=== PATIENT | male | born 1925 | race Caucasian/White ===

== ENCOUNTER 2016-07-23 08:28 | Observation (INO) | payer OTHER ==
[~2016-07-23] VITALS: Ht 182.9 cm; Wt 91.6 kg
[~2016-07-23 08:28] MED LIST: ALBUTEROL2.5 MG/3 M INH/SOL; ANTIVERT 12.512.5 MG PO; ANTIVERT 25 MG25 MG PO; APIX2.5 PO; ATIVAN0.5 M1 PO; ATIVAN0.5 MG PO; ATORVASTATIN CA80 M1 PO; ATORVASTATIN CA80 MG PO; AUGMENTIN 875875 MG PO; B-12500 MC1 PO; BENZONATATE100 M1 PO; BUFFERIN LOW DO81 MG PO; CARVEDILOL12.5 MG PO; CARVEDILOL3.125 MG PO; CARVEDILOL6.25 M1 PO; CARVEDILOL6.25 MG PO; CHILDREN'S ASPI81 M1 PO; CIPRO 250MG250 MG PO; CLOPIDOGREL75 MG PO; COREG 6.256.25 MG PO; COUMADIN 4MG TAB4 MG PO; DIOVAN 160 MG160 MG PO; DIOVAN160 MG PO; DIOVAN320 MG PO; DIOVAN80 MG PO; DOXYCYCLINE MO100 MG PO; ELIQUIS2.5 M1 PO; FINASTERIDE5 M1 PO; FINASTERIDE5 MG PO; FLOMAX(MONOGRA0.4 MG PO; FUROSEMIDE20 M1 PO; FUROSEMIDE20 MG PO; GLIPIZIDE5 MG PO; LASIX20 MG PO; MAGNESIUM OXID400 MG PO; MAGNESIUM250 M3 PO; MUCINEX ER600 MG PO; MUCINEX600 M1 PO; NITRO-DUR0.4 MG/HR TOP; NITROGLYCERIN0.4 M1 SL; NITROGLYCERIN1 EACH TOP; PENTOXIFYLLINE400 M1 PO; PREDNISONE 10MG10 M1 PO; PREDNISONE 20MG20 MG PO; PREDNISONE10 MG PO; PROAIR HFA0.09 MG/Ac INH; PROAIR HFA8.5 GM INH; PROS5 PO; SYMBICORT 16010.2 GM INH; SYMBICORT1 AER INH; TAMIFLU30 MG PO; TAMSULOSIN HYD0.4 MG PO; TESSALON PERLE100 MG PO; TYLENOL WITH C1 EACH PO; VICODIN 5-3001 EACH PO; VICODIN5-300 PO; VITAMIN D2000 I1 PO; VITAMIN D2000 UNI1 PO; ZITHROMAX500 MG PO
--- NOTE | 2016-07-23 08:36 | NUR ---
GERMÁNA FROM HOME, WITH C/O LEFT NECK PAIN "GOING UP TO HEAD". PER EMS PT WAS SEEN AT [facility] ON TUESDAY FOR THE SAME, GIVEN BACLOPHEN, MUSCLE RELAXORS,PT STATING "IT DOESN'T DO ANYTHING". PER PT HAD XRAYS AND CT SCAN -FRACTURES, DIAGNOSED WITH ARTHRITIS. "I DO GET CORISONE SHOTS TO MY WRIST, BUT NEVER HAD ANYTHING IN MY NECK". PT DENIES FALL OR INJURY TO THE AREA. PT C/O INCREASED PAIN "WHEN I PRESS ON IT".
--- NOTE | 2016-07-23 08:37 | NUR ---
DR BAGLEY IN TO EVAL AT THIS TIME.
--- NOTE | 2016-07-23 08:46 | ED NECK/BACK PAIN COMPLAINT ---
See Addendum History of Present Illness General Chief Complaint: Neck/Upper Back Pain/Injury Stated Complaint: NECK PAIN Source: patient, EMS Exam Limitations: no limitations Vital Signs & Intake/Output Vital Signs & Intake/Output Vital Signs Date Time Temp Pulse Resp B/P Pulse O2 O2 Flow FiO2 Ox Delivery Rate 07/23 1019 97.0 61 18 191/126 99 Room Air 07/23 0835 97.5 63 20 205/91 100 Room Air Room Air Allergies Coded Allergies: amoxicillin (From [facility]) (UNKNOWN 04/23/16) clarithromycin (From [facility]) (UNKNOWN 04/23/16) diazepam (UNKNOWN 04/23/16) lansoprazole (From [facility]) (UNKNOWN 04/23/16) morphine (Intermediate, LETHARGY, CONFUSION 04/23/16) meclizine (CONFUSION 04/23/16) Reconcile Medications Albuterol Sulfate (Proair Hfa) 90 MCG HFA.AER.AD 2 PUFF INH Q6P PRN RESPIRATORY (Reported) Albuterol Sulfate 2.5 MG/3 ML (0.083 %) VIAL.NEB 1 Vial INH/DANDY Q4P SHORTNESS OF BREATH (Reported) Apixaban (Eliquis) 2.5 MG TABLET 1 TAB PO BID BLOOD THINNER (Reported) Aspirin (Children's Aspirin) 81 MG TAB.CHEW 1 TAB PO DAILY HEART HEALTH ( Reported) Atorvastatin Calcium 80 MG TABLET 1 TAB PO DAILY CHOLESTEROL (Reported) Budesonide/Formoterol Fumarate (Symbicort 160-4.5 Mcg Inhaler) 160 MCG-4.5 MCG/ ACTUATION HFA.AER.AD 2 PUF INH BID COPD (Reported) Carvedilol 25 MG TABLET 1 TAB PO BID HEART (Reported) Cholecalciferol (Vitamin D3) (Vitamin D) 2,000 UNIT TABLET 1 TAB PO DAILY SUPPLEMENT (Reported) Cyanocobalamin (Vitamin B-12) (B-12) 500 MCG TABLET 1 TAB PO DAILY SUPPLEMENT (Reported) Finasteride 5 MG TABLET 1 TAB PO QPM PROSTATE (Reported) Furosemide 20 MG TABLET 1 TAB PO DAILY PRN WATER PILL (Reported) Guaifenesin (Mucinex) 600 MG TAB.ER.12H 1 TAB PO BID PRN UNKNOWN (Reported) Lorazepam (Ativan) 0.5 MG TABLET 0.5 TAB PO BIDP PRN ANXIETY (Reported) Nitroglycerin 0.4 MG TAB.SUBL 1 TAB SL AD PRN ANGINA (Reported) 1st sign of attack; may repeat every 5 minutes until relief; if pain persists after 3 tablets in 15 minutes, prompt medical att Tylenol With Codeine (Tylenol With Codeine #3 Tablet) 300 MG-30 MG TABLET 1 TAB PO Q6P PRN PAIN (Reported) Valsartan 320 MG TABLET 1 TAB PO DAILY HEART (Reported) Triage Note: BIBA FROM HOME, WITH C/O LEFT NECK PAIN "GOING UP TO HEAD". PER EMS PT WAS SEEN AT [facility] ON TUESDAY FOR THE SAME, GIVEN BACLOPHEN, MUSCLE RELAXORS,PT STATING "IT DOESN'T DO ANYTHING". PER PT HAD XRAYS AND CT SCAN -FRACTURES, DIAGNOSED WITH ARTHRITIS. "I DO GET CORISONE SHOTS TO MY WRIST, BUT NEVER HAD ANYTHING IN MY NECK". PT DENIES FALL OR INJURY TO THE AREA. Triage Nurses Notes Reviewed? yes Onset: Abrupt Duration: day(s):, continues in ED, intermittent Timing: multiple episodes today Quality/Severity: severe, sharpness Location: LEFT NECK Radiation: none HPI: Patient presents for evaluation of left sided neck pain. He was evaluated at [facility] ago. Patient states that he had a CAT scan of the neck done and was told he had arthritis. Since then he has had an onset of a sharp stabbing pain over the left occipital region that occurs every 2 or 3 minutes and lasts for about 30 seconds at a time. The pain is worse with palpation and movements. Past History Travel History Traveled to [place] past 21 day No Medical History Any Pertinent Medical History? see below for history Neurological: dizziness, NUMB 1ST THREE L FINGERS EENT: [place] BILATERAL CATARACTS Cardiovascular: AFIB, CAD, CHF, hypertension, CARDIAC STENTS X 4 NV x5 HLD Respiratory: COPD, pulmonary embolism Gastrointestinal: ABDOMINAL AORTIC ANEURYSM HERNIA REPAIR Hepatic: NONE Renal: chronic kidney disease Musculoskeletal: carpal tunnel syndrome ARTHRITIS Psychiatric: NONE Endocrine: diabetes Blood Disorders: DVT Cancer(s): melanoma BARTACKER/Reproductive: BPH History of MRSA: No History of VRE: No History of CDIFF: No Surgical History Surgical History: cardiac stents Psychosocial History Who do you live with Patient/Self Services at Home None What is your primary language Spanish Tobacco Use: Quit >30 days ago ETOH Use: denies use Illicit Drug Use: denies illicit drug use Family History Family History, If Any: SISTER FH: heart failure FHx: hypertension MOTHER FH: myocardial infarction FHx: hypertension FATHER FHx: hypertension Hx Contributory? No Review of Systems Review of Systems Constitutional: Reports: no symptoms. Eyes: Reports: no symptoms. Ears, Nose, Throat, Mouth: Reports: no symptoms. Respiratory: Reports: no symptoms. Cardiovascular: Reports: no symptoms. Gastrointestinal/Abdominal: Reports: no symptoms. Musculoskeletal: Reports: see HPI. Skin: Reports: no symptoms. Neurological/Psychological: Reports: no symptoms. All Other Systems: Reviewed and Negative Physical Exam Physical Exam Neck: SEE BELOW Comments: Gen.: Well-nourished, well-developed, no acute respiratory distress. Head: Normocephalic, atraumatic. Eyes: Normal inspection bilaterally Ears: Normal inspection bilaterally Nose: Normal inspection Throat/mouth : Moist mucosa Neck: Supple when not in pain, spasms of severe left neck pain, tenderness over the left occipital region and left paraspinal musculature of the neck, no rashes ecchymoses or soft tissue swelling noted. Heart: Regular rate and rhythm Lungs: Quiet respirations Back: Normal range of motion Extremities: Normal range of motion grossly, equal radial pulses, sensation and strength intact to the upper extremities Neurologic: Cranial nerves grossly intact, speech is mildly dysarthric secondary to loose fitting dentures Skin: warm and dry Psychiatric: Calm, cooperative, no apparent delusions or hallucinations Progress Differential Diagnosis: herniated disc, myofascial strain, MUSCLE SPASMS Plan of Care: Orders Procedure Date/time Status Durable Medical Equipment 07/23 1121 Active Comments: 07/23/2016 8:47:24 AM patient's case discussed with the ED M.D. at [facility] emergency department, who confirmed the patient had a noncontrast CAT scan of the cervical spine that showed multilevel degenerative changes and spinal stenosis. Given the patient's spasms of pain every few minutes and lasting for only seconds at a time I doubt vertebral dissection. 07/23/2016 11:18:15 AM patient states he has had virtually no relief of his episodes of pain. I will re-medicate. 07/23/2016 12:44:13 PM according to the patient's nurse he is sleeping. 07/23/2016 1:27:42 PM unfortunately and quite suddenly, this patient's son had an attack of chest pain requiring him to be evaluated in the emergency department and subsequently transferred to [facility]. PT SON HAS asked us to not tell his father until his (the patient's [id number]) Arrives. 07/23/2016 2:00:23 PM patient's [id number] came to the emergency department and saw Juice. She has updated him on is occurred with his son. The patient is still a little groggy from the medications administered so I am allowing his head to clear a bit more before discharge. I have placed him in a soft cervical collar. Departure Departure Disposition: HOME OR SELF CARE Condition: Stable Clinical Impression Primary Impression: Neck muscle spasm Referrals: ANGELI VILLALOBOS MD (PCP/Family) Additional Instructions: Continue your current medications except for Tylenol with codeine. Vicodin and Flexeril as prescribed for neck pain or spasms. No exertion or heavy lifting. Follow-up with your primary care doctor on Tuesday. Return if any concerns or sudden worsening. Departure Forms: Customer Survey General Discharge Information
--- NOTE | 2016-07-23 09:45 | NUR ---
MED ORDERED WITH ATIVAN 0.5MG IM AND VICODEN 1 TABL PO, TOLERATED WELL. SON AT BEDSIDE.
--- NOTE | 2016-07-23 10:30 | NUR ---
PT NAPPING ON AND OFF. NO COMPLAINTS AT PRESENT.
--- NOTE | 2016-07-23 11:35 | NUR ---
PT AWAKE, C/O INTERMITTENT NECK SPASMS. MED WITH ATIVAN 1MG PO AND FLEXARIL 10MG PO, TOLERATED WELL.
--- NOTE | 2016-07-23 12:20 | NUR ---
PT NAPPING AT THIS TIME
--- NOTE | 2016-07-23 15:30 | NUR ---
ASSUMED CARE OF THIS PATIENT REPORT RECEIVED FROM RN GABRIEL CAMARENA PT LAYING ON STRETCHER IN ERH RM 10, SLEEPING, AWAKENS EASILY TO TOUCH. PT CLEARED FOR D/C BUT HAS NO TRANSPORTATION AT THIS TIME. FAMILY DENTIST TAYLOR CHECKING TO SEE IF PATIENT QUALIFIES FOR TRANSPORTATION HOME.
--- NOTE | 2016-07-23 16:39 | NUR ---
SON (JUAN JOSE) ARRIVED. ATTEMPTED TO GET PT OOB TO TRIAL WALKING, AMBULATES WITHOUT AID OF WALKER OR CANE AT BASELINE. PT COMPLAINS OF FEELING DIZZY AND FUZZY (S/P MEDICATIONS), PT UNABLE TO AMBULATE AT THIS TIME. SON FEELS PATIENT IS UNSAFE TO GO HOME AT THIS TIME. DR BAGLEY MADE AWARE OF SAME.
--- NOTE | 2016-07-23 18:19 | NUR ---
DINNER TRAY ORDERED FROM [facility]
--- NOTE | 2016-07-23 18:45 | NUR ---
DINNER TRAY ARRIVED BUT PATIENT REFUSED SAME AT THIS TIME.
--- NOTE | 2016-07-23 19:37 | NUR ---
MANISH HURT PAGED AT [id number] REGARDING MEDICATION SCHEDULING.
--- NOTE | 2016-07-23 19:44 | NUR ---
PT ALERT AND ORIENTED, REQUESTING FOR SOFT COLLAR TO BE REMOVED, PT STATES "IT IS BOTHERING ME."
--- NOTE | 2016-07-23 20:03 | NUR ---
[facility] [id number] PAGED AGAIN.
--- NOTE | 2016-07-23 20:05 | NUR ---
HOUSESTAFF RETURNED CALL. PER LICHA, WILL CHANGE MEDICATION ORDER TO AN EARLIER TIME.
--- NOTE | 2016-07-23 20:24 | NUR ---
PT MEDICATED WITH 25MG CARVEDILOL PO.
--- NOTE | 2016-07-23 20:24 | History & Physical ---
MATHEW URBANO,TONO 07/23/162023: General Information and HPI MD Statement: I have seen and personally examined JUAN JOSE CHAIDEZ and documented this H&P. The patient is a 89 year old M who presented with a patient stated chief complaint of neck pain . Source of Information: patient Exam Limitations: no limitations History of Present Illness: This is an 89 yo gentleman with a PMH of Afib (on Eliquis), COPD, Hx of PE, [place] X4 s/p stent placement, pacemaker implantation in october 2015, AAA repair, HTN, DM , resents to [place] ED for evaluation of neck pain. Patient states that about 4 days ago on Tuesday while sitting on his recliner and watching TV, he developed sudden onset of left-sided neck pain. Patient describes his neck pain as stabbing, localized around his posterior neck muscles below the occipital area rates it a 10 out of 10 when it's worse. Patient states that his episodes of pain are intermittent lasting about 15 seconds and occurring multiple times through the day. Associated symptoms include some blurry vision that occurred the same time with the neck pain. He denies any recent neck trauma. Patient reports that his symptoms persisted the following the next day on Tuesday, however due to the snowstorm, he was unable to present himself to the ED until on Tuesday. He was seen at [place] [facility], he was evaluated and a CT neck was obtained which was unremarkable other than some findings of arthritic changes on the cervical spine. He was then sent home with baclofen and Tylenol with codeine which he reports did not help at all with his pain. Patient denies any chest pain, palpitation, most of breath, dizziness, history of headaches, fever, chills, nausea, vomiting, abdominal pain or dysuria. Baseline, patient is independent with his ADLs and ambulates freely. Allergies/Medications Allergies: Coded Allergies: amoxicillin (From PREVPAC) (UNKNOWN 04/23/16) clarithromycin (From PREVPAC) (UNKNOWN 04/23/16) diazepam (UNKNOWN 04/23/16) lansoprazole (From PREVPAC) (UNKNOWN 04/23/16) morphine (Intermediate, LETHARGY, CONFUSION 04/23/16) meclizine (CONFUSION 04/23/16) Home Med list Albuterol Sulfate (Proair Hfa) 90 MCG HFA.AER.AD 2 PUFF INH Q6P PRN RESPIRATORY (Reported) Albuterol Sulfate 2.5 MG/3 ML (0.083 %) VIAL.NEB 1 Vial INH/DANDY Q4P SHORTNESS OF BREATH (Reported) Apixaban (Eliquis) 2.5 MG TABLET 1 TAB PO BID BLOOD THINNER (Reported) Aspirin (Children's Aspirin) 81 MG TAB.CHEW 1 TAB PO DAILY HEART HEALTH ( Reported) Atorvastatin Calcium 80 MG TABLET 1 TAB PO DAILY CHOLESTEROL (Reported) Budesonide/Formoterol Fumarate (Symbicort 160-4.5 Mcg Inhaler) 160 MCG-4.5 MCG/ ACTUATION HFA.AER.AD 2 PUF INH BID COPD (Reported) Carvedilol 25 MG TABLET 1 TAB PO BID HEART (Reported) Cholecalciferol (Vitamin D3) (Vitamin D) 2,000 UNIT TABLET 1 TAB PO DAILY SUPPLEMENT (Reported) Cyanocobalamin (Vitamin B-12) (B-12) 500 MCG TABLET 1 TAB PO DAILY SUPPLEMENT (Reported) Finasteride 5 MG TABLET 1 TAB PO QPM PROSTATE (Reported) Furosemide 20 MG TABLET 1 TAB PO DAILY PRN WATER PILL (Reported) Guaifenesin (Mucinex) 600 MG TAB.ER.12H 1 TAB PO BID PRN UNKNOWN (Reported) Lorazepam (Ativan) 0.5 MG TABLET 0.5 TAB PO BIDP PRN ANXIETY (Reported) Nitroglycerin 0.4 MG TAB.SUBL 1 TAB SL AD PRN ANGINA (Reported) 1st sign of attack; may repeat every 5 minutes until relief; if pain persists after 3 tablets in 15 minutes, prompt medical att Tylenol With Codeine (Tylenol With Codeine #3 Tablet) 300 MG-30 MG TABLET 1 TAB PO Q6P PRN PAIN (Reported) Valsartan 320 MG TABLET 1 TAB PO DAILY HEART (Reported) Past History Travel History Traveled to [place] past 21 day No Medical History Neurological: dizziness, NUMB 1ST THREE L FINGERS EENT: [place] BILATERAL CATARACTS Cardiovascular: AFIB, CAD, CHF, hypertension, CARDIAC STENTS X 4 [place] x5 HLD Respiratory: COPD, pulmonary embolism Gastrointestinal: ABDOMINAL AORTIC ANEURYSM HERNIA REPAIR Hepatic: NONE Renal: chronic kidney disease Musculoskeletal: carpal tunnel syndrome ARTHRITIS Psychiatric: NONE Endocrine: diabetes Blood Disorders: DVT Cancer(s): melanoma DIRECTOR DERMATOLOGY/Reproductive: BPH History of MRSA: No History of VRE: No History of CDIFF: No Surgical History Surgical History: cardiac stents Past Family/Social History Family History Relations & Conditions if any SISTER FH: heart failure FHx: hypertension MOTHER FH: myocardial infarction FHx: hypertension FATHER FHx: hypertension Psychosocial History Who Do You Live With? self Services at Home: None Primary Language: Bermudian ETOH Use: denies use Illicit Drug Use: denies illicit drug use Living Will? yes Functional Ability ADLs Independent: dressing, eating, toileting, bathing. Ambulation: independent IADLs Independent: shopping, housework, finances, food prep, telephone, transportation , medication admin. Review of Systems Review of Systems Constitutional: Reports: no symptoms. EENTM: Denies: blurred vision. Cardiovascular: Reports: no symptoms. Respiratory: Reports: no symptoms. GI: Reports: no symptoms. Genitourinary: Reports: no symptoms. Musculoskeletal: Reports: no symptoms, neck pain. Skin: Reports: no symptoms. Neurological/Psychological: Denies: depressed, dementia, emotional problems. Hematologic/Endocrine: Reports: no symptoms. Immunologic/Allergic: Reports: no symptoms. Exam & Diagnostic Data Last 24 Hrs of Vital Signs/I&O Vital Signs Date Time Temp Pulse Resp B/P Pulse O2 O2 Flow FiO2 Ox Delivery Rate 07/23 2118 97.3 97 18 155/71 94 Room Air 07/23 202 98.7 71 18 187/90 07/23 1902 73 167/66 07/23 1901 97.4 69 20 196/90 95 Room Air 07/23 1626 141/72 07/23 1454 97.2 66 18 188/82 96 Room Air 07/23 1019 97.0 61 18 191/126 99 Room Air 07/23 0835 97.5 63 20 205/91 100 Room Air Room Air Intake & Output 07/23 1600 07/23 0800 07/23 0000 Intake Total Output Total Balance Patient 91.626 kg Weight Physical Exam General Appearance Alert, Oriented X3, Cooperative Skin No Significant Lesion HEENT Atraumatic, PERRLA, EOMI Neck Supple, tenderness elicited on palpation of posterior left neck muscle below ocipital area. Lymphatic Cervical nl Cardiovascular Regular Rate, Normal S1, Normal S2 Lungs Clear to Auscultation, Normal Air Movement Abdomen Normal Bowel Sounds, Soft, No Tenderness, No Hepatospenomegaly Neurological Normal Speech, Strength at 5/5 X4 Ext, Sensation Intact, Cranial Nerves 3-12 NL, Reflexes 2+ Extremities Normal Pulses, No Tenderness/Swelling Vascular Pulses Symmetrical Last 24 Hrs of Labs/Jeff: Laboratory Tests 07/23/162305: C-React Prot High Sens Pending, ESR Westergren Pending 07/23/162305: Sodium Pending, Potassium Pending, Chloride Pending, Carbon Dioxide Pending, Anion Gap Pending, BUN Pending, Creatinine Pending, BUN/Creatinine Ratio Pending , CBC w Diff Pending, WBC Pending, RBC Pending, Hgb Pending, Hct Pending, MCV Pending, MCH Pending, RDW Pending, Plt Count Pending, MPV Pending, PUBS MCHC Pending Assessment/Plan Assessment: This is a 89-year-old male with a history of arthritis and extensive cardiac history including poor MIs, hypertension, pacemaker placement, presents for evaluation 5 day onset constant neck pain that seems to have been refractory to Tylenol with codeine and cyclobenzaprine. Patient was recently evaluated at an increase in ED with unremarkable CT findings other than arthritic changes. At the ED and was noted to have elevated blood pressures, otherwise the rest of vitals are unremarkable. His physical findings were remarkable for mild to moderate distress during intermittent pain bursts. However, no radicular findings were noted with the neuro exam being unremarkable. Assessment and plan #Neck pain Transient intermittent localized left-sided neck pain. Possible etiologies include muscle spasm, cervical radiculopathy(even though there are no radicular findings on physical examination and previous CT) ,carotid dissection in a patient with an extensive cardiac history including a AAA (however the transient intermittent episodes, with no focal neurological deficits might go against this etiology ), his history of arthritis can also make subluxation a possible etiology however he does not present with any radicular findings on examination and a CT finding was also unremarkable(CT finding results in [place] were discussed between [facility] physician and [facility] physician). The associated symptom vision changes accompanied by the lateral neck pain warrants consideration of temporal arteritis. Plan * Admit to general medicine floor * Will start ibuprofen 800 mg 3 times a day * Lidocaine patch * Ultrasound to rule out dissection * Obtain C-reactive protein and ESR #Elevated blood pressures Most likely secondary to pain. Expect resolution with appropriate pain medication. We'll also continue home BP meds of losartan and carvedilol. # history of CAD Will continue aspirin, nitroglycerin, carvedilol, and statin. #History of COPD No current exacerbation noted. We'll continue home meds of a beautiful and Symbicort #History of A. fib Will continue carvedilol and apixaban As Ranked By This Provider Problem List: 1. Neck pain Core Measures/Miscellaneous Acute Coronary Syndrome ACS Diagnosis: No Cerebrovascular Accident CVA/TIA Diagnosis: No Congestive Heart Failure CHF Diagnosis: No Venous Thromboembolism VTE Risk Factors: Age > 40 No [facility] VTE prophylaxis d/t: No contraindications No VTE Pharm Prophylaxis d/t: No contraindications VTE Diagnosis: No VTE Type: NONE VTE Confirmed by (Test): NONE Severe Sepsis Severe Sepsis Present: No Septic Shock Septic Shock Present: No Miscellaneous Documentation Attending Case Discussed With: ULI XIAO MD Primary Care Physician: ANGELI VILLALOBOS MD Patient sees these Specialists cardiology Level of Patient Care: General Medicine ANTIONETTE HURT 07/23/16 2244: Resident Review Statement Other Findings: 84-year-old woman with past medical history of A. fib on Eliquis, COPD not on home oxygen, history of PE, [place] x 4 ,status post stent placement x 5, PCM implantation in 2015, AAA repair, hypertension, diabetes melitis is being admitted for the evaluation of left-sided neck pain. Pain started on 11/18/2016 when the patient was sitting in the couch watching TV. It was acute in onset, sharp, stabbing, over the left occipital region associated with transient blurring of vision. Patient states the pain lasts for comes in spasms and lasts for about a few seconds to a few minutes. It gets worse with neck movements. Denies any chest pain, shortness of breath, palpitations, focal neurological deficits, loss of consciousness, trauma to the neck, strenuous exercises, falls. Patient wanted to go to the hospital on Tuesday however couldn't go because of the snow. He was taken to [facility] on 07/21/16 at 6 AM and a CAT scan and x-ray done which were negative for any acute pathology. They showed some chronic arthritic changes on the spine. He was discharged on baclofen and acetaminophen codeine from the ER which the patient claims did not help him a bit. In [facility] he was given Vicodin , Flexeril and Ativan this morning with some improvement. He was supposed to go home however was weak on his feet secondary to the drowsiness caused by Flexeril. In the ED vitals temperature 97.5, pulse 62, respiration 20, blood pressure 205/ 91, saturating 100% on room air No labs/imaging were done Physical examination: Gen.: Awake, alert and oriented 3, moderate distress HEENT: Severe restriction of neck movements, tenderness to palpation on the left neck muscles. No tightness noted. PERRLA, EOMI. No tenderness on palpation over the temples of the jaws. CVS: Regular rate and rhythm, S1-S2 heard. Chest: Regular breath sounds, no adventitious sounds Neurological: Power 4 / 5 in the lower secondary to osteoarthritis. Reflexes intact. Cranial nerves II through XII intact. Extremities: No edema, swelling, pulses intact Plan: # Acute Neck pain: Likely neck muscle spasm. No focal neurological deficits. No vision abnormalities/no Fletcher's /No hindu tenderness. No history of migraines. Differentials migraine/tension headache/temporal arteritis/ muscle spasm. CT scan from the [facility] showed multilevel degenerative changes and spinal stenosis as per the ER doctor who had a conversation with [facility] ER physician. Patient has been admitted multiple times in 2005 for syncope/dizziness -Admit to [facility] -Lidoderm patches for pain control -Ibuprofen 600 mg every 6 when necessary -IV Toradol if necessary for severe pain -Continue when necessary Ativan dose -We'll check ESR and C-reactive protein to rule out acute inflammatory process/ temporal arteritis -We'll try to obtain CAT scan records from yesterday -Physical therapy consult for ambulation unsafe discharge # COPD Continue home meds Symbicort and albuterol # Elevated blood pressure: Likely secondary to pain. Improved with pain medications -Continue home meds carvedilol and losartan for pressure control. # History of coronary artery disease/A. fib, hypertension Continue aspirin, statin, Eliquis, Lasix, nitroglycerin when necessary, carvedilol,eliquis and losartan Heart healthy diet DNR/DNI Mild/moderate/severe pain pathway DVT prophylaxis :ULI Benavidez 07/24/16 0249: Attending MD Review Statement Attending Statement Attending MD Statement: examined this patient, discuss w/resident/PA/BOOT TRIMMER, agreed w/resident/PA/BOOT TRIMMER, reviewed EMR data (avail), reviewed images, amended to note Attending Assessment/Plan: CC: neck pain, headache PMH: A. fib, CAD, [place] S/P stents, S/P biventricular pacemaker /defibrillator AAA repair, HTN, OA, BPH Patient presents in ER for left sided neck pain, headache. He was evaluated at [facility] 2 days ago for the same and was told that he may have arthritis in neck after getting CT scan. He was discharged on Tylenol 3 and baclofen, he took this medications without much relief. Came again here for reevaluation, pain is sharp, back of neck near occipital area, shooting, comes and goes, positional relief, and when pain is severe, he gets headache. , No dizziness, LOC, palpitations, chest pain, trauma, or tinnitus, nausea or any neurological weakness. Patient endorses some blurry vision intermittently. Vitals: Unremarkable. On examination: A O 3, no distress, patient anxious secondary to pain, patient gets this intermittent spasms and has facial grimace after that. Complete neurological examination and vision exams unremarkable. CVS : S1-S2 RS: Clear to auscultate bilaterally. Abdomen: Soft, and the, bowel sounds present. No dependent edema. Labs: CBC unremarkable, ESR 18. Potassium 5.3, BUN 36, creatinine 1.4 (unchanged ) no imaging was obtained in Er. A and P #1 neck pain: Patient had recent CT scan in [facility], which was showing multilevel degenerative changes and spinal stenosis according to ER note. Currently patient does not have any focal neurological deficits, vision cranial nerves intact. Patient has this intermittent spasmodic pain, probably secondary to muscle spasm. We will try pain control with lidocaine patch, local heat compresses, NSAID, Tylenol. Reevaluate in a.m., OT PT evaluation. Obtain recent imaging from [facility] Obtain CRP, ESR to rule out any other inflammatory process. #2 continue all his home medications for HTN, COPD, A. fib, CAD, BPH : Albuterol , Eliquis, aspirin, atorvastatin, carvedilol, finasteride, Lasix, valsartan. Of note patient had been hospitalized several times in 2016 for syncopal episodes and dizziness.
--- NOTE | 2016-07-23 20:31 | NUR ---
BED ASSIGNMENT 209-
--- NOTE | 2016-07-23 20:39 | NUR ---
REPORT GIVEN TO SUZETTE ON 2NB. BED IS READY.
--- NOTE | 2016-07-23 20:50 | NUR ---
HOUSESTAFF AT BEDSIDE. HOUSESTAFF REQUESTS IV ESTABLISHMENT SO PT CAN RECEIVE IV PAIN MEDICATIONS.
--- NOTE | 2016-07-23 21:45 | NUR ---
[employer] CALLED AGAIN FOR TRANSPORT. [employer] STATED THAT TRANSPORT IS ON THEIR WAY.
[2016-07-23 23:34] LABS: ABSOLUTE BASOPHIL COUNT 0 /CUMM (0.0-0.2); ABSOLUTE EOSINOPHIL COUNT 0.1 /CUMM (0.0-0.7); ABSOLUTE LYMPH COUNT 1.2 /CUMM (1.2-3.4); ABSOLUTE MONOCYTE COUNT 0.5 /CUMM (0.10-0.60); BASOPHIL % 0.4 % (0.0-2.0); EOSINOPHIL % 2.3 % (0-5); HEMATOCRIT 39.7 % (42-52); MEAN CORPUSCULAR HGB 27.6 PG (27.0-31.0); MEAN CORPUSCULAR HGB CONC 32.8 G/DL (33.0-37.0); MEAN CORPUSCULAR VOLUME 84.2 FL (80.0-94.0); MEAN PLATELET VOLUME 9.8 FL (7.4-10.4); PLATELET COUNT 107 /CUMM (130-400); RBC DISTRIBUTION WIDTH 15.5 % (11.5-14.5); RED BLOOD CELL CT 4.71 /CUMM (4.70-6.10); WHITE BLOOD CELL COUNT 5.8 /CUMM (4.8-10.8)
[2016-07-23 23:38] VITALS: BP 158/88
--- NOTE | 2016-07-23 23:45 | NUR ---
PT ARRIVED TO FLOOR @ 2230 VIA STRETCHER WITH [employer] STAFF. PT AMBULATED INDEPENDENTLY. A/OX3, 95% ROOM AIR, BP 158/88, P 66, T 98.1, NECK PAIN 310. ALPS PER ORDER, CALL [facility] IN REACH, EXPLAINED USE, PT EXPRESSED VERBAL UNDERSTANDING. WILL CONTINUE TO MONITOR.
--- NOTE | 2016-07-24 07:01 | PN- Housestaff ---
See Addendum Subjective Follow-up For: Acute Neck pain Complaints: neck pain a little better. Subjective: Patient reports slight improvement in his neck pain symptoms. Continues to have some intermittent spasmodic episodes of pain. No vision changes. Review of Systems Constitutional: Reports: malaise, weakness. EENTM: Reports: blurred vision (neck pain). Cardiovascular: Reports: no symptoms. Respiratory: Reports: no symptoms. Gastrointestinal: Reports: no symptoms. Genitourinary: Reports: no symptoms. Musculoskeletal: Reports: muscle pain, muscle stiffness, neck pain. Skin: Reports: no symptoms. Objective Last 24 Hrs of Vital Signs/I&O Vital Signs Date Time Temp Pulse Resp B/P Pulse O2 O2 Flow FiO2 Ox Delivery Rate 07/23 2338 98.1 66 20 158/88 95 Room Air 07/23 2119 97.3 97 18 155/71 94 Room Air 07/234 98.7 71 18 187/90 07/23 1902 73 167/66 07/23 1901 97.4 69 20 196/90 95 Room Air 07/23 1626 141/72 07/23 1454 97.2 66 18 188/82 96 Room Air 07/23 1019 97.0 61 18 191/126 99 Room Air 07/23 0835 97.5 63 20 205/91 100 Room Air Room Air Intake & Output 07/24 0800 07/24 0000 07/23 1600 Intake Total 170 480 Output Total Balance 170 480 Intake, IV 50 Intake, Oral 120 480 Patient 91.626 kg Weight Physical Exam General Appearance: Alert, Oriented X3, Moderate Distress Skin: some bruises over the arms HEENT: severe ROM and tenderness over the left neck muscles Neck: Supple, No JVD, neck muscle tenderness on the left side with severe ROM Cardiovascular: Regular Rate, Normal S1, Normal S2 Lungs: Clear to Auscultation, Normal Air Movement Abdomen: Normal Bowel Sounds, Soft, No Tenderness Neurological: Normal Speech, Normal Tone, Sensation Intact, Cranial Nerves 3-12 NL, Reflexes 2+, 4/5 POWER IN B/L LOWER EXTREMITIES DUE TO OA Extremities: No Clubbing, No Cyanosis, No Edema Current Medications: Current Medications Sig/Ashley Start time Last Medication Dose Route Stop Time Status Admin Acetaminophen 1,000 MG Q6P PRN 07/23 2144 AC 07/24 IV 0526 Acetaminophen/ 0 .STK-MED ONE 07/23 0938 DC Hydrocodone Bitart PO Acetaminophen/ 1 TAB ONCE ONE 07/23 0900 DC 07/23 Hydrocodone Bitart PO 07/23 0901 0941 Albuterol Sulfate 2 PUF Q6P PRN 07/23 2245 AC INH Apixaban 2.5 MG BID 07/24 1000 AC PO Aspirin 81 MG DAILY 07/24 1000 AC PO Atorvastatin Calcium 80 MG DAILY 07/24 1000 AC PO Budesonide/ 2 PUF BID 07/24 1000 AC Formoterol Fumarate INH Carvedilol 0 .STK-MED ONE 07/23 2019 DC PO Carvedilol 25 MG BID 07/23 2014 AC 07/23 PO 2024 Cyclobenzaprine HCl 10 MG ONCE ONE 07/23 1130 DC 07/23 PO 07/23 1131 1130 Cyclobenzaprine HCl 0 .STK-MED ONE 07/23 1126 DC PO Finasteride 5 MG QPM 07/24 2200 AC PO Furosemide 20 MG DAILY PRN 07/23 2245 AC PO Heparin Sodium 5,000 UNIT Q8 07/23 2200 CAN (Porcine) SC Ibuprofen 600 MG Q6P PRN 07/23 2145 AC PO Lorazepam 0.25 MG BID PRN 07/24 1000 AC PO 07/31 0959 Lorazepam 1 MG ONE ONE 07/23 1130 DC 07/23 PO 07/23 1131 1130 Lorazepam 0 .STK-MED ONE 07/23 1127 DC PO Lorazepam 0 .STK-MED ONE 07/23 0939 DC .ROUTE Lorazepam 0.5 MG ONCE ONE 07/23 0900 DC 07/23 IM 07/23 0901 0941 Losartan Potassium 50 MG DAILY 07/24 1000 AC PO Nitroglycerin 0.4 MG ONCE PRN 07/23 2245 AC SL Oxycodone HCl 10 MG Q6 07/23 2359 CAN PO Last 24 Hrs of Lab/Jeff Results Last 24 Hrs of Labs/Mics: Laboratory Tests 07/23/162305: C-React Prot High Sens 7.5 H, ESR Westergren 18 H 07/23/162305: Anion Gap 9, Estimated GFR 48 L, BUN/Creatinine Ratio 25.7 H, C-Reactive Prot, Quant 1.3 H, CBC w Diff NO MAN DIFF REQ, RBC 4.71, MCV 84.2, MCH 27.6, RDW 15.5 H, MPV 9.8, Gran % 69.0, Lymphocytes % 19.8 L, Monocytes % 8.5, Eosinophils % 2.3, Basophils % 0.4, Absolute Granulocytes 4.0, Absolute Lymphocytes 1.2, Absolute Monocytes 0.5, Absolute Eosinophils 0.1, Absolute Basophils 0, PUBS MCHC 32.8 L Assessment/Plan Assessment: 84-year-old M with past medical history of A. fib on Eliquis, COPD not on home oxygen, history of PE, [place] x 4 ,status post stent placement x 5, PCM implantation in 2016 October, AAA repair, hypertension, diabetes melitis is being admitted for the evaluation of left-sided neck pain. In the ED vitals temperature 97.5, pulse 62, respiration 20, blood pressure 205/ 91, saturating 100% on room air Pertinent labs showed H&H 13/39.7, platelet count 107, creatinine 1.4(around baseline), C-reactive protein 1.3, ESR 18 # Acute Neck pain: Likely neck muscle spasm. No focal neurological deficits. No vision abnormalities/no Fletcher's /No oriental orthodox tenderness. No history of migraines. Differentials migraine/tension headache/temporal arteritis/ muscle spasm. CT scan from the [facility] showed multilevel degenerative changes and spinal stenosis as per the ER doctor who had a conversation with [facility] ER physician. Patient has been admitted multiple times in 2005 for syncope/dizziness -Admit to [facility] -Lidoderm patches for pain control -Ibuprofen 600 mg every 6 when necessary -IV Toradol if necessary for severe pain -Continue when necessary Ativan dose -Elevated ESR and C-reactive protein? Inflammatory process -We'll try to obtain CAT scan records from yesterday -Consider neurology symptoms do not subside. -Consider starting patient on steroids if not responding to pain management. -Physical therapy consult for ambulation unsafe discharge #Hyperkalemia -Repeat BEP in a.m. -Consider giving 1 dose of Kayexalate # COPD Continue home meds Symbicort and albuterol # Elevated blood pressure: Likely secondary to pain. Improved with pain medications -Continue home meds carvedilol and losartan for pressure control. # History of coronary artery disease/A. fib, hypertension Continue aspirin, statin, Eliquis, Lasix, nitroglycerin when necessary, carvedilol, Eliquis and losartan Heart healthy diet DNR/DNI Mild/moderate/severe pain pathway DVT prophylaxis: Eliquis Problem List: 1. Neck pain 2. Neck muscle spasm 3. COPD (chronic obstructive pulmonary disease) Pain Ratin Pain Location: LEFT SIDE OF THE NECK Pain Goal: Pain 4 or less Pain Plan: lidoderm patch iv toradol ibuprofen Tomorrow's Labs & Rationales: bep...hyperkalemia
[2016-07-24 07:35] VITALS: BP 174/86
[2016-07-24 12:20] VITALS: BP 180/76
--- NOTE | 2016-07-24 12:29 | NUR ---
RN IN TO ASSESS PT APPROX AN HOUR POST ADMINISTRATION OF NEW MEDICATION, SOMA. PT HAD BEEN EDUCATED EARLIER TO CALL IF ANY S/S ALLERGIC REACTION OCCURED. PT SEEN BY RN- REPORTED HE FELT "DIZZINESS" AND "BLURRY VISION." VS ASSESSED- T 97.6 P 66 R 18 BP 180/76 O2 SAT 95% ON RA. PT DENIES ANY CHEST PAIN OR N/V. REPORTS NECK PAIN LESS SEVERE NOW. BLOOD SUGAR RECENTLY ASSESSED- 246. DR. DOUGLASS NOTIFIED OF ABOVE. MD ASSESSED PT AT BEDSIDE. TO DISCUSS POSSIBLE POC WITH ATTENDING MD. PT IN NO ACUTE DISTRESS. WILL CONT TO MONITOR.
[2016-07-24 14:36] VITALS: BP 162/82
[2016-07-24 16:10] VITALS: BP 174/82
--- NOTE | 2016-07-24 16:14 | NUR ---
PT'S RECHECK OF BP AND PULSE POST ADMINISTRATION OF PO NORVASC- BP 174/82 PULSE 93. PAIN MEDICINE GIVEN FOR C/O'S PAIN. DR. DOUGLASS NOTIFIED OF ABOVE. WILL CONT TO MONITOR.
[2016-07-24 19:31] VITALS: BP 160/72
--- NOTE | 2016-07-24 19:33 | NUR ---
PT'S BP REASSED- 160/72 WITH PULSE OF 66. DR. DOUGLASS UPDATED. PT IN NO DISTRESS. RESTING AT PRESENT. PAIN MUCH IMPROVED. NIGHT RN TO FOLLOW.
[2016-07-24 22:10] VITALS: BP 150/90
[2016-07-25 06:40] VITALS: BP 124/70
--- NOTE | 2016-07-25 10:00 | NUR ---
LATE ENTRY: PT'S NA LEVEL 131. ALSO, PT NOTED TO BE FEELING "TIRED" AND "WEAK." DR. DOUGLSAS NOTIFIED. PENDING NEW ORDERS. WILL CONT TO MONITOR.
--- NOTE | 2016-07-25 10:06 | PN- Housestaff ---
EVONNE URBANO,ISOKIL 07/25/16 1005: Subjective Follow-up For: left side neck pain Subjective: Afebrile, patient looked lethargic, sleepy and dizzy. Patient has a poor oral intake as he is sleeping most of the day. He denies any current complaint besides feeling dizzy and sleepy. However he reported significant improvement of his neck pain with the muscle relaxant and tramadol Review of Systems Constitutional: Reports: see HPI. Objective Last 24 Hrs of Vital Signs/I&O Vital Signs Date Time Temp Pulse Resp B/P Pulse O2 O2 Flow FiO2 Ox Delivery Rate 07/25 1502 97.7 76 18 130/82 95 Room Air 07/25 1005 78 148/70 07/25 1005 78 148/70 07/25 0640 97.4 68 20 124/70 95 Room Air 07/24 2210 97.6 67 20 150/90 97 07/24 2107 150/90 07/24 1931 66 160/72 07/24 1710 93 174/82 07/24 1610 93 174/82 Intake & Output 07/25 1600 07/25 0800 07/25 0000 Intake Total 825 120 Output Total Balance 825 120 Intake, IV 375 Intake, Oral 450 120 Number 0 Bowel Movements Physical Exam General Appearance: Oriented X3, Cooperative, lethargic and sleepy Skin: No Rashes HEENT: Atraumatic, PERRLA, EOMI, Mucous Membr. moist/pink Assessment/Plan Assessment: #Left side neck pain: Most likely neck muscle spasm. No focal neurological deficits. No vision abnormalities/no Fletcher's /No restoration tenderness. No history of migraines. Differentials migraine/tension headache/temporal arteritis/ muscle spasm. CT scan from the [facility] showed multilevel degenerative changes and spinal stenosis as per the ER doctor who had a conversation with [facility] ER physician. Patient has been admitted multiple times in 2005 for syncope/ dizziness * Tramadol and for pain * We will decrease the Soma does to once daily at bed time as it made the patient dizzy and sleepy * Patient has poor oral intake he will be started on IV fluids * Patient may benefit from outpatient physical therapy. #Hyperkalemia Potassium is 5 today * Repeat BEP tomorrow # COPD * Continue home meds Symbicort and albuterol #HTN * Continue home meds carvedilol and losartan for pressure control. # History of coronary artery disease/A. fib. * Continue aspirin, statin, Eliquis, Lasix, nitroglycerin when necessary, carvedilol, Eliquis and losartan Heart healthy diet Normal saline IV fluids DNR/DNI Mild/moderate/severe pain pathway DVT prophylaxis: Eliquis Problem List: 1. Neck pain Pain Ratin Pain Location: Left neck Pain Goal: Remain pain free Pain Plan: Muscle relaxant Tramadol Tomorrow's Labs & Rationales: See assessment and plan JUAN JOSE ESTRADA MD 07/25/16 1357: Attending MD Review Statement Attending Statement Attending MD Statement: examined this patient, discuss w/resident/PA/MARINA DRY DOCK MANAGER, agreed w/resident/PA/MARINA DRY DOCK MANAGER, reviewed EMR data (avail), amended to note Attending Assessment/Plan: The patient was seen and discussed with house staff and nursing. PO intake poor. Will give IV fluids. Will see if may obtain physical therapy to neck tomorrow. PT stated this is not available as inpatient modality. Also need to consider neck injections/physiatry consult (also not available). Massage therapy is also an option which may be available tomorrow.
[2016-07-25 15:02] VITALS: BP 130/82
[2016-07-25 22:03] VITALS: BP 72/48
[2016-07-25 22:28] VITALS: BP 132/50
[2016-07-25 22:40] VITALS: BP 128/58; BP 80/52
[2016-07-25 23:09] LABS: ABSOLUTE BASOPHIL COUNT 0 /CUMM (0.0-0.2); ABSOLUTE EOSINOPHIL COUNT 0.1 /CUMM (0.0-0.7); ABSOLUTE GRANULOCYTE CT 3.2 /CUMM (1.4-6.5); ABSOLUTE MONOCYTE COUNT 0.5 /CUMM (0.10-0.60); BASOPHIL % 0.5 % (0.0-2.0); EOSINOPHIL % 1.7 % (0-5); GRANULOCYTE % 54.7 % (42.2-75.2); HEMATOCRIT 37.7 % (42-52); MEAN CORPUSCULAR HGB 27.5 PG (27.0-31.0); MEAN CORPUSCULAR HGB CONC 32.5 G/DL (33.0-37.0); MEAN CORPUSCULAR VOLUME 84.7 FL (80.0-94.0); MEAN PLATELET VOLUME 9.7 FL (7.4-10.4); PLATELET COUNT 110 /CUMM (130-400); RBC DISTRIBUTION WIDTH 15.3 % (11.5-14.5); RED BLOOD CELL CT 4.45 /CUMM (4.70-6.10); WHITE BLOOD CELL COUNT 5.9 /CUMM (4.8-10.8)
--- NOTE | 2016-07-25 23:09 | RADIOLOGY REPORT ---
EXAMINATION: XR PORTABLE CHEST CLINICAL INFORMATION: Dx: DISSECTING ANEURYSM ?MEDIASTINAL WIDENING Signs Symptoms: HYPOTENSIVE DIZZINESS, WIDE BP DIFFER B/W R/L ARMS COMPARISON: Chest x-ray 03/24/2016 TECHNIQUE: Portable AP portable view of the chest was obtained. 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 No acute change. Lungs are clear. No pleural effusion or pneumothorax. IMPRESSION: No acute change of the chest.
[2016-07-26 07:13] VITALS: BP 132/92
--- NOTE | 2016-07-26 07:28 | PN- Housestaff ---
EVONNE URBANO,ISDEIL 07/26/16 0728: Subjective Follow-up For: Neck muscle strain Subjective: Afebrile, more awake and alert today comparing to yesterday. Still reporting dizziness. He reported improvement of appetite. There is unremarkable improvement on his neck pain with soma muscle relaxant and tramadol Review of Systems Constitutional: Reports: see HPI. Objective Last 24 Hrs of Vital Signs/I&O Vital Signs Date Time Temp Pulse Resp B/P Pulse O2 O2 Flow FiO2 Ox Delivery Rate 07/26 0713 97.7 77 20 132/92 94 07/25 2240 128/58 07/25 2240 80/52 07/25 2228 66 132/50 07/25 2203 97.9 66 20 72/48 94 07/25 2143 66 76/52 07/25 1502 97.7 76 18 130/82 95 Room Air 07/25 1005 78 148/70 07/25 1005 78 148/70 Intake & Output 07/26 1600 07/26 0800 07/26 0000 Intake Total 600 780 Output Total 320 Balance 280 780 Intake, IV 600 300 Intake, Oral 480 Output, Urine 320 Physical Exam General Appearance: Alert, Oriented X3, Cooperative, No Acute Distress Skin: No Rashes HEENT: Atraumatic, EOMI, dry mouth Cardiovascular: Normal S1, Normal S2, has a pacer Lungs: Clear to Auscultation Neurological: Normal Speech Extremities: No Cyanosis, No Edema Current Medications: Current Medications Sig/Ashley Start time Last Medication Dose Route Stop Time Status Admin Acetaminophen 650 MG Q4P PRN 07/25 1830 AC 07/25 PO 1830 Acetaminophen 1,000 MG Q6P PRN 07/23 2145 DC 07/24 IV 0526 Albuterol Sulfate 2 PUF Q6P PRN 07/23 2245 AC INH Apixaban 2.5 MG BID 07/24 1000 AC 07/25 PO 2143 Aspirin 81 MG DAILY 07/24 1000 AC 07/25 PO 1005 Atorvastatin Calcium 80 MG DAILY 07/24 1000 AC 07/25 PO 1006 Budesonide/ 2 PUF BID 07/24 1000 AC 07/25 Formoterol Fumarate INH 1006 Carisoprodol 350 MG AT BEDTIME 07/25 2200 AC PO Carisoprodol 350 MG TID 07/24 1000 DC 07/24 PO 210 Carvedilol 25 MG BID 07/23 2014 AC 07/25 PO 1005 Finasteride 5 MG QPM 07/24 2200 AC 07/25 PO 2143 Glycerin 2 SPRAY Q2P PRN 07/26 0800 AC PO Losartan Potassium 50 MG DAILY 07/24 1000 AC 07/25 PO 1005 Nitroglycerin 0.4 MG ONCE PRN 07/23 2245 AC SL Sodium Chloride 1,000 ML Q13H 07/25 1145 AC 07/26 IV 0400 Tramadol HCl 50 MG Q6P PRN 07/24 0945 AC 07/25 PO 1938 Last 24 Hrs of Lab/Jeff Results Last 24 Hrs of Labs/Mics: Laboratory Tests 07/26/16 0653: Anion Gap 6, Estimated GFR 48 L, BUN/Creatinine Ratio 24.3, Troponin I Pending 07/25/16 2300: Anion Gap 7, Estimated GFR 41 L, BUN/Creatinine Ratio 23.8, Troponin I 0.10, CBC w Diff NO MAN DIFF REQ, RBC 4.45 L, MCV 84.7, MCH 27.5, RDW 15.3 H, MPV 9.7, Gran % 54.7, Lymphocytes % 34.1, Monocytes % 9.0, Eosinophils % 1.7, Basophils % 0.5, Absolute Granulocytes 3.2, Absolute Lymphocytes 2.0, Absolute Monocytes 0.5, Absolute Eosinophils 0.1, Absolute Basophils 0, PUBS MCHC 32.5 L Assessment/Plan Assessment: #Left side neck pain: Most likely neck muscle spasm. No focal neurological deficits. No vision abnormalities/no Fletchre's /No tenriism tenderness. No history of migraines. His ESR was [address] scan from the [facility] showed multilevel degenerative changes and spinal stenosis as per the ER doctor who had a conversation with [facility] ER physician. Patient has been admitted multiple times in 2005 for syncope/dizziness. ESR was * Tramadol for pain * We'll DC all muscle relaxant as they make patient dizzy and lethargic * We will DC IV fluids as stable can tolerate food * Patient is stable and will most likely be discharged today, we will instruct him to follow up with his primary care doctor and physical therapy as an outpatient. #Hyperkalemia Potassium is 4.7 today * Repeat BEP tomorrow #Hyponatremia 132 today * repeat BEP tomorrow # COPD * Continue home meds Symbicort and albuterol #HTN * Continue home meds carvedilol and losartan. # History of coronary artery disease/A. fib. * Continue aspirin, statin, Eliquis, Lasix, nitroglycerin when necessary, carvedilol, Eliquis and losartan Heart healthy diet Normal saline IV fluids DNR/DNI Mild/moderate/severe pain pathway DVT prophylaxis: Eliquis Problem List: 1. Neck pain Pain Ratin Pain Location: Posterior Left neck and left shoulder Pain Goal: Remain pain free Pain Plan: Tramadol and Soma Tomorrow's Labs & Rationales: SID EMERSON MD,LYNDA 07/26/16 1304: Attending MD Review Statement Attending Statement Attending MD Statement: examined this patient, discuss w/resident/PA/ROD TAPE OPERATOR, agreed w/resident/PA/ROD TAPE OPERATOR, reviewed EMR data (avail), discussed with nursing, discussed with case mgmt, reviewed images, amended to note Attending Assessment/Plan: Patient seen and examined, overall feeling better. Neck pain has reduced on the current regimen. He has been taking tramadol which is helping. He has not required Soma in the last 24 hours. He claims that muscle relaxant made him drowsy and dizzy therefore will stop the muscle relaxant. Reportedly he was seen at [facility] before and had a neck CT done which showed arthritis but nothing else. Patient will be seen by the patient in therapy. We have to determine if he needs outpatient therapy or not. Medically he will be stable for discharge today.
--- NOTE | 2016-07-26 11:13 | NUR ---
PHYSICAL THERAPY- CONSULT RECEIVED, CHART REVIEWED. PER REPORT IN MDR, PT ABLE TO AMBULATE, BUT HAVING NECK PAIN/SPASMS. P.T. ORDERED FOR NECK PAIN, REQUESTED FOR P.T. ORDER TO BE CANCELLED. RECOMMEND PT TO D/C W/ OUTPATIENT P.T. SERVICES IF SYMPTOMS PERSIST. THANK YOU.
[2016-07-26] MEDS ORDERED: TRAMADOL HCL50 M1 PO ×2 (11:32→12:32)
[2016-07-26] MEDS ORDERED: FLOMAX0.4 M1 PO ×2 (12:20)
--- NOTE | 2016-07-26 12:24 | Patient Discharge Instructions ---
Discharge Instructions General Discharge Information You were seen/treated for: Neck muscle spasm Special Instructions: Please follow-up with your primary care doctor within 1 week Please follow-up with physical therapy after you get discharge Please take pain medication as instructed Diet Continue normal diet: Yes Recommended Diet: Heart Healthy Activity Full Activity/No Limits: Yes Activity Self Limited: Yes Acute Coronary Syndrome Inclusion Criteria At DC or during hospital stay patient has or had the following: ACS DIAGNOSIS No Discharge Core Measures Meds if any: Prescribed or Continued at Discharge Meds if any: NOT Prescribed or Continued at Discharge Congestive Heart Failure Inclusion Criteria At DC or during hospital stay patient has or had the following: CHF DIAGNOSIS No Discharge Core Measures Meds if any: Prescribed or Continued at Discharge Meds if any: NOT Prescribed or Continued at Discharge Cerebrovascular accident Inclusion Criteria At DC or during hospital stay patient has or had the following: CVA/TIA Diagnosis No Discharge Core Measures Meds if any: Prescribed or Continued at Discharge Meds if any: NOT Prescribed or Continued at Discharge Venous thromboembolism Inclusion Criteria VTE Diagnosis No VTE Type NONE VTE Confirmed by (Test) NONE Discharge Core Measures - Per Current guidelines, there needs to be overlap - treatment for the first 5 days of Warfarin therapy. - If discharged on Warfarin prior to 5 days of - overlap therapy, the patient will need to be - assessed for post discharge needs including - *Post discharge parental anticoagulation - *Warfarin and/or parental anticoagulation education - *Follow up date to check INR post discharge At least 5 days overlap therapy as Inpatient No Meds if any: Prescribed or Continued at Discharge Note: Overlap Therapy is Warfarin and Anticoagulant Meds if any: NOT Prescribed or Continued at Discharge
[2016-07-26 14:47] VITALS: BP 144/72
--- NOTE | 2016-07-26 17:47 | Discharge Summary ---
Visit Information Visit Dates Admission Date: 07/23/16 Discharge Date: 07/26/16 Hospital Course Allergies: Coded Allergies: amoxicillin (From [facility]) (UNKNOWN 04/23/16) clarithromycin (From [facility]) (UNKNOWN 04/23/16) diazepam (UNKNOWN 04/23/16) lansoprazole (From [facility]) (UNKNOWN 04/23/16) morphine (Intermediate, LETHARGY, CONFUSION 04/23/16) meclizine (CONFUSION 04/23/16) Discharge Instructions Medications at Discharge Discharge Medications: Stop taking the following medications: Lorazepam (Ativan) 0.5 MG TABLET ORAL 2 x Daily as needed as needed for ANXIETY Nitroglycerin (Nitroglycerin) 0.4 MG TAB.SUBL SUBLINGUAL As Directed as needed for ANGINA Albuterol Sulfate (Proair Hfa) 90 MCG HFA.AER.AD Inhale through mouth EVERY SIX HOURS NEEDED as needed for RESPIRATORY Furosemide (Furosemide) 20 MG TABLET ORAL DAILY as needed for WATER PILL Qty = 30 Continue taking these medications: Aspirin (Children's Aspirin) 81 MG TAB.CHEW 1 Tablet ORAL DAILY Comments: Last Taken: 07/26 Time: 0900 AM Cholecalciferol (Vitamin D3) (Vitamin D) 2,000 UNIT TABLET 1 Tablet ORAL DAILY Comments: Last Taken: NOT GIVEN Time: Budesonide/Formoterol Fumarate (Symbicort 160-4.5 Mcg Inhaler) 160 MCG-4.5 MCG/ ACTUATION HFA.AER.AD 2 Puff Inhale through mouth TWICE DAILY Comments: Last Taken: 07/26 Time: 0900 Apixaban (Eliquis) 2.5 MG TABLET 1 Tablet ORAL TWICE DAILY Comments: Last Taken:07/26 Time:0900 AM Albuterol Sulfate (Albuterol Sulfate) 2.5 MG/3 ML (0.083 %) VIAL.NEB 1 Vial Inhale Solution EVERY 4 HOURS NEEDED Comments: Last Taken: NOT GIVEN Time: Cyanocobalamin (Vitamin B-12) (B-12) 500 MCG TABLET 1 Tablet ORAL DAILY Comments: Last Taken: NOT GIVEN Time: Atorvastatin Calcium (Atorvastatin Calcium) 80 MG TABLET 1 Tablet ORAL DAILY Comments: Last Taken: 07/26 Time: 0900AM Valsartan (Valsartan) 320 MG TABLET 1 Tablet ORAL DAILY Qty = 90 Comments: Last Taken: 07/26 Time: 9 AM Carvedilol (Carvedilol) 25 MG TABLET 1 Tablet ORAL TWICE DAILY Comments: Last Taken: 07/26 Time: 9 AM Guaifenesin (Mucinex) 600 MG TAB.ER.12H 1 Tablet ORAL TWICE DAILY as needed for UNKNOWN Comments: NOT GIVEN IN HOSPITAL Finasteride (Finasteride) 5 MG TABLET 1 Tablet ORAL Every night Qty = 90 Comments: Last Taken: 07/25 Time: 10 PM Tylenol With Codeine (Tylenol With Codeine #3 Tablet) 300 MG-30 MG TABLET 1 Tablet ORAL EVERY SIX HOURS NEEDED as needed for PAIN Tamsulosin HCl (Flomax) 0.4 MG CAP.ER.24H 1 Capsule ORAL DAILY Comments: Last Taken: NOT GIVEN Time: Start taking the following new medications: Tramadol HCl (Tramadol HCl) 50 MG TABLET 50 Milligram ORAL EVERY SIX HOURS NEEDED as needed for neck pain Qty = 30 No Refills Comments: Last Taken: 07/26 Time: 0900 AM
== END 2016-07-26 16:48 ==
LOC: ENRESERVTM → ENRESERVDT → ERH 08:28 → ENPENDDIS 17:46 → ERHI 17:46 → 2NB 17:46
PROVIDERS: Internal Medicine Hematology & Oncology; Student in an Organized Health Care Education/Training Program; ADMIT Internal Medicine
DX: M62.838 Other muscle spasm (principal); I48.91 Unspecified atrial fibrillation; Z79.01 Long term (current) use of anticoagulants; J44.9 Chronic obstructive pulmonary disease, unspecified; J45.909 Unspecified asthma, uncomplicated; Z86.711 Personal history of pulmonary embolism; I25.2 Old myocardial infarction; Z95.0 Presence of cardiac pacemaker; I12.9 Hypertensive chronic kidney disease with stage 1 through stage 4 chronic kidney disease, or unspecified chronic kidney disease; E11.22 Type 2 diabetes mellitus with diabetic chronic kidney disease; N18.9 Chronic kidney disease, unspecified; I50.9 Heart failure, unspecified; I25.10 Atherosclerotic heart disease of native coronary artery without angina pectoris; N40.0 Benign prostatic hyperplasia without lower urinary tract symptoms
CPT/HCPCS: 36415; 82436; 93005; 93010; 96372; 96374; G0378; J0131; J1644; J3490

== ENCOUNTER 2016-07-30 13:22 | Observation (INO) | payer OTHER ==
[~2016-07-30] VITALS: Ht 182.9 cm; Wt 90.7 kg
[~2016-07-30 13:22] MED LIST changes: +FLOMAX0.4 M1 PO; +TRAMADOL HCL50 M1 PO
--- NOTE | 2016-07-30 13:30 | NUR ---
MD SANCHEZ AT BEDSIDE TO [facility] PT
--- NOTE | 2016-07-30 13:35 | ED GENERAL ADULT ---
History of Present Illness General Chief Complaint: General Adult Stated Complaint: BIBA FOR LETHARGY Source: patient Exam Limitations: no limitations Vital Signs & Intake/Output Vital Signs & Intake/Output Vital Signs Date Time Temp Pulse Resp B/P Pulse O2 O2 Flow FiO2 Ox Delivery Rate 07/31 0624 98.7 75 16 174/91 96 Room Air Room Air 07/30 2223 97.5 75 18 133/68 96 Room Air 07/30 1857 97.5 73 18 138/70 95 Room Air 07/30 1625 72 16 129/70 96 Room Air 07/30 1347 97 Room Air 07/30 1346 97.3 57 18 134/61 97 Room Air ED Intake and Output 07/31 0000 07/30 1200 Intake Total 40 Output Total Balance 40 Intake, IV 40 Patient 200 lb Weight Allergies Coded Allergies: amoxicillin (From [facility]) (UNKNOWN 04/23/16) clarithromycin (From [facility]) (UNKNOWN 04/23/16) diazepam (UNKNOWN 04/23/16) lansoprazole (From [facility]) (UNKNOWN 04/23/16) morphine (Intermediate, LETHARGY, CONFUSION 04/23/16) meclizine (CONFUSION 04/23/16) Reconcile Medications Albuterol Sulfate 2.5 MG/3 ML (0.083 %) VIAL.NEB 1 Vial INH/DANDY Q4P SHORTNESS OF BREATH (Reported) Apixaban (Eliquis) 2.5 MG TABLET 1 TAB PO BID BLOOD THINNER (Reported) Aspirin (Children's Aspirin) 81 MG TAB.CHEW 1 TAB PO DAILY HEART HEALTH ( Reported) Atorvastatin Calcium 80 MG TABLET 1 TAB PO DAILY CHOLESTEROL (Reported) Budesonide/Formoterol Fumarate (Symbicort 160-4.5 Mcg Inhaler) 160 MCG-4.5 MCG/ ACTUATION HFA.AER.AD 2 PUF INH BID COPD (Reported) Carvedilol 25 MG TABLET 1 TAB PO BID HEART (Reported) Cholecalciferol (Vitamin D3) (Vitamin D) 2,000 UNIT TABLET 1 TAB PO DAILY SUPPLEMENT (Reported) Cyanocobalamin (Vitamin B-12) (B-12) 500 MCG TABLET 1 TAB PO DAILY SUPPLEMENT (Reported) Finasteride 5 MG TABLET 1 TAB PO QPM PROSTATE (Reported) Guaifenesin (Mucinex) 600 MG TAB.ER.12H 1 TAB PO BID PRN UNKNOWN (Reported) Tamsulosin HCl (Flomax) 0.4 MG CAP.ER.24H 1 CAP PO DAILY BPH (Reported) Tramadol HCl 50 MG TABLET 50 MG PO Q6P PRN neck pain Tylenol With Codeine (Tylenol With Codeine #3 Tablet) 300 MG-30 MG TABLET 1 TAB PO Q6P PRN PAIN (Reported) Valsartan 320 MG TABLET 1 TAB PO DAILY HEART (Reported) Triage Nurses Notes Reviewed? yes Onset: Abrupt Duration: hour(s): Timing: recent history HPI: 07/30/16 2:30 PM 82-year-old man presents to the emergency department complaining of severe neck pain. The patient states she has a history of neck pain. He's complaining of pain from the C7 area up to his occipital area. It is worse with head movement no upper extremity weakness. He is awake and alert and oriented 3. Apparently the patient was lethargic in the primary care doctor's office with miotic pupils. He was recently started on tramadol. In the ED he is awake alert oriented 3 (BREANNE SANCHEZ DO) Past History Travel History Traveled to [place] past 21 day No Medical History Any Pertinent Medical History? 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 No (BREANNE SANCHEZ DO) Review of Systems Review of Systems Constitutional: Denies: fever. EENTM: Denies: visual changes. Respiratory: Denies: short of breath. Cardiovascular: Denies: chest pain. GI: Denies: abdominal pain. Genitourinary: Reports: no symptoms. Musculoskeletal: Reports: see HPI. Skin: Denies: rash. Neurological/Psychological: Reports: see HPI. Hematologic/Endocrine: Denies: bruising, bleeding. (BREANNE SANCHEZ DO) Physical Exam Physical Exam General Appearance: alert, awake, anxious, mild distress Head: atraumatic, normal appearance Eyes: Bilateral: normal appearance, PERRL, EOMI. Ears, Nose, Throat: normal pharynx Neck: limited range of motion Respiratory: chest non-tender, no respiratory distress Cardiovascular: regular rate/rhythm Peripheral Pulses: 4+ radial (R), 4+ radial (L) Gastrointestinal: soft, non-tender Back: decreased range of motion Extremities: limited range of motion Neurologic/Psych: awake, alert, oriented x 3 Skin: intact, normal color, warm/dry Core Measures ACS in differential dx? No CVA/TIA Diagnosis: No Severe Sepsis Present: No Septic Shock Present: No (BREANNE SANCHEZ DO) Progress Differential Diagnoses I considered the following diagnoses in my evaluation of the patient: [CVA, TIA, adverse drug reaction, dysrhythmia] Plan of Care: Orders Procedure Date/time Status Heart Healthy Diet 07/31 B Active BASIC METABOLIC PANEL 07/31 0641 Complete Regular Diet 07/30 D Complete EKG 07/[address] in observation 07/30 193 Active Patient Data 07/30 193 Active Vital Signs 07/30 193 Active Code Status 07/30 193 Active URINE DRUG SCREEN FOR ER ONLY 07/30 1435 Complete TROPONIN LEVEL 07/30 1435 Complete ETHANOL 07/30 1435 Complete COMPREHENSIVE METABOLIC PANEL 07/30 1435 Complete CBC WITHOUT DIFFERENTIAL 07/30 1435 Complete FingerStick- Glucose 07/30 1401 Active Intake & Output 07/30 1343 Active EKG 07/30 1330 Active Laboratory Tests 07/31/16 0650: Anion Gap 7, Estimated GFR 48 L, BUN/Creatinine Ratio 20.7, Glucose 101 H, Calcium 8.6 07/30/16 1810: Anion Gap 7, Estimated GFR 48 L, BUN/Creatinine Ratio 24.3, Glucose 112 H, Calcium 9.1, Total Bilirubin 0.8, AST 23, ALT 39, Alkaline Phosphatase 92, Troponin I 0.05, Total Protein 6.0 L, Albumin 3.3 L, Globulin 2.7, Albumin/ Globulin Ratio 1.2, CBC w Diff NO MAN DIFF REQ, RBC 4.36 L, MCV 84.7, MCH 27.5, RDW 15.4 H, MPV 9.3, Gran % 60.7, Lymphocytes % 31.9, Monocytes % 5.3, Eosinophils % 1.5, Basophils % 0.6, Absolute Granulocytes 3.6, Absolute Lymphocytes 1.9, Absolute Monocytes 0.3, Absolute Eosinophils 0.1, Absolute Basophils 0, PUBS MCHC 32.5 L, Serum Alcohol < 10.0 07/30/16 1722: Urine Opiates Screen 168.00, Methadone Screen < 40, Barbiturate Screen < 60, Ur Phencyclidine Scrn < 6.00, Amphetamines Screen < 100, U Benzodiazepines Scrn < 85, Urine Cocaine Screen < 50, Urine Cannabis Screen < 5.00 Initial ED EKG: pending (DANIEL OLEARY,BREANNE Whitt) Comments: 07/30/2016 7:51:45 PM patient signed out to me by Dr. Sanchez at shift blade changer. Patient is in ED observation due to lethargy and hyperkalemia. 07/31/2016 7:16:44 AM patient signed out to Dr. Davila at shift blade changer after an uneventful emergency department stay overnight. (KEVYN URBANO,BREANNE Manriquez) Comments: Patient ambulated in the emergency department without difficulty. (TORY URBANO,MARYA Vargas) Departure Departure Disposition: HOME OR SELF CARE Condition: Stable Clinical Impression Primary Impression: Adverse drug effect Referrals: ANGELI VILLALOBOS MD (PCP/Family) Departure Forms: Customer Survey General Discharge Information Comments 07/30/16 5:30 pm Labs unremarkable (unchanged) I suspect the patient is having adverse reaction to the tramadol. ct PATIENT: JUAN JOSE CHAIDEZ PRESENT AGE: 89 PATIENT ACCOUNT NO: [id number] : [birth year] LOCATION: [facility] ORDERING PHYSICIAN: BREANNE SANCHEZ DO SERVICE DATE: 07/30/16 EXAM TYPE: CAT - CT CERV SPINE WO IV CONTRAST; CT HEAD WO IV CONTRAST EXAMINATION: CT HEAD WITHOUT CONTRAST CT CERVICAL SPINE WITHOUT CONTRAST CLINICAL INFORMATION: Neck pain, altered mental status. COMPARISON: CT head April 2016. CT head and cervical spine February 2016. TECHNIQUE: CT scan of the head was performed with additional coronal reformatted images obtained at the acquisition workstation. CT scan of the cervical spine was performed with additional sagittal and coronal reformatted images obtained the acquisition workstation. DLP: 909.16 mGy-cm. FINDINGS: CT HEAD: There is no mass, hemorrhage or cerebral edema. William to white matter differentiation is well preserved. No extra-axial fluid collections. There is mild generalized prominence of the ventricles, sulci and extra-axial CSF spaces. Minimal periventricular white matter changes compatible with chronic microangiopathy. BONE: Minimal mucosal thickening of the ethmoid sinuses. No change. Mastoid air cells clear. SOFT TISSUES: Unremarkable. CERVICAL SPINE: There is no fracture, subluxation or dislocation. 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 Prominent bilateral facet arthrosis noted with involvement of most levels. There is fusion across the C2-C3 facets bilaterally. Ligamentous calcifications again noted at C1-C2. IMPRESSION: CT HEAD: No acute abnormality. Age-related changes stable. 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 No change. DICTATED BY: JUAN JOSE ENGEL MD DATE/TIME DICTATED:07/30/161511 FOOD PREPARATION KITCHEN AIDE:HAILEE DATE/TIME TRANSCRIBED:07/30/161511 CONFIDENTIAL, DO NOT COPY WITHOUT APPROPRIATE AUTHORIZATION. <Electronically signed in Other Vendor System> SIGNED BY: JUAN JOSE ENGEL MD 07/30 1541 The patient was signed out to Dr. Roland at 7 PM. Observation Note Spoke With: BREANNE SANCHEZ DO Physician Advisor Notified: BREANNE SANCHEZ DO Place Patient In: ED Observation Rationale for Observation: My rational for observation is as follows [the patient needs IV fluids, by mouth Kayexalate, repeat BNP in the a.m.]. (BREANNE SANCHEZ DO) Departure Additional Instructions: FOLLOW UP WITH YOUR PRIMARY PHYSICIAN RETURN FOR ANY CONCERNS (TORY URBANO,MARYA Vargas) Critical Care Note Critical Care Note Critical Care Time: non-applicable (BREANNE SANCHEZ DO) ED Attending Observation Initial Observation Note: I have seen and personally examined JUAN JOSE CHAIDEZ on 07/30/16 at 1938. I agree with the current emergency department documentation. The disposition (admission or discharge) is uncertain at this time, he needs a period of observation for the following reason(s): [IV fluids, repeat BMP in the a.m. he is being observed for a increase in his serum sodium and a reduction in his serum potassium. He is also requesting a cream for his head rash-likely triamcinolone on discharge.] The ED Nurse caring for this patient has been personally informed as to what the patient is being observed for. The patient was signed out to Dr. Roland at 7 PM (BREANNE SANCHEZ DO) Initial Observation Note: I have seen and personally examined JUAN JOSE CHAIDEZ on 07/31/16 at 0813. I agree with the current emergency department documentation. The disposition (admission or discharge) is uncertain at this time, he needs a period of observation for the following reason(s): The ED Nurse caring for this patient has been personally informed as to what the patient is being observed for. Observation Re-Evaluation: I have reevaluated JUAN JOSE CHAIDEZ on 07/31/16 at 0803. The physical findings that support the continued need to observe this patient include [patient was able to sleep most the night and feels asymptomatic. Patient to be potassium is down to 5.1. Patient's lungs are clear to auscultation bilaterally. His abdomen is soft nontender. Patient will eat breakfast and then all a break in the ER. Patient is stable at that point he may be discharged.]. Observation Discharge: I have reevaluated JUAN JOSE CHAIDEZ on 07/31/16 at 0813. The patient is: ([X]): Stable for discharge (): To be admitted to Nursing Floor (): To be placed in Observation on Nursing Floor (): For transfer to other facility The patient was being observed for [hyperkalemia] As a result of that observation, I have determined [patient was treated in the emergency department and his potassium came down.]. (TORY URBANO,MARYA Vargas)
--- NOTE | 2016-07-30 13:40 | NUR ---
89 Y/O MALE BIBA FROM 'S OFFICE FOR NOT FEELING WELL AND DIAPNORETIC. PT STS HE WAS RECENTLY DISCHARGED ON TUESDAY AND HE HAS NOT BEEN FEELING WELL. PT STS HE WENT IN TODAY FOR F/U S/P DISCHARGE AND HE WAS ALSO NOT FEELING WELL. PT STS HE HAS BEEN DIZZY, NECK PAIN AND HAS BUMPS IN HIS HEAD WHICH HE WAS ALSO SEEING MED. PER MD PT WHILE BEEN EVALUATED BECAME VERY PALE AND DIAPHORETIC AND EYES WERE PINPOINTED WTIH LOW SYSTOLIC BP. PT ARRIVES A/O X3 AND STILL C/O DIZZINESS AND NECK PAIN AND NOTED TO BE VERY LETHARGIC. PT PLACED ON MONITOR AND EKG IN PROGRESS
--- NOTE | 2016-07-30 15:00 | NUR ---
PT LEFT AND BACK FROM CAT SCAN
--- NOTE | 2016-07-30 15:41 | CT SCAN REPORT ---
EXAMINATION: CT HEAD WITHOUT CONTRAST CT CERVICAL SPINE WITHOUT CONTRAST CLINICAL INFORMATION: Neck pain, altered mental status. COMPARISON: CT head April 2016. CT head and cervical spine February 2016. TECHNIQUE: CT scan of the head was performed with additional coronal reformatted images obtained at the acquisition workstation. CT scan of the cervical spine was performed with additional sagittal and coronal reformatted images obtained the acquisition workstation. DLP: 909.16 mGy-cm. FINDINGS: CT HEAD: There is no mass, hemorrhage or cerebral edema. William to white matter differentiation is well preserved. No extra-axial fluid collections. There is mild generalized prominence of the ventricles, sulci and extra-axial CSF spaces. Minimal periventricular white matter changes compatible with chronic microangiopathy. BONE: Minimal mucosal thickening of the ethmoid sinuses. No change. Mastoid air cells clear. SOFT TISSUES: Unremarkable. CERVICAL SPINE: There is no fracture, subluxation or dislocation. 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 Prominent bilateral facet arthrosis noted with involvement of most levels. There is fusion across the C2-C3 facets bilaterally. Ligamentous calcifications again noted at C1-C2. IMPRESSION: CT HEAD: No acute abnormality. Age-related changes stable. 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 No change.
--- NOTE | 2016-07-30 16:13 | NUR ---
BLOOD DRAWN AND SENT TO LAB. LAV,SST,BLUE,DEL CID
[2016-07-30 16:26] LABS: ABSOLUTE BASOPHIL COUNT 0 /CUMM (0.0-0.2); ABSOLUTE EOSINOPHIL COUNT 0.1 /CUMM (0.0-0.7); ABSOLUTE GRANULOCYTE CT 3.6 /CUMM (1.4-6.5); ABSOLUTE LYMPH COUNT 1.9 /CUMM (1.2-3.4); ABSOLUTE MONOCYTE COUNT 0.3 /CUMM (0.10-0.60); BASOPHIL % 0.6 % (0.0-2.0); EOSINOPHIL % 1.5 % (0-5); GRANULOCYTE % 60.7 % (42.2-75.2); HEMATOCRIT 36.9 % (42-52); MEAN CORPUSCULAR HGB 27.5 PG (27.0-31.0); MEAN CORPUSCULAR HGB CONC 32.5 G/DL (33.0-37.0); MEAN CORPUSCULAR VOLUME 84.7 FL (80.0-94.0); MEAN PLATELET VOLUME 9.3 FL (7.4-10.4); PLATELET COUNT 128 /CUMM (130-400); RBC DISTRIBUTION WIDTH 15.4 % (11.5-14.5); RED BLOOD CELL CT 4.36 /CUMM (4.70-6.10)
--- NOTE | 2016-07-30 18:40 | NUR ---
MD SANCHEZ AT BEDSIDE TO DISCUSS POC
--- NOTE | 2016-07-30 19:22 | NUR ---
ASSUMED CARE OF PT PER KEVIN RAMON. CASE MANAGEMENT IN FOR DISCUSSION.
--- NOTE | 2016-07-30 20:19 | NUR ---
PT MEDICATED WITH 500ML NS BOLUS, 5MG PROSCAR PO, AND 60ML KAYEXALATE PER EMAR.
--- NOTE | 2016-07-30 21:11 | NUR ---
PT SLEEPING WITH RR, WILL CONTINUE TO MONITOR
--- NOTE | 2016-07-30 22:26 | NUR ---
PT MEDICATED WITH 2.5MG ELIQUIS AND 25MG COREG PER EMAR.
--- NOTE | 2016-07-30 22:39 | NUR ---
PT MOVED TO HOSPITAL BED, THIS RN ASKED PT TO REMOVED DIAPER AND PT REFUSED. PTS HEARING AIDS PLACED IN DENTURE CUP WITH PT LABEL.
--- NOTE | 2016-07-31 00:50 | NUR ---
PT SLEEPING WITH RR, BILATERAL CHEST FALL AND RISE NOTED, WILL CONTINUE TO MONITOR
--- NOTE | 2016-07-31 02:35 | NUR ---
PT SLEEPING WITH RR, VSS ON MONITOR, BILATERAL CHEST FALL AND RISE NOTED. WILL CONTINUE TO MONITOR
--- NOTE | 2016-07-31 05:24 | NUR ---
PT SLEEPING WITH RR, BILATERAL CHEST AND RISE FALL. PT SNORING, WILL CONTINUE TO MONITOR
--- NOTE | 2016-07-31 06:30 | NUR ---
PT SLEEPING WITH RR, VSS COMPLETED BY HERSON STEWART, BILATERAL CHEST RISE AND FALL NOTED, PT INFORMED THAT BREAKFAST WILL ARRIVE SOON. WILL CONTINUE TO MONITOR
--- NOTE | 2016-07-31 06:31 | NUR ---
JUAN JOSE CHAIDEZ Nurse Note by: VESTA ALBERT I agree with the ASSISTANT AUTO CENTER MANAGER findings/evaluation of this patient's condition. Entered by: VESTA ALBERT Date: 07/31/16 Time: 0631
--- NOTE | 2016-07-31 06:53 | NUR ---
SST REDRAW SENT BY THIS RN
--- NOTE | 2016-07-31 06:59 | NUR ---
PT GIVEN BREAKFAST TRAY, SITTING ON EDGE OF BED TO EAT
--- NOTE | 2016-07-31 07:12 | NUR ---
CARE ASSUMED BY THIS RN NOW. PT INQUIRING ABOUT PLAN OF CARE. PT INFORMED THAT HE IS WAITING TO SPEAK WITH CASE MANAGEMENT.
--- NOTE | 2016-07-31 08:12 | NUR ---
PT AMBULATED WITH STEADY GAIT FOR APPROX 60 FEET.
[2016-07-31 08:31] VITALS: BP 121/62
--- NOTE | 2016-07-31 08:34 | NUR ---
PT GIVEN AND VERBALIZED UNDERSTANDING OF DC INSTRUCTIONS. PT STABLE FOR DC AND WAITING FOR SON TO COME PICK HIM UP. PT INQUIRING ABOUT EYE GLASSES AND APPOINTMENT BOOK, BUT NEITHER FOUND IN PT'S BELONGINGS.
--- NOTE | 2016-07-31 09:18 | NUR ---
PT'S SON REPORTS THAT HE HAS POSSESSION OF PT'S GLASSES AND APPOINTMENT BOOK. PT TAKEN HOME BY SON.
--- NOTE | 2016-07-31 12:45 | NUR ---
Case Mgmnt TSF: Patient was discharged home before I came in. I called patient and introduced myself. I asked patient if he currently had any HHS and he stated no. I asked him if he would like to be set up with [facility] and he stated that he would. I asked him if he liked [facility], as he had them previously. He said yes and was willing to have them again. I let him know that I would set him up with [facility]HS for Tuesday or Tuesday visit. He was in agreement with this plan. I will also email Antonieta and update her. CM continuing to follow.
--- NOTE | 2016-07-31 13:09 | NUR ---
Case Mgmnt TSF: I placed a call to [facility]. I left a for a call back. Pending call back at this time. CM continuing to follow.
--- NOTE | 2016-07-31 14:08 | NUR ---
Case Mgmnt TSF: I placed another call to [facility]. I spoke with Noa. I let them know that I would like to set up patient with [facility] through them. She said that they should be able to go out Tuesday or Tuesday (08/01 or 08/02). I faxed over clinical, W10, etc over to them and received fax confirmation back of successful transmission. I emailed Antonieta to update her as well. ER CM portion complete at this time.
== END 2016-07-31 11:36 ==
LOC: ENRESERVTM → ENRESERVDT → ERH 13:22 → ERHI 19:33
PROVIDERS: ADMIT Emergency Medicine
DX: E87.5 Hyperkalemia (principal); I48.91 Unspecified atrial fibrillation; I25.10 Atherosclerotic heart disease of native coronary artery without angina pectoris; I50.9 Heart failure, unspecified; I25.2 Old myocardial infarction; E78.5 Hyperlipidemia, unspecified; J44.9 Chronic obstructive pulmonary disease, unspecified; Z86.711 Personal history of pulmonary embolism; I12.9 Hypertensive chronic kidney disease with stage 1 through stage 4 chronic kidney disease, or unspecified chronic kidney disease; E11.22 Type 2 diabetes mellitus with diabetic chronic kidney disease; N18.9 Chronic kidney disease, unspecified; N40.0 Benign prostatic hyperplasia without lower urinary tract symptoms; Z85.820 Personal history of malignant melanoma of skin
CPT/HCPCS: 6090; 80307; 93005; 93010; 96360; G0378; G0480; J7040

== ENCOUNTER 2016-08-08 09:46 | Inpatient (IN) | payer OTHER ==
[~2016-08-08] VITALS: Ht 182.9 cm; Wt 88.5 kg
--- NOTE | 2016-08-08 09:55 | NUR ---
PT TO ED WITH DAUGHTER "WE WENT OUT TO BREAKFAST, AND HE GOT PALE AND ALMOST PASSED OUT, HE HAS BEEN HAVING TROUBLE WITH HIS BLOOD PRESSURE GOING UP AND DOWN, AND HE ALSO HAS A HISTORY OF VERTIGO".PT C/O DIZZINESS AND WEAKNESS.
--- NOTE | 2016-08-08 10:04 | NUR ---
PT STATES HE HAS BEEN FEEING WEAK AND DOES HAVE EPISODES WHERE HE GOES UNRESPONSIVE. PT HAS BEEN SEEN FOR SAME AND STATES NO ONE CAN FIGURE OUT WHY. PT UNRESPONISIVE AT THIS TIME HR IN THE 60'S
--- NOTE | 2016-08-08 10:05 | NUR ---
PT AWAKE TALKING WITH CHRIS CLARKE
--- NOTE | 2016-08-08 10:05 | ED AMS/SEIZURE/WEAK/DIZZY ---
History of Present Illness General Chief Complaint: General Adult Stated Complaint: MULTIPLE COMPLAINTS Source: patient, old records Exam Limitations: no limitations Vital Signs & Intake/Output Vital Signs & Intake/Output Vital Signs Date Time Temp Pulse Resp B/P Pulse O2 O2 Flow FiO2 Ox Delivery Rate 08/08 1321 97.7 63 18 152/60 99 Room Air 08/08 1132 97.8 78 132/80 04/ 1040 60 14 135/59 99 Room Air 08/08 1007 74 132/60 08/08 1005 97 08/08 0950 96.9 68 20 121/67 95 Allergies Coded Allergies: amoxicillin (From [facility]) (UNKNOWN 04/23/16) clarithromycin (From [facility]) (UNKNOWN 04/23/16) diazepam (UNKNOWN 04/23/16) lansoprazole (From [facility]) (UNKNOWN 04/23/16) morphine (Intermediate, LETHARGY, CONFUSION 04/23/16) meclizine (CONFUSION 04/23/16) Reconcile Medications Albuterol Sulfate 2.5 MG/3 ML (0.083 %) VIAL.NEB 1 Vial INH/DANDY Q4P SHORTNESS OF BREATH (Reported) Apixaban (Eliquis) 2.5 MG TABLET 1 TAB PO BID BLOOD THINNER (Reported) Aspirin (Children's Aspirin) 81 MG TAB.CHEW 1 TAB PO DAILY HEART HEALTH ( Reported) Atorvastatin Calcium 80 MG TABLET 1 TAB PO DAILY CHOLESTEROL (Reported) Budesonide/Formoterol Fumarate (Symbicort 160-4.5 Mcg Inhaler) 160 MCG-4.5 MCG/ ACTUATION HFA.AER.AD 2 PUF INH BID COPD (Reported) Carvedilol 6.25 MG TABLET 1 TAB PO BID HEART (Reported) Cholecalciferol (Vitamin D3) (Vitamin D) 2,000 UNIT TABLET 1 TAB PO DAILY SUPPLEMENT (Reported) Cyanocobalamin (Vitamin B-12) (B-12) 500 MCG TABLET 1 TAB PO DAILY SUPPLEMENT (Reported) Finasteride 5 MG TABLET 1 TAB PO QPM PROSTATE (Reported) Guaifenesin (Mucinex) 600 MG TAB.ER.12H 1 TAB PO BID PRN UNKNOWN (Reported) Tamsulosin HCl (Flomax) 0.4 MG CAP.ER.24H 1 CAP PO DAILY BPH (Reported) Tramadol HCl 50 MG TABLET 50 MG PO Q6P PRN neck pain Tylenol With Codeine (Tylenol With Codeine #3 Tablet) 300 MG-30 MG TABLET 1 TAB PO Q6P PRN PAIN (Reported) Valsartan (Diovan) 160 MG TABLET 1 TAB PO DAILY HEART (Reported) Triage Note: PT TO ED WITH DAUGHTER "WE WENT OUT TO BREAKFAST, AND HE GOT PALE AND ALMOST PASSED OUT, HE HAS BEEN HAVING TROUBLE WITH HIS BLOOD PRESSURE GOING UP AND DOWN, AND HE ALSO HAS A HISTORY OF VERTIGO".PT C/O DIZZINESS AND WEAKNESS. Triage Nurses Notes Reviewed? yes Onset: Abrupt Duration: day(s): (1), better, intermittent, waxing and waning Timing: recent history Injury Environment: home Severity: moderate Severity Numbers: 8 No Modifying Factors: none Associated Symptoms: dizziness, lightheadedness HPI: Juice is an 89 year old male with PMH of syncope, vertigo, Afib (on Eliquis), COPD, Hx of PE, TX X4 s/p stent placement, pacemaker implantation in october 2015, AAA repair, HTN, DM presents emergency room with his daughter for evaluation. According to the patient's daughter there are breakfast he was in his normal state of health when they were walking out he suddenly became lightheaded and pale and almost passed out. The patient has been seen numerous times in the past for similar episodes with no known cause identified. Patient on arrival denies any complaints of chest pain shortness of breath headache however states he is feeling lightheaded lying down. Patient lives at home alone, and normally ambulates without need of assistance. There is been no recent trauma or injury. He was seen here one week ago for severe neck pain which time he had an unremarkable CT of his head and neck. There is no changes mental status per family pt recently had coreg and valsartan lowered by his title inspector dr cabrera. (CARMEN MOLINA) Past History Travel History Traveled to [place] past 21 day No Medical History Any Pertinent Medical History? see below for history Neurological: dizziness, NUMB 1ST THREE L FINGERS EENT: [place] BILATERAL CATARACTS Cardiovascular: AFIB, CAD, CHF, hypertension, CARDIAC STENTS X 4 TX x5 HLD Respiratory: COPD, pulmonary embolism Gastrointestinal: ABDOMINAL AORTIC ANEURYSM HERNIA REPAIR Hepatic: NONE Renal: chronic kidney disease Musculoskeletal: carpal tunnel syndrome ARTHRITIS Psychiatric: NONE Endocrine: diabetes Blood Disorders: DVT Cancer(s): melanoma SPECIAL DEPUTY SHERIFF/Reproductive: BPH History of MRSA: No History of VRE: No History of CDIFF: No Surgical History Surgical History: cardiac stents Psychosocial History Who do you live with Patient/Self Services at Home None What is your primary language Bulgarian Tobacco Use: Quit >30 days ago ETOH Use: denies use Illicit Drug Use: denies illicit drug use Family History Family History, If Any: SISTER FH: heart failure FHx: hypertension MOTHER FH: myocardial infarction FHx: hypertension FATHER FHx: hypertension Hx Contributory? No (CARMEN MOLINA) Review of Systems Review of Systems Constitutional: Reports: see HPI. All Other Systems: Reviewed and Negative Comments Review of systems: See HPI, All other systems negative. Constitutional, no chills no fever, no malaise HEENT: No visual changes no sore throat no congestion, Cardiovascular: No chest pain , no palpitation Skin, no rashes, no change in skin Respiratory: No dyspnea no cough no sputum no hemoptysis GI: No nausea no vomiting, no diarrhea, : No dysuria Muscle skeletal: No joint pain, no joint swelling, no back pain, no neck pain, Neurologic: No numbness no confusion, no headache Psych: No stress Heme/endocrine: No bruising no bleeding Immunology: No lymphadenopathy, (CARMEN MOLINA) Physical Exam Physical Exam General Appearance: well developed/nourished, alert, awake Neurologic/Psych: no motor/sensory deficits, awake, alert, oriented x 3, normal mood/affect, histologic aide II-XII nml as tested, no motor weakness, no facial droop, no dysarthria Comments: Well-developed well-nourished person in no acute distress HEENT: Normal EENT exam; PERRL, EOMI, no nystagmus. HEAD is atraumatic. moist mucous membranes. Neck: Supple, no lymphadenopathy, normal range of motion Back: Nontender, no CVA tenderness. Full range of motion Cardiovascular: Regular rate and rhythms no murmurs rubs Respiratory: . No respiratory distress. Patient speaking in full complete sentences. Breath sounds clear to auscultation bilaterally: NO W/R/R Abdomen: Soft, nontender nondistended, no appreciable organomegaly. Normal bowel sounds. No rebound/guarding Extremity: No edema, full range of motion of extremities, normal and equal pulses bilaterally, 5 out of 5 strength noted to bilateral upper and lower extremities Neuro: Alert oriented x3, motor sensory normal, cranial nerves II through XII grossly intact. There were no obvious focal neurologic abnormalities. Skin: No appreciable rash on exposed skin, skin is warm and dry. Psych: Mood and affect is normal, memory and judgment is normal. Core Measures ACS in differential dx? Yes CVA/TIA Diagnosis: No Severe Sepsis Present: No Septic Shock Present: No (ANGELINA PEREZ,CARMEN) Progress Differential Diagnosis: arrythmia, anemia, benign positional vertigo, CVA/stroke , dehydration, electrolyte imbalance, GI bleed, intracranial Hem., intracranial mass/tumor, labrynthitis, pneumonia, postural hypotension, UTI/pyelo, vertebrobasilar insuff Plan of Care: Orders Procedure Date/time Status Regular Diet 08/08 L Complete Heart Healthy Diet 08/08 D Active Code Status 08/08 1409 Active Vital Signs 08/08 1402 Active Teach/Educate 08/08 1402 Active Pain Treatment and Response 08/08 1402 Active Nutritional Intake, Monitor 08/08 1402 Active Isolation 08/08 1402 Active Intake & Output 08/08 1402 Active Patient Care Conference 08/08 1402 Active Activity/Ambulation 08/08 1402 Active MISTAKE 08/08 1356 Active Straight Cath 08/08 1356 Active Intake & Output 08/08 1336 Active Pathway - chart 08/08 1213 Active Pathway - chart 08/08 1211 Active House Staff 08/08 1211 Active Patient Data 08/08 1211 Active Code Status 08/08 1211 Complete OXYGEN SETUP (GEN) 08/08 1204 Active Saline Lock 08/[address] in observation 08/08 1204 Active Vital Signs 08/08 1204 Active Activity/Ambulation 08/08 1204 Active Code Status 08/08 1204 Complete Patient Data 08/08 1155 Active MISTAKE 08/08 1005 Active Telemetry/Paid Search Analyst 08/08 1005 Active TROPONIN LEVEL 08/08 1005 Complete PARTIAL THROMBOPLASTIN TIME 08/08 1005 Complete PROTHROMBIN TIME 08/08 1005 Complete MAGNESIUM 08/08 1005 Complete COMPREHENSIVE METABOLIC PANEL 08/08 1005 Complete CBC WITHOUT DIFFERENTIAL 08/08 1005 Complete EKG 08/08 1000 Active PT Evaluate & Treat 08/08 UNK Active VTE Mechanical Prophylaxis 08/08 UNK Active Current Medications Sig/Ashley Start time Last Medication Dose Stop Time Status Admin Atorvastatin Calcium 80 MG 1700 08/09 1700 AC (Lipitor) Aspirin 81 MG DAILY 08/09 1000 AC (Aspirin) Cyanocobalamin 500 MCG DAILY 08/09 1000 AC (Vitamin B12) Losartan Potassium 50 MG DAILY 08/09 1000 AC (Cozaar) Tamsulosin HCl 0.4 MG DAILY 08/09 1000 AC (Flomax) Apixaban 2.5 MG BID 08/08 2200 AC (Eliquis) Budesonide/ 2 PUF BID 08/08 2200 AC Formoterol Fumarate (Symbicort) Carvedilol 6.25 MG BID 08/08 2200 AC (Coreg) Finasteride 5 MG QPM 08/08 2200 AC (Proscar) Albuterol Sulfate 3 ML Q4P PRN 08/08 1400 AC (Proventil) Diazepam 5 MG TID PRN 08/08 1400 UNVr (Valium) Guaifenesin 600 MG BID PRN 08/08 1400 AC (Mucinex) Sodium Chloride 1,000 ML Q13H 08/08 1400 AC (Normal Saline 0.9%) 08/09 0259 Tramadol HCl 50 MG Q6P PRN 08/08 1400 AC (Ultram) Acetaminophen 325 MG Q6P PRN 08/08 1215 AC (Tylenol) Enoxaparin Sodium 40 MG DAILY 08/08 1211 CAN (Lovenox) Laboratory Tests 08/08/16 1012: Anion Gap 9, Estimated GFR 48 L, BUN/Creatinine Ratio 12.9, Glucose 188 H, Calcium 9.2, Magnesium 1.7, Total Bilirubin 0.8, AST 24, ALT 39, Alkaline Phosphatase 84, Troponin I 0.05, Total Protein 6.3, Albumin 3.6, Globulin 2.7, Albumin/Globulin Ratio 1.3, PT 13.1 H, INR 1.25 H, APTT 28, CBC w Diff NO MAN DIFF REQ, RBC 4.46 L, MCV 83.6, MCH 27.7, RDW 14.8 H, MPV 9.0, Gran % 55.5, Lymphocytes % 36.6, Monocytes % 4.9, Eosinophils % 1.9, Basophils % 1.1, Absolute Granulocytes 3.3, Absolute Lymphocytes 2.2, Absolute Monocytes 0.3, Absolute Eosinophils 0.1, Absolute Basophils 0.1, PUBS MCHC 33.2 Labs ordered old records reviewed patient is declining anything for pain when offered patient is been seen numerous times in the past for similar symptoms 08/08/2016 12:00:45 PM discussed with the patient and his daughter at least all of his lab results chest x-ray findings tramadol 1 ordered IV fluids ordered patient's creatinine, troponin are at his baseline. He lives at home alone he is a fall risk premature discharge would BE medically harmful they're in agreement with plan CASE D/W DR BRANDT WILL ADMIT (CARMEN MOLINA) Diagnostic Imaging: Viewed by Me: Radiology Read. Discussed w/RAD: Radiology Read. Radiology Impression: PATIENT: JUICE CHAIDEZ PRESENT AGE: 89 PATIENT ACCOUNT NO: [id number] : [birth year] LOCATION: [facility] ORDERING PHYSICIAN: CARMEN PEREZ SERVICE DATE: 08/08/16 EXAM TYPE: RAD - XRY-PORTABLE CHEST XRAY EXAMINATION: XR PORTABLE CHEST CLINICAL INFORMATION: 89-year-old man with dizziness. COMPARISON: 07/25/2016 chest radiograph TECHNIQUE: Portable AP view of the chest was obtained. FINDINGS: The lungs are well expanded and clear, without evidence of focal consolidation or overt pulmonary edema. A left-sided 3-lead pacemaker is seen in stable position. Moderate cardiomegaly is unchanged. There are no pleural effusions. IMPRESSION: No radiographic evidence of an acute cardiopulmonary process. DICTATED BY: NAJMA KUMAR MD DATE/TIME DICTATED:08/08/161054 ACCOUNTING SUPPORT SPECIALIST:HAILEE DATE/TIME TRANSCRIBED:08/08/161054 CONFIDENTIAL, DO NOT COPY WITHOUT APPROPRIATE AUTHORIZATION. <Electronically signed in Other Vendor System> Initial ED EKG: normal intervals, v PACED AT 60, NO ACUTE st SEGMENT CHANGES NORMAL AXIS Prior EKG: unchanged (07/30/16) Rhythm Strip: normal sinus rhythm (CARMEN MOLINA) Departure Departure Time of Disposition: 1201 Disposition: STILL A PATIENT Condition: Stable Clinical Impression Primary Impression: Vertigo Secondary Impressions: Near syncope Referrals: ANGELI VILLALOBOS MD (PCP/Family) Departure Forms: Customer Survey General Discharge Information Observation Note Spoke With: DIXIE BRANDT MD Place Patient In: Non-ED OBS Care Area Rationale for Observation: My rational for observation is as follows [patient is not at baseline he is a fall risk given symptoms, patient is seen numerous times in the past for similar symptoms, patient was at home alone given unknown etiology of patient's symptoms in which her discharge would BE medically harmful (ANGELINA PEREZ,CARMEN) PA/FINANCIAL PROJECT MANAGER Co-Sign Statement Statement: ED Attending supervision documentation- x I saw and evaluated the patient. I have also reviewed all the pertinent lab results and diagnostic results. I agree with the findings and the plan of care as documented in the PA's/FINANCIAL PROJECT MANAGER's documentation. [] I have reviewed the ED Record and agree with the PA's/FINANCIAL PROJECT MANAGER's documentation. [] Additions or exceptions (if any) to the PAs/FINANCIAL PROJECT MANAGER's note and plan are summarized below: [] (REINIER URBANO,JESSICA)
--- NOTE | 2016-08-08 10:16 | NUR ---
BLOOD DRAWN AND SENT TO LAB
[2016-08-08 10:39] LABS: ABSOLUTE BASOPHIL COUNT 0.1 /CUMM (0.0-0.2); ABSOLUTE EOSINOPHIL COUNT 0.1 /CUMM (0.0-0.7); ABSOLUTE GRANULOCYTE CT 3.3 /CUMM (1.4-6.5); ABSOLUTE LYMPH COUNT 2.2 /CUMM (1.2-3.4); ABSOLUTE MONOCYTE COUNT 0.3 /CUMM (0.10-0.60); BASOPHIL % 1.1 % (0.0-2.0); EOSINOPHIL % 1.9 % (0-5); GRANULOCYTE % 55.5 % (42.2-75.2); HEMATOCRIT 37.3 % (42-52); MEAN CORPUSCULAR HGB 27.7 PG (27.0-31.0); MEAN CORPUSCULAR HGB CONC 33.2 G/DL (33.0-37.0); MEAN CORPUSCULAR VOLUME 83.6 FL (80.0-94.0); PLATELET COUNT 168 /CUMM (130-400); RBC DISTRIBUTION WIDTH 14.8 % (11.5-14.5); RED BLOOD CELL CT 4.46 /CUMM (4.70-6.10)
[2016-08-08 10:43] LABS: PT 13.1 SEC (9.4-12.5); PTT 28 SEC (25-37)
--- NOTE | 2016-08-08 10:43 | NUR ---
PA IN ROOM
--- NOTE | 2016-08-08 11:00 | RADIOLOGY REPORT ---
EXAMINATION: XR PORTABLE CHEST CLINICAL INFORMATION: 89-year-old man with dizziness. COMPARISON: 07/25/2016 chest radiograph TECHNIQUE: Portable AP view of the chest was obtained. FINDINGS: The lungs are well expanded and clear, without evidence of focal consolidation or overt pulmonary edema. A left-sided 3-lead pacemaker is seen in stable position. Moderate cardiomegaly is unchanged. There are no pleural effusions. IMPRESSION: No radiographic evidence of an acute cardiopulmonary process.
--- NOTE | 2016-08-08 11:53 | NUR ---
PT UPSET AND CRYING STATES THAT HE CAN'T TAKE IT ANYMORE HE IS SO TIRED OF FEELING WEAK STATES HE HAS A FEW GOOD DAYS AND THEN HE GETS SO WEAK HE CAN'T EVEN WALK PA MADE AWARE
--- NOTE | 2016-08-08 12:39 | NUR ---
PT HAS BED ASSIGNMENT [id number]. RN NOTIFIED.
--- NOTE | 2016-08-08 13:07 | NUR ---
FLOOR TO CALL BACK FOR REPORT
--- NOTE | 2016-08-08 13:16 | NUR ---
REPORT GIVEN TO JESSENIA MEDEIROSREFUELING RAMP SUPERVISOR NOTIFIED
--- NOTE | 2016-08-08 13:48 | History & Physical ---
ANTIONETTE HURT 08/08/16 1312: General Information and HPI MD Statement: I have seen and personally examined JUAN JOSE CHAIDEZ and documented this H&P. The patient is a 89 year old M who presented with a patient stated chief complaint of [VERTIGO]. Source of Information: patient, family, old records Exam Limitations: no limitations History of Present Illness: 84-year-old M with past medical history of A. fib on Eliquis, COPD not on home oxygen, history of PE, [place] x 4 ,status post stent placement x 5, PCM implantation in 2015, AAA repair, hypertension, diabetes melitis is being admitted for the evaluation of left-sided neck pain and vertigo. Patient has been admitted multiple times with similar complaints. Last admission 07/23/2016. Most of the history is obtained from his daughter who was at bedside. She reports that he was in his normal state of health this morning when she picked him up for breakfast. He ate his breakfast comfortably and while walking out of the restaurant suddenly felt lightheaded and almost passed out. He somehow managed to reach the car with help and was almost nonrespondent. Daughter had to wake him up with sternal rubs. He denied any chest pain, palpitations, nausea, vomiting, abdominal pain, urinary or bowel symptoms. He just kept complaining of pain on the left side of his neck and dizziness. He did not complain of any room spinning sensations. The daughter brought him to the ED for evaluation of his lightheadedness. Of note the patient has been admitted to the hospital with multiple episodes of lightheadedness. He has been evaluated at [facility] as well as an [facility]. All imaging including CT head has been negative except atherosclerotic changes. EKGs has been normal. He has been evaluated by neurologist and public works supervisor at previous admissions. Telemetry monitoring has been negative for any arrhythmias. Orthostatic positive on his admissions. Family notes that after the previous admisHis pacemaker has been interrogated twice in the past. He has been orthostatics posion, his blood pressure medications, Diovan has been reduced to 160 mg(from 320) and carvedilol has been reduced to 6.25 mg( from 12.5) by Dr. Barreto. Patient has been getting physical therapy for his neck raul n few days/ week post discharge. The ED vital temperature 96.9, pulse 68, respiration 20, blood pressure 121/67, saturating 95% on room air. Labs were normal with some hemoconcentration and kidney injury which is chronic Allergies/Medications Home Med list Albuterol Sulfate 2.5 MG/3 ML (0.083 %) VIAL.NEB 1 Vial INH/DANDY Q4P SHORTNESS OF BREATH (Reported) Apixaban (Eliquis) 2.5 MG TABLET 1 TAB PO BID BLOOD THINNER (Reported) Aspirin (Children's Aspirin) 81 MG TAB.CHEW 1 TAB PO DAILY HEART HEALTH ( Reported) Atorvastatin Calcium 80 MG TABLET 1 TAB PO DAILY CHOLESTEROL (Reported) Budesonide/Formoterol Fumarate (Symbicort 160-4.5 Mcg Inhaler) 160 MCG-4.5 MCG/ ACTUATION HFA.AER.AD 2 PUF INH BID COPD (Reported) Carvedilol 6.25 MG TABLET 1 TAB PO BID HEART (Reported) Cholecalciferol (Vitamin D3) (Vitamin D) 2,000 UNIT TABLET 1 TAB PO DAILY SUPPLEMENT (Reported) Cyanocobalamin (Vitamin B-12) (B-12) 500 MCG TABLET 1 TAB PO DAILY SUPPLEMENT (Reported) Finasteride 5 MG TABLET 1 TAB PO QPM PROSTATE (Reported) Guaifenesin (Mucinex) 600 MG TAB.ER.12H 1 TAB PO BID PRN UNKNOWN (Reported) Tamsulosin HCl (Flomax) 0.4 MG CAP.ER.24H 1 CAP PO DAILY BPH (Reported) Tramadol HCl 50 MG TABLET 50 MG PO Q6P PRN neck pain Tylenol With Codeine (Tylenol With Codeine #3 Tablet) 300 MG-30 MG TABLET 1 TAB PO Q6P PRN PAIN (Reported) Valsartan (Diovan) 160 MG TABLET 1 TAB PO DAILY HEART (Reported) Past History Travel History Traveled to [place] past 21 day No Medical History Neurological: dizziness, NUMB 1ST THREE L FINGERS EENT: TRIBAL BILATERAL CATARACTS Cardiovascular: AFIB, CAD, CHF, hypertension, CARDIAC STENTS X 4 KS x5 HLD Respiratory: COPD, pulmonary embolism Gastrointestinal: ABDOMINAL AORTIC ANEURYSM HERNIA REPAIR Hepatic: NONE Renal: chronic kidney disease Musculoskeletal: carpal tunnel syndrome ARTHRITIS Psychiatric: NONE Endocrine: diabetes Blood Disorders: DVT Cancer(s): melanoma KIER BOILER/Reproductive: BPH History of MRSA: No History of VRE: No History of CDIFF: No Surgical History Surgical History: cardiac stents Past Family/Social History Family History Relations & Conditions if any SISTER FH: heart failure FHx: hypertension MOTHER FH: myocardial infarction FHx: hypertension FATHER FHx: hypertension Psychosocial History Who Do You Live With? self Services at Home: None Primary Language: Kyrgyz ETOH Use: denies use Illicit Drug Use: denies illicit drug use Living Will? yes Functional Ability ADLs Independent: dressing, eating, toileting, bathing. Ambulation: independent IADLs Independent: shopping, housework, finances, food prep, telephone, transportation , medication admin. Review of Systems Review of Systems Constitutional: Reports: malaise, weakness. Cardiovascular: Reports: no symptoms. Respiratory: Reports: no symptoms. GI: Reports: no symptoms. Genitourinary: Reports: no symptoms. Musculoskeletal: Reports: neck pain. Skin: Reports: no symptoms. Exam & Diagnostic Data Last 24 Hrs of Vital Signs/I&O Vital Signs Date Time Temp Pulse Resp B/P Pulse O2 O2 Flow FiO2 Ox Delivery Rate 08/08 1321 97.7 63 18 152/60 99 Room Air 08/08 1132 97.8 78 132/80 04 1040 60 14 135/59 99 Room Air 08/08 1007 74 132/60 08/08 1005 97 / 0950 96.9 68 20 121/67 95 Intake & Output 08/08 1600 08/08 0800 08/08 0000 Intake Total 1000 Output Total Balance 1000 Intake, IV 1000 Patient 88.451 kg Weight Physical Exam General Appearance Alert, Oriented X3, Moderate Distress Skin No Rashes, No Breakdown HEENT SEVERE RESTRICTION OF NECK MOVEMENTS, TENDERNESS TO PALPATION OF THE LEFT NECK MUSCLES Neck ROM OF THE NECK Lymphatic Cervical nl Cardiovascular Regular Rate, Normal S1, Normal S2 Lungs Clear to Auscultation, Normal Air Movement Abdomen Normal Bowel Sounds Neurological Cranial Nerves 3-12 NL, Reflexes 2+, 4/5 POWER IN ALL EXTREMITIES Extremities No Clubbing, No Cyanosis, No Edema, Normal Pulses Assessment/Plan Assessment: 84-year-old M with past medical history of A. fib on Eliquis, COPD not on home oxygen, history of PE, [place] x 4 ,status post stent placement x 5, PCM implantation in 2015, AAA repair, hypertension, diabetes melitis is being admitted for the evaluation of left-sided neck pain and vertigo. Labs were normal with some hemoconcentration and kidney injury which is chronic EKG: V PACED AT 60, RBBB Echo 2016 :Left ventricular ejection fraction is estimated at 45-50 %/. Abnormal relaxation filling pattern of the left ventricle for age (stage 1 diastolic dysfunction). EEG 2016:Normal. Carotid Doppler 2016:No hemodynamically significant stenosis involving the bilateral internal carotid arteries. Any stenosis is less than 50%. CT HEAD ( 07/23/2016): No acute abnormality. Age-related changes stable. CT CERVICAL SPINE:Severe multilevel spondylosis of the cervical spine without an acute abnormality. No change. 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 No change. # Chronic Neck pain associated with vertigo: Likely neck muscle spasm. Does not look like BPPV, no positional change and vertigo. No nystagmus/room spinning centers sensations. No focal neurological deficits. No vision abnormalities/no Fletcher's /No mu-ism tenderness. No history of migraines. Multiple evaluations in the past. All workup including EEG/CT neck has been negative. Pacemaker interrogated twice in the past. -Admit to [facility] -Repeat orthostatics. Patient has been positive multiple times in the past. Does not use stockings. -Gentle hydration with IV normal saline x 1bag -We'll try Valium for neck muscle spasm/vertigo -Tylenol when necessary for pain control -Recent reduction in the blood pressure medications Coreg and Diovan by Dr. Barreto -Continue when necessary Ativan dose -Consider compression stockings -PT evaluation for Rio maneuver -Cardiology consult with Dr. Barreto in a.m. -Consider neurology consult if pain doesn't get better # COPD Continue home meds Symbicort and albuterol #Hypertension -Continue home medications Diovan and Coreg # History of coronary artery disease/A. fib, hypertension Continue aspirin, statin, Eliquis, Lasix, nitroglycerin when necessary, carvedilol,eliquis and losartan #Chronic kidney disease: Creatinine at baseline 1.4 -Straight cath the patient after bladder scan as patient complains of retention due to BPH Heart healthy diet DNR/DNI Mild/moderate/severe pain pathway DVT prophylaxis :Eliquis As Ranked By This Provider Problem List: 1. BPH 2. Neck pain 3. Neck muscle spasm 4. Conversion disorder Core Measures/Miscellaneous Acute Coronary Syndrome ACS Diagnosis: No Cerebrovascular Accident CVA/TIA Diagnosis: No Congestive Heart Failure CHF Diagnosis: No Venous Thromboembolism VTE Risk Factors: Age > 40, Immobility, paresis No Mech VTE prophylaxis d/t: No contraindications No VTE Pharm Prophylaxis d/t: No contraindications VTE Diagnosis: No VTE Type: NONE VTE Confirmed by (Test): NONE Severe Sepsis Severe Sepsis Present: No Septic Shock Septic Shock Present: No Miscellaneous Documentation Attending Case Discussed With: DIXIE BRANDT MD Primary Care Physician: ANGELI VILLALOBOS MD Patient sees these Specialists [place] Level of Patient Care: General Medicine DIXIE BRANDT MD 08/08/16 1502: General Information and HPI Allergies/Medications Allergies: Coded Allergies: amoxicillin (From PREVPAC) (UNKNOWN 04/23/16) clarithromycin (From PREVPAC) (UNKNOWN 04/23/16) diazepam (HALLUCINATIONS 08/08/16) PER PATIENT, TOLERATES LOW DOSES lansoprazole (From PREVPAC) (UNKNOWN 04/23/16) morphine (Intermediate, LETHARGY, CONFUSION 04/23/16) meclizine (CONFUSION 04/23/16) Attending MD Review Statement Attending Statement Attending MD Statement: examined this patient, discuss w/resident/PA/PSYCHOLOGY TECH, agreed w/resident/PA/PSYCHOLOGY TECH, reviewed EMR data (avail) Attending Assessment/Plan: 89M PMH A. fib on Eliquis, COPD not on home oxygen, history of PE, KS x 4 , status post stent placement x 5, PCM implantation in 2015, AAA repair, hypertension, diabetes melitis presenting with vertigo and left sided neck pain. Similar presentation to prior admissions. Denies chest pain, palpitations, neurological deficit. Exam is benign. Plan - Repeat EKG at 4pm and tomorrow morning - PT evaluation - Will consider cardiology consultation if patient develops cardiac symptoms - Obtain neurology consult - Continue home medications - DVT PPx
[2016-08-08 15:48] VITALS: BP 180/64
[2016-08-08 21:44] VITALS: BP 156/58
[2016-08-09 06:41] VITALS: BP 150/68
--- NOTE | 2016-08-09 07:34 | PN- Housestaff ---
Subjective Follow-up For: DIZZINESS. Complaints: still some dizziness Subjective: I followed- up and examined the patient today. He was lying comfortably in his bed and was still complaining that he was dizzy this morning. Pain scale zero. Overnight vitals have been stabgle with BP at 162/70max. No overnight issues otherwise. This morning, during the rounds, the medical team was called by the nurse saying that he is unresponsive and that he might need a rapid response. He was found to be responsive to pain, and was able to answer questions. His blood sugar was checked this AM, which was 113. His vitals at that time was 162/70, HR- 64, 98% on RA, temp 97.5, RR 22, pain 0/10. EKG was paced rhythm, troponin, CBC, BEP, Mg was ordered, and he was sent to tele for telemetry monitoring, but due to bed unavailability, he was physically sent to ICU as a tele hold patient. Review of Systems Constitutional: Reports: see HPI. Cardiovascular: Reports: no symptoms. Respiratory: Reports: no symptoms. Gastrointestinal: Reports: no symptoms. Genitourinary: Reports: no symptoms. Musculoskeletal: Reports: see HPI. Skin: Reports: no symptoms. Neurological/Psychological: Reports: confusion, other. Hematologic/Endocrine: Reports: no symptoms. Objective Last 24 Hrs of Vital Signs/I&O Vital Signs Date Time Temp Pulse Resp B/P Pulse O2 O2 Flow FiO2 Ox Delivery Rate 08/09 1310 84 173/66 08/09 1115 62 228/90 08/09 1035 68 203/82 08/09 0952 97.5 64 22 162/70 98 Room Air Room Air 08/09 0641 98.4 72 18 150/68 95 Room Air 08/08 2144 98.2 60 18 156/58 96 Room Air 08/08 2046 62 156/60 08/08 1548 72 180/64 Intake & Output 08/09 1600 08/09 0800 04 0000 Intake Total 580 240 Output Total 1150 475 375 Balance -570 -475 -135 Intake, IV 100 Intake, Oral 480 240 Number 0 Bowel Movements Output, Urine 1150 475 375 Physical Exam General Appearance: Oriented X3, Cooperative, Mild Distress Skin: No Rashes, No Breakdown, No Significant Lesion HEENT: Atraumatic, PERRLA, EOMI, Mucous Membr. moist/pink Neck: range of movement restricted due to pain Lymphatic: Cervical nl Cardiovascular: Regular Rate, Normal S1, Normal S2 Lungs: Clear to Auscultation Abdomen: Normal Bowel Sounds, Soft, No Tenderness Neurological: grossly intact Extremities: No Clubbing, No Cyanosis, No Edema, Normal Pulses Vascular: Normal Pulses Current Medications: Current Medications Sig/Ashley Start time Last Medication Dose Route Stop Time Status Admin Acetaminophen 1,000 MG ONCE ONE 08/09 1115 DC 08/09 N/A 1 UNIT IV 08/09 1129 1115 Acetaminophen 325 MG Q6P PRN 08/08 1215 AC PO Albuterol Sulfate 3 ML Q4P PRN 08/08 1400 AC INH Apixaban 2.5 MG BID 08/08 2200 AC 08/09 PO 1310 Aspirin 81 MG DAILY 08/09 1000 AC 08/09 PO 1309 Atorvastatin Calcium 80 MG 1700 08/09 1700 AC PO Budesonide/ 2 PUF BID 08/08 2200 AC 08/09 Formoterol Fumarate INH 1309 Carvedilol 6.25 MG BID 08/08 2200 AC 04 PO 2046 Cyanocobalamin 500 MCG DAILY 08/09 1000 AC 04 PO 1311 Diazepam 5 MG TID PRN 08/08 1400 DC PO Finasteride 5 MG QPM 08/08 2200 AC 08/08 PO 2046 Guaifenesin 600 MG BID PRN 08/08 1400 AC PO Heparin Sodium 5,000 UNIT Q8 08/08 1400 DC (Porcine) SC Hydralazine HCl 10 MG ONCE ONE 08/09 1045 DC 08/09 IV 08/09 1046 1035 Labetalol HCl 10 MG ONCE ONE 08/09 1115 DC 04/ IV 08/09 1116 1115 Losartan Potassium 50 MG DAILY 08/09 1000 AC 08/09 PO 1310 Patient Medication 1 ED .STK-MED ONE 08/09 1359 DC Teaching ED 08/09 1400 Patient Medication 1 UNIT ONE NR 08/09 1115 AC Teaching ED 08/09 1715 Sodium Chloride 1,000 ML Q13H 08/08 1400 DC 08/08 IV 08/09 0259 1420 Sodium Chloride 1,000 ML ONCE ONE 08/08 1200 DC 02 IV 08/08 1839 1201 Tamsulosin HCl 0.4 MG DAILY 08/09 1000 DC PO Tramadol HCl 50 MG Q6P PRN 08/08 1400 AC 08/08 PO 2052 Trazodone HCl 25 MG TIDPRN PRN 08/09 1330 AC PO Last 24 Hrs of Lab/Jeff Results Last 24 Hrs of Labs/Mics: Laboratory Tests 08/09/16 1004: Troponin I Cancelled 08/09/16 1004: Anion Gap 7, Estimated GFR 48 L, BUN/Creatinine Ratio 12.1, Magnesium 1.7, Total Bilirubin 0.5, Direct Bilirubin 0.3, AST 20, ALT 36, Alkaline Phosphatase 89, Troponin I 0.05, Total Protein 5.8 L, Albumin 3.3 L, CBC w Diff NO MAN DIFF REQ, RBC 4.44 L, MCV 83.5, MCH 27.9, RDW 15.0 H, MPV 8.9, Gran % 54.2, Lymphocytes % 38.1, Monocytes % 4.6, Eosinophils % 2.2, Basophils % 0.9, Absolute Granulocytes 3.3, Absolute Lymphocytes 2.3, Absolute Monocytes 0.3, Absolute Eosinophils 0.1, Absolute Basophils 0.1, PUBS MCHC 33.4 08/09/16 0638: Anion Gap 4 L, Estimated GFR 52 L, BUN/Creatinine Ratio 14.6 08/08/16 1553: Troponin I 0.04 Microbiology 08/09 1243 URINE ROUT: Urine Culture - COLB Assessment/Plan Assessment: 84-year-old M with past medical history of A. fib on Eliquis, COPD not on home oxygen, history of PE, [place] x 4 ,status post stent placement x 5, PCM implantation in 2015, AAA repair, hypertension, diabetes melitis was admitted for readmission for evaluation of left-sided neck pain and vertigo. Labs were normal with some hemoconcentration and kidney injury which is chronic EKG: V PACED AT 60, RBBB Echo 2016 :Left ventricular ejection fraction is estimated at 45-50 %/. Abnormal relaxation filling pattern of the left ventricle for age (stage 1 diastolic dysfunction). EEG 2016:Normal. Carotid Doppler 2016:No hemodynamically significant stenosis involving the bilateral internal carotid arteries. Any stenosis is less than 50%. CT HEAD ( 07/23/2016): No acute abnormality. Age-related changes stable. CT CERVICAL SPINE:Severe multilevel spondylosis of the cervical spine without an acute abnormality. No change. 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 No change. # Chronic Neck pain associated with vertigo: Likely neck muscle spasm. Does not look like BPPV, no positional change and vertigo. No nystagmus/room spinning centers sensations. No focal neurological deficits. No vision abnormalities/no Fletcher's /No pentecostalism tenderness. No history of migraines. Multiple evaluations in the past. All workup including EEG/CT neck has been negative. Pacemaker interrogated twice in the past. -Repeat orthostatics was positive. Patient has been positive multiple times in the past. No arrhythmia noted in his EKG, which is paced. Does not use stockings that was previously suggested. -He received one bag of IV NS overnight, while being allowed to eat per oral. -Valium for neck muscle spasm was held due to allergy. -Tylenol and other pain meds when necessary for pain control -Continue when necessary Ativan dose -Consider compression stockings -PT evaluation for Rio maneuver pending today -Recent reduction in the blood pressure medications Tory and Young by Dr. Barreto, Cardiology also consulted. Awaiting Cardiology consult with Dr. Barreto. -Awaiting Neurology consult if pain doesn't get better -Concern is also for his pain partially being somatoform, but we need to rule out the physical illness first # COPD Continue home meds Symbicort and albuterol #Hypertension -Continue home medications Javiervan and Coreg # History of coronary artery disease/A. fib, hypertension Continue aspirin, statin, Eliquis, Lasix, nitroglycerin when necessary, carvedilol,eliquis and losartan #Chronic kidney disease: Creatinine at baseline 1.4 -Patient was urinating by standing everytime since yesterday, but felt dizzy every time he did so. -Therefore, no obstruction currently, although he has a history of BPH. Heart healthy diet DNR/DNI Mild/moderate/severe pain pathway DVT prophylaxis :Eliquis Problem List: 1. Neck muscle spasm 2. Neck pain 3. Conversion disorder Pain Ratin Pain Location: neck Pain Goal: Pain 4 or less Pain Plan: pain pathway meds in place Tomorrow's Labs & Rationales: as per ICU team as per ICU team
--- NOTE | 2016-08-09 09:51 | NUR ---
PHYSICAL THERAPY. PT CONSULT RECEIVED/CHART REVIEWED. APPROACHED Pt FOR EVALUATION, Pt LETHARGIC, ANSWERING QUESTIONS APPROPRIATELY. REPORTS CONSTANT LIGHTHEADEDNESS BUT DENIES VERTIGO, REPORTS HE IS FAMILIAR WITH THE DIFFERENCE. Pt THEN BECAME MINIMALLY RESPONSIVE, OPENING EYES BRIEFLY TO STIMULI, NSG AND MD NOTIFIED AND ARRIVED TO EVALUATE. BP 162/70, SPO2 97% RA, HR 64. STAT EKG ORDERED AND Pt TO BE TRANSFERED TO TELE. PLEASE RE-CONSULT APPROPRIATE ONCE Pt STABLE.
[2016-08-09 09:52] VITALS: BP 162/70
[2016-08-09 10:18] LABS: ABSOLUTE BASOPHIL COUNT 0.1 /CUMM (0.0-0.2); ABSOLUTE EOSINOPHIL COUNT 0.1 /CUMM (0.0-0.7); ABSOLUTE GRANULOCYTE CT 3.3 /CUMM (1.4-6.5); ABSOLUTE LYMPH COUNT 2.3 /CUMM (1.2-3.4); ABSOLUTE MONOCYTE COUNT 0.3 /CUMM (0.10-0.60); BASOPHIL % 0.9 % (0.0-2.0); EOSINOPHIL % 2.2 % (0-5); GRANULOCYTE % 54.2 % (42.2-75.2); HEMATOCRIT 37.1 % (42-52); MEAN CORPUSCULAR HGB 27.9 PG (27.0-31.0); MEAN CORPUSCULAR HGB CONC 33.4 G/DL (33.0-37.0); MEAN CORPUSCULAR VOLUME 83.5 FL (80.0-94.0); MEAN PLATELET VOLUME 8.9 FL (7.4-10.4); PLATELET COUNT 163 /CUMM (130-400); RED BLOOD CELL CT 4.44 /CUMM (4.70-6.10); WHITE BLOOD CELL COUNT 6.1 /CUMM (4.8-10.8)
--- NOTE | 2016-08-09 10:36 | NUR ---
0945 PHYSICAL THERAPY IN ROOM TO SEE PATIENT, AROUSABLE BUT CAN NOT STAY AWAKE. AROUSED WITH STERNAL RUB, ALERT AND ORIENTED X2, APPROPRIATE RESPONSES, EQUAL HAND GRASPS, FOLLOWING COMMANDS WITH CONTINUED PROMPTING. BP 162/70, HR 64, 98% ON RA, TEMP 97.5, RR 22, PAIN OF 0/10. [address] WISE NOTIFIED AND IN THE ROOM. EKG BEING DONE ORDERED, STAT LABS ORDERED. PATIENT TO GO FOR TELEMETRY MONITORING PER DR WISE. 1010 PATIENT TRANSFERRED TO ICU FAS TELEMETRY HOLD ON A TEAM DRIVER. REPORT GIVEN TO MALA JORDAN. RESIDENT REETU ACCOMPANYING TRANSER FOR CARDIAC PATIENT MONITORING
--- NOTE | 2016-08-09 11:28 | CT SCAN REPORT ---
EXAMINATION: CT HEAD WITHOUT CONTRAST CLINICAL INFORMATION: Stroke protocol. COMPARISON: 07/30/2016 TECHNIQUE: Contiguous axial imaging was performed from the skull base to vertex without intravenous administration of contrast. DLP: 601 mGy-cm FINDINGS: There is no evidence of acute intracranial hemorrhage or territorial infarction. No abnormal mass effect or midline shift is seen. William to white matter differentiation is well preserved. No extra-axial fluid collections are identified. The ventricles are normal in size for the patient's age with mild age-related atrophy suggested. There is no focal area of abnormal attenuation with the exception of some mild small vessel ischemic changes suggested in the white matter. The osseous structures and soft tissues are normal. The mastoid air cells and visualized portions of the paranasal sinuses are well aerated. IMPRESSION: No acute intracranial pathology. Findings were discussed with Amanda Humphries MD at 1119 hours 08/09/2016. It was ascertained that the content and urgency of the report was understood at the time of direct communication.
--- NOTE | 2016-08-09 12:05 | Event Note ---
Event Note Event Note: 84-year-old M with past medical history of A. fib on Eliquis, COPD not on home oxygen, history of PE, [place] x 4 ,status post stent placement x 5, PCM implantation in 2015, AAA repair, hypertension, diabetes melitis is being admitted for the evaluation of left-sided neck pain and vertigo. Patient was found to be slightly more confused than his base line. He was transferred ti ICU as tele hold for continous observation. Patient's blood pressure was found to be elevated at 210/100 mmhg and HR 60 bpm. ROS: + headche ( not the worst headache of his life; he has had the headache and dizziness when he was admited), + confusion, generalized malaise, change in vision and weakness. Neg: CP, SOB, Palpitation. PH/EX: Confused, cooperative, anxious and agitated due to his headache. Heart: S1 S2 no murmur. Lungs: clear. Assessment Patient has hypertenssive urgency. Plan 1) IV labetalol target bp: 180/90 (permissive hypertension) 2) CT scan of the head to R/O CVA 3) Serial trop and EKG 4) Neurology consult
--- NOTE | 2016-08-09 13:27 | NUR ---
ASSUMED CARE OF PATIENT AT 1200, 1 BAG OF PATIENTS BELONGING IN ROOM, DENTURES IN HIS MOUTH, HEARING AIDS PLACED IN EACH EAR, PATIENT TALKING AND TEXTING ON CELL PHONE; C/O 6/10 ACHING PAIN TO LEFT SIDE OF HEAD, AFEBRILE, A&O3, FOLLOWING COMMANDS,AVILA, SHAKING B/L UPPER EXT., F.S. 141, STATES HE DOES FEEL ANXIOUS; MORNING SCHEDULED MEDS GIVEN,BP AT THIS TIME 164/64, HR 66, DENIES C/P; 2L NC SAT O2SAT 100% CLEAR LUNG SOUNDS, EXER.SOB; ABD. SOFT, POSITIVE B.S., ATE 100% H/H LUNCH; LORENZO INTACT ADEQUATE AMOUNT CLEAR YELLOW U/O; BOTH # 20 IV'S TO RFA FLUSHED AND PATENT; COMPRESSION STOCKING ORDERED FOR PLACEMENT PER EXISTING ORDER; SKIN INTACT;NO EDEMA;
--- NOTE | 2016-08-09 14:33 | Cons- Cardiology ---
General Information and HPI Consulting Request Date of Consult: 08/09/16 Requested By: DIXIE BRANDT MD Reason for Consult: Presyncope History of Present Illness: the patient is an 89-year-old male with history of mild cardiomyopathy, with LV ejection fraction 45-50%, implanted defibrillator and biventricular pacemaker, no obstructive coronary artery disease on catheterization, recurrent presyncope, who follows up with me in the office. He has been complaining of lightheadedness dizziness over the past 2 weeks, and I recently decreased his cardiac medications as an outpatient. The patient presented to the hospital with complaint of lightheadedness and presyncope. He had breakfast with his daughter, and while walking out of the restaurant he suddenly felt lightheaded and almost passed out. His daughter arouse him with sternal rub son brought him to the emergency department for further evaluation. No chest pain. No yee syncope. No nausea or vomiting. No palpitations. While in the hospital, he was noted to have intermittent confusion and mental status changes. Blood pressure was checked and was found to be elevated to 210/100. He complains of headache and neck pain. Allergies/Medications Allergies: Coded Allergies: amoxicillin (From PREVPAC) (UNKNOWN 04/23/16) clarithromycin (From [employer]) (UNKNOWN 04/23/16) diazepam (HALLUCINATIONS 08/08/16) PER PATIENT, TOLERATES LOW DOSES lansoprazole (From PREVPAC) (UNKNOWN 04/23/16) morphine (Intermediate, LETHARGY, CONFUSION 04/23/16) meclizine (CONFUSION 04/23/16) Home Med List: Albuterol Sulfate 2.5 MG/3 ML (0.083 %) VIAL.NEB 1 Vial INH/DANDY Q4P SHORTNESS OF BREATH (Reported) Apixaban (Eliquis) 2.5 MG TABLET 1 TAB PO BID BLOOD THINNER (Reported) Aspirin (Children's Aspirin) 81 MG TAB.CHEW 1 TAB PO DAILY HEART HEALTH ( Reported) Atorvastatin Calcium 80 MG TABLET 1 TAB PO DAILY CHOLESTEROL (Reported) Budesonide/Formoterol Fumarate (Symbicort 160-4.5 Mcg Inhaler) 160 MCG-4.5 MCG/ ACTUATION HFA.AER.AD 2 PUF INH BID COPD (Reported) Carvedilol 6.25 MG TABLET 1 TAB PO BID HEART (Reported) Cholecalciferol (Vitamin D3) (Vitamin D) 2,000 UNIT TABLET 1 TAB PO DAILY SUPPLEMENT (Reported) Cyanocobalamin (Vitamin B-12) (B-12) 500 MCG TABLET 1 TAB PO DAILY SUPPLEMENT (Reported) Finasteride 5 MG TABLET 1 TAB PO QPM PROSTATE (Reported) Guaifenesin (Mucinex) 600 MG TAB.ER.12H 1 TAB PO BID PRN UNKNOWN (Reported) Tramadol HCl 50 MG TABLET 50 MG PO Q6P PRN neck pain Tylenol With Codeine (Tylenol With Codeine #3 Tablet) 300 MG-30 MG TABLET 1 TAB PO Q6P PRN PAIN (Reported) Valsartan (Diovan) 160 MG TABLET 1 TAB PO DAILY HEART (Reported) Current Medications: Current Medications Sig/Ashley Start time Last Medication Dose Route Stop Time Status Admin Acetaminophen 1,000 MG ONCE ONE 08/09 1115 DC 08/09 N/A 1 UNIT IV 08/09 1129 1115 Acetaminophen 325 MG Q6P PRN / 1215 AC PO Albuterol Sulfate 3 ML Q4P PRN 04 1400 AC INH Apixaban 2.5 MG BID 04 2200 AC 04/03 PO 1310 Aspirin 81 MG DAILY 04/ 1000 AC 04/ PO 1309 Atorvastatin Calcium 80 MG 1700 04/ 1700 AC 04/03 PO 1800 Budesonide/ 2 PUF BID 04 2200 AC 04/03 Formoterol Fumarate INH 1309 Carvedilol 6.25 MG BID 04/ 2200 AC 04/02 PO 2046 Cyanocobalamin 500 MCG DAILY 04/03 1000 AC 04/03 PO 1311 Finasteride 5 MG QPM 04/02 2200 AC 04/ PO 2046 Guaifenesin 600 MG BID PRN 04/02 1400 AC PO Hydralazine HCl 10 MG ONCE ONE 08/09 1045 DC 04 IV 08/09 1046 1035 Labetalol HCl 10 MG ONCE ONE 08/09 1115 DC 04/ IV 08/09 1116 1115 Losartan Potassium 50 MG DAILY 04 1000 AC 04/ PO 1310 Patient Medication 1 ED .STK-MED ONE 08/09 1359 DC Teaching ED 08/09 1400 Patient Medication 1 UNIT ONE NR 08/09 1115 DC Teaching ED 08/09 1715 Sodium Chloride 1,000 ML Q13H 08/08 1400 DC 08/08 IV 08/09 0259 1420 Sodium Chloride 1,000 ML ONCE ONE 08/08 1200 DC 08/08 IV 08/08 1839 1201 Tamsulosin HCl 0.4 MG DAILY 08/09 1000 DC PO Tramadol HCl 50 MG Q6P PRN 08/08 1400 AC 08/08 PO 2053 Trazodone HCl 25 MG TIDPRN PRN 08/09 1330 AC PO Review of Systems Review of Systems: No rash. No tremor. No melena. No diaphoresis. All other systems are reviewed and are noted to be negative. Past History Travel History Traveled to [place] past 21 day No Medical History Blood Transfusion Hx: Yes Neurological: dizziness, NUMB 1ST THREE L FINGERS EENT: [place] BILATERAL CATARACTS Cardiovascular: AFIB, CAD, CHF, hypertension, CARDIAC STENTS X 4 VT x5 HLD Respiratory: COPD, pulmonary embolism Gastrointestinal: ABDOMINAL AORTIC ANEURYSM HERNIA REPAIR Hepatic: NONE Renal: chronic kidney disease Musculoskeletal: carpal tunnel syndrome ARTHRITIS Psychiatric: NONE Endocrine: diabetes Blood Disorders: DVT Cancer(s): melanoma PHOTO PRODUCER/Reproductive: BPH Surgical History Surgical History: cardiac stents Family History Relations & Conditions If Any: SISTER FH: heart failure FHx: hypertension MOTHER FH: myocardial infarction FHx: hypertension FATHER FHx: hypertension Psychosocial History Who Do You Live With? self Services at Home: None Primary Language: Albanian Smoking Status: Former Smoker ETOH Use: denies use Illicit Drug Use: denies illicit drug use Living Will? yes Functional Ability ADLs Independent: dressing, eating, toileting, bathing. Ambulation: independent IADLs Independent: shopping, housework, finances, food prep, telephone, transportation , medication admin. Exam & Diagnostic Data Vital Signs and I&O Vital Signs Date Time Temp Pulse Resp B/P Pulse O2 O2 Flow FiO2 Ox Delivery Rate 08/09 1310 84 173/66 08/09 1115 62 228/90 08/09 1035 68 203/82 08/09 0952 97.5 64 22 162/70 98 Room Air Room Air 08/09 0641 98.4 72 18 150/68 95 Room Air 08/08 2144 98.2 60 18 156/58 96 Room Air 08/08 2046 62 156/60 Intake & Output 08/09 1600 08/09 0808/09 0000 08/08 1600 08/08 0000 Intake Total 568 999 2722 Output Total 1150 475 375 Balance -570 -475 -135 1000 Intake, IV 100 1000 Intake, Oral 480 240 Number 0 Bowel Movements Output, Urine 1150 475 375 Patient 195 lb Weight Physical Exam: Gen: The patient is in no acute distress HEENT: Normal nose, ears, and oropharynx. Pupils equal bilaterally. Conjunctiva normal. Neck: Supple with no JVD, no masses, and no thyromegaly Lungs: Clear to auscultation with normal respiratory effort Heart: RRR, S1, S2, 1/6 systolic murmur. 1+ peripheral edema, 1+ pulses in the lower extremities bilaterally Abdomen: Soft, nontender, no masses. No hepatomegaly. No splenomegaly Extremities: No clubbing or cyanosis. Normal muscle strength in the upper and lower extremities. Skin: Normal skin turgor with no skin ulcers or lesions noted. Neuro: Cranial nerves intact. Sensation intact Psych: Alert and oriented 3 with appropriate affect Labs/Jeff Results: Laboratory Tests 08/09 08/09 08/09 1004 1004 0638 Chemistry Sodium (137 - 145 mmol/L) 133 L 130 L Potassium (3.5 - 5.1 mmol/L) 4.7 4.6 Chloride (98 - 107 mmol/L) 98 102 Carbon Dioxide (22 - 30 mmol/L) 27 25 Anion Gap (5 - 16) 7 4 L BUN (9 - 20 mg/dL) 17 19 Creatinine (0.7 - 1.2 mg/dL) 1.4 H 1.3 H Estimated GFR (>60 ml/min) 48 L 52 L BUN/Creatinine Ratio (7 - 25 %) 12.1 14.6 Magnesium (1.6 - 2.3 mg/dL) 1.7 Total Bilirubin (0.2 - 1.3 mg/dL) 0.5 Direct Bilirubin (< 0.4 mg/dL) 0.3 AST (17 - 59 U/L) 20 ALT (21 - 72 U/L) 36 Alkaline Phosphatase (< 127 U/L) 89 Troponin I (<0.11 ng/ml) Cancelled 0.05 Total Protein (6.3 - 8.2 g/dL) 5.8 L Albumin (3.5 - 5.0 g/dL) 3.3 L Hematology CBC w Diff NO MAN DIFF REQ WBC (4.8 - 10.8 /CUMM) 6.1 RBC (4.70 - 6.10 /CUMM) 4.44 L Hgb (14.0 - 18.0 G/DL) 12.4 L Hct (42 - 52 %) 37.1 L MCV (80.0 - 94.0 FL) 83.5 MCH (27.0 - 31.0 PG) 27.9 RDW (11.5 - 14.5 %) 15.0 H Plt Count (130 - 400 /CUMM) 163 MPV (7.4 - 10.4 FL) 8.9 Gran % (42.2 - 75.2 %) 54.2 Lymphocytes % (20.5 - 51.1 %) 38.1 Monocytes % (1.7 - 9.3 %) 4.6 Eosinophils % (0 - 5 %) 2.2 Basophils % (0.0 - 2.0 %) 0.9 Absolute Granulocytes (1.4 - 6.5 /CUMM) 3.3 Absolute Lymphocytes (1.2 - 3.4 /CUMM) 2.3 Absolute Monocytes (0.10 - 0.60 /CUMM) 0.3 Absolute Eosinophils (0.0 - 0.7 /CUMM) 0.1 Absolute Basophils (0.0 - 0.2 /CUMM) 0.1 PUBS MCHC (33.0 - 37.0 G/DL) 33.4 08/08 08/08 08/08 1553 1012 0400 Chemistry Sodium (137 - 145 mmol/L) 133 L Potassium (3.5 - 5.1 mmol/L) 4.8 Chloride (98 - 107 mmol/L) 98 Carbon Dioxide (22 - 30 mmol/L) 26 Anion Gap (5 - 16) 9 BUN (9 - 20 mg/dL) 18 Creatinine (0.7 - 1.2 mg/dL) 1.4 H Estimated GFR (>60 ml/min) 48 L BUN/Creatinine Ratio (7 - 25 %) 12.9 Glucose (65 - 99 mg/dL) 188 H Calcium (8.4 - 10.2 mg/dL) 9.2 Magnesium (1.6 - 2.3 mg/dL) 1.7 Total Bilirubin (0.2 - 1.3 mg/dL) 0.8 AST (17 - 59 U/L) 24 ALT (21 - 72 U/L) 39 Alkaline Phosphatase (< 127 U/L) 84 Troponin I (<0.11 ng/ml) 0.04 0.05 Cancelled Total Protein (6.3 - 8.2 g/dL) 6.3 Albumin (3.5 - 5.0 g/dL) 3.6 Globulin (1.9 - 4.2 gm/dL) 2.7 Albumin/Globulin Ratio (1.1 - 2.2 %) 1.3 Coagulation PT (9.4 - 12.5 SEC) 13.1 H INR (0.90 - 1.17) 1.25 H APTT (25 - 37 SEC) 28 Hematology CBC w Diff NO MAN DIFF REQ WBC (4.8 - 10.8 /CUMM) 6.0 RBC (4.70 - 6.10 /CUMM) 4.46 L Hgb (14.0 - 18.0 G/DL) 12.4 L Hct (42 - 52 %) 37.3 L MCV (80.0 - 94.0 FL) 83.6 MCH (27.0 - 31.0 PG) 27.7 RDW (11.5 - 14.5 %) 14.8 H Plt Count (130 - 400 /CUMM) 168 MPV (7.4 - 10.4 FL) 9.0 Gran % (42.2 - 75.2 %) 55.5 Lymphocytes % (20.5 - 51.1 %) 36.6 Monocytes % (1.7 - 9.3 %) 4.9 Eosinophils % (0 - 5 %) 1.9 Basophils % (0.0 - 2.0 %) 1.1 Absolute Granulocytes (1.4 - 6.5 /CUMM) 3.3 Absolute Lymphocytes (1.2 - 3.4 /CUMM) 2.2 Absolute Monocytes (0.10 - 0.60 /CUMM) 0.3 Absolute Eosinophils (0.0 - 0.7 /CUMM) 0.1 Absolute Basophils (0.0 - 0.2 /CUMM) 0.1 PUBS MCHC (33.0 - 37.0 G/DL) 33.2 Diagnostic Data EKG Results EKG tracing is independently reviewed, and reveals sinus rhythm with ventricular pacing at a rate of 62 CXR Results negative Other Results head CT August 09, 2016: No acute abnormality Echocardiogram March 09, 2016:Mild left ventricular dilatation. Mild concentric left ventricular hypertrophy Mildly decreased left ventricular systolic function. Left ventricular ejection fraction is estimated at 45-50 %. Abnormal relaxation filling pattern of the left ventricle for age (stage 1 diastolic dysfunction). Catheter/pacemaker wire in the right ventricular cavity. Mild mitral regurgitation. Assessment/Plan Assessment/Plan Assessment: 1. History of nonischemic cardiomyopathy 2. Recurrent presyncope 3. Orthostatics hypotension 4. Elevated blood pressure after recent decrease in hypertension medication Recommendations: * Increase losartan to 100 milligrams daily for additional blood pressure control * Continue other blood pressure medications * Agree with plan for neurology consult * Once blood pressure is under control, we will consider starting midodrine for orthostatic hypotension * I will arrange to have the pacemaker interrogated Consult Acknowledgment - Thank you for your consult request.
--- NOTE | 2016-08-09 14:44 | PN- Att Addend ---
Attending Addendum Attending Brief Note Patient seen and examined. The medical team was called urgently to the patient' s bedside by the nurse this morning as patient was reported to be unresponsive. When I evaluated the patient and found him lying in bed supine with his eyes closed and responding to commands in no tones. He answered questions and open his eyes wide open intermittently mentions them again. After a few seconds he gets his eyes open and answered questions. He expressed frustration about being in the hospital and became very emotional. He moved all extremities spontaneously and to command. Vital Signs Date Time Temp Pulse Resp B/P Pulse O2 O2 Flow FiO2 Ox Delivery Rate 08/09 1310 84 173/66 08/09 1115 62 228/90 08/09 1035 68 203/82 08/09 0952 97.5 64 22 162/70 98 Room Air Room Air 08/09 0641 98.4 72 18 150/68 95 Room Air 08/08 2144 98.2 60 18 156/58 96 Room Air 08/08 2046 62 156/60 08/08 1548 72 180/64 Gen. appearance: Well-developed, not in respiratory distress Heart: S1-S2 regular Lungs: Good entry bilaterally, clear to auscultation Abdomen: Soft, nontender with normal bowel sounds Extremities: No pedal edema Skin: Intact with no rashes Neurologic: Moved all extremities spontaneously although initially states he was unable to move his right leg. He would lift up his right arm to command and then drop it heavily back to the bed. Laboratory Tests 08/09/16 1004: Troponin I Cancelled 08/09/16 1004: Anion Gap 7, Estimated GFR 48 L, BUN/Creatinine Ratio 12.1, Magnesium 1.7, Total Bilirubin 0.5, Direct Bilirubin 0.3, AST 20, ALT 36, Alkaline Phosphatase 89, Troponin I 0.05, Total Protein 5.8 L, Albumin 3.3 L, CBC w Diff NO MAN DIFF REQ, RBC 4.44 L, MCV 83.5, MCH 27.9, RDW 15.0 H, MPV 8.9, Gran % 54.2, Lymphocytes % 38.1, Monocytes % 4.6, Eosinophils % 2.2, Basophils % 0.9, Absolute Granulocytes 3.3, Absolute Lymphocytes 2.3, Absolute Monocytes 0.3, Absolute Eosinophils 0.1, Absolute Basophils 0.1, PUBS MCHC 33.4 08/09/16 0638: Anion Gap 4 L, Estimated GFR 52 L, BUN/Creatinine Ratio 14.6 08/08/16 1553: Troponin I 0.04 Microbiology 08/09 1243 URINE ROUT: Urine Culture - COLB Problems: 1. Recurrent syncope; status post extensive workup including recently. Concern for somatoform behavior was raised by the psychiatric service in March 2016. 2. Chronic neck pain. 3. COPD 4. Hypertension 5. Coronary artery disease 6. Atrial fibrillation 7. chronic kidney disease stage III. Plan: -Patient transferred to the telemetry service (telemetry holding the ICU) for cardiac monitoring to rule out arrhythmia -Cardiology consultation to consider interrogation of pacemaker if not done recently -Check orthostatic blood pressure. -Recommend evaluation by the psychiatric service.
[2016-08-09 16:00] VITALS: BP 142/52
--- NOTE | 2016-08-09 17:17 | Cons- Psychiatry ---
Psychiatric Consult Date of Consult: 08/09/16 Reason for Consult: "Inconsistent neurolgical deficits. R/O conversion disorder." History of Present Illness: Patient presented to the emergency department with his daughter on 08/08/2016, stating "we went out to breakfast, and he got pale and almost passed out. He has been having trouble with his blood pressure going up and down, and he also has a history of vertigo. Patient complains of dizziness and weakness." This was the patient's 27th ER visit since August 2013, and his ninth inpatient stay since June 2015, with mulitple prior inpatient stays. Allergies: Coded Allergies: amoxicillin (From [employer] [facility]) (UNKNOWN 04/23/16) clarithromycin (From [employer]AC) (UNKNOWN 04/23/16) diazepam (HALLUCINATIONS 08/08/16) PER PATIENT, TOLERATES LOW DOSES lansoprazole (From [employer]AC) (UNKNOWN 04/23/16) morphine (Intermediate, LETHARGY, CONFUSION 04/23/16) meclizine (CONFUSION 04/23/16) Current Medications: Current Medications Sig/Ashley Start time Last Medication Dose Route Stop Time Status Admin Acetaminophen 1,000 MG ONCE ONE 08/09 1115 DC 08/09 N/A 1 UNIT IV 08/09 1129 1115 Acetaminophen 325 MG Q6P PRN 08/08 1215 AC PO Albuterol Sulfate 3 ML Q4P PRN 08/08 1400 AC INH Apixaban 2.5 MG BID 08/08 2200 AC 04 PO 1310 Aspirin 81 MG DAILY 08/09 1000 AC 08/09 PO 1309 Atorvastatin Calcium 80 MG 1700 08/09 1700 AC PO Budesonide/ 2 PUF BID 08/08 2200 AC 0403 Formoterol Fumarate INH 1309 Carvedilol 6.25 MG BID 08/08 2200 AC 04/ PO 2046 Cyanocobalamin 500 MCG DAILY 03 1000 AC 04/ PO 1311 Finasteride 5 MG QPM 08/08 2200 AC 04 PO 2046 Guaifenesin 600 MG BID PRN 08/08 1400 AC PO Hydralazine HCl 10 MG ONCE ONE 08/09 1045 DC 08/09 IV 08/09 1046 1035 Labetalol HCl 10 MG ONCE ONE 08/09 1115 DC 08/09 IV 08/09 1116 1115 Losartan Potassium 50 MG DAILY 04/03 1000 AC 08/09 PO 1310 Patient Medication 1 ED .STK-MED ONE 08/09 1359 DC Teaching ED 08/09 1400 Patient Medication 1 UNIT ONE NR 08/09 1115 AC Teaching ED 08/09 1715 Sodium Chloride 1,000 ML Q13H 08/08 1400 DC 08/08 IV 08/09 0259 1420 Sodium Chloride 1,000 ML ONCE ONE 08/08 1200 DC 08/08 IV 08/08 1839 1201 Tamsulosin HCl 0.4 MG DAILY 08/09 1000 DC PO Tramadol HCl 50 MG Q6P PRN 08/08 1400 AC 08/08 PO 2053 Trazodone HCl 25 MG TIDPRN PRN 08/09 1330 AC PO Past History Past Medical History Neurological: dizziness, NUMB 1ST THREE L FINGERS EENT: [place] BILATERAL CATARACTS Cardiovascular: AFIB, CAD, CHF, hypertension, CARDIAC STENTS X 4 UT x5 HLD Respiratory: COPD, pulmonary embolism Gastrointestinal: ABDOMINAL AORTIC ANEURYSM HERNIA REPAIR Hepatic: NONE Renal: chronic kidney disease Musculoskeletal: carpal tunnel syndrome ARTHRITIS Psychiatric: NONE Endocrine: diabetes Blood Disorders: DVT Cancer(s): melanoma METAL WEIGHER/Reproductive: BPH Past Surgical History Surgical History: cardiac stents Psychosocial History Strengths/Capabilities: "I've got a lot to live for. [facility] ([address] on [address] Physical Limitations (Interventions): Hard of hearing Psychiatric Treatment History Psych Treatment Psychiatric Treatment Yes Outpatient Treatment Yes Location of Treatment [facility] Reason for Treatment Panic Disorder without Agoraphobia; Unspecified Depressive D/O; Unspecified trauma and stressor related disorder. Dates of Treatment 05/17/2016 Response to Treatment Patient was prescribed Zoloft, titrating up to 50mg daily. Patient was encouraged to continue to follow up with outpatient therapy. Diagnosis: Panic Disorder without Agoraphobia; Unspecified Depressive D/O; Unspecified trauma and stressor related disorder. 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 Assessment/Plan Mental Status Orientation: Current situation, Person, Place, Situation Affect: Appropriate Speech: WNL Neuro-vegetative: WNL Mental Status Exam: SUBJECTIVE: "I get dizzy and I pass out, then I clear up. I get head pain like they were drilling my head, and then it goes away." Patient reports that he has been experiacing occipital head pain for the past 3 weeks. ASSESSMENT: Patient denies depression. Denies anxiety at the time of this interview however states "I have anxiety attacks, it used to be every month." Denies suicidal ideation, homicidal ideation, auditory hallucinations, visual hallucinations, paranoid ideation. Speech is well articulated, goal-directed, average in rate, volume and tone. Alert and oriented to person, place, time, and situation. Logical. Cooperative and pleasant. Patient appears to be a good historian. He is able to remember details of past events. States he sleeps well at night. His appetite is good. States that he has a good energy level, however he gets tired quickly. Lab Results: Laboratory Tests 08/09 08/09 08/09 1004 1004 0638 Chemistry Sodium (137 - 145 mmol/L) 133 L 130 L Potassium (3.5 - 5.1 mmol/L) 4.7 4.6 Chloride (98 - 107 mmol/L) 98 102 Carbon Dioxide (22 - 30 mmol/L) 27 25 Anion Gap (5 - 16) 7 4 L BUN (9 - 20 mg/dL) 17 19 Creatinine (0.7 - 1.2 mg/dL) 1.4 H 1.3 H Estimated GFR (>60 ml/min) 48 L 52 L BUN/Creatinine Ratio (7 - 25 %) 12.1 14.6 Magnesium (1.6 - 2.3 mg/dL) 1.7 Total Bilirubin (0.2 - 1.3 mg/dL) 0.5 Direct Bilirubin (< 0.4 mg/dL) 0.3 AST (17 - 59 U/L) 20 ALT (21 - 72 U/L) 36 Alkaline Phosphatase (< 127 U/L) 89 Troponin I (<0.11 ng/ml) Cancelled 0.05 Total Protein (6.3 - 8.2 g/dL) 5.8 L Albumin (3.5 - 5.0 g/dL) 3.3 L Hematology CBC w Diff NO MAN DIFF REQ WBC (4.8 - 10.8 /CUMM) 6.1 RBC (4.70 - 6.10 /CUMM) 4.44 L Hgb (14.0 - 18.0 G/DL) 12.4 L Hct (42 - 52 %) 37.1 L MCV (80.0 - 94.0 FL) 83.5 MCH (27.0 - 31.0 PG) 27.9 RDW (11.5 - 14.5 %) 15.0 H Plt Count (130 - 400 /CUMM) 163 MPV (7.4 - 10.4 FL) 8.9 Gran % (42.2 - 75.2 %) 54.2 Lymphocytes % (20.5 - 51.1 %) 38.1 Monocytes % (1.7 - 9.3 %) 4.6 Eosinophils % (0 - 5 %) 2.2 Basophils % (0.0 - 2.0 %) 0.9 Absolute Granulocytes (1.4 - 6.5 /CUMM) 3.3 Absolute Lymphocytes (1.2 - 3.4 /CUMM) 2.3 Absolute Monocytes (0.10 - 0.60 /CUMM) 0.3 Absolute Eosinophils (0.0 - 0.7 /CUMM) 0.1 Absolute Basophils (0.0 - 0.2 /CUMM) 0.1 PUBS MCHC (33.0 - 37.0 G/DL) 33.4 08/08 08/08 08/08 1553 1012 0400 Chemistry Sodium (137 - 145 mmol/L) 133 L Potassium (3.5 - 5.1 mmol/L) 4.8 Chloride (98 - 107 mmol/L) 98 Carbon Dioxide (22 - 30 mmol/L) 26 Anion Gap (5 - 16) 9 BUN (9 - 20 mg/dL) 18 Creatinine (0.7 - 1.2 mg/dL) 1.4 H Estimated GFR (>60 ml/min) 48 L BUN/Creatinine Ratio (7 - 25 %) 12.9 Glucose (65 - 99 mg/dL) 188 H Calcium (8.4 - 10.2 mg/dL) 9.2 Magnesium (1.6 - 2.3 mg/dL) 1.7 Total Bilirubin (0.2 - 1.3 mg/dL) 0.8 AST (17 - 59 U/L) 24 ALT (21 - 72 U/L) 39 Alkaline Phosphatase (< 127 U/L) 84 Troponin I (<0.11 ng/ml) 0.04 0.05 Cancelled Total Protein (6.3 - 8.2 g/dL) 6.3 Albumin (3.5 - 5.0 g/dL) 3.6 Globulin (1.9 - 4.2 gm/dL) 2.7 Albumin/Globulin Ratio (1.1 - 2.2 %) 1.3 Coagulation PT (9.4 - 12.5 SEC) 13.1 H INR (0.90 - 1.17) 1.25 H APTT (25 - 37 SEC) 28 Hematology CBC w Diff NO MAN DIFF REQ WBC (4.8 - 10.8 /CUMM) 6.0 RBC (4.70 - 6.10 /CUMM) 4.46 L Hgb (14.0 - 18.0 G/DL) 12.4 L Hct (42 - 52 %) 37.3 L MCV (80.0 - 94.0 FL) 83.6 MCH (27.0 - 31.0 PG) 27.7 RDW (11.5 - 14.5 %) 14.8 H Plt Count (130 - 400 /CUMM) 168 MPV (7.4 - 10.4 FL) 9.0 Gran % (42.2 - 75.2 %) 55.5 Lymphocytes % (20.5 - 51.1 %) 36.6 Monocytes % (1.7 - 9.3 %) 4.9 Eosinophils % (0 - 5 %) 1.9 Basophils % (0.0 - 2.0 %) 1.1 Absolute Granulocytes (1.4 - 6.5 /CUMM) 3.3 Absolute Lymphocytes (1.2 - 3.4 /CUMM) 2.2 Absolute Monocytes (0.10 - 0.60 /CUMM) 0.3 Absolute Eosinophils (0.0 - 0.7 /CUMM) 0.1 Absolute Basophils (0.0 - 0.2 /CUMM) 0.1 PUBS MCHC (33.0 - 37.0 G/DL) 33.2 Diffential Diagnosis: As per Robert outpatient on 05/17/2016: Panic Disorder without Agoraphobia; Unspecified Depressive D/O; Unspecified truama and stressor related disorder. R/O PTSD Impression: Patient is an 89-year-old male, with a PMH of Afib (on Eliquis ), COPD, Hx of PE, UT X4 s/p stent placement, pacemaker implantation in october 2015, AAA repair, HTN, DM. He presented to the ED on August 08, 2016 with a complaint of near syncope, feeling faint. Today, the patient told me that he has been having occipital head pain "like drilling into my head", for the past three weeks. As per outpatient psychiatric evaluation, in addition to continuing to grieve the loss of his , who on 10/20/2013, he is in conflict with one of his daughters. "He served in World War [employer] in the [employer] and then was transferred to the [employer] which required him to deal with human bodies. He also was in combat but does not think he ever killed someone. He expressed flashbacks approximately once a week. 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 Provisional Treatment Plan: Patient had been prescribed Zoloft on an outpatient basis at [place] [facility] in 05/17/2016. At that time the recommendation was to start Zoloft for trauma and panic symptoms. Consider adding Zoloft 12.5 mg once daily with food for one week, then increase to 25 mg daily for 1 week, and then increase to 50 mg daily. Patient should be encouraged to follow up with his outpatient psychiatrist and therapist at [facility].
--- NOTE | 2016-08-09 19:48 | NUR ---
PT A TELE HOLD. PT A/OX3, FOLLOWS COMMANDS AT PRESENT, MOVES ALL EXTREMITIES EQUAL STRENGHT, PUPILS EQUAL AND REACT BRISKLY TO LIGHT. C/O PAIN NECK AND BACK OF HEAD-RATES 5 OUT OF 10 AT PRESENT. BREATH SOUNDS CLEAR THOUGHOUT BILATERALLY. NO COUGH, SOB OR RESP DISTRESS NOTED AT PRESENT. MONITOR SHOWS PACED RHYTHM. BP SLIGHTLY ELEVATED AT PRESENT. ABD SOFT, NONTENDER, NONDISTENED, POSITIVE BOWEL SOUNDS. LORENZO IN PLACE-DRAINING CLEAR YELLOW URINE. SKIN INTACT
--- NOTE | 2016-08-09 22:00 | NUR ---
WHILE ASSESSING PT BP PRIOR TO MEDICATION ADMINISTRATION. RIGHT ARM BLOOD PRESSURE NOTED TO BE 90/50 WHILE LEFT ARM BLOOD PRESSURE 136/52. RECHECKED BY SECOND NURSE RIGHT ARM BP 92/58 LEFT ARM BP 142/66. REPORTED THIS TO AND REVIEWED MEDS. PER MD GIVE ALL NIGHT NIGHT MEDS AND WILL FOLLOW UP IN AM.
[2016-08-09 23:25] VITALS: BP 92/58
--- NOTE | 2016-08-10 01:15 | Event Note ---
Event Note Event Note: Contacted [facility], I spoke with radiologist and he recommended to do CT scan without IV contrast keeping the patient chronic kidney disease. And the radiologist stated that if it's just acute kidney injury we can proceed with CT scan with IV contrast after hydration as the Point at 1.5 for the creatinine. After discussion with Jared Kerr MD we decides to proceed with CT neck and chest without IV contrast to assess for any underlying dissection.
--- NOTE | 2016-08-10 02:00 | NUR ---
PT WENT FOR CT OF NECK AND CHEST ORDERED AT 0130-EKG MONITORING. PT STABLE THOUGHOUT PROCEDURE-RETURNED AT 0145-PLACED BACK IN BED AND REATTACHED TO BEDSIDE MONITOR
--- NOTE | 2016-08-10 02:13 | CT SCAN REPORT ---
EXAMINATION: 1. CT NECK WITHOUT CONTRAST 2. CT OF CHEST WITHOUT CONTRAST CLINICAL INFORMATION: Differential blood pressure between the upper arms. Concern for aortic dissection. History of renal disease. No IV contrast was given. COMPARISON: Portable chest x-ray 08/08/2014 TECHNIQUE: Axial images obtained through the neck and chest. Coronal and sagittal reformatted images are performed at the CT scanner DLP: 528.71+442.13 mGy-cm FINDINGS: CT NECK: VASCULAR: No hyperdense rim of the carotid vessels to suggest acute dissection. There is vascular wall calcifications of the aorta at the carotid bifurcation bilaterally. SOFT TISSUES: No hematoma or fluid collections. No inflammation. Fat planes are maintained to the neck. No mass or significant lymphadenopathy. Submandibular glands and parotid glands are normal. Visualized paranasal sinuses and mastoid air cells are normally aerated. The visualized intracranial structures are unremarkable. CT OF CHEST: VASCULAR: No hyperdense rim to suggest a dissection of the aorta or the origin of great vessels. There is no aneurysm of the aorta. No mediastinal hematoma or fluid collections. There are vascular calcification of coronary arteries and thoracic aorta and at the origin of great vessels. There is pacemaker leads in the heart. MEDIASTINUM: No bulky lymphadenopathy. No fluid collection or hematoma. No pericardial effusion. LUNGS: No infiltrate. Linear atelectasis at the right lower lobe and dependent atelectasis at both lung bases posteriorly. PLEURA: Small region of pleural thickening at the anterior right chest wall. No pleural calcification. No pleural effusions. Upper abdomen: Visualized portions of liver and spleen and pancreas are normal. General glands are normal. SKELETAL: Multilevel degenerative change of the spine with endplate spurs of the vertebrae. IMPRESSION: 1. CT OF NECK: No evidence of dissection great vessels of the neck. There is vascular calcification at the carotid vessels at the bifurcation bilaterally. 2. CT OF CHEST: No evidence for aortic dissection or aneurysm. Atherosclerotic vascular wall calcifications of aorta and coronary arteries. Pacemaker leads in heart. No acute change of chest.
--- NOTE | 2016-08-10 06:48 | NUR ---
PT SLEPT MOST OF SHIFT. PT REMAINS A/OX3, C/O NECK AND BACK OF NIGHT PAIN, NO WEAKNESS NOTED, C/O DIZZINESS WITH TURNING. NO LOC NOTED THOUGHOUT SHIFT. ADEQUATE URINE OUTPUT FOR SHIFT. NO OTHER CHANGE IN PT ASSESSMENTS THOUGHOUT SHIFT. LT ARM BP-130/56, RT ARM 102/70
--- NOTE | 2016-08-10 07:28 | PN- Housestaff ---
CARLOS URBANO,KAYA 08/10/16 0728: Subjective Follow-up For: presyncope orthostatic hypotension dizziness altered mental status Tele-Events Since Last Visit: Paced rhythm Subjective: Overnight, there was significant difference noted in his BP on both arms, so neck and chest CT was done without contrast (due to BRENNON), which showed no dissection. Pt is feeling fine currently, but did experience some dizziness when he was turned this morning. Continues to have left sided headache. No neurological deficits noted this morning. Neuro was consulted over the phone for stroke alert but does not feel that the pt had a stroke, so did not need formal neuro consult. Psych recc starting zoloft and f/u with pysch OP. cardio recc increasing losartan to 100 daily and consider starting midodrine. Pt said he has not been taking flomax for a year, and does not want it. Review of Systems Constitutional: Denies: chills, fever. EENTM: Reports: see HPI. Cardiovascular: Denies: chest pain. Respiratory: Denies: short of breath. Gastrointestinal: Denies: abdominal pain. Objective Last 24 Hrs of Vital Signs/I&O Vital Signs Date Time Temp Pulse Resp B/P Pulse O2 O2 Flow FiO2 Ox Delivery Rate 08/10 0000 98 Room Air Room Air 08/09 2325 98.0 75 20 92/58 94 Room Air 08/09 2236 72 20 90/52 08/09 2100 96 Room Air 08/09 1600 97 Room Air 08/09 1600 97.6 82 20 142/52 97 Room Air 08/09 1310 84 173/66 08/09 1115 62 228/90 08/09 1035 68 203/82 08/09 0952 97.5 64 22 162/70 98 Room Air Room Air Intake & Output 08/10 1600 08/10 0800 08/10 0000 Intake Total 0 400 Output Total 350 625 Balance -350 -225 Intake, IV 0 Intake, Oral 0 400 Number 0 0 Bowel Movements Output, Urine 350 625 Physical Exam General Appearance: Alert, Oriented X3, Cooperative, No Acute Distress Skin: No Significant Lesion Cardiovascular: Regular Rate, Normal S1, Normal S2 Lungs: Clear to Auscultation, Normal Air Movement Abdomen: Normal Bowel Sounds, Soft, No Tenderness Neurological: Normal Speech, Strength at 5/5 X4 Ext Extremities: No Edema Current Medications: Current Medications Sig/Ashley Start time Last Medication Dose Route Stop Time Status Admin Acetaminophen 1,000 MG ONCE ONE 08/09 1115 DC 08/09 N/A 1 UNIT IV 08/09 1129 1115 Acetaminophen 325 MG Q6P PRN 08/08 1215 AC PO Albuterol Sulfate 3 ML Q4P PRN 08/08 1400 AC INH Apixaban 2.5 MG BID 08/08 2200 AC 08/09 PO 2236 Aspirin 81 MG DAILY 08/09 1000 AC 08/09 PO 1309 Atorvastatin Calcium 80 MG 1700 08/09 1700 AC 08/09 PO 1800 Budesonide/ 2 PUF BID 08/08 2200 AC 08/09 Formoterol Fumarate INH 2236 Carvedilol 6.25 MG BID 08/08 2200 AC 08/09 PO 2236 Cyanocobalamin 500 MCG DAILY 08/09 1000 AC 08/09 PO 1311 Finasteride 5 MG QPM 08/08 2200 AC 08/09 PO 2236 Guaifenesin 600 MG BID PRN 08/08 1400 AC PO Hydralazine HCl 10 MG ONCE ONE 08/09 1045 DC 08/09 IV 08/09 1046 1035 Labetalol HCl 10 MG ONCE ONE 08/09 1115 DC 04/ IV 08/09 1116 1115 Losartan Potassium 100 MG DAILY 08/10 1000 AC PO Losartan Potassium 50 MG DAILY 08/09 1000 DC 08/09 PO 1310 Patient Medication 1 UNIT ONE NR 08/10 0800 Teaching ED 08/10 1400 Patient Medication 1 ED .STK-MED ONE 08/09 1359 DC [facility] ED 08/09 1400 Patient Medication 1 UNIT ONE NR 08/09 1115 [facility] ED 08/09 1715 Sertraline HCl 12.5 MG DAILY 08/10 1000 AC PO 08/16 1001 Tamsulosin HCl 0.4 MG DAILY 08/09 1000 DC PO Tramadol HCl 50 MG Q6P PRN 08/08 1400 AC 08/09 PO 2241 Trazodone HCl 25 MG TIDPRN PRN 08/09 1330 AC PO Assessment/Plan Assessment: 84-year-old M with past medical history of A. fib on Eliquis, COPD not on home oxygen, history of PE, CO x 4 ,status post stent placement x 5, PCM implantation in 2015, AAA repair, hypertension, diabetes melitis was admitted for readmission for evaluation of left-sided neck pain and vertigo. Labs were normal with some hemoconcentration and kidney injury which is chronic. EKG: V PACED AT 60, RBBB Echo 2016 :Left ventricular ejection fraction is estimated at 45-50 %/. Abnormal relaxation filling pattern of the left ventricle for age (stage 1 diastolic dysfunction). EEG 2016:Normal. Carotid Doppler 2016:No hemodynamically significant stenosis involving the bilateral internal carotid arteries. Any stenosis is less than 50%. CT HEAD ( 07/23/2016): No acute abnormality. Age-related changes stable. CT CERVICAL SPINE:Severe multilevel spondylosis of the cervical spine without an acute abnormality. No change. 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 No change. # Intermittent nonfocal neurological deficits, conversion disorder? # PTSD - No acute findings on CT head 08/09/16 * Psych consulted * Sertraline started 12.5mg X 1 week (till 08/16/16), then 25 (from 08/17 - 08/23), then 50 mg from 08/24 * Follow up with OP psych # Presyncope, orthostatic hypotension - Multiple evaluations in the past. All workup including EEG/CT neck has been negative. Pacemaker interrogated twice in the past. * Pacemaker to be interrogated * Consider starting midodrine * Continue compression stockings #Hypertension - recently decreased dose of coreg and diovan * Continue home medications Coreg * Increased losartan to 100 daily # Chronic Neck pain associated with vertigo - Likely neck muscle spasm. Does not look like BPPV, no positional change and vertigo. No nystagmus/room spinning centers sensations. No focal neurological deficits. No vision abnormalities/no Fletcher's /No rastafarian tenderness. No history of migraines. -Repeat orthostatics was positive. Patient has been positive multiple times in the past. No arrhythmia noted in his EKG, which is paced. Does not use stockings that was previously suggested. -Valium for neck muscle spasm was held due to allergy. -Tylenol and other pain meds when necessary for pain control -Concern is also for his pain partially being somatoform, but we need to rule out the physical illness first * Continue when necessary Ativan dose * PT evaluation for Rio maneuver # COPD * Continue home meds Symbicort and albuterol # History of coronary artery disease/A. fib, hypertension * Continue aspirin, statin, Eliquis, Lasix, nitroglycerin when necessary, carvedilol,eliquis and losartan #Chronic kidney disease: Creatinine at baseline 1.4 - Patient was urinating by standing everytime since yesterday, but felt dizzy every time he did so. - Therefore, no obstruction currently, although he has a history of BPH. Pt does not take flomax. Diet:Heart healthy diet Mild/moderate/severe pain pathway DVT prophylaxis :Eliquis,alps DNR/DNI Problem List: 1. Conversion disorder Pain Ratin Pain Location: left sided head pain Pain Goal: Remain pain free Pain Plan: mild pp Tomorrow's Labs & Rationales: bep for hyponatremia DVT/Prophylaxis: mechanical, pharmacological BILLIE URBANO,ANTIONETTE 08/10/16 1446: Attending MD Review Statement Attending Statement Attending MD Statement: examined this patient, discuss w/resident/PA/OFFSET PLATE MAKER, agreed w/resident/PA/OFFSET PLATE MAKER, discussed with family, reviewed EMR data (avail), discussed with nursing, discussed with case mgmt, amended to note Attending Assessment/Plan: She has seen and examined. Resting comfortably and not in any distress. Events yesterday noted. Blood pressure has improved with adjustment of antihypertensive medications by the cardiology service. His medications had previously been decreased as an outpatient. He is also noted to have significant orthostatic blood pressure changes. I did discuss case in detail with the son as well as the concerns for somatoform disorder due to underlying depression and possible posttraumatic stress disorder. Recommendations: -Monitor blood pressure closely. If he continues to have significant orthostatic changes consider adding midodrine. -Downgrade to the general medical service. -Follow-up recommendations of the psychiatric service. Consider in-patient psych admission.
[2016-08-10 08:00] VITALS: BP 162/78
--- NOTE | 2016-08-10 12:25 | PN- Cardiology ---
Subjective Subjective: The patient noted intermittent dizziness overnight. He is currently feeling better. Blood pressure was briefly lowm and is now elevated. A blood pressure difference between the 2 arms was noted. No chest pain. No palpitations. No shortness of breath. No diaphoresis. Objective Vital Signs and I&Os Vital Signs Date Time Temp Pulse Resp B/P Pulse O2 O2 Flow FiO2 Ox Delivery Rate 08/10 0934 65 160/68 08/10 0934 65 160/68 08/10 0800 95 Room Air Room Air 08/10 0800 97.8 70 14 162/78 95 Room Air Room Air 08/10 0000 98 Room Air Room Air 08/09 2325 98.0 75 20 92/58 94 Room Air 08/09 2236 72 20 90/52 08/09 2100 96 Room Air 08/09 1600 97 Room Air 08/09 1600 97.6 82 20 142/52 97 Room Air 08/09 1310 84 173/66 Intake & Output 08/10 1600 08/10 0800 / 0000 08/09 1600 08/09 0800 08/09 0000 Intake Total 0 400 580 240 Output Total 056 173 1782 475 375 Balance -350 -225 -570 -475 -135 Intake, IV 0 100 Intake, Oral 0 400 480 240 Number 0 0 0 Bowel Movements Output, Urine 267 601 5727 475 375 Physical Exam: Gen: The patient is in no acute distress HEENT: Normal nose, ears, and oropharynx. Pupils equal bilaterally. Conjunctiva normal. Neck: Supple with no JVD, no masses, and no thyromegaly Lungs: Clear to auscultation with normal respiratory effort Heart: RRR, S1, S2, 1/6 systolic murmur. 1+ peripheral edema, 1+ pulses in the lower extremities bilaterally Abdomen: Soft, nontender, no masses. No hepatomegaly. No splenomegaly Extremities: No clubbing or cyanosis. Normal muscle strength in the upper and lower extremities. Skin: Normal skin turgor with no skin ulcers or lesions noted. Neuro: Cranial nerves intact. Sensation intact Current Medications: Current Medications Sig/Ashley Start time Last Medication Dose Route Stop Time Status Admin Acetaminophen 325 MG Q6P PRN 08/08 1215 AC PO Albuterol Sulfate 3 ML Q4P PRN 08/08 1400 AC INH Apixaban 2.5 MG BID 08/08 2200 AC 08/10 PO 0934 Aspirin 81 MG DAILY 08/09 1000 AC 08/10 PO 0934 Atorvastatin Calcium 80 MG 1700 08/09 1700 AC 08/09 PO 1800 Budesonide/ 2 PUF BID 08/08 2200 AC 08/10 Formoterol Fumarate INH 0935 Carvedilol 6.25 MG BID 08/08 2200 AC 08/10 PO 0934 Cyanocobalamin 500 MCG DAILY 08/09 1000 AC 08/10 PO 0935 Finasteride 5 MG QPM 08/08 2200 AC 08/09 PO 2236 Guaifenesin 600 MG BID PRN 08/08 1400 AC PO Lidocaine 5 ESE .STK-MED ONE 08/10 0404 DC TOP 08/10 0405 Losartan Potassium 100 MG DAILY 08/10 1000 AC 08/10 PO 0934 Losartan Potassium 50 MG DAILY 08/09 1000 DC 08/09 PO 1310 Patient Medication 1 UNIT ONE NR 08/10 0800 AC Teaching ED 08/10 1400 Patient Medication 1 ED .STK-MED ONE 08/09 1359 DC Teaching ED 08/09 1400 Patient Medication 1 UNIT ONE NR 08/09 1115 DC Teaching ED 08/09 1715 Sertraline HCl 12.5 MG DAILY 08/10 1000 AC 08/10 PO 08/16 1001 0934 Tamsulosin HCl 0.4 MG DAILY 08/09 1000 DC PO Tramadol HCl 50 MG Q6P PRN 08/08 1400 AC 08/09 PO 2241 Trazodone HCl 25 MG TIDPRN PRN 08/09 1330 AC PO Results Last 48 Hrs of Labs/Mics: Laboratory Tests 08/10/16 0547: Anion Gap 7, Estimated GFR 57 L, BUN/Creatinine Ratio 13.3 08/09/16 1004: Troponin I Cancelled 08/09/16 1004: Anion Gap 7, Estimated GFR 48 L, BUN/Creatinine Ratio 12.1, Magnesium 1.7, Total Bilirubin 0.5, Direct Bilirubin 0.3, AST 20, ALT 36, Alkaline Phosphatase 89, Troponin I 0.05, Total Protein 5.8 L, Albumin 3.3 L, CBC w Diff NO MAN DIFF REQ, RBC 4.44 L, MCV 83.5, MCH 27.9, RDW 15.0 H, MPV 8.9, Gran % 54.2, Lymphocytes % 38.1, Monocytes % 4.6, Eosinophils % 2.2, Basophils % 0.9, Absolute Granulocytes 3.3, Absolute Lymphocytes 2.3, Absolute Monocytes 0.3, Absolute Eosinophils 0.1, Absolute Basophils 0.1, PUBS MCHC 33.4 08/09/16 0638: Anion Gap 4 L, Estimated GFR 52 L, BUN/Creatinine Ratio 14.6 08/08/16 1553: Troponin I 0.04 Recent Imaging Studies: CT scan of the head and neck: 1. CT OF NECK: No evidence of dissection great vessels of the neck. There is vascular calcification at the carotid vessels at the bifurcation bilaterally. 2. CT OF CHEST: No evidence for aortic dissection or aneurysm. Atherosclerotic vascular wall calcifications of aorta and coronary arteries. Pacemaker leads in heart. No acute change of chest. Assessment/Plan Assessment/Plan Assessment: 1. History of nonischemic cardiomyopathy 2. Recurrent presyncope 3. Orthostatics hypotension 4. Elevated blood pressure after recent decrease in hypertension medication Plan: * Losartan increased to 100 mg for additional blood pressure control. * Repeat orthostatics. * If the patient continues to be significantly orthostatic, would consider starting midodrine 2.5 mg by mouth twice a day for orthostatic hypotension. * Continue other cardiac cardiac medications. Continue telemetry? Yes
--- NOTE | 2016-08-10 13:52 | NUR ---
Received patient at 0800, alert and oriented x3, c/o headache / feeling dizzy. Patient is hard of hearing. Paced rhythm noted on the monitor with underlying NSR, 60s-70s. FQE=[id number]. Denies chest pain. Abdomen is soft, +bowel sounds. العراقي in place draining clear/luis antonio urine, removed at 1200 and yet to void. Psych following and neuro/ENT to possibly be consulted for patient. Patient states headache has improved over the afternoon but he is still sleepy. Ortho vitals not done at this time r/t patient's increased dizziness w/ turning in the bed and at rest. To have new TEDs ordered. Given patient further encouragement and reassurance. Pacer interrogated at the bedside @ 1430.
--- NOTE | 2016-08-10 15:39 | PN- Psychiatry ---
Assessment/Plan Impression: Identifying Info: 89-year-old male presents to [facility] emergency department on 08/08/2016 for dizziness. This was the patient's 27th ER visit since August 2013, and his ninth inpatient stay since June 2015, with mulitple prior inpatient stays. He was subsequently admitted to medicine. SUBJECTIVE "I feel terrible... I was just plain dizzy." Patient denies being bothered by any psychiatric complaints that he complained at visit with this greeting card writer in May of this year including flashbacks, anxiety and depression, thinking about conflict with his daughter. He does endorse periods of forgetfulness that tend to be precipitated by dizzy spells. Endorses a long history of vertigo. Brief ROS Gait: Unsteady Sleep: Hypersomnia Appetite: Adequate OBJECTIVE Mental Status Exam Presentation/Appearance: Cooperative with evaluation. Hospital garb. Lying in bed. Orientation: x3 Sensorium: Awake and alert Eye contact: Appropriate Affect: Somewhat blunted, incongruent with stated mood Mood: "I have a good time" Depression: Denies Anxiety: Denies Thought Content: - Denies SI/HI, AH/VH, PI. States and also believes they will not kill themselves. - Denies Hopeless/Helpless Thoughts Thought Process: Linear Speech: Normal tone, rate, and prosody Judgment: Fair Insight: Fair Cognition: Memory: Endorses deficits during periods of dizziness Attention/Concentration: Grossly intact Per nursing report patient has appeared panicked and depressed at times. 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 At present he is experiencing somatic symptoms some of which may be attributable to depression, anxiety or trauma-related disorders including fatigue, panic, feelings of lightheadedness as well as periods of dissociation. At present patient appears to be minimizing his psychiatric symptoms. However it would be prudent to rule out all other organic causes before attributing his current status solely psychological causes. Conversion is extremely unlikely, with an incidence of approximately 2 out of every 100,000. All other possible causes of symptoms must be ruled out first prior to making this diagnosis. Differential diagnosis By history Panic Disorder without agoraphobia By history unspecified trauma and stressor related disorder Rule out Unspecified Depressive D/O Suggestion: 1. Please order neuro consult to rule out cerebellar causes of balance issues. 2. Please order ENT consult to rule out vestibular causes a balance issues. 3. Please continue psychotropics as currently ordered. 4. Outpatient psychiatry referral on discharge, patient is open to outpatient care. If transportation can be arranged he may be appropriate for geriatric day program at [facility] or . May also benefit from care at the [facility]. Thank you for including psychiatry in this case, we'll continue to follow. Subjective Subjective: . Objective Last 24 Hrs of Vital Signs/I&O Current Medications Sig/Ashley Start time Last Medication Dose Route Stop Time Status Admin Acetaminophen 325 MG Q6P PRN 08/08 1215 AC PO Albuterol Sulfate 3 ML Q4P PRN 08/08 1400 AC INH Apixaban 2.5 MG BID 08/08 2200 AC 08/10 PO 0934 Aspirin 81 MG DAILY 08/09 1000 AC 08/10 PO 0934 Atorvastatin Calcium 80 MG 1700 08/09 1700 AC 08/09 PO 1800 Budesonide/ 2 PUF BID 08/08 2200 AC 08/10 Formoterol Fumarate INH 0935 Carvedilol 6.25 MG BID 08/08 2200 AC 08/10 PO 0934 Cyanocobalamin 500 MCG DAILY 08/09 1000 AC 08/10 PO 0935 Finasteride 5 MG QPM 08/08 2200 AC 08/09 PO 2236 Guaifenesin 600 MG BID PRN 08/08 1400 AC PO Lidocaine 5 ESE .STK-MED ONE 08/10 0404 DC TOP 08/10 0405 Losartan Potassium 100 MG DAILY 08/10 1000 AC 08/10 PO 0934 Losartan Potassium 50 MG DAILY 08/09 1000 DC 08/09 PO 1310 Patient Medication 1 UNIT ONE NR 08/10 0800 CO Teaching ED 08/10 1400 Patient Medication 1 UNIT ONE NR 08/09 1115 CO Teaching ED 08/09 1715 Sertraline HCl 12.5 MG DAILY 08/10 1000 AC 08/10 PO 04 1001 0934 Tramadol HCl 50 MG Q6P PRN 08/08 1400 AC 08/09 PO 2241 Trazodone HCl 25 MG TIDPRN PRN 08/09 1330 AC PO Laboratory Tests 08/10/16 0547: Anion Gap 7, Estimated GFR 57 L, BUN/Creatinine Ratio 13.3 Vital Signs Date Time Temp Pulse Resp B/P Pulse O2 O2 Flow FiO2 Ox Delivery Rate 08/10 0934 65 160/68 08/10 0934 65 160/68 08/10 0800 95 Room Air Room Air 08/10 08 97.8 70 14 162/78 95 Room Air Room Air 08/10 0000 98 Room Air Room Air 08/09 2325 98.0 75 20 92/58 94 Room Air 08/09 2236 72 20 90/52 08/09 2100 96 Room Air 08/09 1600 97 Room Air 08/09 1600 97.6 82 20 142/52 97 Room Air Intake & Output 08/10 1600 08/10 0800 08/10 0000 Intake Total 0 400 Output Total 350 625 Balance -350 -225 Intake, IV 0 Intake, Oral 0 400 Number 0 0 Bowel Movements Output, Urine 350 625
[2016-08-10 16:00] VITALS: BP 170/90
--- NOTE | 2016-08-10 17:28 | NUR ---
1600: PATIENT'S B/P TO THE LEFT ARM 184/88, HR 70 INFORMED CARLOS KIRKPATRICK MD 1730: PATIENT'S B/P TO THE LEFT ARM IS 204/90 AND RIGHT ARM IS 158/78 PATIENT DENIES COMPLAINTS GIVING 10 MG IV HYDRALAZINE AT THIS TIME PER MD ORDER
[2016-08-10 20:00] VITALS: BP 178/70
--- NOTE | 2016-08-10 21:00 | NUR ---
PT A/Ox3. BP ELEVATED PRIOR TO COREG ADMINISTRATION. PER VITALS NOW Q4 HRS. PT REMOVED FROM MONITOR PT IS NOW GEN MED HOLD. PT IS ON RA LUNGS CLEAR, ABD SOFT NONTENDER, LAST BM 08/07. PT REMAINS PACED WITH THE HEART RATE IN THE 70-80S. MEDS GIVEN AND PATIENT REPOSTIONED FOR COMFORT.
[2016-08-10 23:32] VITALS: BP 122/50
[2016-08-11 04:12] VITALS: BP 132/50
--- NOTE | 2016-08-11 06:11 | NUR ---
PT BP 120S-130S IN LEFT ARM PER PT THIS IS "GOOD ARM PER HIS DOCTORS" AND THE RIGHT ARM HAS BEEN LOWER THAN THE LEFT ARM FOR YEARS. PT REFUSING AM CARE AT THIS TIME "I JUST WANT TO SLEEP." SARA ORDERED AND AT BEDSIDE, ALPS CURRENTLY IN PLACE.
--- NOTE | 2016-08-11 07:10 | PN- Housestaff ---
Subjective Follow-up For: dizziness Subjective: Pt continues to complain of left sided head and neck pain, still feels dizzy when he rolls over. PT would work with him. ENT will come see pt today. Neuro was called yesterday. The nurse yesterday was not comfortable doing the orthostats vitals due to his dizziness. Today orthotats, he felt dizzy from standing to sitting without much change in BP, but going from sitting to standing, he dropped 50 points but was feeling less dizzy. PT noted nystagmus with head tilt. His BP went up as high as 204/90, which resolved with 1X 10mg hydralazine. 24 hr BP: systolic 122-204, diastolic 50-90, last one checked at 4am was 132/50. na 133 to 132, k 4.7 to 5. bun cr 16/1.2 to 14/1.3 Psych will talk to social research assistant, Trinity, regarding possible [facility]-psych placement. Review of Systems Constitutional: Reports: see HPI. Objective Last 24 Hrs of Vital Signs/I&O Vital Signs Date Time Temp Pulse Resp B/P Pulse O2 O2 Flow FiO2 Ox Delivery Rate 08/11 0800 98.7 72 22 150/50 97 Room Air 08/11 0412 97.9 80 20 132/50 92 Room Air 08/10 2332 99.2 80 16 122/50 92 Room Air / 2121 97.9 78 20 178/70 04/04 2000 97.9 78 20 178/70 94 Room Air 08/10 1731 78 204/90 / 1600 95 Room Air Room Air 08/10 1600 97.3 63 12 170/90 96 Room Air Room Air 08/10 0934 65 160/68 08/10 0934 65 160/68 Intake & Output 08/11 1600 08/11 0800 04 0000 Intake Total 200 400 Output Total 450 375 Balance -250 25 Intake, Oral 200 400 Number 0 0 Bowel Movements Output, Urine 450 375 Patient 88.451 kg Weight Physical Exam General Appearance: Alert, Oriented X3, Cooperative, No Acute Distress Skin: No Significant Lesion Cardiovascular: Regular Rate, Normal S1, Normal S2 Lungs: Clear to Auscultation, Normal Air Movement Abdomen: Normal Bowel Sounds, Soft, No Tenderness Neurological: Normal Speech, Strength at 5/5 X4 Ext Extremities: No Edema Current Medications: Current Medications Sig/Ashley Start time Last Medication Dose Route Stop Time Status Admin Acetaminophen 325 MG Q6P PRN 08/08 1215 AC PO Albuterol Sulfate 3 ML Q4P PRN 08/08 1400 AC INH Apixaban 2.5 MG BID 08/08 2200 AC 08/10 PO 2121 Aspirin 81 MG DAILY 08/09 1000 AC 08/10 PO 0934 Atorvastatin Calcium 80 MG 1700 08/09 1700 AC 08/10 PO 1635 Budesonide/ 2 PUF BID 08/08 2200 AC 08/10 Formoterol Fumarate INH 2121 Carvedilol 6.25 MG BID 08/08 2200 AC 08/10 PO 2121 Cyanocobalamin 500 MCG DAILY 08/09 1000 AC 08/10 PO 0935 Finasteride 5 MG QPM 08/08 2200 AC 08/10 PO 2121 Guaifenesin 600 MG BID PRN 08/08 1400 AC PO Hydralazine HCl 10 MG ONCE ONE 08/10 1730 DC 08/10 IV 08/10 1731 1731 Losartan Potassium 100 MG DAILY 08/10 1000 AC 08/10 PO 0934 Patient Medication 1 UNIT ONE NR 08/10 0800 DC Teaching ED 08/10 1400 Sertraline HCl 12.5 MG DAILY 08/10 1000 AC 08/10 PO 08/16 1001 0934 Tramadol HCl 50 MG Q6P PRN 08/08 1400 AC 08/10 PO 2120 Trazodone HCl 25 MG TIDPRN PRN 08/09 1330 AC PO Last 24 Hrs of Lab/Jeff Results Last 24 Hrs of Labs/Mics: Laboratory Tests 08/11/16 0407: Anion Gap 5, Estimated GFR 52 L, BUN/Creatinine Ratio 10.8 Assessment/Plan Assessment: 84-year-old M with past medical history of A. fib on Eliquis, COPD not on home oxygen, history of PE, OR x 4 ,status post stent placement x 5, PCM implantation in 2015, AAA repair, hypertension, diabetes melitis was admitted for readmission for evaluation of left-sided neck pain and vertigo. Labs were normal with some hemoconcentration and kidney injury which is chronic. EKG: V PACED AT 60, RBBB Echo 2016 :Left ventricular ejection fraction is estimated at 45-50 %/. Abnormal relaxation filling pattern of the left ventricle for age (stage 1 diastolic dysfunction). EEG 2016:Normal. Carotid Doppler 2016:No hemodynamically significant stenosis involving the bilateral internal carotid arteries. Any stenosis is less than 50%. CT HEAD ( 07/23/2016): No acute abnormality. Age-related changes stable. CT CERVICAL SPINE:Severe multilevel spondylosis of the cervical spine without an acute abnormality. No change. 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 No change. 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 * Started gabapentin 100 tid # BPPV * Physical therapy directed to the neck would also be advised as well as vestibular rehabilitation efforts in hopes of mitigating his positional vertigo, employing Semont or Rio maneuvers * considered meclizine 12.5 tid but pt refused because it gave him head pain * Plan to discharge to rehab # Intermittent nonfocal neurological deficits, conversion disorder? # PTSD - No acute findings on CT head 08/09/16 * Psych consulted * Sertraline started 12.5mg X 1 week (till 08/16/16), then 25 (from 08/17 - 08/23), then 50 mg from 08/24 * Follow up with OP psych vs geripsych placement vs inpatient psych # Presyncope, orthostatic hypotension (standing BP>100) - Multiple evaluations in the past. All workup including EEG/CT neck has been negative. Pacemaker interrogated twice in the past. - Pacemaker interrogated * Consider starting midodrine but his sytolic bp can go up higher than 200, would be hesitant to start this, as he was noted to syncopized even when he is lying down and he did not report much dizziness going from from sitting to standing even though his BP dropped 50 points. * Continue compression stockings #Hypertension - recently decreased dose of coreg and diovan * Continue home medications Coreg * Increased losartan to 100 daily # COPD * Continue home meds Symbicort and albuterol # History of coronary artery disease/A. fib, hypertension * Continue aspirin, statin, Eliquis, Lasix, nitroglycerin when necessary, carvedilol,eliquis and losartan #Chronic kidney disease: Creatinine at baseline 1.4 - Patient was urinating by standing everytime since yesterday, but felt dizzy every time he did so. - Therefore, no obstruction currently, although he has a history of BPH. Pt does not take flomax. Diet:Heart healthy diet Mild/moderate/severe pain pathway DVT prophylaxis :anna Lee DNR/DNI Consults: cardio, psych, neuro, ENT, PT Labs: bep for hyponatremia, kidney functions Problem List: 1. Conversion disorder Pain Ratin Pain Location: left sided head and neck pain Pain Goal: Pain 7 or less Pain Plan: mild pp Tomorrow's Labs & Rationales: bep for hyponatremia, kidney functions DVT/Prophylaxis: mechanical, pharmacological left sided head and neck pain Pain Goal: Pain 7 or less Pain Plan: mild pp Tomorrow's Labs & Rationales: bep for hyponatremia, kidney functions DVT/Prophylaxis: mechanical, pharmacological
[2016-08-11 08:00] VITALS: BP 150/50
[2016-08-11 10:40] VITALS: BP 152/50
--- NOTE | 2016-08-11 10:41 | NUR ---
@0800-PT ALERT AND ORIENTED. COOP. VSS. FOLLOWS COMMANDS. C/O DIZZINESS UPON POSITION CHANGES. NOTED TO BE ON RA, LUNGS CLEAR. 02SAT 97%. CONT GM HOLD. BP 150/70 THIS AM , HR 70S. PACER TO LCW. WILL CHECK ORTHO BPS WITH ACTIVITY THIS AM. HH DIET PROVIDED, ANA WELL. VOIDS IN URINAL APPROPRIATELY. SKIN INTACT. ALPS IN PLACE. WILL PLACE TEDS THIS AM. ACCUCHECK 129. CONT TO MONITOR, CALL BAGLEY WITHIN REACH.
--- NOTE | 2016-08-11 10:45 | NUR ---
@1000-PHYSICAL THERAPY AT BEDSIDE. +ORTHO BP-LYING 174/80 SITTING 170/72 STANDING 128/56 PT NOW SITTING IN [place] CHAIR. CALL [facility]AG[facility] WITHIN REACH. +DIZZINESS WITH POSITION CHANGES. CONT TO MONITOR CLOSELY.
--- NOTE | 2016-08-11 11:40 | Cons- Neurology ---
General Information and HPI Consulting Request Date of Consult: 08/11/16 Requested By: DIXIE BRANDT MD History of Present Illness: 89-year-old male with history of chronic positional vertigo and known degenerative joint disease in the neck, presents with a subacute history of left posterior cervical discomfort and a numbing sensation over the left occipital head region. There are no associated appendicular complaints. No acute changes in vision or speech. He denies alteration in his gait. Allergies/Medications Allergies: Coded Allergies: amoxicillin (From [facility]) (UNKNOWN 04/23/16) clarithromycin (From [facility]) (UNKNOWN 04/23/16) diazepam (HALLUCINATIONS 08/08/16) PER PATIENT, TOLERATES LOW DOSES lansoprazole (From [facility]) (UNKNOWN 04/23/16) morphine (Intermediate, LETHARGY, CONFUSION 04/23/16) meclizine (CONFUSION 04/23/16) Home Med List: Albuterol Sulfate 2.5 MG/3 ML (0.083 %) VIAL.NEB 1 Vial INH/DANDY Q4P SHORTNESS OF BREATH (Reported) Apixaban (Eliquis) 2.5 MG TABLET 1 TAB PO BID BLOOD THINNER (Reported) Aspirin (Children's Aspirin) 81 MG TAB.CHEW 1 TAB PO DAILY HEART HEALTH ( Reported) Atorvastatin Calcium 80 MG TABLET 1 TAB PO DAILY CHOLESTEROL (Reported) Budesonide/Formoterol Fumarate (Symbicort 160-4.5 Mcg Inhaler) 160 MCG-4.5 MCG/ ACTUATION HFA.AER.AD 2 PUF INH BID COPD (Reported) Carvedilol 6.25 MG TABLET 1 TAB PO BID HEART (Reported) Cholecalciferol (Vitamin D3) (Vitamin D) 2,000 UNIT TABLET 1 TAB PO DAILY SUPPLEMENT (Reported) Cyanocobalamin (Vitamin B-12) (B-12) 500 MCG TABLET 1 TAB PO DAILY SUPPLEMENT (Reported) Finasteride 5 MG TABLET 1 TAB PO QPM PROSTATE (Reported) Guaifenesin (Mucinex) 600 MG TAB.ER.12H 1 TAB PO BID PRN UNKNOWN (Reported) Tramadol HCl 50 MG TABLET 50 MG PO Q6P PRN neck pain Tylenol With Codeine (Tylenol With Codeine #3 Tablet) 300 MG-30 MG TABLET 1 TAB PO Q6P PRN PAIN (Reported) Valsartan (Diovan) 160 MG TABLET 1 TAB PO DAILY HEART (Reported) Review of Systems Review of Systems: Intermittent dizziness chiefly with change of position, posterior cervical discomfort, chronic hearing impairment and a numbing sensation over the left occiput . No complaints of diplopia, dysarthria, dysphagia, chest pain, vomiting, fever, chills, rash, weight loss, joint inflammation or abnormal bleeding. 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 Home Who Do You Live With? self Services at Home: None Primary Language: Lao Smoking Status: Former Smoker ETOH Use: denies use Illicit Drug Use: denies illicit drug use Living Will? yes Functional Ability ADLs Independent: dressing, eating, toileting, bathing. Ambulation: independent IADLs Independent: shopping, housework, finances, food prep, telephone, transportation , medication admin. Exam & Diagnostic Data Vital Signs and I&O Vital Signs Date Time Temp Pulse Resp B/P Pulse O2 O2 Flow FiO2 Ox Delivery Rate 08/11 1040 74 152/50 08/11 0935 72 150/60 08/11 0935 150/60 08/11 0800 98.7 72 22 150/50 97 Room Air 08/11 0412 97.9 80 20 132/50 92 Room Air 08/10 2332 99.2 80 16 122/50 92 Room Air 08/10 2121 97.9 78 20 178/70 08/10 2000 97.9 78 20 178/70 94 Room Air 08/10 1731 78 204/90 / 1600 95 Room Air Room Air 08/10 1600 97.3 63 12 170/90 96 Room Air Room Air Intake & Output 08/11 1600 08/11 0800 04/05 0000 Intake Total 200 400 Output Total 450 375 Balance -250 25 Intake, Oral 200 400 Number 0 0 Bowel Movements Output, Urine 450 375 Patient 195 lb Weight Pleasant elderly gentleman in no acute distress. He was awake, alert and cooperative. Higher cortical function was grossly intact. Speech was fluent. The head was normocephalic and atraumatic. Pupils were equal and reactive. Extraocular movements were full. There was no nystagmus in primary baig of gaze. Facial strength and sensation was intact. Hearing was down for which he wore hearing aids. Tongue was midline; there was no dysarthria. The motor examination showed no focal or lateralizing weakness. Deep tendon reflexes were symmetric. Plantar responses were flexor. There was no ataxia on finger to nose testing. Sensory examination, the patient reported altered light touch and pinprick over the left C2 distribution, not extending toward the neck or into the face. The gait was not evaluated Assessment/Plan Assessment: #1 left C2 radiculitis, likely due to known, underlying, severe cervical DJD #2 positional vertigo Recommendations: As nonsteroidal anti-inflammatory medications are relatively contraindicated due to his chronic anticoagulation, we would recommend a trial of low-dose gabapentin 100 mg 3 times a day.Physical therapy directed to the neck would also be advised as well as vestibular rehabilitation efforts in hopes of mitigating his positional vertigo, employing Semont or Rio maneuvers Please call with any further questions. Consult Acknowledgment - Thank you for your consult request.
--- NOTE | 2016-08-11 11:54 | PN- Cardiology ---
Subjective Subjective: No clinical changes Objective Vital Signs and I&Os Vital Signs Date Time Temp Pulse Resp B/P Pulse O2 O2 Flow FiO2 Ox Delivery Rate 08/11 1040 74 152/50 08/11 0935 72 150/60 08/11 0935 150/60 08/11 0800 98.7 72 22 150/50 97 Room Air 08/11 0412 97.9 80 20 132/50 92 Room Air 08/10 2332 99.2 80 16 122/50 92 Room Air 08/10 2121 97.9 78 20 178/70 08/10 2000 97.9 78 20 178/70 94 Room Air 08/10 1731 78 204/90 08/10 1600 95 Room Air Room Air 08/10 1600 97.3 63 12 170/90 96 Room Air Room Air Intake & Output 08/11 1600 08/11 0800 08/11 0000 08/10 1600 08/10 0800 08/10 0000 Intake Total 200 400 600 0 400 Output Total 450 375 280 350 625 Balance -250 25 320 -350 -225 Intake, IV 0 Intake, Oral 200 400 600 0 400 Number 0 0 0 0 Bowel Movements Output, Urine 450 375 280 350 625 Patient 195 lb Weight Current Medications: Current Medications Sig/Ashley Start time Last Medication Dose Route Stop Time Status Admin Acetaminophen 325 MG Q6P PRN 08/08 1215 AC PO Albuterol Sulfate 3 ML Q4P PRN 08/08 1400 AC INH Apixaban 2.5 MG BID 08/08 2200 AC 08/11 PO 0935 Aspirin 81 MG DAILY 08/09 1000 AC 08/11 PO 0935 Atorvastatin Calcium 80 MG 1700 08/09 1700 AC 08/10 PO 1635 Budesonide/ 2 PUF BID 08/08 2200 AC 08/11 Formoterol Fumarate INH 0935 Carvedilol 6.25 MG BID 08/08 2200 AC 08/11 PO 0935 Cyanocobalamin 500 MCG DAILY 08/09 1000 AC 08/11 PO 0934 Finasteride 5 MG QPM 08/08 2200 AC 08/10 PO 2121 Gabapentin 100 MG Q8 08/11 1400 AC PO Guaifenesin 600 MG BID PRN 08/08 1400 AC PO Hydralazine HCl 10 MG ONCE ONE 08/10 1730 DC 08/10 IV 08/10 1731 1731 Losartan Potassium 100 MG DAILY 08/10 1000 AC 04/05 PO 0935 Meclizine HCl 12.5 MG ONCE ONE 08/11 1200 AC PO 08/11 1201 Meclizine HCl 12.5 MG TID 08/11 1130 DC PO Patient Medication 1 UNIT ONE NR 08/10 0800 DC Teaching ED 08/10 1400 Sertraline HCl 12.5 MG DAILY 08/10 1000 AC 08/11 PO 08/16 1001 0935 Tramadol HCl 50 MG Q6P PRN 08/08 1400 AC 08/11 PO 1138 Trazodone HCl 25 MG TIDPRN PRN 08/09 1330 AC PO Results Last 48 Hrs of Labs/Mics: Laboratory Tests 08/11/16 0407: Anion Gap 5, Estimated GFR 52 L, BUN/Creatinine Ratio 10.8 08/10/16 0547: Anion Gap 7, Estimated GFR 57 L, BUN/Creatinine Ratio 13.3 Assessment/Plan Assessment/Plan Assessment: 1. History of nonischemic cardiomyopathy 2. Recurrent presyncope 3. Orthostatics hypotension 4. Elevated blood pressure after recent decrease in hypertension medication Plan: * Losartan increased to 100 mg for additional blood pressure control. * Repeat orthostatics. * If the patient continues to be significantly orthostatic, would consider starting midodrine 2.5 mg by mouth twice a day for orthostatic hypotension with close monitoring of resting BP for HTN * Continue other cardiac cardiac medications. Continue telemetry? Yes
[2016-08-11 12:00] VITALS: BP 170/80
--- NOTE | 2016-08-11 12:10 | PN- Att Addend ---
Attending Addendum Attending Brief Note Patient seen and examined. Case discussed in detail with the neurology service, nursing staff and house staff. He complains of dizziness with positional change. He states that "my vertigo is acting up again". He reports that he has been on meclizine in the past and is very reluctant to try this medication again. He states that he becomes delirious with on the medication and threatens to punch someone if he does not tolerated. Also complains of head and neck numbness as well as neck pain. He continues to have periods of significant hypertension despite increasing his losartan dose. Blood pressure was as high as 200 systolic yesterday afternoon and he required a dose of hydralazine. Despite this she continues to have significant orthostatic blood pressure changes with systolic blood pressure dropping as much as 50 points. Vital Signs Date Time Temp Pulse Resp B/P Pulse O2 O2 Flow FiO2 Ox Delivery Rate 08/11 1200 97.9 76 20 170/80 Room Air 08/11 1040 74 152/50 / 0935 72 150/60 04 0935 150/60 04/ 0800 98.7 72 22 150/50 97 Room Air / 0412 97.9 80 20 132/50 92 Room Air 04/ 2332 99.2 80 16 122/50 92 Room Air / 2121 97.9 78 20 178/70 04/ 2000 97.9 78 20 178/70 94 Room Air 04/04 1731 78 204/90 04/ 1600 95 Room Air Room Air 04/04 1600 97.3 63 12 170/90 96 Room Air Room Air Gen. appearance: Well-developed, not in any acute distress. HEENT: Positive horizontal nystagmus Heart: S1-S2 regular Lungs: Clear bilaterally Abdomen: Soft, nontender with normal bowel sounds Extremity: No pedal edema Skin: Intact with no rashes. Laboratory Tests 08/11/16 0407: Anion Gap 5, Estimated GFR 52 L, BUN/Creatinine Ratio 10.8 Problems: 1. Uncontrolled hypertension 2. Orthostatic hypotension; query underlying autonomic dysfunction 3. Benign positional vertigo. 4. Depression with possible posttraumatic stress disorder. 5. Nonischemic any myopathy 6. Chronic neck pain secondary to C2 radiculitis from severe cervical DJD. Plan: -Continue current blood pressure regimen. The patient becomes significantly hypertensive would recommend sitting patient off on repeating blood pressure. -Follow with cardiology service. Would avoid excessive control of his low pressure due to his orthostatic changes. Would also try to avoid additional mitogen in order to prevent exacerbation of his supine hypertension. -Physical therapy evaluation for management of his positional vertigo. Will require vestibular rehabilitation. -Patient is very reluctant to resume meclizine due to poor tolerance in the past. -Begin patient on gabapentin 100 mg 3 times a day for his radiculitis. Continue tramadol for pain control. Medication has been ordered when necessary and so far he has been receiving it only once a day. He does not appear to be in significant pain. -And speed discharge In 4-48 hours to intermediate facility for rehabilitation.
[2016-08-11] MEDS ORDERED: COZAAR100 M1 PO (13:18)
[2016-08-11] MEDS ORDERED: SERTRALINE HCL25 MG PO (13:20)
[2016-08-11] MEDS ORDERED: TRAZODONE HCL50 M1 PO (13:20)
[2016-08-11] MEDS ORDERED: GABAPENTIN100 M2 PO (13:21)
--- NOTE | 2016-08-11 13:23 | Patient Discharge Instructions ---
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 - Follow up with psychiatry. - Follow up with urology, Dr. Douglas - Don't take trazodone if sedated Diet Continue normal diet: Yes Activity Full Activity/No Limits: Yes Acute Coronary Syndrome Inclusion Criteria At DC or during hospital stay patient has or had the following: ACS DIAGNOSIS No Discharge Core Measures Meds if any: Prescribed or Continued at Discharge Meds if any: NOT Prescribed or Continued at Discharge Congestive Heart Failure Inclusion Criteria At DC or during hospital stay patient has or had the following: CHF DIAGNOSIS No Discharge Core Measures Meds if any: Prescribed or Continued at Discharge Meds if any: NOT Prescribed or Continued at Discharge Cerebrovascular accident Inclusion Criteria At DC or during hospital stay patient has or had the following: CVA/TIA Diagnosis No Discharge Core Measures Meds if any: Prescribed or Continued at Discharge Meds if any: NOT Prescribed or Continued at Discharge Venous thromboembolism Inclusion Criteria VTE Diagnosis No VTE Type NONE VTE Confirmed by (Test) NONE Discharge Core Measures - Per Current guidelines, there needs to be overlap - treatment for the first 5 days of Warfarin therapy. - If discharged on Warfarin prior to 5 days of - overlap therapy, the patient will need to be - assessed for post discharge needs including - *Post discharge parental anticoagulation - *Warfarin and/or parental anticoagulation education - *Follow up date to check INR post discharge At least 5 days overlap therapy as Inpatient No Meds if any: Prescribed or Continued at Discharge Note: Overlap Therapy is Warfarin and Anticoagulant Meds if any: NOT Prescribed or Continued at Discharge
[2016-08-11 16:00] VITALS: BP 150/70
[2016-08-11 17:54] VITALS: BP 150/60
--- NOTE | 2016-08-11 19:04 | Cons- Ear,Nose&Throat ---
General Information and HPI Consulting Request Date of Consult: 08/11/16 Requested By: DIXIE BRANDT MD Reason for Consult: dizziness Source of Information: patient, old records Exam Limitations: no limitations History of Present Illness: 84-year-old M with past medical history of A. fib on Eliquis, COPD not on home oxygen, history of PE, [place] x 4 ,status post stent placement x 5, PCM implantation in 2015, AAA repair, hypertension, diabetes melitis is being admitted for the evaluation of left-sided neck pain and vertigo. Patient has had previous admissions for dizziness. He notes that while walking, he got dizzy/lightheaded. Reported to ER for dizziness Currently has episodic intermittent dizzy spells, which he states he has had before in the past. Lightheaded, and triggered by laying backwards. Started vestibular therapy today. Denies tinnitus, pain, drainage from ears, prior h/o ear infections or surgeries. Does have hearing loss. Had multiple workups in past by neurology and cardiology with pacemaker in place. Allergies/Medications Allergies: Coded Allergies: amoxicillin (From PREVPAC) (UNKNOWN 04/23/16) clarithromycin (From PREVPAC) (UNKNOWN 04/23/16) diazepam (HALLUCINATIONS 08/08/16) PER PATIENT, TOLERATES LOW DOSES lansoprazole (From PREVPAC) (UNKNOWN 04/23/16) morphine (Intermediate, LETHARGY, CONFUSION 04/23/16) meclizine (CONFUSION 04/23/16) Home Med List: Albuterol Sulfate 2.5 MG/3 ML (0.083 %) VIAL.NEB 1 Vial INH/DANDY Q4P SHORTNESS OF BREATH (Reported) Apixaban (Eliquis) 2.5 MG TABLET 1 TAB PO BID BLOOD THINNER (Reported) Aspirin (Children's Aspirin) 81 MG TAB.CHEW 1 TAB PO DAILY HEART HEALTH ( Reported) Atorvastatin Calcium 80 MG TABLET 1 TAB PO DAILY CHOLESTEROL (Reported) Budesonide/Formoterol Fumarate (Symbicort 160-4.5 Mcg Inhaler) 160 MCG-4.5 MCG/ ACTUATION HFA.AER.AD 2 PUF INH BID COPD (Reported) Carvedilol 6.25 MG TABLET 1 TAB PO BID HEART (Reported) Cholecalciferol (Vitamin D3) (Vitamin D) 2,000 UNIT TABLET 1 TAB PO DAILY SUPPLEMENT (Reported) Cyanocobalamin (Vitamin B-12) (B-12) 500 MCG TABLET 1 TAB PO DAILY SUPPLEMENT (Reported) Finasteride 5 MG TABLET 1 TAB PO QPM PROSTATE (Reported) Guaifenesin (Mucinex) 600 MG TAB.ER.12H 1 TAB PO BID PRN UNKNOWN (Reported) Tramadol HCl 50 MG TABLET 50 MG PO Q6P PRN neck pain Tylenol With Codeine (Tylenol With Codeine #3 Tablet) 300 MG-30 MG TABLET 1 TAB PO Q6P PRN PAIN (Reported) Valsartan (Diovan) 160 MG TABLET 1 TAB PO DAILY HEART (Reported) Current Medications: Current Medications Sig/Ashley Start time Last Medication Dose Route Stop Time Status Admin Acetaminophen 325 MG Q6P PRN 08/08 1215 AC PO Albuterol Sulfate 3 ML Q4P PRN 08/08 1400 AC INH Apixaban 2.5 MG BID 08/08 2200 AC 08/11 PO 0935 Aspirin 81 MG DAILY 08/09 1000 AC 08/11 PO 0935 Atorvastatin Calcium 80 MG 1700 08/09 1700 AC 08/11 PO 1604 Budesonide/ 2 PUF BID 08/08 2200 AC 08/11 Formoterol Fumarate INH 0935 Carvedilol 6.25 MG BID 08/08 2200 AC 08/11 PO 0935 Cyanocobalamin 500 MCG DAILY 08/09 1000 AC 08/11 PO 0934 Finasteride 5 MG QPM 08/08 2200 AC 08/10 PO 2121 Gabapentin 100 MG Q8 08/11 1400 AC 08/11 PO 1419 Guaifenesin 600 MG BID PRN 08/08 1400 AC PO Losartan Potassium 100 MG DAILY 08/10 1000 AC 08/11 PO 0935 Meclizine HCl 12.5 MG ONCE ONE 08/11 1200 CAN PO 08/11 1201 Meclizine HCl 12.5 MG TID 08/11 1130 DC PO Nystatin 1 ESE TID PRN 08/11 1700 AC TOP Sertraline HCl 12.5 MG DAILY 08/10 1000 AC 08/11 PO 10 1001 0935 Tramadol HCl 50 MG Q6P PRN 08/08 1400 AC 08/11 PO 1138 Trazodone HCl 25 MG TIDPRN PRN 08/09 1330 AC PO Past History Medical History Blood Transfusion Hx: Yes Type of Reaction: Other (see notes) Neurological: dizziness, NUMB 1ST THREE L FINGERS EENT: [place] BILATERAL CATARACTS Cardiovascular: AFIB, CAD, CHF, hypertension, CARDIAC STENTS X 4 [place] x5 HLD Respiratory: COPD, pulmonary embolism Gastrointestinal: ABDOMINAL AORTIC ANEURYSM HERNIA REPAIR Hepatic: NONE Renal: chronic kidney disease Musculoskeletal: carpal tunnel syndrome ARTHRITIS Psychiatric: NONE Endocrine: diabetes Blood Disorders: DVT Cancer(s): melanoma SUPERVISOR OF OPERATIONS/Reproductive: 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 Home Who Do You Live With? self Services at Home: None Primary Language: Cook Islander Smoking Status: Former Smoker ETOH Use: denies use Illicit Drug Use: denies illicit drug use Living Will? yes Functional Ability ADLs Independent: dressing, eating, toileting, bathing. Ambulation: independent IADLs Independent: shopping, housework, finances, food prep, telephone, transportation , medication admin. Review of Systems Review of Systems: weakness otherwise negative or noncontributory through 13 systems noted in the chart Exam & Diagnostic Data Vital Signs and I&O Vital Signs Date Time Temp Pulse Resp B/P Pulse O2 O2 Flow FiO2 Ox Delivery Rate 08/11 1754 62 150/60 / 1600 97.9 60 20 150/70 97 Room Air 08/11 1200 97.9 76 20 170/80 Room Air 08/11 1040 74 152/50 04/ 0935 72 150/60 / 0935 150/60 04/ 0800 98.7 72 22 150/50 97 Room Air 08/11 0412 97.9 80 20 132/50 92 Room Air 08/10 2332 99.2 80 16 122/50 92 Room Air 08/10 2121 97.9 78 20 178/70 08/10 2000 97.9 78 20 178/70 94 Room Air Intake & Output 08/11 1600 08/11 0808/11 0000 08/10 1600 08/10 0800 08/10 0000 Intake Total 450 200 400 600 0 400 Output Total 400 450 375 280 350 625 Balance 50 -250 25 320 -350 -225 Intake, IV 0 0 Intake, Oral 450 200 400 600 0 400 Number 1 0 0 0 0 Bowel Movements Output, Urine 400 450 375 280 350 625 Patient 195 lb Weight Physical Exam: Resting comfortably in bed. Awake and alert. Not currently dizzy. Ears normal Nose normal OC/OP clear Neck supple Neuro normal with no nystagmus COR regular Abd soft Last 24 Hours of Labs: Laboratory Tests 08/11 0407 Chemistry Sodium (137 - 145 mmol/L) 132 L Potassium (3.5 - 5.1 mmol/L) 5.0 Chloride (98 - 107 mmol/L) 100 Carbon Dioxide (22 - 30 mmol/L) 26 Anion Gap (5 - 16) 5 BUN (9 - 20 mg/dL) 14 Creatinine (0.7 - 1.2 mg/dL) 1.3 H Estimated GFR (>60 ml/min) 52 L BUN/Creatinine Ratio (7 - 25 %) 10.8 Assessment/Plan Assessment/Plan Patient with longstanding history of dizziness. He seems to have element of benign positoinal vertigo, and vestibular therapy was initiated today. Would continue with this therapy. discussed Antivert which he adamantly refuses to take. would hold on any other medications for vestibular suppression, unless symptoms became intolerable. Will f/u PRN Thanks Wilbur Shay MD, FACS Consult Acknowledgment - Thank you for your consult request.
[2016-08-12] VITALS: BP 170/62
[2016-08-12 05:40] VITALS: BP 172/66
[2016-08-12 06:30] VITALS: BP 146/60
--- NOTE | 2016-08-12 07:09 | PN- Housestaff ---
CARLOS URBANO,KAYA 08/12/16 0708: Subjective Follow-up For: vertigo Subjective: Pt seen this morning, was feeling fine (but he just woke up). Denies dizziness and head pain at this time. Feels better compared to yesterday. ENT came and evaluated the pt, and [facility] vestibular rehab for vertigo. BP 141-172/50-66. Na still low at 131. bun/cr 18/1.3. Pt agreeable to rehab and has explicitly requested to be sent to [facility]. Will try to get in touch with behavioral health case manager today to set that up. Review of Systems Constitutional: Reports: see HPI. Objective Last 24 Hrs of Vital Signs/I&O Vital Signs Date Time Temp Pulse Resp B/P Pulse O2 O2 Flow FiO2 Ox Delivery Rate 08/12 0630 146/60 / 0540 172/66 04/06 0000 97.5 65 18 170/62 96 Room Air Room Air / 2211 64 170/64 04/05 1754 62 150/60 04/05 1600 97.9 60 20 150/70 97 Room Air 04/05 1200 97.9 76 20 170/80 Room Air / 1040 74 152/50 Intake & Output 08/12 1600 04/06 0800 04/ 0000 Intake Total 240 200 200 Output Total 200 475 600 Balance 40 -275 -400 Intake, Oral 240 200 200 Number 0 0 Bowel Movements Output, Stool 0 Output, Urine 200 475 600 Physical Exam General Appearance: Alert, Oriented X3, Cooperative, No Acute Distress Cardiovascular: Regular Rate, Normal S1, Normal S2 Lungs: Clear to Auscultation, Normal Air Movement Abdomen: Normal Bowel Sounds, Soft, No Tenderness Current Medications: Current Medications Sig/Ashley Start time Last Medication Dose Route Stop Time Status Admin Acetaminophen 325 MG Q6P PRN 08/08 1215 AC PO Albuterol Sulfate 3 ML Q4P PRN 08/08 1400 AC INH Apixaban 2.5 MG BID 08/08 2200 AC 08/12 PO 1001 Aspirin 81 MG DAILY 08/09 1000 AC 08/12 PO 1001 Atorvastatin Calcium 80 MG 1700 08/09 1700 AC / PO 1604 Budesonide/ 2 PUF BID 08/08 2200 AC 08/12 Formoterol Fumarate INH 1001 Carvedilol 6.25 MG BID 08/08 2200 AC 08/12 PO 1001 Cyanocobalamin 500 MCG DAILY 08/09 1000 AC 08/12 PO 1002 Finasteride 5 MG QPM 08/08 2200 AC 08/11 PO 2211 Gabapentin 100 MG Q8 08/11 1400 AC 08/12 PO 0528 Guaifenesin 600 MG BID PRN 08/08 1400 AC PO Losartan Potassium 100 MG DAILY 08/10 1000 AC 08/12 PO 1001 Meclizine HCl 12.5 MG ONCE ONE 08/11 1200 CAN PO 08/11 1201 Meclizine HCl 12.5 MG TID 08/11 1130 DC PO Nystatin 1 ESE TID PRN 08/11 1700 AC TOP Sertraline HCl 12.5 MG DAILY 08/10 1000 AC 08/12 PO 08/16 1001 1002 Tramadol HCl 50 MG Q6P PRN 08/08 1400 AC 08/11 PO 1138 Trazodone HCl 25 MG TIDPRN PRN 08/09 1330 AC PO Last 24 Hrs of Lab/Jeff Results Last 24 Hrs of Labs/Mics: Laboratory Tests 08/12/16 0540: Anion Gap 6, Estimated GFR 52 L, BUN/Creatinine Ratio 13.8 Assessment/Plan Assessment: 84-year-old M with past medical history of A. fib on Eliquis, COPD not on home oxygen, history of PE, [place] x 4 ,status post stent placement x 5, PCM implantation in 2015, AAA repair, hypertension, diabetes melitis was admitted for readmission for evaluation of left-sided neck pain and vertigo. Labs were normal with some hemoconcentration and kidney injury which is chronic. EKG: V PACED AT 60, RBBB Echo 2016 :Left ventricular ejection fraction is estimated at 45-50 %/. Abnormal relaxation filling pattern of the left ventricle for age (stage 1 diastolic dysfunction). EEG 2016:Normal. Carotid Doppler 2016:No hemodynamically significant stenosis involving the bilateral internal carotid arteries. Any stenosis is less than 50%. CT HEAD ( 07/23/2016): No acute abnormality. Age-related changes stable. CT CERVICAL SPINE:Severe multilevel spondylosis of the cervical spine without an acute abnormality. No change. 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 No change. 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 * Started gabapentin 100 tid # BPPV * Physical therapy directed to the neck would also be advised as well as vestibular rehabilitation efforts in hopes of mitigating his positional vertigo, employing Semont or Rio maneuvers * considered meclizine 12.5 tid but pt refused because it gave him head pain * Plan to discharge to rehab # Intermittent nonfocal neurological deficits, conversion disorder? # PTSD - No acute findings on CT head 08/09/16 * Psych consulted * Sertraline started 12.5mg X 1 week (till 08/16/16), then 25 (from 08/17 - 08/23), then 50 mg from 08/24 * Follow up with OP psych vs geripsych placement vs inpatient psych # Presyncope, orthostatic hypotension (standing BP>100) - Multiple evaluations in the past. All workup including EEG/CT neck has been negative. Pacemaker interrogated twice in the past. - Pacemaker interrogated * Consider starting midodrine but his sytolic bp can go up higher than 200, would be hesitant to start this, as he was noted to syncopized even when he is lying down and he did not report much dizziness going from from sitting to standing even though his BP dropped 50 points. * Continue compression stockings #Hypertension - recently decreased dose of coreg and diovan * Continue home medications Coreg * Increased losartan to 100 daily # COPD * Continue home meds Symbicort and albuterol # History of coronary artery disease/A. fib, hypertension * Continue aspirin, statin, Eliquis, Lasix, nitroglycerin when necessary, carvedilol,eliquis and losartan #Chronic kidney disease: Creatinine at baseline 1.4 - Patient was urinating by standing everytime since yesterday, but felt dizzy every time he did so. - Therefore, no obstruction currently, although he has a history of BPH. Pt does not take flomax. Diet:Heart healthy diet Mild/moderate/severe pain pathway DVT prophylaxis :Eliquis,alps DNR/DNI Consults: cardio, psych, neuro, ENT, PT Labs: bep for hyponatremia, kidney functions Problem List: 1. Vertigo 2. Radiculopathy Pain Ratin Pain Location: none Pain Goal: Pain 4 or less Pain Plan: tramadol Tomorrow's Labs & Rationales: none DVT/Prophylaxis: mechanical, pharmacological BILLIE URBANO,ANTIONETTE 08/12/16 1118: Attending MD Review Statement Attending Statement Attending MD Statement: examined this patient, discuss w/resident/PA/THERAPEUTIC RECREATION DIRECTOR, agreed w/resident/PA/THERAPEUTIC RECREATION DIRECTOR, reviewed EMR data (avail), discussed with nursing, discussed with case mgmt, amended to note Attending Assessment/Plan: Patient seen and examined. Resting comfortably and not in acute distress. He reports that dizziness has improved with physical therapy yesterday. He reports ambulating this morning with no complaints of dizziness. Patient reported that he is able to self perform the Rio's maneuver at home and was able to correctly verbalize technique to the physical therapy service. His blood pressure has also improved with no further need of adjustment of his blood pressure medications. He denies any neck pain this morning. Currently patient is hemodynamically stable to be discharged today. He will be discharged to [facility] facility for short-term rehabilitation per recommendations of the physical therapy service. Patient is in agreement with the recommendation stating that he does not feel comfortable going home until his balance is improved. His presyncopal symptoms may have been secondary to severe dizziness. He has had no episodes of syncope or presyncope while being monitored on the ekg monitor. He complains of urinary frequency and hesitancy. This is chronic for him. He has a history of an enlarged prostate. He reports that he his urologist Dr. Douglas discontinued Flomax 2 years ago because it did not help him. He reports that symptoms are no worse than baseline. He denies any abdominal pain. He wishes to follow-up with Dr. Douglas upon discharge. Recommendations: -Patient may be discharged to [facility] facility once a bed is available. water reuse program manager has been notified of this recommendation. -Please refer the patient to the service of Dr. Douglas for urology follow-up as an outpatient. Check bladder scan today. -His CMR has been updated to reflect a change of his ARB as well as gabapentin added for neuropathic pain and trazodone/certainly recommended by the psychiatric service.
--- NOTE | 2016-08-12 11:52 | Discharge Summary ---
Visit Information Visit Dates Admission Date: 08/09/16 Discharge Date: 08/13/2016 Hospital Course Course Attending Physician: DIXIE BRANDT MD Primary Care Physician: ANGELI VILLALOBOS MD Consulting Request: 1 Consulting Specialty: Cardiology Consulting Request: 2 Consulting Specialty: Neurology Consulting Request: 3 Consulting Specialty: Psychiatry Hospital Course: 84-year-old M with past medical history of A. fib on Eliquis, COPD not on home oxygen, history of PE, [place] x 4 ,status post stent placement x 5, PCM implantation in 2015, AAA repair, hypertension, diabetes melitis is being admitted for the evaluation of left-sided neck pain and vertigo. Of note, patient has been admitted to the hospital with similar presentation. Extenssive work ups for his dizzness/ ?? syncopal episodes, including but not limited to continous cycle specialist, and ECG and multiple brain CT scan and MRI were inconclusive. Recently saw his creative arts therapist for dizziness spells and had his Carvedilol dose decreased with the concern about polypharmecy. His pacemaker has also been introgated twice since the last discharge, which showed no evidence of arrhthmia. He was initially admitted to , and was sent to ICU, when he was foud unresponssive in bed. Uppon his arrival in ICU patient's VS showed BP of > 220/100 mmgh. He was found to be slightly motre confused/ tired compard to his base line. PH/EX did reveal and area of altered sensation/ numbness in C2 dermatome. Neurology, ENT, and psychology consults were requested for him. Neurologist did believe that patients' nervous systme palys a role in his orthostasis. However, neurologist confirmed the diagnosis of C2 radiculitisa and reported BPV. Patient was started on Meclizine and Pt for Rio maneuver and Gabapentine fir C2-radicular pain. However, patient had allergy to Meclizine and denies the taking Meclizine. The aforementioned diagnosis for patient's dizziness was confirmed however patient admanant to not take the recommended meclizine. He was also seen by psychiatrist, who recommended Zoloft. His BP was found to be elevated, occasionaly, patients' BP medications were adjsuted to the current regimen. The remainder of the care was smooth and unramarkale and she was transferred to halfway for extended care. Allergies: Coded Allergies: amoxicillin (From PREVPAC) (UNKNOWN 04/23/16) clarithromycin (From PREVPAC) (UNKNOWN 04/23/16) diazepam (HALLUCINATIONS 08/08/16) PER PATIENT, TOLERATES LOW DOSES lansoprazole (From PREVPAC) (UNKNOWN 04/23/16) morphine (Intermediate, LETHARGY, CONFUSION 04/23/16) meclizine (CONFUSION 04/23/16) Pertinent Lab Results: PATIENT: JUAN JOSE CHAIDEZ PRESENT AGE: 89 PATIENT ACCOUNT NO: [id number] : [birth year] LOCATION: [facility] ORDERING PHYSICIAN: AMANDA GONZALEZ MD SERVICE DATE: 08/09/16 EXAM TYPE: CAT - CT HEAD WO IV CONTRAST EXAMINATION: CT HEAD WITHOUT CONTRAST CLINICAL INFORMATION: Stroke protocol. COMPARISON: 07/30/2016 TECHNIQUE: Contiguous axial imaging was performed from the skull base to vertex without intravenous administration of contrast. DLP: 601 mGy-cm FINDINGS: There is no evidence of acute intracranial hemorrhage or territorial infarction. No abnormal mass effect or midline shift is seen. William to white matter differentiation is well preserved. No extra-axial fluid collections are identified. The ventricles are normal in size for the patient's age with mild age-related atrophy suggested. There is no focal area of abnormal attenuation with the exception of some mild small vessel ischemic changes suggested in the white matter. The osseous structures and soft tissues are normal. The mastoid air cells and visualized portions of the paranasal sinuses are well aerated. IMPRESSION: No acute intracranial pathology. Findings were discussed with Amanda Humphries MD at 1119 hours 08/09/2016. It was ascertained that the content and urgency of the report was understood at the time of direct communication. DICTATED BY: MELECIO CARCAMO MD DATE/TIME DICTATED:08/09/161109 TANK CALIBRATOR:HAILEE DATE/TIME TRANSCRIBED:08/09/161109 CONFIDENTIAL, DO NOT COPY WITHOUT APPROPRIATE AUTHORIZATION. <Electronically signed in Other Vendor System> SIGNED BY: MELECIO CARCAMO MD [id number] Disposition Summary Disposition Principal Diagnosis: Benign positional Vertigo Additional Diagnosis: Anxiety and PTSD Discharge Disposition: SNF Discharge Instructions General Discharge Information Code Status: Do Not Resucitate/Intubat Patient's Diet: Heart healthy Patient's Activity: limited risk of fall Follow-Up Instructions/Appts: follow up with your Senior Enlisted Advisor (Dr Barreto) within ten days of discharge. follow up with ENT specialist within ten days of discharge. follow up with neurologist within ten days of discharge. Follow up with your PCP within ten days of discharge. Follow up with Psychiatrist as an out patient within ten days of discharge. Please return to emergency if symptoms worsen. Medications at Discharge Discharge Medications: Stop taking the following medications: Valsartan (Diovan) 160 MG TABLET ORAL DAILY Continue taking these medications: Aspirin (Children's Aspirin) 81 MG TAB.CHEW 1 Tablet ORAL DAILY Comments: Last Taken: 08/13/16 Time: 09:08A.M Cholecalciferol (Vitamin D3) (Vitamin D) 2,000 UNIT TABLET 1 Tablet ORAL DAILY Comments: Last Taken: NOT GIVEN THIS ADMISSION Time: Budesonide/Formoterol Fumarate (Symbicort 160-4.5 Mcg Inhaler) 160 MCG-4.5 MCG/ ACTUATION HFA.AER.AD 2 Puff Inhale through mouth TWICE DAILY Comments: Last Taken:08/13/16 Time: 09:08A.M Apixaban (Eliquis) 2.5 MG TABLET 1 Tablet ORAL TWICE DAILY Comments: Last Taken 08/13/16 Time:9:08A.M Albuterol Sulfate (Albuterol Sulfate) 2.5 MG/3 ML (0.083 %) VIAL.NEB 1 Vial Inhale Solution EVERY 4 HOURS NEEDED Comments: Last Taken: NOT GIVEN Time: Cyanocobalamin (Vitamin B-12) (B-12) 500 MCG TABLET 1 Tablet ORAL DAILY Comments: Last Taken: 08/13/16 Time: 9:08A.M Atorvastatin Calcium (Atorvastatin Calcium) 80 MG TABLET 1 Tablet ORAL DAILY Comments: Last Taken: 08/13/16 Time: 3:45P.M Carvedilol (Carvedilol) 6.25 MG TABLET 1 Tablet ORAL TWICE DAILY Comments: Last Taken: 08/13/16 Time: 9:08A.M Guaifenesin (Mucinex) 600 MG TAB.ER.12H 1 Tablet ORAL TWICE DAILY as needed for UNKNOWN Comments: NOT GIVEN IN HOSPITAL Finasteride (Finasteride) 5 MG TABLET 1 Tablet ORAL Every night Qty = 90 Comments: Last Taken: 08/12/16 Time: 9:17P.M Tylenol With Codeine (Tylenol With Codeine #3 Tablet) 300 MG-30 MG TABLET 1 Tablet ORAL EVERY SIX HOURS NEEDED as needed for PAIN Comments: NOT GIVEN THIS ADMISSION Tramadol HCl (Tramadol HCl) 50 MG TABLET 50 Milligram ORAL EVERY SIX HOURS NEEDED as needed for neck pain Qty = 30 Comments: Last Taken: 08/11/16 Time: 11:38A.M Start taking the following new medications: Losartan (Cozaar) 100 MG TABLET 100 Milligram ORAL DAILY Qty = 30 No Refills Gabapentin (Gabapentin) 100 MG CAPSULE 100 Milligram ORAL EVERY 8 HOURS Qty = 30 No Refills Sertraline HCl (Sertraline HCl) 25 MG TABLET 12.5 Milligram ORAL DAILY Qty = 90 No Refills Instructions: 12.5 mg daily till 08/16/16 then 25 mg daily 08/17/16 to 08/23/16 then 50 mg from 08/24/16 Trazodone HCl (Trazodone HCl) 50 MG TABLET 25 Milligram ORAL THREE TIMES A DAY NEEDED as needed for ANXIETY Qty = 30 No Refills Copies To: ANTIONETTE WISE M.D; WILFREDO URBANO,ANGELI Attending MD Review Statement Documenting Attending: ANTIONETTE WISE M.D Other Findings: I have reviewed the discharge summary.
--- NOTE | 2016-08-12 14:25 | NUR ---
patient was bladder scanned 222, gwen gonzales. no further orders
[2016-08-12 16:00] VITALS: BP 142/58
--- NOTE | 2016-08-12 20:20 | PN- Cardiology ---
Subjective Subjective: Patient sitting comfortably in bedside chair. Feeling OK. BP stable today. Resting systolic about 140 droppig to 110 with upright position but , per patient, no symptoms noted. Remains unsteady on his feet. Objective Vital Signs and I&Os Vital Signs Date Time Temp Pulse Resp B/P Pulse O2 O2 Flow FiO2 Ox Delivery Rate 08/13 1599 98.4 62 20 142/58 98 Room Air 08/12 1059 Room Air Room Air 08/12 0630 146/60 08/12 0540 172/66 08/12 0000 97.5 65 18 170/62 96 Room Air Room Air 08/11 2211 64 170/64 Intake & Output 08/12 1600 08/12 0800 08/12 0000 08/11 1600 08/11 0808/11 0000 Intake Total 600 200 200 450 200 400 Output Total 200 475 600 400 450 375 Balance 400 -275 -400 50 -250 25 Intake, IV 0 Intake, Oral 600 200 200 450 200 400 Number 0 0 0 1 0 0 Bowel Movements Output, Stool 0 0 Output, Urine 200 475 600 400 450 375 Patient 195 lb Weight Physical Exam: Gen: The patient is in no acute distress HEENT: Normal nose, ears, and oropharynx. Pupils equal bilaterally. Conjunctiva normal. Neck: Supple with no JVD, no masses, and no thyromegaly Lungs: Clear to auscultation with normal respiratory effort Heart: RRR, S1, S2, 1/6 systolic murmur. 1+ peripheral edema, 1+ pulses in the lower extremities bilaterally Abdomen: Soft, nontender, no masses. No hepatomegaly. No splenomegaly Extremities: No clubbing or cyanosis. Normal muscle strength in the upper and lower extremities. Skin: Normal skin turgor with no skin ulcers or lesions noted. Neuro: Cranial nerves intact. Sensation intact Current Medications: Current Medications Sig/Ashley Start time Last Medication Dose Route Stop Time Status Admin Acetaminophen 325 MG Q6P PRN 08/08 1215 AC PO Albuterol Sulfate 3 ML Q4P PRN 08/08 1400 AC INH Apixaban 2.5 MG BID 08/08 2200 AC 08/12 PO 1001 Aspirin 81 MG DAILY 08/09 1000 AC 08/12 PO 1001 Atorvastatin Calcium 80 MG 1700 08/09 1700 AC 08/12 PO 1545 Budesonide/ 2 PUF BID 08/08 220 AC 08/12 Formoterol Fumarate INH 1001 Carvedilol 6.25 MG BID 08/08 2200 AC 08/12 PO 1001 Cyanocobalamin 500 MCG DAILY 08/09 1000 AC 08/12 PO 1002 Finasteride 5 MG QPM 08/08 2200 AC 08/11 PO 2211 Gabapentin 100 MG Q8 08/11 1400 AC 08/12 PO 1422 Guaifenesin 600 MG BID PRN 08/08 1400 AC PO Insulin Aspart 0 TIDAC 08/13 0800 AC SC Losartan Potassium 100 MG DAILY 08/10 1000 AC 08/12 PO 1001 Nystatin 1 ESE TID PRN 08/11 1700 AC TOP Sertraline HCl 12.5 MG DAILY 08/10 1000 AC 08/12 PO 08/16 1001 1002 Tramadol HCl 50 MG Q6P PRN 08/08 1400 AC 08/11 PO 1138 Trazodone HCl 25 MG TIDPRN PRN 08/09 1330 AC PO Results Last 48 Hrs of Labs/Mics: Laboratory Tests 08/12/16 0540: Anion Gap 6, Estimated GFR 52 L, BUN/Creatinine Ratio 13.8 08/11/16 0407: Anion Gap 5, Estimated GFR 52 L, BUN/Creatinine Ratio 10.8 Assessment/Plan Assessment/Plan Assessment: 1. History of nonischemic cardiomyopathy 2. Recurrent presyncope 3. Orthostatics hypotension 4. Elevated blood pressure after recent decrease in hypertension medication Plan: - For now, I would favor continuing the current medication regimen with close monitoring of the patient's BP and intermittent monitoring of the orthostatics. - OOB as tolerated. - Awaiting transfer to [facility]. - COntinue utilizing support stockings. - OUtpatient followup with Dr Barreto - For now, I would not use Midodrine - Continue PT for vertigo Continue telemetry? Yes
--- NOTE | 2016-08-12 21:31 | NUR ---
PATIENT IS A/0 X 3, PERRLA 2 MM, MOVES ALL THE LIMBS, FOLLOWS COMMAND, NO COMPLAIN OF DIZZINESS, DENIES ANY PAIN, HE SLEEP MOST OF THE TIME. VITAL SIGNS TAKEN AT 2129 FOLLOWS AP=774/80, HR=72, TEMP=98.1, RR=12, SPO2=96, GOOD PULSES, NO EDEMA. BREATHING SPONTANEOUSLY ON ROOM AIR, NO SOB. ABDOMEN IS SOFT, GOOD BOWEL SOUNDS, ON C3 DIET, LASY BM WAS ON THE August. BLADDER IS NOT DISTENDED, ON STRAIGHT CATH PROTOCOL POST VOID IF BLADDER SCAN IS MORE THAN 300. SKIN IS INTACT. AT 2139, PATIENT WAS TRANSFER TO 219. REPORT WAS GIVEN TO MALA ROBERTS.
[2016-08-12 22:51] VITALS: BP 144/52
--- NOTE | 2016-08-13 02:45 | NUR ---
POST VOID BLADDER SCAN 199ML. STRAIGHT CATH NOT NEEDED AT THIS TIME
[2016-08-13 07:27] VITALS: BP 150/60
--- NOTE | 2016-08-13 08:48 | PN- Housestaff ---
See Addendum Subjective Follow-up For: Vertigo Complaints: drowsy, sleepy Subjective: I followed up and examined the patient today. He is resting comfortably in bed, is not in acute distress, and the only complaint he has is that he has been more sleepy in the past 2 days than before. Nausea, dizziness has decreased significantly. Upon questioning, his neck pain is still hurting at times, right now it is 5/10. Vitals have been stable, no overnight issues. Review of Systems Constitutional: Reports: no symptoms. Cardiovascular: Reports: no symptoms. Respiratory: Reports: no symptoms. Gastrointestinal: Reports: no symptoms. Genitourinary: Reports: no symptoms. Musculoskeletal: Reports: see HPI. Skin: Reports: no symptoms. Neurological/Psychological: Reports: see HPI. Objective Last 24 Hrs of Vital Signs/I&O Vital Signs Date Time Temp Pulse Resp B/P Pulse O2 O2 Flow FiO2 Ox Delivery Rate 08/13 1331 98.2 76 18 150/60 08/13 0908 98.2 76 18 150/60 08/13 0908 98.2 76 18 150/60 08/13 0727 98.2 76 18 150/60 96 Room Air 08/12 2251 97.4 69 20 144/52 96 Room Air / 2117 98.1 72 12 130/80 / 1600 98.4 62 20 142/58 98 Room Air Intake & Output 08/13 1600 08/13 0800 08/13 0000 Intake Total 480 Output Total 725 400 Balance -245 -400 Intake, Oral 480 Output, Urine 725 400 Physical Exam General Appearance: Alert, Oriented X3, Cooperative, No Acute Distress Other Physical Findings: HEENT- normal exam; EOM- normal neck- tenderness on palpation and movement of nape of neck, no wound Cardiovascular: Regular Rate, Normal S1, Normal S2 Lungs: Clear to Auscultation, Normal Air Movement Abdomen: Normal Bowel Sounds, Soft, No Tenderness Neuro- grossly intact Current Medications: Current Medications Sig/Ashley Start time Last Medication Dose Route Stop Time Status Admin Acetaminophen 325 MG Q6P PRN 08/08 1215 DCD PO Albuterol Sulfate 3 ML Q4P PRN 08/08 1400 DCD INH Apixaban 2.5 MG BID 08/08 2200 DCD 08/13 PO 0908 Aspirin 81 MG DAILY 08/09 1000 DCD 04/ PO 0908 Atorvastatin Calcium 80 MG 1700 04/ 1700 DCD 04 PO 1545 Budesonide/ 2 PUF BID 08/08 2200 DCD 04 Formoterol Fumarate INH 0909 Carvedilol 6.25 MG BID 08/08 2200 DCD 04 PO 0908 Cyanocobalamin 500 MCG DAILY 08/09 1000 DCD 04 PO 0908 Finasteride 5 MG QPM 08/08 2200 DCD 04 PO 2117 Gabapentin 100 MG Q8 04/ 1400 DCD 04 PO 0617 Guaifenesin 600 MG BID PRN 04 1400 DCD PO Insulin Aspart 0 TIDAC 08/13 0800 DCD 08/13 SC 1205 Losartan Potassium 100 MG DAILY 08/10 1000 DCD 04 PO 0908 Nystatin 1 ESE TID PRN 08/11 1700 DCD TOP Patient Medication 1 ED .[facility] 08/13 1414 DC Teaching ED 08/13 1415 Sertraline HCl 12.5 MG DAILY 08/10 1000 DCD 04/ PO 08/16 1001 0908 Tramadol HCl 50 MG Q6P PRN 08/08 1400 DCD 04 PO 1138 Trazodone HCl 25 MG TIDPRN PRN 08/09 1330 DCD PO Assessment/Plan Assessment: 84-year-old M with past medical history of A. fib on Eliquis, COPD not on home oxygen, history of PE, MD x 4 ,status post stent placement x 5, PCM implantation in 2015, AAA repair, hypertension, diabetes melitis was admitted for readmission for evaluation of left-sided neck pain and vertigo. Labs were normal with some hemoconcentration and kidney injury which is chronic. EKG: V PACED AT 60, RBBB Echo 2016 :Left ventricular ejection fraction is estimated at 45-50 %/. Abnormal relaxation filling pattern of the left ventricle for age (stage 1 diastolic dysfunction). EEG 2016:Normal. Carotid Doppler 2016:No hemodynamically significant stenosis involving the bilateral internal carotid arteries. Any stenosis is less than 50%. CT HEAD ( 07/23/2016): No acute abnormality. Age-related changes stable. CT CERVICAL SPINE:Severe multilevel spondylosis of the cervical spine without an acute abnormality. No change. 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 No change. #Discharge disposition: Patient has significantly improved compared to what came in with, has been stable enough to be sent from the telemetry/ICU floor to the general medical floor and is now ready to be discharged today 08/13/16. He however has to go to a short-term rehabilitation facility for additional physical therapy and further stabilization. 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 * Started gabapentin 100 tid # BPPV * Physical therapy directed to the neck would also be advised as well as vestibular rehabilitation efforts in hopes of mitigating his positional vertigo, employing Semont or Rio maneuvers * considered meclizine 12.5 tid but pt refused because it gave him head pain * Plan to discharge to rehab today # Intermittent nonfocal neurological deficits, conversion disorder? # PTSD - No acute findings on CT head 08/09/16 * Psych consulted * Sertraline started 12.5mg X 1 week (till 08/16/16), then 25 (from 08/17 - 08/23), then 50 mg from 08/24 * Follow up with OP psych vs geripsych placement vs inpatient psych # Presyncope, orthostatic hypotension (standing BP>100) - Multiple evaluations in the past. All workup including EEG/CT neck has been negative. Pacemaker interrogated twice in the past. - Pacemaker interrogated * Consider starting midodrine but his sytolic bp can go up higher than 200, would be hesitant to start this, as he was noted to syncopized even when he is lying down and he did not report much dizziness going from from sitting to standing even though his BP dropped 50 points. * Continue compression stockings #Hypertension - recently decreased dose of coreg and diovan * Continue home medications Coreg * Increased losartan to 100 daily # COPD * Continue home meds Symbicort and albuterol # History of coronary artery disease/A. fib, hypertension * Continue aspirin, statin, Eliquis, Lasix, nitroglycerin when necessary, carvedilol,eliquis and losartan #Chronic kidney disease: Creatinine at baseline 1.4 - Patient was urinating by standing everytime since yesterday, but felt dizzy every time he did so. - Therefore, no obstruction currently, although he has a history of BPH. Pt does not take flomax. - Patient needs to follow up with urologist as outpatient, regarding management of his urinary obstruction, has been advised if he has post void residual volume more than 100 that is affecting his daily activities, then would pursue surgical interventions, nails continue intermittent straight catheterization protocol. Diet:Heart healthy diet Mild/moderate/severe pain pathway DVT prophylaxis :anna Lee DNR/DNI Consults: cardio, psych, neuro, ENT, PT Labs: bep for hyponatremia, kidney functions Problem List: 1. Vertigo 2. Neck muscle spasm 3. Benign paroxysmal positional vertigo 4. Orthostatic dizziness Pain Ratin Pain Location: neck (4/10 when max, else low with meds) Pain Goal: Pain 4 or less Pain Plan: prn Tomorrow's Labs & Rationales: - Consulting Request: Consulting Specialty: Psychiatry
--- NOTE | 2016-08-13 10:43 | Cons- Urology ---
General Information and HPI Consulting Request Date of Consult: 08/13/16 Requested By: DIXIE BRANDT MD Reason for Consult: BPH with post-void residual >350 Source of Information: patient, old records Exam Limitations: no limitations History of Present Illness: Pt admitted for medical reasons, including htn. Noted to have PVR in 500s but pt voiding comfortably. Allergies/Medications Allergies: Coded Allergies: amoxicillin (From [facility]) (UNKNOWN 04/23/16) clarithromycin (From [facility]) (UNKNOWN 04/23/16) diazepam (HALLUCINATIONS 08/08/16) PER PATIENT, TOLERATES LOW DOSES lansoprazole (From [facility]) (UNKNOWN 04/23/16) morphine (Intermediate, LETHARGY, CONFUSION 04/23/16) meclizine (CONFUSION 04/23/16) Home Med List: Albuterol Sulfate 2.5 MG/3 ML (0.083 %) VIAL.NEB 1 Vial INH/DANDY Q4P SHORTNESS OF BREATH (Reported) Apixaban (Eliquis) 2.5 MG TABLET 1 TAB PO BID BLOOD THINNER (Reported) Aspirin (Children's Aspirin) 81 MG TAB.CHEW 1 TAB PO DAILY HEART HEALTH ( Reported) Atorvastatin Calcium 80 MG TABLET 1 TAB PO DAILY CHOLESTEROL (Reported) Budesonide/Formoterol Fumarate (Symbicort 160-4.5 Mcg Inhaler) 160 MCG-4.5 MCG/ ACTUATION HFA.AER.AD 2 PUF INH BID COPD (Reported) Carvedilol 6.25 MG TABLET 1 TAB PO BID HEART (Reported) Cholecalciferol (Vitamin D3) (Vitamin D) 2,000 UNIT TABLET 1 TAB PO DAILY SUPPLEMENT (Reported) Cyanocobalamin (Vitamin B-12) (B-12) 500 MCG TABLET 1 TAB PO DAILY SUPPLEMENT (Reported) Finasteride 5 MG TABLET 1 TAB PO QPM PROSTATE (Reported) Gabapentin 100 MG CAPSULE 100 MG PO Q8 radiculopathy Guaifenesin (Mucinex) 600 MG TAB.ER.12H 1 TAB PO BID PRN UNKNOWN (Reported) Losartan (Cozaar) 100 MG TABLET 100 MG PO DAILY High blood pressure Sertraline HCl 25 MG TABLET 12.5 MG PO DAILY PTSD 12.5 mg daily till 08/16/16 then 25 mg daily 08/17/16 to 08/23/16 then 50 mg from 08/24/16 Tramadol HCl 50 MG TABLET 50 MG PO Q6P PRN neck pain Trazodone HCl 50 MG TABLET 25 MG PO TIDPRN PRN ANXIETY Tylenol With Codeine (Tylenol With Codeine #3 Tablet) 300 MG-30 MG TABLET 1 TAB PO Q6P PRN PAIN (Reported) Current Medications: Current Medications Sig/Ashley Start time Last Medication Dose Route Stop Time Status Admin Acetaminophen 325 MG Q6P PRN 08/08 1215 AC PO Albuterol Sulfate 3 ML Q4P PRN 08/08 1400 AC INH Apixaban 2.5 MG BID 08/08 2200 AC 08/13 PO 0908 Aspirin 81 MG DAILY 08/09 1000 AC 08/13 PO 0908 Atorvastatin Calcium 80 MG 1700 08/09 1700 AC 08/12 PO 1545 Budesonide/ 2 PUF BID 08/08 2200 AC 08/13 Formoterol Fumarate INH 0909 Carvedilol 6.25 MG BID 08/08 2200 AC 08/13 PO 0908 Cyanocobalamin 500 MCG DAILY 08/09 1000 AC 08/13 PO 0908 Finasteride 5 MG QPM 08/08 2200 AC 08/12 PO 2117 Gabapentin 100 MG Q8 08/11 1400 AC 08/13 PO 0617 Guaifenesin 600 MG BID PRN 08/08 1400 AC PO Insulin Aspart 0 TIDAC 08/13 0800 AC SC Losartan Potassium 100 MG DAILY 08/10 1000 AC 08/13 PO 0908 Nystatin 1 ESE TID PRN 08/11 1700 AC TOP Sertraline HCl 12.5 MG DAILY 08/10 1000 AC 08/13 PO 08/16 1001 0908 Tramadol HCl 50 MG Q6P PRN 08/08 1400 AC 08/11 PO 1138 Trazodone HCl 25 MG TIDPRN PRN 08/09 1330 AC PO Past History Medical History Blood Transfusion Hx: Yes Type of Reaction: Other (see notes) Neurological: dizziness, NUMB 1ST THREE L FINGERS EENT: COMANCHE BILATERAL CATARACTS Cardiovascular: AFIB, CAD, CHF, hypertension, CARDIAC STENTS X 4 GA x5 HLD Respiratory: COPD, pulmonary embolism Gastrointestinal: ABDOMINAL AORTIC ANEURYSM HERNIA REPAIR Hepatic: NONE Renal: chronic kidney disease Musculoskeletal: carpal tunnel syndrome ARTHRITIS Psychiatric: NONE Endocrine: diabetes Blood Disorders: DVT Cancer(s): melanoma 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 Home Who Do You Live With? self Services at Home: None Primary Language: Korean Smoking Status: Former Smoker ETOH Use: denies use Illicit Drug Use: denies illicit drug use Living Will? yes Functional Ability ADLs Independent: dressing, eating, toileting, bathing. Ambulation: independent IADLs Independent: shopping, housework, finances, food prep, telephone, transportation , medication admin. Employment History Retired? yes Exam & Diagnostic Data Vital Signs and I&O Vital Signs Date Time Temp Pulse Resp B/P Pulse O2 O2 Flow FiO2 Ox Delivery Rate 08/14 907 98.2 76 18 150/60 08/14 907 98.2 76 18 150/60 08/13 726 98.2 76 18 150/60 96 Room Air 08/12 2251 97.4 69 20 144/52 96 Room Air 08/12 2117 98.1 72 12 130/80 08/12 1600 98.4 62 20 142/58 98 Room Air 08/12 1059 Room Air Room Air Intake & Output 08/13 1600 08/13 0800 08/13 0000 08/12 1600 08/12 0800 08/12 0000 Intake Total 600 200 200 Output Total 400 200 475 600 Balance -400 400 -275 -400 Intake, Oral 600 200 200 Number 0 0 0 Bowel Movements Output, Stool 0 0 Output, Urine 400 200 475 600 Other Results: bladder scan 395 by report. Assessment/Plan Assessment/Plan Continue to monitor I&O: if pt in retention, recommend inserting olivarez and will be cystoscoped/void trialed on outpatient basis. Copies To: KAMALA SINGH MD Consult Acknowledgment - Thank you for your consult request. Attending MD Review Statement Attending Statement Attending MD Statement: examined this patient, discuss w/resident/PA/FLAT SURFACER Attending Assessment/Plan: pt with BPH and large post-void residual: otherwise, no voiding issues. Will f/ u on outpatient basis for cysto-possible TURP (cannot tolerate Flomax-dizzy)
--- NOTE | 2016-08-13 12:27 | PN- Cardiology ---
Subjective Subjective: The patient is stable today. He denies any symptoms. Blood pressure remains in reasonable range. Objective Vital Signs and I&Os Vital Signs Date Time Temp Pulse Resp B/P Pulse O2 O2 Flow FiO2 Ox Delivery Rate 08/14 907 98.2 76 18 150/60 08/13 0908 98.2 76 18 150/60 08/13 0727 98.2 76 18 150/60 96 Room Air 08/12 2251 97.4 69 20 144/52 96 Room Air 08/12 2117 98.1 72 12 130/80 08/12 1600 98.4 62 20 142/58 98 Room Air Intake & Output 08/13 1600 08/13 0800 08/13 0000 08/12 1600 08/12 0808/12 0000 Intake Total 600 200 200 Output Total 725 400 200 475 600 Balance -725 -400 400 -275 -400 Intake, Oral 600 200 200 Number 0 0 0 Bowel Movements Output, Stool 0 0 Output, Urine 725 400 200 475 600 Current Medications: Current Medications Sig/Ashley Start time Last Medication Dose Route Stop Time Status Admin Acetaminophen 325 MG Q6P PRN 08/08 1215 AC PO Albuterol Sulfate 3 ML Q4P PRN 08/08 1400 AC INH Apixaban 2.5 MG BID 08/08 2200 AC 08/13 PO 0908 Aspirin 81 MG DAILY 08/09 1000 AC 08/13 PO 0908 Atorvastatin Calcium 80 MG 1700 08/09 1700 AC 08/12 PO 1545 Budesonide/ 2 PUF BID 08/08 2200 AC 08/13 Formoterol Fumarate INH 0909 Carvedilol 6.25 MG BID 08/08 2200 AC 08/13 PO 0908 Cyanocobalamin 500 MCG DAILY 08/09 1000 AC 08/13 PO 0908 Finasteride 5 MG QPM 08/08 2200 AC 08/12 PO 2117 Gabapentin 100 MG Q8 08/11 1400 AC 08/13 PO 0617 Guaifenesin 600 MG BID PRN 08/08 1400 AC PO Insulin Aspart 0 TIDAC 08/13 0800 AC 08/13 SC 1205 Losartan Potassium 100 MG DAILY 08/10 1000 AC 08/13 PO 0908 Nystatin 1 ESE TID PRN 08/11 1700 AC TOP Sertraline HCl 12.5 MG DAILY 08/10 1000 AC 08/13 PO 08/16 1001 0908 Tramadol HCl 50 MG Q6P PRN 08/08 1400 AC 04/ PO 1138 Trazodone HCl 25 MG TIDPRN PRN 08/09 1330 AC PO Results Last 48 Hrs of Labs/Mics: Laboratory Tests 08/12/16 0540: Anion Gap 6, Estimated GFR 52 L, BUN/Creatinine Ratio 13.8 Assessment/Plan Assessment/Plan Assessment: 1. History of nonischemic cardiomyopathy 2. Recurrent presyncope 3. Orthostatic hypotension 4. Elevated blood pressure after recent decrease in hypertension medication Plan: - For now, I would favor continuing the current medication regimen with close monitoring of the patient's BP and intermittent monitoring of the orthostatics. - OOB as tolerated. - Awaiting transfer to [facility]. The patient is stable from a cardiac standpoint for transfer to short-term rehabilitation. - COntinue utilizing support stockings. - OUtpatient followup with Dr Barreto - For now, I would not use Midodrine - Continue PT for vertigo; outpatient follow-up with ENT -The overall situation from a cardiac perspective was discussed in detail with the patient has family. All appropriate questions were answered. Continue telemetry? No
[2016-08-13 13:31] VITALS: BP 150/60
== END 2016-08-13 14:06 | DRG 149 ==
LOC: ENRESERVDT → ENRESERVTM → ERH 09:46 → ERHI 12:04 → CRI 12:04 → ERH 12:04 → 2NB 13:48 → ERHI 13:48 → 2NB 13:48 → CRI 08-09 10:34 → 2NB 08-09 15:41 → ENPENDDIS 08-09 15:41 → 2NB 08-09 15:41 → CRI 08-09 15:41 → 2NB 08-12 21:45
PROVIDERS: Physician Assistant Medical; Student in an Organized Health Care Education/Training Program; ADMIT Internal Medicine
DX: H81.10 Benign paroxysmal vertigo, unspecified ear (principal); I13.0 Hypertensive heart and chronic kidney disease with heart failure and stage 1 through stage 4 chronic kidney disease, or unspecified chronic kidney disease; I50.32 Chronic diastolic (congestive) heart failure; I42.9 Cardiomyopathy, unspecified; N18.3 Chronic kidney disease, stage 3 (moderate); I48.91 Unspecified atrial fibrillation; J44.9 Chronic obstructive pulmonary disease, unspecified; E11.9 Type 2 diabetes mellitus without complications; R55 Syncope and collapse; F43.10 Post-traumatic stress disorder, unspecified; M54.12 Radiculopathy, cervical region; Z79.01 Long term (current) use of anticoagulants; Z86.711 Personal history of pulmonary embolism; I25.2 Old myocardial infarction; F41.9 Anxiety disorder, unspecified
CPT/HCPCS: 2NBSP; 2NSBP; CCU; 36415; 82436; 87086; 93005; 93010; 97110-GO; 97112-GO; 97116-GO; 99232; 99233; J0131; J0360; J1644; J3490

== ENCOUNTER 2017-05-11 18:18 | Emergency (ER) | payer OTHER ==
[~2017-05-11] VITALS: Ht 182.9 cm; Wt 113.4 kg
[~2017-05-11 18:18] MED LIST changes: +COREG12.5 M1 PO; +COZAAR100 M1 PO; +COZAAR50 M1 PO; +GABAPENTIN100 M2 PO; +SERTRALINE HCL25 MG PO; +TRAZODONE HCL50 M1 PO; +VITAMIN B-12500 MC2 PO; +VITAMIN D2000 UNIT PO
--- NOTE | 2017-05-11 18:31 | ED DYSPNEA/ASTHMA COMPLAINT ---
History of Present Illness General Chief Complaint: Dyspnea (COPD, CHF, Other) Stated Complaint: BIBA FOR SOB (COPD) Source: patient Exam Limitations: no limitations Vital Signs & Intake/Output Vital Signs & Intake/Output Vital Signs Date Time Temp Pulse Resp B/P B/P Pulse O2 O2 Flow FiO2 Mean Ox Delivery Rate 05/11 2099 97.8 68 18 156/52 96 Room Air 05/11 1901 96 Room Air 05/11 1828 94 05/11 1827 97.9 64 28 176/72 97 Aerosol 6.0L Mask Allergies Coded Allergies: amoxicillin (From [facility]) (UNKNOWN 04/23/16) clarithromycin (From [facility]) (UNKNOWN 04/23/16) diazepam (HALLUCINATIONS 08/08/16) PER PATIENT, TOLERATES LOW DOSES lansoprazole (From [facility]) (UNKNOWN 04/23/16) morphine (Intermediate, LETHARGY, CONFUSION 04/23/16) meclizine (CONFUSION 04/23/16) Reconcile Medications Albuterol Sulfate (Proair Hfa) 90 MCG HFA.AER.AD 2 PUF INH Q4-6 PRN PRN SOB Amlodipine Besylate 5 MG TABLET 7.5 MG PO DAILY HEART/BP (Reported) Apixaban (Eliquis) 2.5 MG TABLET 1 TAB PO BID BLOOD THINNER (Reported) Atorvastatin Calcium 80 MG TABLET 1 TAB PO QPM CHOLESTEROL (Reported) Benzonatate (Tessalon Perle) 100 MG CAPSULE 1 CAP PO TID PRN COUGH Budesonide/Formoterol Fumarate (Symbicort 160-4.5 Mcg Inhaler) 160 MCG-4.5 MCG/ ACTUATION HFA.AER.AD 2 PUF INH BID COPD (Reported) Carvedilol (Coreg) 12.5 MG TABLET 1 TAB PO BID HEART/BP (Reported) Cholecalciferol (Vitamin D3) (Vitamin D) 2,000 UNIT CAPSULE 1 CAP PO QAM SUPPLEMENT (Reported) Cyanocobalamin (Vitamin B-12) (Vitamin B-12) 500 MCG TABLET 1 TAB PO QAM SUPPLEMENT (Reported) Finasteride 5 MG TABLET 1 TAB PO QPM PROSTATE (Reported) Guaifenesin (Mucinex) 600 MG TAB.ER.12H 1 TAB PO AD PRN MUCUS (Reported) Levofloxacin (Levaquin) 500 MG TABLET 1 TAB PO DAILY BRONCHITIS Losartan Potassium (Cozaar) 50 MG TABLET 1.5 TAB PO QAM HTN (Reported) Magnesium 250 MG TABLET 1 TAB PO QAM SUPPLEMENT (Reported) Nitroglycerin 0.4 MG TAB.SUBL 1 TAB SL AD PRN CHEST PAIN - HEART (Reported) 1st sign of attack; may repeat every 5 minutes until relief; if pain persists after 3 tablets in 15 minutes, prompt medical att Prednisone 10 MG TABLET 1 TAB PO DAILY BRONCHITIS 3 TABS PO X 3 DAYS, 2 TABS OP X 3 DAYS, 1 TAB PO X 3 DAYS Triage Note: BIBA FOR INC PRODUCTIVE COUGH AND SOB X 3-5 DAYS HX COPD. REPORTS GREEN SPUTUM, EXPECTORATING WHITE SPUTUM ON ARRIVAL, FREQUENT COUGH, +WHEEZING. RECIEVED DUONEB X1 EN ROUTE, PER EMS RA SATS PRIOR TO NEB 98%. REPORTS CP "FROM COUGHING, I'VE HAD 5 HEART ATTACKS, I KNOW THE DIFFERENCE." Triage Nurses Notes Reviewed? yes Onset: Gradual Duration: day(s): (3-4 DAYS) Timing: remote history Severity: moderate Activities at Onset: none Prior Episodes/Possible Cause: occasional episodes HPI: Patient is an 89-year-old male with history of CAD is in the emergency department chief complain of intermittently productive cough has been going on for the past 3-4 days. Cough got worse this afternoon so he decided to come in for evaluation. Patient reports that he goes on "coughing fits" this is when he can't stop coughing. Denies taking anything [id number] to help with symptoms. No chest pain or palpitations. He does report that his ribs are sore on both sides from coughing. He does report diminished sleep secondary to cough. Denies any abdominal pain. No urinary frequency or urgency or dysuria. Denies any increasing lower extremity swelling. History of COPD. (Yola Cummings) Past History Travel History Traveled to [place] past 21 day No Medical History Any Pertinent Medical History? see below for history Neurological: dizziness, NUMB 1ST THREE L FINGERS EENT: TELIDA BILATERAL CATARACTS Cardiovascular: AFIB, CAD, CHF, hypertension, CARDIAC STENTS X 4 [place] x5 HLD Respiratory: COPD, pulmonary embolism Gastrointestinal: ABDOMINAL AORTIC ANEURYSM HERNIA REPAIR Hepatic: NONE Renal: chronic kidney disease Musculoskeletal: carpal tunnel syndrome ARTHRITIS Psychiatric: NONE Endocrine: diabetes Blood Disorders: DVT Cancer(s): melanoma PHARMACOGENETICIST/Reproductive: BPH History of MRSA: No History of VRE: No History of CDIFF: No Influenza Vaccine: 02/16/16 Surgical History Surgical History: cardiac stents Psychosocial History Who do you live with Patient/Self Services at Home None What is your primary language Telugu Family History Family History, If Any: SISTER FH: heart failure FHx: hypertension MOTHER FH: myocardial infarction FHx: hypertension FATHER FHx: hypertension Hx Contributory? No (Yola Cummings) Review of Systems Review of Systems Constitutional: Reports: no symptoms. Comments Review of systems: See HPI, All other systems negative. Constitutional, no chills fever or weight loss HEENT: No visual changes no sore throat Cardiovascular: No chest pain ,palpitation , orthopnea or ankle swelling Skin, no jaundice no rashes Respiratory: No dyspnea OR hemoptysis GI: No nausea no vomiting : No dysuria No hematuria Muscle skeletal: no back pain, no neck pain, Neurologic: No numbness no confusion, no headache Psych: No stress anxiety or depression,. Heme/endocrine: No bruising no bleeding no polyuria or polydipsia Immunology: No splenectomy or history of AIDS (Yola Cummings) Physical Exam Physical Exam General Appearance: well developed/nourished, no apparent distress, alert, awake , comfortable Respiratory: wheezing Comments: Well-developed well-nourished person in no acute distress HEENT: . Pupils equally round and reactive to light and accommodation. Nose is atraumatic. External auditory canal and Tympanic membranes clear. Pharynx normal. No swelling or edema. Neck: Supple, no lymphadenopathy Back: Nontender Cardiovascular: Regular rate and rhythms no murmurs rubs or gallops Respiratory: No respiratory distress.mild wheezing to auscultation bilaterally at the bases Abdomen: Soft, nontender nondistended, no appreciable organomegaly. Normal bowel sounds. No ascites. No rebound or guarding. Extremity: No edema, no calf tenderness to palpation, normal and equal pulses. Neuro: Alert oriented x3 Skin: No appreciable rash on exposed skin, skin is warm and dry. Psych: Mood and affect is normal, memory and judgment is normal. Core Measures ACS in differential dx? Yes CVA/TIA Diagnosis No Sepsis Present: No Sepsis Focused Exam Completed? No (Yola Cummings) Progress Differential Diagnosis: AMI, bronchitis, costochondritis, CHF, COPD, pneumonia, pneumothorax Plan of Care: Orders Procedure Date/time Status Telemetry/Grape Cutter 05/11 1823 Active TROPONIN LEVEL 05/11 1823 Complete PARTIAL THROMBOPLASTIN TIME 05/11 1823 Complete PROTHROMBIN TIME 05/11 1823 Complete COMPREHENSIVE METABOLIC PANEL 05/11 1823 Complete CBC WITHOUT DIFFERENTIAL 05/11 1823 Complete B-TYPE NATRIURETIC PEP (BNP) 05/11 1823 Complete EKG 05/11 1819 Active Laboratory Tests 05/11/171837: Anion Gap 12, Estimated GFR 41 L, BUN/Creatinine Ratio 20.0, Glucose 117 H, Calcium 8.9, Total Bilirubin 0.6, AST 25, ALT 33, Alkaline Phosphatase 105, Troponin I 0.06, [id number] Pept 1390 H, Total Protein 6.4, Albumin 3.5, Globulin 2.9, Albumin/Globulin Ratio 1.2, PT 13.6 H, INR 1.30 H, APTT 28, CBC w Diff NO MAN DIFF REQ, RBC 3.99 L, MCV 86.3, MCH 28.9, RDW 14.7 H, MPV 8.8, Gran % 65.4, Lymphocytes % 24.4, Monocytes % 7.0, Eosinophils % 2.5, Basophils % 0.7, Absolute Granulocytes 5.6, Absolute Lymphocytes 2.1, Absolute Monocytes 0.6 , Absolute Eosinophils 0.2, Absolute Basophils 0.1, PUBS MCHC 33.5 05/11/2017 8:55:01 PMPatient improved after breathing treatment, Tessalon Perles and Solu-Medrol. Still slight cough. Cough is reactive. This is a pneumonia. No elevation of white blood cell count. EKG is unchanged. Likely bronchitis. Patient will be treated with antibiotics, prednisone taper, cough medication and inhaler. He'll follow-up with his primary care physician in the next 1-2 days or return for worsening symptoms. Discussed with and he agrees with plan. Diagnostic Imaging: Viewed by Me: Radiology Read. Discussed w/RAD: Radiology Read. CXR Impression: no acute abnormality Initial ED EKG: VENTRICULAR PACED RHYTHM Prior EKG: unchanged (Poppy PEREZ,Yola) Departure Departure Time of Disposition: 2024 Disposition: HOME OR SELF CARE Condition: Stable Clinical Impression Primary Impression: Bronchitis Secondary Impressions: Hypertension Qualifiers: Hypertension type: essential hypertension Qualified Code: I10 - Essential (primary) hypertension Referrals: Aly URBANO,Pedrito Dobson MD,Gela (PCP/Family) Additional Instructions: Follow-up with your primary care physician in the next 5-7 days. Take antibiotics, prednisone taper, use albuterol inhaler as instructed. Take Tessalon Perles as prescribed for cough. Increase fluids. Return for worsening symptoms or concerns. Departure Forms: Customer Survey General Discharge Information Prescriptions: Current Visit Scripts Benzonatate (Tessalon Perle) 1 CAP PO TID PRN COUGH #30 CAP Albuterol Sulfate (Proair Hfa) 2 PUF INH Q4-6 PRN PRN SOB #1 INHAL Prednisone 1 TAB PO DAILY #18 TAB 3 TABS PO X 3 DAYS, 2 TABS OP X 3 DAYS, 1 TAB PO X 3 DAYS Levofloxacin (Levaquin) 1 TAB PO DAILY #5 TAB (Yola Cummings) PA/PHOTOENGRAVING MACHINE OPERATOR/TENDER Co-Sign Statement Statement: ED Attending supervision documentation- x I saw and evaluated the patient. I have also reviewed all the pertinent lab results and diagnostic results. I agree with the findings and the plan of care as documented in the PA's/PHOTOENGRAVING MACHINE OPERATOR/TENDER's documentation. [] I have reviewed the ED Record and agree with the PA's/PHOTOENGRAVING MACHINE OPERATOR/TENDER's documentation. [] Additions or exceptions (if any) to the PAs/PHOTOENGRAVING MACHINE OPERATOR/TENDER's note and plan are summarized below: [] (Abiola URBANO,Hunter) Critical Care Note Critical Care Note Critical Care Time: non-applicable (Yola Cummings)
[2017-05-11 18:51] LABS: ABSOLUTE BASOPHIL COUNT 0.1 /CUMM (0.0-0.2); ABSOLUTE EOSINOPHIL COUNT 0.2 /CUMM (0.0-0.7); ABSOLUTE GRANULOCYTE CT 5.6 /CUMM (1.4-6.5); ABSOLUTE LYMPH COUNT 2.1 /CUMM (1.2-3.4); ABSOLUTE MONOCYTE COUNT 0.6 /CUMM (0.10-0.60); BASOPHIL % 0.7 % (0.0-2.0); EOSINOPHIL % 2.5 % (0-5); GRANULOCYTE % 65.4 % (42.2-75.2); HEMATOCRIT 34.5 % (42-52); MEAN CORPUSCULAR HGB 28.9 PG (27.0-31.0); MEAN CORPUSCULAR HGB CONC 33.5 G/DL (33.0-37.0); MEAN CORPUSCULAR VOLUME 86.3 FL (80.0-94.0); MEAN PLATELET VOLUME 8.8 FL (7.4-10.4); PLATELET COUNT 213 /CUMM (130-400); RBC DISTRIBUTION WIDTH 14.7 % (11.5-14.5); RED BLOOD CELL CT 3.99 /CUMM (4.70-6.10); WHITE BLOOD CELL COUNT 8.6 /CUMM (4.8-10.8)
[2017-05-11 19:00] LABS: PT 13.6 SEC (9.4-12.5); PTT 28 SEC (25-37)
[2017-05-11] MEDS ORDERED: AMLODIPINE BESYL5 M1 PO (19:02)
--- NOTE | 2017-05-11 19:07 | RADIOLOGY REPORT ---
EXAMINATION: XR PORTABLE CHEST CLINICAL INFORMATION: Cough. COMPARISON: Chest x-ray 08/08/2016 TECHNIQUE: Portable frontal view of the chest was obtained. 6:43 PM FINDINGS: Pacemaker lead in right atrium, right ventricle and coronary sinus. No change in position since prior study. No change of the cardiomediastinal contours. There are calcifications of the aortic arch. Lungs are clear. No pleural effusion or pneumothorax. IMPRESSION: No acute abnormality of the chest.
[2017-05-11] MEDS ORDERED: PROAIR HFA8.5 GM INH (20:31)
[2017-05-11] MEDS ORDERED: PREDNISONE10 M2 PO (20:31)
[2017-05-11] MEDS ORDERED: TESSALON PERLE100 M1 PO (20:31)
[2017-05-11] MEDS ORDERED: LEVAQUIN500 M1 PO (20:32)
[2017-05-11 21:00] VITALS: BP 156/52
== END 2017-05-11 20:48 ==
LOC: ERH 18:18
PROVIDERS: Physician Assistant
DX: J40 Bronchitis, not specified as acute or chronic (principal); I10 Essential (primary) hypertension; R07.9 Chest pain, unspecified
CPT/HCPCS: 1263; 71045; 93005; 93010; 96374; J2930

== ENCOUNTER 2017-06-08 14:31 | Inpatient (IN) | payer OTHER ==
[~2017-06-08] VITALS: Ht 182.9 cm; Wt 99.5 kg
[~2017-06-08 14:31] MED LIST changes: +AMLODIPINE BESYL5 M1 PO; +CHERATUSSIN AC118 M1 PO; +DELTASONE20 MG PO; +LEVAQUIN500 M1 PO; +PREDNISONE10 M2 PO; +TESSALON PERLE100 M1 PO; +ZITHROMAX250 M2 PO
--- NOTE | 2017-06-08 14:42 | ED GENERAL ADULT ---
History of Present Illness General Chief Complaint: Syncope and Near-Syncope Stated Complaint: SYNCOPE Source: patient, rapid response team Exam Limitations: patient's age, poor historian, physical impairment Vital Signs & Intake/Output Vital Signs & Intake/Output Vital Signs Date Time Temp Pulse Resp B/P B/P Pulse O2 O2 Flow FiO2 Mean Ox Delivery Rate 06/08 2010 Nasal 2.0L Cannula 06/08 1950 62 24 162/78 92 Nasal 3.0L Cannula 06/08 1451 96 Nasal 2.0L Cannula 06/08 1449 97.7 61 22 187/81 94 Nasal 2.0L Cannula Allergies Coded Allergies: amoxicillin (From [facility]) (UNKNOWN 04/23/16) clarithromycin (From [facility]) (UNKNOWN 04/23/16) diazepam (HALLUCINATIONS 08/08/16) PER PATIENT, TOLERATES LOW DOSES lansoprazole (From [facility]) (UNKNOWN 04/23/16) morphine (Intermediate, LETHARGY, CONFUSION 04/23/16) meclizine (CONFUSION 04/23/16) Reconcile Medications Albuterol Sulfate (Proair Hfa) 90 MCG HFA.AER.AD 2 PUF INH Q4-6 PRN PRN SOB Amlodipine Besylate 5 MG TABLET 7.5 MG PO DAILY HEART/BP (Reported) Apixaban (Eliquis) 2.5 MG TABLET 1 TAB PO BID BLOOD THINNER (Reported) Atorvastatin Calcium 80 MG TABLET 1 TAB PO QPM CHOLESTEROL (Reported) Azithromycin (Zithromax) 250 MG TABLET 1 DP PO AD bronchitis 2 the first day followed by 1 for days 2-5 Benzonatate (Tessalon Perle) 100 MG CAPSULE 1 CAP PO TID PRN COUGH Budesonide/Formoterol Fumarate (Symbicort 160-4.5 Mcg Inhaler) 160 MCG-4.5 MCG/ ACTUATION HFA.AER.AD 2 PUF INH BID COPD (Reported) Carvedilol (Coreg) 12.5 MG TABLET 1 TAB PO BID HEART/BP (Reported) Cholecalciferol (Vitamin D3) (Vitamin D) 2,000 UNIT CAPSULE 1 CAP PO QAM SUPPLEMENT (Reported) Codeine Phosphate/Guaifenesi (Cheratussin AC Syrup) 10 MG-100 MG/5 ML LIQUID 5 -10 ML PO Q6P PRN COUGH Cyanocobalamin (Vitamin B-12) (Vitamin B-12) 500 MCG TABLET 1 TAB PO QAM SUPPLEMENT (Reported) Finasteride 5 MG TABLET 1 TAB PO QPM PROSTATE (Reported) Guaifenesin (Mucinex) 600 MG TAB.ER.12H 1 TAB PO AD PRN MUCUS (Reported) Levofloxacin (Levaquin) 500 MG TABLET 1 TAB PO DAILY BRONCHITIS Losartan Potassium (Cozaar) 50 MG TABLET 1.5 TAB PO QAM HTN (Reported) Magnesium 250 MG TABLET 1 TAB PO QAM SUPPLEMENT (Reported) Nitroglycerin 0.4 MG TAB.SUBL 1 TAB SL AD PRN CHEST PAIN - HEART (Reported) 1st sign of attack; may repeat every 5 minutes until relief; if pain persists after 3 tablets in 15 minutes, prompt medical att Prednisone (Deltasone) 20 MG TABLET 1 TAB PO DAILY BRONCHITIS Prednisone 10 MG TABLET 1 TAB PO DAILY BRONCHITIS 3 TABS PO X 3 DAYS, 2 TABS OP X 3 DAYS, 1 TAB PO X 3 DAYS Triage Nurses Notes Reviewed? yes Onset: Abrupt Duration: day(s): Timing: recent history HPI: 06/08/17 2:44 pm 89-year-old male presents to the emergency department complaining of feeling weak and like he is going to past out. He has a history of dysrhythmia. He has a pacemaker. He was scheduled for an outpatient echocardiogram. Rapid response was called and the patient was found to be normotensive but intermittent episodes of bradycardia. In the ER his rhythm shows atrial paced beats. EKG shows atrial paced beats. There is no significant change from the old tracing. Labs were sent the patient was placed on a monitor and oxygen was provided. The on-call mortgage servicing specialist Dr. Tramaine Saldana MD was paged and I discussed the case with him and he agrees with the plan. (Ranjith Kilgore DO) Past History Medical History Any Pertinent Medical History? see below for history Neurological: dizziness, NUMB 1ST THREE L FINGERS EENT: KAKE BILATERAL CATARACTS Cardiovascular: AFIB, CAD, CHF, hypertension, CARDIAC STENTS X 4 [place] x5 HLD Respiratory: COPD, pulmonary embolism Gastrointestinal: ABDOMINAL AORTIC ANEURYSM HERNIA REPAIR Hepatic: NONE Renal: chronic kidney disease Musculoskeletal: carpal tunnel syndrome ARTHRITIS Psychiatric: NONE Endocrine: diabetes Blood Disorders: DVT Cancer(s): melanoma FACILITIES SPECIALIST/Reproductive: BPH History of MRSA: No History of VRE: No History of CDIFF: No Surgical History Surgical History: cardiac stents Psychosocial History Who do you live with Patient/Self Services at Home None What is your primary language Grenadian Family History Family History, If Any: SISTER FH: heart failure FHx: hypertension MOTHER FH: myocardial infarction FHx: hypertension FATHER FHx: hypertension Hx Contributory? No (Ranjith Kilgore DO) Review of Systems Review of Systems Constitutional: Denies: fever. EENTM: Denies: visual changes. Respiratory: Denies: short of breath. Cardiovascular: Denies: chest pain. GI: Denies: abdominal pain. Genitourinary: Reports: no symptoms. Musculoskeletal: Reports: no symptoms. Skin: Reports: no symptoms. Neurological/Psychological: Reports: weakness. Hematologic/Endocrine: Reports: no symptoms. (Ranjith Kilgore DO) Physical Exam Physical Exam General Appearance: alert, awake, anxious, moderate distress Head: atraumatic, normal appearance Eyes: Bilateral: normal appearance, PERRL, EOMI. Ears, Nose, Throat: normal pharynx, normal ENT inspection Neck: normal inspection Respiratory: normal breath sounds, no respiratory distress Cardiovascular: regular rate/rhythm Peripheral Pulses: 2+ radial (R), 2+ radial (L) Gastrointestinal: soft, non-tender Back: decreased range of motion Extremities: pedal edema Neurologic/Psych: no motor/sensory deficits, awake, alert, oriented x 3 Skin: intact, diaphoresis Core Measures ACS in differential dx? Yes CVA/TIA Diagnosis: No Sepsis Present: No Sepsis Focused Exam Completed? No (Ranjith Kilgore DO) Progress Differential Diagnoses I considered the following diagnoses in my evaluation of the patient: [ Dysrhythmia, acute coronary syndrome, pacemaker malfunction, sepsis, influenza, dehydration, electrolyte derangement] Plan of Care: Orders Procedure Date/time Status Place in observation 06/08 2112 Active ED Holding Orders 06/08 2112 Active Vital Signs 06/08 2112 Active Code Status 06/08 2112 Active TROPONIN LEVEL 06/08 1814 Complete EKG 06/08 181 Active LACTIC ACID 06/08 1756 Complete OXYGEN SETUP (GEN) 06/08 1456 Active Telemetry/Electrical & Instrumentation Supervisor 06/08 1456 Active RAPID VIRAL INFLUENZA A 06/08 145 Complete CULTURE,URINE 06/08 1456 Active BLOOD CULTURE 06/08 1456 Active URINALYSIS 06/08 1456 Complete TROPONIN LEVEL 06/08 1456 Complete LACTIC ACID 06/08 1456 Complete D-DIMER 06/08 1456 Complete COMPREHENSIVE METABOLIC PANEL 06/08 1456 Complete CBC WITHOUT DIFFERENTIAL 06/08 145 Complete EKG 06/08 1432 Active Laboratory Tests 06/08/17 2005: Troponin I 0.06 06/08/17 1805: Lactic Acid 0.9 06/08/17 1704: Urine Color YEL, Urine Clarity CLEAR, Urine pH 6.0, Ur Specific [place] 1.015, Urine Protein NEG, Urine Ketones NEG, Urine Nitrite NEG, Urine Bilirubin NEG, Urine Urobilinogen 0.2, Ur Leukocyte Esterase NEG, Ur Microscopic SEDIMENT EXAMINED, Urine RBC RARE, Urine WBC RARE, Ur Epithelial Cells RARE, Urine Bacteria RARE H, Urine Mucus RARE, Urine Hemoglobin TRACE-INTACT H, Urine Glucose NEG 06/08/17 1500: Anion Gap 12, Estimated GFR 38 L, BUN/Creatinine Ratio 15.3, Glucose 114 H, Lactic Acid 2.6 H, Calcium 8.4, Total Bilirubin 0.6, AST 19, ALT 28, Alkaline Phosphatase 85, Troponin I 0.06, Total Protein 5.7 L, Albumin 3.2 L, Globulin 2.5, Albumin/Globulin Ratio 1.3, D-Dimer High Sensitivty 265 H, CBC w Diff NO MAN DIFF REQ, RBC 3.68 L, MCV 83.6, MCH 28.3, MCHC 33.8, RDW 14.6 H, MPV 8.4, Gran % 62.6, Lymphocytes % 26.7, Monocytes % 9.6 H, Eosinophils % 0.8, Basophils % 0.3, Absolute Granulocytes 3.7, Absolute Lymphocytes 1.6, Absolute Monocytes 0.6, Absolute Eosinophils 0, Absolute Basophils 0 Microbiology 06/08 1704 URINE ROUT: Urine Culture - RECD 06/08 1546 BLOOD: Blood Culture - RECD 06/08 1515 BLOOD: Blood Culture - RECD 06/08 1509 NASOPHARYN: Influenza Virus A & B Rapid Smear - COMP 7:20 PM PATIENT SIGNED OUT TO ME BY DR KILGORE. PENDING REPEAT TROPONIN/EKG. 06/08/2017 9:14:12 PM Troponin 0.06, no acute change. Results discussed with the patient and his son at bedside. Patient states he still feels short of breath and has been coughing. Ambulatory sat is 92-94%. He was able to eat walk 8 feet but then became winded. Positive wheezing on examination. Discussed with case management and Dr. alex ruiz for 23 hour inpatient observation. (Patt Garsia MD) CXR Impression: no infiltrates Initial ED EKG: paced beats , no change Prior EKG: unchanged (Ranjith Kilgore DO) Differential Diagnoses I considered the following diagnoses in my evaluation of the patient: Diagnostic Imaging: Viewed by Me: Radiology Read. Discussed w/RAD: Radiology Read. Repeat EKG: unchanged (Patt Garsia MD) Departure Departure Disposition: STILL A PATIENT Condition: Stable Clinical Impression Primary Impression: Near syncope Referrals: Gela Dobson MD (PCP/Family) Departure Forms: Customer Survey General Discharge Information Comments 06/08/17 7:19 pm The patient was signed out to Dr. Garsia. He is pending repeat troponin and EKG. He does admit to a cough that has been progressive and has scant wheezes. He was treated with albuterol, Atrovent, Solu-Medrol and Robitussin. (Ranjith Kilgore DO) Departure Time of Disposition: 2112 Observation Note Spoke With: Mary Thompson MD Physician Advisor Notified: RENUKA URBANO,RADHA Vargas (CASE MANAGEMENT) Place Patient In: Non-ED OBS Care Area Rationale for Observation: My rational for observation is as follows [TRC/NEBS, IV STEROIDS, SUPPLEMENTAL O2 PRN, CONSIDER PULMONARY CONSULTATION]. (Patt Garsia MD) Critical Care Note Critical Care Note Critical Care Time: 30-74 min (Ranjith Kilgore DO)
[2017-06-08 15:13] LABS: ABSOLUTE BASOPHIL COUNT 0 /CUMM (0.0-0.2); ABSOLUTE EOSINOPHIL COUNT 0 /CUMM (0.0-0.7); ABSOLUTE GRANULOCYTE CT 3.7 /CUMM (1.4-6.5); ABSOLUTE LYMPH COUNT 1.6 /CUMM (1.2-3.4); ABSOLUTE MONOCYTE COUNT 0.6 /CUMM (0.10-0.60); BASOPHIL % 0.3 % (0.0-2.0); EOSINOPHIL % 0.8 % (0-5); GRANULOCYTE % 62.6 % (42.2-75.2); HEMATOCRIT 30.8 % (42-52); MEAN CORPUSCULAR HGB 28.3 PG (27.0-31.0); MEAN CORPUSCULAR HGB CONC 33.8 G/DL (33.0-37.0); MEAN CORPUSCULAR VOLUME 83.6 FL (80.0-94.0); MEAN PLATELET VOLUME 8.4 FL (7.4-10.4); PLATELET COUNT 189 /CUMM (130-400); RBC DISTRIBUTION WIDTH 14.6 % (11.5-14.5); RED BLOOD CELL CT 3.68 /CUMM (4.70-6.10); WHITE BLOOD CELL COUNT 5.9 /CUMM (4.8-10.8)
--- NOTE | 2017-06-08 15:16 | RADIOLOGY REPORT ---
EXAMINATION: XR PORTABLE CHEST CLINICAL INFORMATION: Weakness. COMPARISON: Chest x-ray 05/28/2017 TECHNIQUE: Portable frontal view of the chest was obtained. 10:55 PM FINDINGS: Heart size is enlarged. Pacemaker leads in right atrium, right ventricle and coronary sinus unchanged since prior study. There is vascular wall calcifications of aorta. There is breathing motion which limits the lung detail. No infiltrate. No pulmonary vascular congestion or pleural effusion. Multilevel degenerative spondylosis of dorsal spine. IMPRESSION: No acute abnormality of the chest.
--- NOTE | 2017-06-08 21:50 | History & Physical ---
Morteza Zarate MD 06/08/17 0661: General Information and HPI MD Statement: I have seen and personally examined JUAN JOSE MIRANDA and documented this H&P. The patient is a 89 year old M who presented with a patient stated chief complaint of [unresponsiveness and dyspnea]. Source of Information: patient, old records Exam Limitations: no limitations History of Present Illness: Patient is an 89-year-old male with a PMH significant for A. 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 He states that after the brief walk into the cardiology waiting area he experienced severe dyspnea which was not initially relieved by rest. He was also told after his son that he was not responding for several seconds. He did not experience any chest pain, palpitations, loss of consciousness at this time. Patient has had similar previous episodes in the past. Patient states that for approximately one month he has had a productive cough with yellow sputum. He also states that he has been having progressive dyspnea on exertion over the last several days. He has been seen both in the ED and by his PCP numerous times in the last month for his cough and has received numerous different medication regimens, none of which have provided her relief. He saw his PCP one day prior to admission who did an x-ray and prescribed a 5 day course of Lasix. He denies any sick contacts or recent travel. He also denies any chest pain, palpitations, nausea, vomiting, fever, chills. Allergies/Medications Allergies: Coded Allergies: amoxicillin (From PREVPAC) (UNKNOWN 04/23/16) clarithromycin (From PREVPAC) (UNKNOWN 04/23/16) diazepam (HALLUCINATIONS 08/08/16) PER PATIENT, TOLERATES LOW DOSES lansoprazole (From PREVPAC) (UNKNOWN 04/23/16) morphine (Intermediate, LETHARGY, CONFUSION 04/23/16) meclizine (CONFUSION 04/23/16) Past History Travel History Traveled to [place] past 21 day No Medical History Neurological: dizziness, NUMB 1ST THREE L FINGERS EENT: [place] BILATERAL CATARACTS Cardiovascular: AFIB, CAD, CHF, hypertension, CARDIAC STENTS X 4 OK x5 HLD Respiratory: COPD, pulmonary embolism Gastrointestinal: ABDOMINAL AORTIC ANEURYSM HERNIA REPAIR Hepatic: NONE Renal: chronic kidney disease Musculoskeletal: carpal tunnel syndrome ARTHRITIS Psychiatric: NONE Endocrine: diabetes Blood Disorders: DVT Cancer(s): melanoma EMERGENCY VETERINARIAN/Reproductive: BPH History of MRSA: No History of VRE: No History of CDIFF: No Surgical History Surgical History: cardiac stents Past Family/Social History Family History Relations & Conditions if any SISTER FH: heart failure FHx: hypertension MOTHER FH: myocardial infarction FHx: hypertension FATHER FHx: hypertension Psychosocial History Who Do You Live With? self Services at Home: None Primary Language: Kinyarwanda Smoking Status: Former Smoker ETOH Use: denies use Illicit Drug Use: denies illicit drug use Living Will? yes Functional Ability ADLs Independent: dressing, eating, toileting, bathing. Ambulation: independent IADLs Independent: shopping, housework, finances, food prep, telephone, transportation , medication admin. Review of Systems Review of Systems Constitutional: Denies: chills, fever, malaise. EENTM: Denies: blurred vision, double vision, visual changes, nasal congestion, throat pain. Cardiovascular: Denies: chest pain, palpitations, syncope. Respiratory: Reports: cough, short of breath, sputum production, wheezing. GI: Denies: diarrhea, melena, nausea, bloody stool, vomiting. Genitourinary: Denies: dysuria, hematuria. Musculoskeletal: Reports: no symptoms. Skin: Reports: no symptoms. Exam & Diagnostic Data Last 24 Hrs of Vital Signs/I&O Vital Signs Date Time Temp Pulse Resp B/P B/P Pulse O2 O2 Flow FiO2 Mean Ox Delivery Rate 06/08 2347 97.6 71 22 134/62 95 Nasal 2.0L Cannula 06/08 2338 95 Nasal 2.0L Cannula 06/08 2256 70 22 185/84 92 Nasal 2.0L Cannula 06/08 2220 97.8 06/08 2010 Nasal 2.0L Cannula 06/08 1950 62 24 162/78 92 Nasal 3.0L Cannula 06/08 1451 96 Nasal 2.0L Cannula 06/08 1449 97.7 61 22 187/81 94 Nasal 2.0L Cannula Intake & Output 06/09 0800 06/09 0000 06/08 1600 Intake Total 1000 Output Total Balance 1000 Intake, IV 1000 Patient 219 lb 211 lb Weight Weight Reported by Patient Measurement Method Physical Exam General Appearance Alert, Oriented X3, Cooperative, No Acute Distress Skin Temp/Moisture Exam: Warm/Dry HEENT Atraumatic, PERRLA, EOMI, mucous membranes dry Cardiovascular Regular Rate, Normal S1, Normal S2, No Murmurs, Pacemaker in place in the upper L chest Lungs diffuse rhonchi and mild expiratory wheezing Abdomen Normal Bowel Sounds, Soft, No Tenderness Neurological Normal Speech, Strength at 5/5 X4 Ext, Normal Tone, Sensation Intact, Cranial Nerves 3-12 NL Extremities No Clubbing, No Cyanosis, Normal Pulses, No Tenderness/Swelling, trace LE edema Vascular Normal Pulses, Pulses Symmetrical Last 24 Hrs of Labs/Jeff: Laboratory Tests 06/08/172004: Troponin I 0.06 06/08/17 180: Lactic Acid 0.9 06/08/171703: Urine Color YEL, Urine Clarity CLEAR, Urine pH 6.0, Ur Specific [place] 1.015, Urine Protein NEG, Urine Ketones NEG, Urine Nitrite NEG, Urine Bilirubin NEG, Urine Urobilinogen 0.2, Ur Leukocyte Esterase NEG, Ur Microscopic SEDIMENT EXAMINED, Urine RBC RARE, Urine WBC RARE, Ur Epithelial Cells RARE, Urine Bacteria RARE H, Urine Mucus RARE, Urine Hemoglobin TRACE-INTACT H, Urine Glucose NEG 06/08/17 1500: Anion Gap 12, Estimated GFR 38 L, BUN/Creatinine Ratio 15.3, Glucose 114 H, Lactic Acid 2.6 H, Calcium 8.4, Total Bilirubin 0.6, AST 19, ALT 28, Alkaline Phosphatase 85, Troponin I 0.06, Total Protein 5.7 L, Albumin 3.2 L, Globulin 2.5, Albumin/Globulin Ratio 1.3, D-Dimer High Sensitivty 265 H, CBC w Diff NO MAN DIFF REQ, RBC 3.68 L, MCV 83.6, MCH 28.3, MCHC 33.8, RDW 14.6 H, MPV 8.4, Gran % 62.6, Lymphocytes % 26.7, Monocytes % 9.6 H, Eosinophils % 0.8, Basophils % 0.3, Absolute Granulocytes 3.7, Absolute Lymphocytes 1.6, Absolute Monocytes 0.6, Absolute Eosinophils 0, Absolute Basophils 0 Microbiology 06/08 170 URINE ROUT: Urine Culture - RECD 06/08 1546 BLOOD: Blood Culture - RECD 06/08 1515 BLOOD: Blood Culture - RECD 06/08 1509 NASOPHARYN: Influenza Virus A & B Rapid Smear - COMP Diagnostic Data EKG Results atrial pacing, rate 61 no change since previous tracing CXR Results No acute abnormality of the chest. Assessment/Plan Assessment: Patient is an 89-year-old male with a PMH significant for A. 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 VS on admission: T 97.7, P 61, RR 22, BP 187/81 (trended down to 134/62), pulse ox 94% on 2 L nasal cannula Labs on admission: WBC 5.9, H/H 10.4/30.8, platelets 189, when necessary 26, creatinine 1.7, lactic acid 2.6 --> 0.9, troponin 0.06, 0.06, d-dimer 265, UA unremarkable, influenza negative While in the ED patient received breathing treatment, IV Solu-Medrol, guaifenesin, IV fluid bolus. This did not significantly improve his symptoms. Ambulatory 02 saturation was checked and was 9394 percent however patient became severely dyspneic as a result. Problem list #COPD exacerbation secondary to possible bronchitis #BRENNON #Chronic medical problems including CAD, CHF, BPH, afib Plan -Observe on general medicine floor -[facility] [place] -Pulmonary consult in AM with Dr. Herring -IV Solu-Medrol 40 mg Q12 -IV Azithromycin -Mucinex and Tessalon Perles -Hold Lasix for now given BRENNON -Follow-up ProBNP -Continue home medications including Eliquis, albuterol, atorvastatin, carvedilol, amlodipine #DVT prophylaxis with Eliquis #CODE STATUS: DNR/DNI As Ranked By This Provider Problem List: 1. Bronchitis 2. Near syncope 3. COPD exacerbation Core Measures/Misc (01/23) Acute Coronary Syndrome ACS Diagnosis: No Congestive Heart Failure Congestive Heart Failure Diagnosis Yes Last Known EF % 50 Cerebrovascular Accident CVA/TIA Diagnosis: No VTE (View Protocol) VTE Risk Factors Age>40 No Mechanical VTE Prophylaxis d/t N/A MechProphylax Ordered No VTE Pharm Prophylaxis d/t NA PharmProphylax ordered Sepsis (View protocol) Sepsis Present: No Elizabeth URBANO,Dayday 06/08/172208: General Information and HPI Allergies/Medications Home Med list Albuterol Sulfate (Proair Hfa) 90 MCG HFA.AER.AD 2 PUF INH Q4-6 PRN PRN SOB Amlodipine Besylate 5 MG TABLET 7.5 MG PO DAILY HEART/BP (Reported) Apixaban (Eliquis) 2.5 MG TABLET 1 TAB PO BID BLOOD THINNER (Reported) Atorvastatin Calcium 80 MG TABLET 1 TAB PO QPM CHOLESTEROL (Reported) Azithromycin (Zithromax) 250 MG TABLET 1 DP PO AD bronchitis 2 the first day followed by 1 for days 2-5 Benzonatate (Tessalon Perle) 100 MG CAPSULE 1 CAP PO TID PRN COUGH Budesonide/Formoterol Fumarate (Symbicort 160-4.5 Mcg Inhaler) 160 MCG-4.5 MCG/ ACTUATION HFA.AER.AD 2 PUF INH BID COPD (Reported) Carvedilol (Coreg) 12.5 MG TABLET 1 TAB PO BID HEART/BP (Reported) Cholecalciferol (Vitamin D3) (Vitamin D) 2,000 UNIT CAPSULE 1 CAP PO QAM SUPPLEMENT (Reported) Codeine Phosphate/Guaifenesi (Cheratussin AC Syrup) 10 MG-100 MG/5 ML LIQUID 5 -10 ML PO Q6P PRN COUGH Cyanocobalamin (Vitamin B-12) (Vitamin B-12) 500 MCG TABLET 1 TAB PO QAM SUPPLEMENT (Reported) Finasteride 5 MG TABLET 1 TAB PO QPM PROSTATE (Reported) Guaifenesin (Mucinex) 600 MG TAB.ER.12H 1 TAB PO AD PRN MUCUS (Reported) Levofloxacin (Levaquin) 500 MG TABLET 1 TAB PO DAILY BRONCHITIS Losartan Potassium (Cozaar) 50 MG TABLET 1.5 TAB PO QAM HTN (Reported) Magnesium 250 MG TABLET 1 TAB PO QAM SUPPLEMENT (Reported) Nitroglycerin 0.4 MG TAB.SUBL 1 TAB SL AD PRN CHEST PAIN - HEART (Reported) 1st sign of attack; may repeat every 5 minutes until relief; if pain persists after 3 tablets in 15 minutes, prompt medical att Observation Initial Note - I have personally examined JUAN JOSE MIRANDA on 06/09/17 at 0245. The disposition of JUAN JOSE MIRANDA is uncertain at this time and before a determination can be made, he requires a period of observation for the following reasons: owing to rapid response and questionable loss of consciousness patient needs to be monitored for the next 24 hours. Failure to do so may result in hemodynamic instability possible worsening gait imbalance and respiratory status resulting in . Resident Review Statement Resident Statement: examined this patient, discussed with internet sales manager Other Findings: H Mr Miranda is an 89 year old gentleman with past medical history of A. fib on Eliquis, COPD not on home oxygen, history of PE (Apr 2014), OK x 4 ,status post stent placement x 5, PCM implantation in 2015, AAA repair, hypertension, diabetes mellitus. Brought into the emergency room after experiencing a period of dyspnea and unresponsiveness. Patient reports that he was at [facility] on 06/08/2017 where he had been brought by his son for an echocardiogram which was ordered by his primary care physician. Patient stated that he did not feel well and a rapid response was called. The patient was monitored in the emergency department over the course the day. Prior to potential release from the ED the patient was unable to maintain his oxygen saturation and subsequently needed to be placed in observation. Patient does report that he has had a chronic cough since the end of April. He has visited the emergency department on multiple occasions. Patient also reports that he recently saw his primary care physician and was given a prescription for Lasix for 5 days. Patient states that he had started taking this prior to coming into the emergency department. Patients PCP is Gela Dobson MD. Patient states that he follows up with cardiology service under Dr. Evan Cuello. On previous admissions patient has been seen by Dr. Barreto. R: Review of systems the patient denied any chest pain, palpitations, nausea, vomiting, fever, chills. Does endorse a chronic subclinical cough which has been ongoing since the last week of April. E: Vitals: T: 97.7, MD: 61, RR: 22, BP: 187/71, 94% on NC General Appearance: well developed/nourished, no apparent distress, alert and oriented. Head: atraumatic, normal appearance Eyes: PERRLA Ears, Nose, Throat: hearing grossly normal Neck: supple, full range of motion Respiratory:Chest non-tender, no respiratory distress, diffuse rhonchi and wheezing noted, some crackles noted in the left lower lung base. Cardiovascular: Regular Rate and rhythm, no murmurs gallops or rubs. Gastrointestinal: normal bowel sounds, soft, non-tender. Back: normal inspection, normal range of motion Extremities: normal inspection, normal range of motion. Edema 2+ Neurologic/Psych: no motor/sensory deficits, awake, alert, oriented x 3 Skin: warm/dry L: WBC 5.9. H&H 10.4/30.8. Platelets 189 Sodium 137, potassium 4.9, BUN 26, creatinine 1.7. Chloride: 101. Hco3: 24. I: EXAMINATION: CT HEAD WITHOUT CONTRAST IMPRESSION: No intracranial hemorrhage, large infarction, mass lesion or hydrocephalus. SERVICE DATE: 06/08/17 EXAM TYPE: RAD - XRY-CHEST XRAY, TWO VIEWS EKG: Sinus Bradycardia. T Wave inversions noted on initial EKG IMPRESSION: Unremarkable chest radiograph. No consolidative disease or effusion. A/P Mr Miranda is an 89 year old gentleman with past medical history of A. fib on Eliquis, COPD not on home oxygen, history of PE (Apr 2014), OK x 4 ,status post stent placement x 5, PCM implantation in 2015, AAA repair, hypertension, diabetes mellitus. His SOB was likley due to COPD Exacerbation likley secondary to a recent URI. Problem List: Dyspnea on exertion likely due to COPD exacerbation versus atypical pneumonia. Acute kidney injury. History of CAD. History of BPH. History of PE. Azithromycin 500 mg for total 5 days duration IV Solu-Medrol 40 mg twice a day. Hold additional Lasix for now. Once monitor BEP in a.m. Obtain pulmonology consultation with Dr Herring in am. Symbicort May consider additional imaging studies. Echocardiogram as outpatient. Orthostatic vital signs. Continue home medications. PT/OT evaluation in a.m. DVT PPX: Eliquis Code Status: DNR/DNI Mary Thompson 06/09/17 0756: Attending MD Review Statement Attending Statement Attending MD Statement: examined this patient, discuss w/resident/PA/WINDOW GLAZIER, agreed w/resident/PA/WINDOW GLAZIER, reviewed EMR data (avail), reviewed images, amended to note Attending Assessment/Plan: CC: Shortness of breath PMH: COPD, A. fib S/P pacemaker and ICD, history of PE, history of CAD S/P OK S/ P 4 stents, AAA repair, HTN, DM Patient was at outpatient echocardiogram when he had acute worsening of shortness of breath and rapid response was called, there was a concern of near- syncope, patient was transferred to ER. Patient had been evaluated several times in hospital for syncopal episode but this time patient complaining of shortness of breath, productive cough with yellow colored sputum production associated with dyspnea on exertion and wheezing. Patient had been evaluated outpatient/ER for these complaints and was prescribed 2 different antibiotics in last 1 month without much relief. Patient is still frustrated about persistent cough. Vitals: Afebrile, pulse in 60s, RR 22, blood pressure 162/78, saturating 92% on 2 L On exam: A O 3, cooperative, no acute distress, neck supple, JVD normal, no lymphadenopathy, mucosa dry, no focal neurological deficit, trace pedal edema, no obvious skin rashes or inflammation CVS: S1-S2, RRR. RS: Bilateral wheezing and rhonchi, no obvious crackles. Abdomen: Soft, NT, ND, bowel sounds present. Labs: Chronic anemia with hemoglobin of 10.4 otherwise CBC unremarkable, BUN 26, creatinine 1.7, otherwise BMP, LFT, troponin unremarkable. Lactate 2.6 CXR:No acute abnormality of the chest. Assessment and plan 89-year-old male with extensive past medical history presented in ER for rapid response called and 2-D echo but upon presentation patient complains of shortness of breath since one month and productive cough which failed outpatient treatment. Patient has mild wheezing and rhonchi on auscultation, probably has COPD exacerbation. Patient also had near syncopal episode but patient has been getting such episodes since last 2 years, extensively evaluated for the same. + COPD exacerbation + History of A. fib S/P pacemaker and ICD, history of PE, history of CAD S/P OK S/P 4 stents, AAA repair, HTN, DM -Place in observation to general medicine - Try to wean off oxygen - IV methylprednisolone 40 mg every 12 hours - IV azithromycin - TRC nebulization with albuterol and ipratropium scheduled and when necessary - Mucinex scheduled twice a day - Patient requests to see traffic signal technician - Check proBNP - Continue all his home medications except Lasix, given his elevated creatinine - Continue rest of the home medications - Adequate pain control - DVT prophylaxis
[2017-06-08 23:47] VITALS: BP 134/62
[2017-06-09 06:33] VITALS: BP 132/56
--- NOTE | 2017-06-09 07:36 | PN-Observation ---
Observation Note Observation Note _ I have personally examined JUAN JOSE CHAIDEZ. him disposition is uncertain at this time. Before a determination can be made, he requires continued observation for the following reasons [COPD Exacerbation 2/2 Bronchitis]. Assessment/Plan Problem List: 1. Bronchitis 2. COPD (chronic obstructive pulmonary disease) Subjective Follow-up For: #COPD exacerbation secondary to possible bronchitis #BRENNON #Chronic medical problems including CAD, CHF, BPH, afib Subjective: No overnight event. Patient was sleeping with 2LNC. Review of Systems Constitutional: Reports: see HPI. Objective Last 24 Hrs of Vital Signs/I&O Vital Signs Date Time Temp Pulse Resp B/P B/P Pulse O2 O2 Flow FiO2 Mean Ox Delivery Rate 06/09 0633 97.6 81 18 132/56 93 Nasal 2.0L Cannula 06/08 2347 97.6 71 22 134/62 95 Nasal 2.0L Cannula 06/08 2338 95 Nasal 2.0L Cannula 06/08 2256 70 22 185/84 92 Nasal 2.0L Cannula 06/08 2220 97.8 06/08 2010 Nasal 2.0L Cannula 06/08 1950 62 24 162/78 92 Nasal 3.0L Cannula 06/08 1451 96 Nasal 2.0L Cannula 06/08 1449 97.7 61 22 187/81 94 Nasal 2.0L Cannula Intake & Output 06/09 0800 06/09 0000 06/08 1600 Intake Total 1000 Output Total Balance 1000 Intake, IV 1000 Patient 99.45 kg 95.708 kg Weight Weight Reported by Patient Measurement Method Physical Exam General Appearance: No Acute Distress, Patient is sleeping Cardiovascular: Regular Rate Lungs: Wheezing and rhonchi b/l, some crackles at left lower lung base Extremities: edemat +1-2 on ALPS Current Medications: Current Medications Sig/Ashley Start time Last Medication Dose Route Stop Time Status Admin Albuterol Sulfate 3 ML ONCE ONE 06/08 1929 DC 06/08 INH 06/08 Amlodipine Besylate 7.5 MG DAILY 06/09 1000 AC PO Apixaban 2.5 MG BID 06/08 2359 AC PO Atorvastatin Calcium 80 MG QPM 06/09 2200 AC PO Azithromycin 500 MG DAILY 06/09 1000 AC Dextrose/Water 250 ML IV Benzonatate 100 MG TID PRN 06/09 0100 AC 06/09 PO 06/12 0059 0554 Budesonide/ 2 PUF BID 06/08 2345 AC Formoterol Fumarate INH Carvedilol 12.5 MG BID 06/09 1000 AC PO Finasteride 5 MG QPM 06/090 AC PO Guaifenesin 600 MG DAILY 06/09 1000 AC PO Guaifenesin 0 .STK-MED ONE 06/08 1950 DC PO Guaifenesin 10 ML STAT STA 06/08 1918 DC 06/08 PO 06/08 Ipratropium [place] 2.5 ML ONCE ONE 06/08 1929 DC 06/08 INH 06/08 Losartan Potassium 75 MG QAM 06/09 1000 AC PO Methylprednisolone 40 MG Q12 06/09 1000 AC IV Methylprednisolone 0 .STK-MED ONE 06/08 1951 DC .ROUTE Methylprednisolone 125 MG ONCE ONE 06/08 1929 DC 06/08 IV 06/08 Last 24 Hrs of Labs/Mics: Laboratory Tests 06/09/17 0627: Sodium Pending, Potassium Pending, Chloride Pending, Carbon Dioxide Pending, Anion Gap Pending, BUN Pending, Creatinine Pending, BUN/Creatinine Ratio Pending , CBC w Diff Pending, WBC Pending, RBC Pending, Hgb Pending, Hct Pending, MCV Pending, MCH Pending, MCHC Pending, RDW Pending, Plt Count Pending, MPV Pending 06/08/17 2005: Troponin I 0.06, Hdy-L-Szfkqzofctc Pept 1470 H 06/08/17 1805: Lactic Acid 0.9 06/08/17 1704: Urine Color YEL, Urine Clarity CLEAR, Urine pH 6.0, Ur Specific [place] 1.015, Urine Protein NEG, Urine Ketones NEG, Urine Nitrite NEG, Urine Bilirubin NEG, Urine Urobilinogen 0.2, Ur Leukocyte Esterase NEG, Ur Microscopic SEDIMENT EXAMINED, Urine RBC RARE, Urine WBC RARE, Ur Epithelial Cells RARE, Urine Bacteria RARE H, Urine Mucus RARE, Urine Hemoglobin TRACE-INTACT H, Urine Glucose NEG 06/08/17 1500: Anion Gap 12, Estimated GFR 38 L, BUN/Creatinine Ratio 15.3, Glucose 114 H, Lactic Acid 2.6 H, Calcium 8.4, Total Bilirubin 0.6, AST 19, ALT 28, Alkaline Phosphatase 85, Troponin I 0.06, Total Protein 5.7 L, Albumin 3.2 L, Globulin 2.5, Albumin/Globulin Ratio 1.3, D-Dimer High Sensitivty 265 H, CBC w Diff NO MAN DIFF REQ, RBC 3.68 L, MCV 83.6, MCH 28.3, MCHC 33.8, RDW 14.6 H, MPV 8.4, Gran % 62.6, Lymphocytes % 26.7, Monocytes % 9.6 H, Eosinophils % 0.8, Basophils % 0.3, Absolute Granulocytes 3.7, Absolute Lymphocytes 1.6, Absolute Monocytes 0.6, Absolute Eosinophils 0, Absolute Basophils 0 Microbiology 06/08 1704 URINE ROUT: Urine Culture - RECD 06/08 1546 BLOOD: Blood Culture - RECD 06/08 1515 BLOOD: Blood Culture - RECD 06/08 1509 NASOPHARYN: Influenza Virus A & B Rapid Smear - COMP
[2017-06-09 08:58] LABS: ABSOLUTE BASOPHIL COUNT 0 /CUMM (0.0-0.2); ABSOLUTE EOSINOPHIL COUNT 0 /CUMM (0.0-0.7); ABSOLUTE GRANULOCYTE CT 3.4 /CUMM (1.4-6.5); ABSOLUTE LYMPH COUNT 0.7 /CUMM (1.2-3.4); ABSOLUTE MONOCYTE COUNT 0 /CUMM (0.10-0.60); BASOPHIL % 0.3 % (0.0-2.0); EOSINOPHIL % 0 % (0-5); GRANULOCYTE % 83.2 % (42.2-75.2); HEMATOCRIT 30.2 % (42-52); MEAN CORPUSCULAR HGB 28.7 PG (27.0-31.0); MEAN CORPUSCULAR HGB CONC 33.8 G/DL (33.0-37.0); MEAN CORPUSCULAR VOLUME 84.9 FL (80.0-94.0); MEAN PLATELET VOLUME 8.5 FL (7.4-10.4); PLATELET COUNT 187 /CUMM (130-400); RBC DISTRIBUTION WIDTH 14.7 % (11.5-14.5); RED BLOOD CELL CT 3.55 /CUMM (4.70-6.10); WHITE BLOOD CELL COUNT 4.1 /CUMM (4.8-10.8)
--- NOTE | 2017-06-09 09:14 | Cons- Cardiology ---
See Addendum General Information and HPI Consulting Request Date of Consult: 06/09/17 Requested By: Cuate URBANO,Marla Castellanos Reason for Consult: Syncope Source of Information: patient, old records Exam Limitations: patient's age, clinical condition History of Present Illness: Patient is an 89-year-old male with a PMH significant for A. 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 He states that after the brief walk into the cardiology waiting area he experienced severe dyspnea which was not initially relieved by rest. He was also told after his son that he was not responding for several seconds. He did not experience any chest pain, palpitations, loss of consciousness at this time. Patient has had similar previous episodes in the past. Patient states that for approximately one month he has had a productive cough with yellow sputum. He also states that he has been having progressive dyspnea on exertion over the last several days. He has been seen both in the ED and by his PCP numerous times in the last month for his cough and has received numerous different medication regimens, none of which have provided her relief. He saw his PCP one day prior to admission who did an x-ray and prescribed a 5 day course of Lasix. He denies any sick contacts or recent travel. He also denies any chest pain, palpitations, nausea, vomiting, fever, chills. The above information is obtained by the admitting resident. The patient is a poor historian. He he mentions he doesn't feel good but cannot describe why. Apparently yesterday use having an echo and started coughing and difficulty breathing and had a period of unresponsiveness. He has a severe cough productive. Allergies/Medications Allergies: Coded Allergies: amoxicillin (From PREVPAC) (UNKNOWN 04/23/16) clarithromycin (From PREVPAC) (UNKNOWN 04/23/16) diazepam (HALLUCINATIONS 08/08/16) PER PATIENT, TOLERATES LOW DOSES lansoprazole (From PREVPAC) (UNKNOWN 04/23/16) morphine (Intermediate, LETHARGY, CONFUSION 04/23/16) meclizine (CONFUSION 04/23/16) Home Med List: Albuterol Sulfate (Proair Hfa) 90 MCG HFA.AER.AD 2 PUF INH Q4-6 PRN PRN SOB Amlodipine Besylate 5 MG TABLET 7.5 MG PO DAILY HEART/BP (Reported) Apixaban (Eliquis) 2.5 MG TABLET 1 TAB PO BID BLOOD THINNER (Reported) Atorvastatin Calcium 80 MG TABLET 1 TAB PO QPM CHOLESTEROL (Reported) Azithromycin (Zithromax) 250 MG TABLET 1 DP PO AD bronchitis 2 the first day followed by 1 for days 2-5 Benzonatate (Tessalon Perle) 100 MG CAPSULE 1 CAP PO TID PRN COUGH Budesonide/Formoterol Fumarate (Symbicort 160-4.5 Mcg Inhaler) 160 MCG-4.5 MCG/ ACTUATION HFA.AER.AD 2 PUF INH BID COPD (Reported) Carvedilol (Coreg) 12.5 MG TABLET 1 TAB PO BID HEART/BP (Reported) Cholecalciferol (Vitamin D3) (Vitamin D) 2,000 UNIT CAPSULE 1 CAP PO QAM SUPPLEMENT (Reported) Codeine Phosphate/Guaifenesi (Cheratussin AC Syrup) 10 MG-100 MG/5 ML LIQUID 5 -10 ML PO Q6P PRN COUGH Cyanocobalamin (Vitamin B-12) (Vitamin B-12) 500 MCG TABLET 1 TAB PO QAM SUPPLEMENT (Reported) Finasteride 5 MG TABLET 1 TAB PO QPM PROSTATE (Reported) Guaifenesin (Mucinex) 600 MG TAB.ER.12H 1 TAB PO AD PRN MUCUS (Reported) Levofloxacin (Levaquin) 500 MG TABLET 1 TAB PO DAILY BRONCHITIS Losartan Potassium (Cozaar) 50 MG TABLET 1.5 TAB PO QAM HTN (Reported) Magnesium 250 MG TABLET 1 TAB PO QAM SUPPLEMENT (Reported) Nitroglycerin 0.4 MG TAB.SUBL 1 TAB SL AD PRN CHEST PAIN - HEART (Reported) 1st sign of attack; may repeat every 5 minutes until relief; if pain persists after 3 tablets in 15 minutes, prompt medical att Prednisone (Deltasone) 20 MG TABLET 1 TAB PO DAILY BRONCHITIS Prednisone 10 MG TABLET 1 TAB PO DAILY BRONCHITIS 3 TABS PO X 3 DAYS, 2 TABS OP X 3 DAYS, 1 TAB PO X 3 DAYS Current Medications: Current Medications Sig/Ashley Start time Last Medication Dose Route Stop Time Status Admin Albuterol Sulfate 3 ML ONCE ONE 06/08 1930 DC 06/08 INH 06/08 Amlodipine Besylate 7.5 MG DAILY 06/09 1000 AC PO Apixaban 2.5 MG BID 06/08 2359 AC PO Atorvastatin Calcium 80 MG QPM 06/09 2200 AC PO Azithromycin 500 MG DAILY 06/09 1000 AC Dextrose/Water 250 ML IV Benzonatate 100 MG TID PRN 06/09 0100 AC 06/09 PO 06/12 0059 0554 Budesonide/ 2 PUF BID 06/08 2345 AC Formoterol Fumarate INH Carvedilol 12.5 MG BID 06/09 1000 AC PO Finasteride 5 MG QPM 06/09 2200 AC PO Guaifenesin 600 MG DAILY 06/09 1000 AC PO Guaifenesin 0 .STK-MED ONE 06/08 1950 DC PO Guaifenesin 10 ML STAT STA 06/08 191 DC 06/08 PO 06/08 Ipratropium [place] 2.5 ML ONCE ONE 06/08 1930 DC 06/08 INH 06/08 Losartan Potassium 75 MG QAM 06/09 1000 AC PO Methylprednisolone 40 MG Q12 06/09 1000 AC IV Methylprednisolone 0 .STK-MED ONE 06/08 1951 DC .ROUTE Methylprednisolone 125 MG ONCE ONE 06/08 1929 DC 06/08 IV 06/08 Review of Systems Review of Systems Constitutional: Reports: see HPI. EENTM: Reports: see HPI. Cardiovascular: Reports: see HPI. Respiratory: Reports: see HPI. GI: Denies: no symptoms. Genitourinary: Denies: no symptoms. Musculoskeletal: Denies: no symptoms. Skin: Denies: no symptoms. Neurological/Psychological: Denies: no symptoms. Hematologic/Endocrine: Denies: no symptoms. Immunologic/Allergic: Denies: no symptoms. Past History Travel History Traveled to [place] past 21 day No Medical History Blood Transfusion Hx: No Neurological: dizziness, NUMB 1ST THREE L FINGERS EENT: EAGLE BILATERAL CATARACTS Cardiovascular: AFIB, CAD, CHF, hypertension, CARDIAC STENTS X 4 UT x5 HLD Respiratory: COPD, pulmonary embolism Gastrointestinal: ABDOMINAL AORTIC ANEURYSM HERNIA REPAIR Hepatic: NONE Renal: chronic kidney disease Musculoskeletal: carpal tunnel syndrome ARTHRITIS Psychiatric: NONE Endocrine: diabetes Blood Disorders: DVT Cancer(s): melanoma ENAMEL APPLIER/Reproductive: BPH Surgical History Surgical History: cardiac stents Family History Relations & Conditions If Any: SISTER FH: heart failure FHx: hypertension MOTHER FH: myocardial infarction FHx: hypertension FATHER FHx: hypertension Psychosocial History Who Do You Live With? self Services at Home: None Primary Language: Armenian Smoking Status: Former Smoker ETOH Use: denies use Illicit Drug Use: denies illicit drug use Living Will? yes Functional Ability ADLs Independent: dressing, eating, toileting, bathing. Ambulation: independent IADLs Independent: shopping, housework, finances, food prep, telephone, transportation , medication admin. ECHO Results (as available) EF% 45 Exam & Diagnostic Data Vital Signs and I&O Vital Signs Date Time Temp Pulse Resp B/P B/P Pulse O2 O2 Flow FiO2 Mean Ox Delivery Rate 06/09 0758 95 Nasal 2.0L Cannula 06/09 0633 97.6 81 18 132/56 93 Nasal 2.0L Cannula 06/08 2347 97.6 71 22 134/62 95 Nasal 2.0L Cannula 06/08 2338 95 Nasal 2.0L Cannula 06/08 2256 70 22 185/84 92 Nasal 2.0L Cannula 06/08 2220 97.8 06/08 2010 Nasal 2.0L Cannula 06/08 1950 62 24 162/78 92 Nasal 3.0L Cannula 06/08 1451 96 Nasal 2.0L Cannula 06/08 1449 97.7 61 22 187/81 94 Nasal 2.0L Cannula Intake & Output 06/09 1600 06/09 0800 06/09 0000 06/08 1600 06/08 0800 06/08 0000 Intake Total 1000 Output Total Balance 1000 Intake, IV 1000 Number 1 Bowel Movements Patient 219 lb 211 lb Weight Weight Reported by Patient Measurement Method Physical Exam: On physical exam he appeared somewhat anxious Head normocephalic atraumatic Eyes sclera anicteric conjunctiva showed no pallor extraocular muscles were normal Neck no jugular venous distention no thyroid masses no palpable nodes Chest lungs distant air entry Heart regular rhythm with a 1/6 systolic murmur Abdomen soft nontender no organomegaly Extremities no clubbing cyanosis or edema Neurological no gross motor or sensory deficits Labs/Jeff Results: Laboratory Tests 06/09 180 Chemistry Sodium (137 - 145 mmol/L) 138 Potassium (3.5 - 5.1 mmol/L) 4.7 Chloride (98 - 107 mmol/L) 104 Carbon Dioxide (22 - 30 mmol/L) 21 L Anion Gap (5 - 16) 14 BUN (9 - 20 mg/dL) 23 H Creatinine (0.7 - 1.2 mg/dL) 1.4 H Estimated GFR (>60 ml/min) 48 L BUN/Creatinine Ratio (7 - 25 %) 16.4 Lactic Acid (0.7 - 2.1 mmol/L) 0.9 Troponin I (<0.11 ng/ml) 0.06 [id number] Pept (<125 pg/mL) 1470 H Hematology CBC w Diff Pending WBC Pending RBC Pending Hgb Pending Hct Pending MCV Pending MCH Pending MCHC Pending RDW Pending Plt Count Pending MPV Pending 06/08 06/08 1704 1500 Chemistry Sodium (137 - 145 mmol/L) 137 Potassium (3.5 - 5.1 mmol/L) 4.9 Chloride (98 - 107 mmol/L) 101 Carbon Dioxide (22 - 30 mmol/L) 24 Anion Gap (5 - 16) 12 BUN (9 - 20 mg/dL) 26 H Creatinine (0.7 - 1.2 mg/dL) 1.7 H Estimated GFR (>60 ml/min) 38 L BUN/Creatinine Ratio (7 - 25 %) 15.3 Glucose (65 - 99 mg/dL) 114 H Lactic Acid (0.7 - 2.1 mmol/L) 2.6 H Calcium (8.4 - 10.2 mg/dL) 8.4 Total Bilirubin (0.2 - 1.3 mg/dL) 0.6 AST (17 - 59 U/L) 19 ALT (21 - 72 U/L) 28 Alkaline Phosphatase (< 127 U/L) 85 Troponin I (<0.11 ng/ml) 0.06 Total Protein (6.3 - 8.2 g/dL) 5.7 L Albumin (3.5 - 5.0 g/dL) 3.2 L Globulin (1.9 - 4.2 gm/dL) 2.5 Albumin/Globulin Ratio (1.1 - 2.2 %) 1.3 Coagulation D-Dimer High Sensitivty (0 - 243 ng/ml) 265 H Hematology CBC w Diff NO MAN DIFF REQ WBC (4.8 - 10.8 /CUMM) 5.9 RBC (4.70 - 6.10 /CUMM) 3.68 L Hgb (14.0 - 18.0 G/DL) 10.4 L Hct (42 - 52 %) 30.8 L MCV (80.0 - 94.0 FL) 83.6 MCH (27.0 - 31.0 PG) 28.3 MCHC (33.0 - 37.0 G/DL) 33.8 RDW (11.5 - 14.5 %) 14.6 H Plt Count (130 - 400 /CUMM) 189 MPV (7.4 - 10.4 FL) 8.4 Gran % (42.2 - 75.2 %) 62.6 Lymphocytes % (20.5 - 51.1 %) 26.7 Monocytes % (1.7 - 9.3 %) 9.6 H Eosinophils % (0 - 5 %) 0.8 Basophils % (0.0 - 2.0 %) 0.3 Absolute Granulocytes (1.4 - 6.5 /CUMM) 3.7 Absolute Lymphocytes (1.2 - 3.4 /CUMM) 1.6 Absolute Monocytes (0.10 - 0.60 /CUMM) 0.6 Absolute Eosinophils (0.0 - 0.7 /CUMM) 0 Absolute Basophils (0.0 - 0.2 /CUMM) 0 Urines Urine Color (YEL,AMB,STR) YEL Urine Clarity (CLEAR) CLEAR Urine pH (5.0 - 8.0) 6.0 Ur Specific [place] (1.001 - 1.035) 1.015 Urine Protein (NEG,<30 MG/DL) NEG Urine Ketones (NEG) NEG Urine Nitrite (NEG) NEG Urine Bilirubin (NEG) NEG Urine Urobilinogen (0.1 - 1.0 EU/dl) 0.2 Ur Leukocyte Esterase (NEG) NEG Ur Microscopic SEDIMENT EXAMINED Urine RBC (0 - 5 /HPF) RARE Urine WBC (0 - 2 /HPF) RARE Ur Epithelial Cells (NONE,FEW) RARE Urine Bacteria (NEG/NONE) RARE H Urine Mucus (FEW,NONE) RARE Urine Hemoglobin (NEG) TRACE-INTACT H Urine Glucose (N MG/DL) NEG Diagnostic Data EKG Results Atria sensing with ventricular capture CXR Results No acute abnormalities Assessment/Plan Assessment/Plan In summary this 89-year-old gentleman who was admitted with #1. A period of unresponsiveness in the setting of severe cough and shortness of breath. It it is doubtful that he had true syncope. He may have had posttussive presyncope. He has had productive cough for a few days and has been given antibiotics as an outpatient. #2. Coronary artery disease. Has had several stents in the past. 2017 left ventricular ejection fraction was 45%. #3. Atrial fibrillation on oral anticoagulation with Elliquis. #4. Permanent pacemaker and AICD #5. History of pulmonary embolism #6. Severe COPD steroid dependent #7. Status post abdominal aortic aneurysm resection #8. Chronic combined systolic and diastolic congestive heart failure Suggest CT scan of the chest noncontrast to further clarify pulmonary versus cardiac. I suspect this is mostly related to acute superimposed on chronic bronchitis with fatigue with coughing and post tussive presyncope. We will have the pacemaker rep come and interrogate the pacemaker. He should probably be transferred to telemetry. Obtain echocardiogram today. Pulmonary consult pending Consult Acknowledgment - Thank you for your consult request.
--- NOTE | 2017-06-09 09:21 | Transfer of Care Summary ---
See Addendum Hospital Course Course Hospital Course: S: Mr. Miranda was admitted overnight to general medicine floor, and this morning Dr. Gil Umaña was consulted as patient's roll bucker and he advised to transfer patient to telemetry. B: Mr. Miranda is an 89-year-old male with a PMH significant for A. fib on Eliquis status post pacemaker and ICD placement, COPD not on home oxygen, PE, for previous MIs with 5 stents placed at [facility], AAA status post repair, prediabetes, CHF, who presented to the hospital for outpatient echocardiogram and had a rapid response called on him due to dyspnea, lightheadedness and a brief episode of unresponsiveness. Assessment/Plan: AR: Patient underwent a brief period of unresponsiveness before this admission with rapid response was called. Patient may have had a posttussive presyncope despite being doubtful that he had amando syncope. A pacemaker rep would come and interrogate the pacemaker, and patient should be monitored under telemetry for certain process.
[2017-06-09 09:40] VITALS: BP 132/78
[2017-06-09 10:15] VITALS: BP 152/58
--- NOTE | 2017-06-09 11:47 | PN- Housestaff ---
Subjective Follow-up For: ?Syncope Atrial Fibrilliation Severe COPD Tele-Events Since Last Visit: Atrial Fibrilliation with HR in 70s. Subjective: Patient was seen and examined at bedside. Review of Systems Constitutional: Reports: no symptoms. Cardiovascular: Denies: chest pain, palpitations. Respiratory: Reports: cough, short of breath, sputum production. Gastrointestinal: Denies: abdominal pain, bloody stool. Musculoskeletal: Reports: no symptoms. Neurological/Psychological: Reports: other (lightheaded, dizzy). Objective Last 24 Hrs of Vital Signs/I&O Vital Signs Date Time Temp Pulse Resp B/P B/P Pulse O2 O2 Flow FiO2 Mean Ox Delivery Rate 06/09 1015 99 Nasal 2.0L Cannula 06/09 1015 97.3 72 26 152/58 99 Nasal 2.0L Cannula 06/09 0946 76 132/78 06/09 0940 97.9 76 24 132/78 96 Nasal 3.0L Cannula 06/09 0935 Nasal 2.0L Cannula 06/09 0935 96 Nasal 2.0L Cannula 06/09 0758 95 Nasal 2.0L Cannula 06/09 0633 97.6 81 18 132/56 93 Nasal 2.0L Cannula 06/08 2347 97.6 71 22 134/62 95 Nasal 2.0L Cannula 06/08 2338 95 Nasal 2.0L Cannula 06/08 2256 70 22 185/84 92 Nasal 2.0L Cannula 06/08 2220 97.8 06/08 2010 Nasal 2.0L Cannula 06/08 1950 62 24 162/78 92 Nasal 3.0L Cannula 06/08 1451 96 Nasal 2.0L Cannula 06/08 1449 97.7 61 22 187/81 94 Nasal 2.0L Cannula Intake & Output 06/09 1600 06/09 0800 06/09 0000 Intake Total Output Total Balance Number 1 Bowel Movements Patient 219 lb Weight Physical Exam General Appearance: Alert, Oriented X3, Cooperative, Mild Distress Skin: No Rashes, No Breakdown Skin Temp/Moisture Exam: Warm/Dry Sepsis Skin Exam (color): Normal for Ethnicity HEENT: Atraumatic Cardiovascular: Normal S1, Normal S2, No Murmurs, Irregular rate Assessment/Plan Problem List: 1. Pre-syncope Pain Ratin Pain Location: none Pain Goal: Remain pain free Pain Plan: none Tomorrow's Labs & Rationales: CBC, BEP
--- NOTE | 2017-06-09 12:18 | PN-Observation ---
Observation Note Observation Note _ I have personally examined JUAN JOSE CHAIDEZ. him disposition is certain at this time. He will require full admission for COPD exacerbation and further work up of syncopal episode. Assessment/Plan Assessment: 89 year old male with a PMH significant for A. 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 syncope. Assessment and Plan: He was evaluated by cardiology earlier. It appears he has a history of similar episodes of unresponsiveness after spells of intense coughing (post tussive presyncope) and orthostatic hypotension. The pacemaker customer assistance representative did not find any problems/events in the pacemaker. However, at this time he would benefit from further monitoring on Telemetry. He likely has COPD exacerbation as evidenced by increasing dyspnea and productive cough. COPD Exacerbation: * Continue oxygen supplementation to maintain saturations >90% * Increase IV Solu-Medrol 40mg q8. Will taper as tolerated. * TRC/nebs as needed. * Mucomist nebs BID for 3 days. * Continue home Symbicort * CT chest to evaluate for pneumonia. Pulmonary vs cardiac cause. - pending * Pulmonary consult with Dr Herring ?Syncope: He has a history of orthostatic hypotension. He currently reports feeling dizzy and lightheaded. He does have a history of atrial fibrilliation and carotid stenosis which can predispose to clots. * Continue monitoring on telemetry. * Echocardiogram to evaluate for LVEF History of Atrial Fibrilliation: * Continue Apixaban 2.5mg BID. * Heart rate well controlled. No need for AV rhoda blocking agents at this time History of Hypertension/HLD: * Continue Losartan, Amlodipine, Carvedilol * Continue Atorvastatin History of BPH: * Continue Finasteride Diet: Diabetic DVT Prophylaxis: On Eliquis Code: DNR/DNI Problem List: 1. Near syncope Subjective Follow-up For: ?Syncope Atrial Fibrilliation Severe COPD Tele-Events Since Last Visit: Atrial Fibrilliation with HR in 70s. Subjective: Patient was seen and examined at bedside. He reports feeling lousy. He has a productive cough but has difficulty bringing up sputum. He feels short of breath despite being on O2 via [place]. States he doesn't use oxygen at home and currently he feels no different than when he's at home without oxygen. He complains of feeling lightheaded and dizzy even when lying down. When asked to sit forward for physical exam, he feels like his dizziness gets worse. Review of Systems Constitutional: Reports: no symptoms. Cardiovascular: Denies: chest pain, palpitations. Respiratory: Reports: cough, short of breath, sputum production. Gastrointestinal: Denies: abdominal pain, bloody stool. Genitourinary: Reports: hesitation. Musculoskeletal: Reports: no symptoms. Neurological/Psychological: Reports: other (lightheaded, dizzy). Objective Last 24 Hrs of Vital Signs/I&O Vital Signs Date Time Temp Pulse Resp B/P B/P Pulse O2 O2 Flow FiO2 Mean Ox Delivery Rate 06/09 1015 99 Nasal 2.0L Cannula 06/09 1015 97.3 72 26 152/58 99 Nasal 2.0L Cannula 06/09 0946 76 132/78 06/09 0940 97.9 76 24 132/78 96 Nasal 3.0L Cannula 06/09 0935 Nasal 2.0L Cannula 06/09 0935 96 Nasal 2.0L Cannula 06/09 0758 95 Nasal 2.0L Cannula 06/09 0633 97.6 81 18 132/56 93 Nasal 2.0L Cannula 06/08 2347 97.6 71 22 134/62 95 Nasal 2.0L Cannula 06/08 2338 95 Nasal 2.0L Cannula 06/08 2256 70 22 185/84 92 Nasal 2.0L Cannula 06/08 2220 97.8 06/08 2010 Nasal 2.0L Cannula 06/08 1950 62 24 162/78 92 Nasal 3.0L Cannula 06/08 1451 96 Nasal 2.0L Cannula 06/08 1449 97.7 61 22 187/81 94 Nasal 2.0L Cannula Intake & Output 06/09 1600 06/09 0800 06/09 0000 Intake Total Output Total Balance Number 1 Bowel Movements Patient 219 lb Weight Physical Exam General Appearance: Alert, Oriented X3, Cooperative, No Acute Distress Skin: No Rashes, No Breakdown Skin Temp/Moisture Exam: Warm/Dry Sepsis Skin Exam (color): Normal for Ethnicity HEENT: Atraumatic Cardiovascular: Normal S1, Normal S2, No Murmurs, irregular Lungs: wheezing Abdomen: Soft, No Tenderness Neurological: Normal Speech Extremities: No Edema Current Medications: Current Medications Sig/Ashley Start time Last Medication Dose Route Stop Time Status Admin Albuterol Sulfate 3 ML Q4P PRN 06/09 1045 AC 06/09 INH 0935 Albuterol Sulfate 3 ML ONCE ONE 06/08 1929 DC 06/08 INH 06/08 Amlodipine Besylate 7.5 MG DAILY 06/09 1000 AC 06/09 PO 0946 Apixaban 2.5 MG BID 06/08 2359 AC 06/09 PO 0946 Atorvastatin Calcium 80 MG QPM 06/09 2200 AC PO Azithromycin 500 MG DAILY 06/09 1000 AC Dextrose/Water 250 ML IV Benzonatate 100 MG TID PRN 06/09 0100 AC 06/09 PO 06/12 0059 0554 Budesonide/ 2 PUF BID 06/08 2345 AC 06/09 Formoterol Fumarate INH 0946 Carvedilol 12.5 MG BID 06/09 1000 AC 06/09 PO 0946 Finasteride 5 MG QPM 06/09 2200 AC PO Guaifenesin 600 MG DAILY 06/09 1000 AC 06/09 PO 0946 Guaifenesin 0 .STK-MED ONE 06/08 1950 DC PO Guaifenesin 10 ML STAT STA 06/08 1918 DC 06/08 PO 06/08 Insulin Aspart 0 TIDAC 06/09 1700 AC SC Ipratropium [place] 2.5 ML ONCE ONE 06/08 1929 DC 06/08 INH 06/08 Losartan Potassium 75 MG QAM 06/09 1000 AC 06/09 PO 0946 Methylprednisolone 40 MG Q12 06/09 1000 AC 06/09 IV 0946 Methylprednisolone 0 .STK-MED ONE 06/08 1951 DC .ROUTE Methylprednisolone 125 MG ONCE ONE 06/08 1929 DC 06/08 IV 06/08 Last 24 Hrs of Labs/Mics: Laboratory Tests 06/09/17626: Anion Gap 14, Estimated GFR 48 L, BUN/Creatinine Ratio 16.4, CBC w Diff NO MAN DIFF REQ, RBC 3.55 L, MCV 84.9, MCH 28.7, MCHC 33.8, RDW 14.7 H, MPV 8.5, Gran % 83.2 H, Lymphocytes % 16.1 L, Monocytes % 0.4 L, Eosinophils % 0, Basophils % 0.3, Absolute Granulocytes 3.4, Absolute Lymphocytes 0.7 L, Absolute Monocytes 0 L, Absolute Eosinophils 0, Absolute Basophils 0 06/08/172004: Troponin I 0.06, [id number] Pept 1470 H 06/08/17 1805: Lactic Acid 0.9 06/08/17 1704: Urine Color YEL, Urine Clarity CLEAR, Urine pH 6.0, Ur Specific [place] 1.015, Urine Protein NEG, Urine Ketones NEG, Urine Nitrite NEG, Urine Bilirubin NEG, Urine Urobilinogen 0.2, Ur Leukocyte Esterase NEG, Ur Microscopic SEDIMENT EXAMINED, Urine RBC RARE, Urine WBC RARE, Ur Epithelial Cells RARE, Urine Bacteria RARE H, Urine Mucus RARE, Urine Hemoglobin TRACE-INTACT H, Urine Glucose NEG 06/08/17 1500: Anion Gap 12, Estimated GFR 38 L, BUN/Creatinine Ratio 15.3, Glucose 114 H, Lactic Acid 2.6 H, Calcium 8.4, Total Bilirubin 0.6, AST 19, ALT 28, Alkaline Phosphatase 85, Troponin I 0.06, Total Protein 5.7 L, Albumin 3.2 L, Globulin 2.5, Albumin/Globulin Ratio 1.3, D-Dimer High Sensitivty 265 H, CBC w Diff NO MAN DIFF REQ, RBC 3.68 L, MCV 83.6, MCH 28.3, MCHC 33.8, RDW 14.6 H, MPV 8.4, Gran % 62.6, Lymphocytes % 26.7, Monocytes % 9.6 H, Eosinophils % 0.8, Basophils % 0.3, Absolute Granulocytes 3.7, Absolute Lymphocytes 1.6, Absolute Monocytes 0.6, Absolute Eosinophils 0, Absolute Basophils 0 Microbiology 06/08 1704 URINE ROUT: Urine Culture - RES 06/08 1546 BLOOD: Blood Culture - RES 06/08 1515 BLOOD: Blood Culture - RES 06/08 1509 NASOPHARYN: Influenza Virus A & B Rapid Smear - COMP
--- NOTE | 2017-06-09 12:55 | Admission Certification ---
Admission Certification Certification Statement - As attending physician, I certify that at the time of - admission, based on clinical presentation, severity of - symptoms, need for further diagnostic testing and - therapeutic interventions, and risk of adverse outcomes - without in-hospital treatment, in my clinical assessment, - this patient requires an acute hospital stay for a minimum - of two nights or longer. I have also considered psychsocial - factors such as support system, advanced age, financial - issues, cognitive issues, and failed out-patient treatments, - past re-admission history, safety of patient, and lack of - compliance as applicable. Specific rationale supporting this admission is: Post tussive syncope, COPD exacerbation in patient with underlying COPD, A. fib, pacemaker, hypertension diabetes and CAD.
--- NOTE | 2017-06-09 13:57 | Cons- Pulmonary ---
General Information and HPI Consulting Request Date of Consult: 06/09/17 Requested By: Dr. Cuello Reason for Consult: dyspnea copd exac Source of Information: patient Exam Limitations: no limitations History of Present Illness: 89 year old man. Hx of COPD on symbicort and proair. Hx of coronary artery disease, positional vertigo, chronic kidney disease, former smoker, history of COPD and anxiety. He is a diabetic as well. History of V/Q scan consistent with ventilation-perfusion mismatch involving approximately 3 segmental large subsegmental defects in the lingula and left upper lobe and left lower lobe. On Eliquis therapy despite fall risk. CXR without infiltrates. Was getting and ECHO and BATCH OPERATOR was called due to dyspnea. No syncope. Has had cough, yellow in nature. Has been treated for 1 month for a cough. S/p Levaquin and Zpak and steroids. Pending chest CT today. Pro BNP is elevated. Allergies/Medications Allergies: Coded Allergies: amoxicillin (From [facility]) (UNKNOWN 04/23/16) clarithromycin (From [employer]) (UNKNOWN 04/23/16) diazepam (HALLUCINATIONS 08/08/16) PER PATIENT, TOLERATES LOW DOSES lansoprazole (From [facility]) (UNKNOWN 04/23/16) morphine (Intermediate, LETHARGY, CONFUSION 04/23/16) meclizine (CONFUSION 04/23/16) Home Med List: Albuterol Sulfate (Proair Hfa) 90 MCG HFA.AER.AD 2 PUF INH Q4-6 PRN PRN SOB Amlodipine Besylate 5 MG TABLET 7.5 MG PO DAILY HEART/BP (Reported) Apixaban (Eliquis) 2.5 MG TABLET 1 TAB PO BID BLOOD THINNER (Reported) Atorvastatin Calcium 80 MG TABLET 1 TAB PO QPM CHOLESTEROL (Reported) Azithromycin (Zithromax) 250 MG TABLET 1 DP PO AD bronchitis 2 the first day followed by 1 for days 2-5 Benzonatate (Tessalon Perle) 100 MG CAPSULE 1 CAP PO TID PRN COUGH Budesonide/Formoterol Fumarate (Symbicort 160-4.5 Mcg Inhaler) 160 MCG-4.5 MCG/ ACTUATION HFA.AER.AD 2 PUF INH BID COPD (Reported) Carvedilol (Coreg) 12.5 MG TABLET 1 TAB PO BID HEART/BP (Reported) Cholecalciferol (Vitamin D3) (Vitamin D) 2,000 UNIT CAPSULE 1 CAP PO QAM SUPPLEMENT (Reported) Codeine Phosphate/Guaifenesi (Cheratussin AC Syrup) 10 MG-100 MG/5 ML LIQUID 5 -10 ML PO Q6P PRN COUGH Cyanocobalamin (Vitamin B-12) (Vitamin B-12) 500 MCG TABLET 1 TAB PO QAM SUPPLEMENT (Reported) Finasteride 5 MG TABLET 1 TAB PO QPM PROSTATE (Reported) Guaifenesin (Mucinex) 600 MG TAB.ER.12H 1 TAB PO AD PRN MUCUS (Reported) Levofloxacin (Levaquin) 500 MG TABLET 1 TAB PO DAILY BRONCHITIS Losartan Potassium (Cozaar) 50 MG TABLET 1.5 TAB PO QAM HTN (Reported) Magnesium 250 MG TABLET 1 TAB PO QAM SUPPLEMENT (Reported) Nitroglycerin 0.4 MG TAB.SUBL 1 TAB SL AD PRN CHEST PAIN - HEART (Reported) 1st sign of attack; may repeat every 5 minutes until relief; if pain persists after 3 tablets in 15 minutes, prompt medical att Prednisone (Deltasone) 20 MG TABLET 1 TAB PO DAILY BRONCHITIS Prednisone 10 MG TABLET 1 TAB PO DAILY BRONCHITIS 3 TABS PO X 3 DAYS, 2 TABS OP X 3 DAYS, 1 TAB PO X 3 DAYS Current Medications: Current Medications Sig/Ashley Start time Last Medication Dose Route Stop Time Status Admin Albuterol Sulfate 3 ML Q4P PRN 06/09 1045 AC 06/09 INH 0935 Albuterol Sulfate 3 ML ONCE ONE 06/08 1929 DC 06/08 INH 06/08 Amlodipine Besylate 7.5 MG DAILY 06/09 1000 AC 06/09 PO 0946 Apixaban 2.5 MG BID 06/08 2359 AC 06/09 PO 0946 Atorvastatin Calcium 80 MG QPM 06/09 2200 AC PO Azithromycin 500 MG DAILY 06/09 1000 AC 06/09 Dextrose/Water 250 ML IV 1130 Benzonatate 100 MG TID PRN 06/09 0100 AC 06/09 PO 06/12 0059 0554 Budesonide/ 2 PUF BID 06/08 2345 AC 06/09 Formoterol Fumarate INH 0946 Carvedilol 12.5 MG BID 06/09 1000 AC 06/09 PO 0946 Finasteride 5 MG QPM 06/09 2200 AC PO Guaifenesin 600 MG DAILY 06/09 1000 AC 06/09 PO 0946 Guaifenesin 0 .STK-MED ONE 06/08 1950 DC PO Guaifenesin 10 ML STAT STA 06/08 191 DC 06/08 PO 06/08 Insulin Aspart 0 TIDAC 06/09 1700 AC 06/09 SC 1230 Ipratropium [place] 2.5 ML ONCE ONE 06/08 1930 DC 06/08 INH 06/08 Losartan Potassium 75 MG QAM 06/09 1000 AC 06/09 PO 0946 Methylprednisolone 40 MG Q12 06/09 1000 AC 06/09 IV 0946 Methylprednisolone 0 .STK-MED ONE 06/08 1951 DC .ROUTE Methylprednisolone 125 MG ONCE ONE 06/08 193 DC 06/08 IV 06/08 Review of Systems Comments 18 pt ros reviewed pertinent positives and negatives in HPI Past History Travel History Traveled to [place] past 21 day No Medical History Blood Transfusion Hx: No Neurological: dizziness, NUMB 1ST THREE L FINGERS EENT: [place] BILATERAL CATARACTS Cardiovascular: AFIB, CAD, CHF, hypertension, CARDIAC STENTS X 4 CA x5 HLD Respiratory: COPD, pulmonary embolism Gastrointestinal: ABDOMINAL AORTIC ANEURYSM HERNIA REPAIR Hepatic: NONE Renal: chronic kidney disease Musculoskeletal: carpal tunnel syndrome ARTHRITIS Psychiatric: NONE Endocrine: diabetes Blood Disorders: DVT Cancer(s): melanoma GENERATOR MECHANIC/Reproductive: BPH Surgical History Surgical History: cardiac stents Family History Relations & Conditions If Any: SISTER FH: heart failure FHx: hypertension MOTHER FH: myocardial infarction FHx: hypertension FATHER FHx: hypertension Psychosocial History Who Do You Live With? self Services at Home: None Primary Language: Algerian Smoking Status: Former Smoker ETOH Use: denies use Illicit Drug Use: denies illicit drug use Living Will? yes Functional Ability ADLs Independent: dressing, eating, toileting, bathing. Ambulation: independent IADLs Independent: shopping, housework, finances, food prep, telephone, transportation , medication admin. ECHO Results (as available) EF% 45 Exam & Diagnostic Data Last 24 Hrs of Vital Signs/I&O Vital Signs Date Time Temp Pulse Resp B/P B/P Pulse O2 O2 Flow FiO2 Mean Ox Delivery Rate 06/09 1421 100 Nasal 2.0L Cannula 06/09 1015 99 Nasal 2.0L Cannula 06/09 1015 97.3 72 26 152/58 99 Nasal 2.0L Cannula 06/09 0946 76 132/78 06/09 0940 97.9 76 24 132/78 96 Nasal 3.0L Cannula 06/09 0935 Nasal 2.0L Cannula 06/09 0935 96 Nasal 2.0L Cannula 06/09 0758 95 Nasal 2.0L Cannula 06/09 0633 97.6 81 18 132/56 93 Nasal 2.0L Cannula 06/08 2347 97.6 71 22 134/62 95 Nasal 2.0L Cannula 06/08 2338 95 Nasal 2.0L Cannula 06/08 2256 70 22 185/84 92 Nasal 2.0L Cannula 06/08 2220 97.8 06/08 2010 Nasal 2.0L Cannula 06/08 1950 62 24 162/78 92 Nasal 3.0L Cannula Intake & Output 06/09 1600 06/09 0800 06/09 0000 Intake Total Output Total Balance Number 1 Bowel Movements Patient 219 lb Weight Physical Exam Other Physical Findings: Generally - Awake, alert Head and neck - normocephalic, atraumatic, EOMI grossly intact Cardiovascular - S1, S2 Lungs -bilateral wheezing Abdomen - Bowel sounds positive, soft, non-tender Extremities - trace edema Last 48 Hrs of Labs/Jeff: Laboratory Tests 06/09/17 0627: Anion Gap 14, Estimated GFR 48 L, BUN/Creatinine Ratio 16.4, CBC w Diff NO MAN DIFF REQ, RBC 3.55 L, MCV 84.9, MCH 28.7, MCHC 33.8, RDW 14.7 H, MPV 8.5, Gran % 83.2 H, Lymphocytes % 16.1 L, Monocytes % 0.4 L, Eosinophils % 0, Basophils % 0.3, Absolute Granulocytes 3.4, Absolute Lymphocytes 0.7 L, Absolute Monocytes 0 L, Absolute Eosinophils 0, Absolute Basophils 0 06/08/172004: Troponin I 0.06, Aro-Q-Lcfajxjujqw Pept 1470 H 06/08/17 1805: Lactic Acid 0.9 06/08/17 1704: Urine Color YEL, Urine Clarity CLEAR, Urine pH 6.0, Ur Specific [place] 1.015, Urine Protein NEG, Urine Ketones NEG, Urine Nitrite NEG, Urine Bilirubin NEG, Urine Urobilinogen 0.2, Ur Leukocyte Esterase NEG, Ur Microscopic SEDIMENT EXAMINED, Urine RBC RARE, Urine WBC RARE, Ur Epithelial Cells RARE, Urine Bacteria RARE H, Urine Mucus RARE, Urine Hemoglobin TRACE-INTACT H, Urine Glucose NEG 06/08/17 1500: Anion Gap 12, Estimated GFR 38 L, BUN/Creatinine Ratio 15.3, Glucose 114 H, Lactic Acid 2.6 H, Calcium 8.4, Total Bilirubin 0.6, AST 19, ALT 28, Alkaline Phosphatase 85, Troponin I 0.06, Total Protein 5.7 L, Albumin 3.2 L, Globulin 2.5, Albumin/Globulin Ratio 1.3, D-Dimer High Sensitivty 265 H, CBC w Diff NO MAN DIFF REQ, RBC 3.68 L, MCV 83.6, MCH 28.3, MCHC 33.8, RDW 14.6 H, MPV 8.4, Gran % 62.6, Lymphocytes % 26.7, Monocytes % 9.6 H, Eosinophils % 0.8, Basophils % 0.3, Absolute Granulocytes 3.7, Absolute Lymphocytes 1.6, Absolute Monocytes 0.6, Absolute Eosinophils 0, Absolute Basophils 0 Microbiology 06/08 1509 NASOPHARYN: Influenza Virus A & B Rapid Smear - COMP Assessment/Plan Impression/Plan: Impression 89 year old man * dyspnea/wheezing - exacerbation of COPD likely secondary to a recent URI * hx of a.fib, vertigo, elevated probnp Plan -increase solumedrol to 40mg iv q8h -trc/nebs -change nebs to q6h -add mucomyst nebulized bid for 3 days -no abx for now -pending ECHO and CT chest without contrast -cont eliquis Consult Acknowledgment - Thank you for your consult request.
[2017-06-09 16:00] VITALS: BP 148/56
--- NOTE | 2017-06-09 16:17 | CT SCAN REPORT ---
EXAMINATION: CT CHEST WITHOUT CONTRAST CLINICAL INFORMATION: Excessive cough and shortness of breath. COMPARISON: 08/10/2016 TECHNIQUE: Multidetector volumetric CT imaging of the chest was done. Axial MIP volume rendering provided. Sagittal and coronal reformatted images were obtained. DLP: 348 mGy-cm FINDINGS: MEASUREMENT AND SENSING TECHNICIAN: Cardiomegaly with right atrial and biventricular AICD device in place. LUNGS AND PLEURA: Trachea and mainstem bronchi are widely patent and normal in caliber. Chronic bronchial wall thickening in both lungs. Mild paraseptal emphysema of the upper lobes. Scattered opacities of atelectasis and/or scarring in posterior right upper lobe, lower lobes and inferior lingula. Also, there is linear, hazy opacity compatible with subsegmental atelectasis in the anterior right upper lobe. There are subtle hazy and micronodular centrilobular opacities in the right lower lobe, suspicious for active bronchiolitis. At the left lateral apex, there are stable 0.3 cm and 0.2 cm nodular opacities (images 97 and 109, series 4). 0.2 cm nodular focus in the superior segment of the left lower lobe might represent endobronchial mucous (image 224, series 4). There is an old focus of peripheral scarring in the lateral left upper lobe (image 171, series 4). No suspicious nodule, mass or pleural effusion. MEDIASTINUM: Mild cardiomegaly, atherosclerotic disease of coronary arteries and atherosclerosis of the aorta without aneurysm. No pericardial effusion. The esophagus and thyroid gland are unremarkable. LYMPHATICS: No pathologic sized axillary, hilar or mediastinal lymph nodes. UPPER ABDOMEN: Unremarkable. SKELETAL/CHEST WALL: Severe osteoarthritis of sternoclavicular joints and mild osteoarthritis of glenohumeral joints. Skeletal hyperostosis with bulky, flowing anterior ligament ossification of the thoracic spine. No suspicious bone lesions. IMPRESSION: 1. Mild paraseptal emphysema of the upper lobes. 2. Chronic bronchial wall thickening in both lungs, as may be seen in bronchitis. Scattered opacities of atelectasis/scarring in both lungs. Compared to 08/10/2016, there is new subtle centrilobular nodular opacity in the right lower lobe, likely secondary to active bronchiolitis. 3. Atherosclerotic disease of coronary arteries and mild cardiomegaly. No pulmonary edema or pleural effusion.
--- NOTE | 2017-06-09 19:44 | ECHOCARDIOGRAM REPORT ---
JUAN JOSE CHAIDEZ Age: 89 : 1925 Gender: M Exam Date: 06/09/2017 16:17 Exam Location: [facility] Ht (in): 72 Wt (lb): 219 BSA: 2.27 BP: 152 / 58 Ordering Physician: Jeannette Marie MD Referring Physician: Gil Cuello MD Technologist: Yoana Stovall [facility] [place] Room Number: 109 Indications: PRESYNCOPE/SYNCOPE Rhythm: Sinus Technical Quality: fair FINDINGS Left Ventricle Normal size left ventricle. Left ventricular wall thickness mildly increased. Normal left ventricular ejection fraction estimated at 55-60%. Right Ventricle Normal right ventricular size and function. Catheter/pacemaker wire in the right ventricular cavity. Right Atrium Normal right atrial size. Left Atrium Left atrial size at the upper limits of normal. Mitral Valve Mild mitral annular calcification. Trace to mild mitral regurgitation. Aortic Valve Aortic sclerosis. Tricuspid Valve Tricuspid valve is normal in structure and function. Mild tricuspid regurgitation. Right ventricular systolic pressure estimated to be at upper limits of normal at 40 mmHg. Pulmonic Valve Pulmonic valve not well visualized, grossly normal. Pericardium No pericardial effusion. Great Vessels Aortic root and proximal ascending aorta not well visualized, grossly normal. CONCLUSIONS Normal left ventricular systolic function. Mild concentric left ventricular hypertrophy. Mild pulmonary hypertension. Gil Cuello M.D. (Electronically Signed) Final Date: 09 June 2017 19:43 MEASUREMENTS (Male / Female) Normal Values 2D ECHO LV Diastolic Diameter PLAX 4.8 cm 4.2 - 5.9 / 3.9 - 5.3 cm LV Systolic Diameter PLAX 2.9 cm 2.1 - 4.0 cm LV Fractional Shortening PLAX 39.6 % 25 - 46 % LV Ejection Fraction 2D Teich 70.0 % IVS Diastolic Thickness 1.4 cm LVPW Diastolic Thickness 1.3 cm LV Relative Wall Thickness 0.6 RV Internal Dim ED PLAX 3.8 cm 1.9 - 3.8 cm LVOT Diameter 2.0 cm Aortic Root Diameter 3.3 cm LA Systolic Diameter LX 3.6 cm 3.0 - 4.0 / 2.7 - 3.8 cm LA Volume 70.0 cm 18 - 58 / 22 - 52 cm Ascending Aorta Diameter 3.4 cm DOPPLER AV Peak Velocity 139.0 cm/s AV Peak Gradient 7.7 mmHg AV Mean Velocity 94.6 cm/s AV Mean Gradient 4.0 mmHg AV Velocity Time Integral 35.2 cm LVOT Peak Velocity 95.5 cm/s LVOT Peak Gradient 3.6 mmHg LVOT Mean Velocity 65.9 cm/s LVOT Mean Gradient 2.0 mmHg LVOT Velocity Time Integral 22.6 cm LVOT Stroke Volume 71.0 cm AV Area Cont Eq vti 2.0 cm AV Area Cont Eq pk 2.2 cm MV Peak Velocity 117.0 cm/s MV Peak Gradient 5.5 mmHg MV Mean Velocity 69.7 cm/s MV Mean Gradient 2.0 mmHg Mitral E Point Velocity 89.8 cm/s Mitral A Point Velocity 105.0 cm/s Mitral E to A Ratio 0.9 MV PHT Velocity 106.0 cm/s MV Deceleration [place] 386.0 cm/s MV Pressure Half Time 82.4 ms MV Area PHT 2.7 cm MV Deceleration Time 301.0 ms TR Peak Velocity 282.0 cm/s TR Peak Gradient 31.8 mmHg Right Atrial Pressure 5.0 mmHg Pulmonary Artery Systolic Pressu 36.8 mmHg Right Ventricular Systolic Press 36.8 mmHg PV Peak Velocity 132.0 cm/s PV Peak Gradient 7.0 mmHg PV Mean Velocity 90.7 cm/s PV Mean Gradient 4.0 mmHg PV Velocity Time Integral 31.7 cm LV E' Lateral Velocity 10.1 cm/s Mitral E to LV E' Lateral Ratio 8.9 LV E' Septal Velocity 6.3 cm/s Mitral E to LV E' Septal Ratio 14.2
[2017-06-09 20:02] VITALS: BP 162/50
[2017-06-09 22:45] VITALS: BP 148/48
[2017-06-10 06:43] VITALS: BP 152/62
--- NOTE | 2017-06-10 07:25 | PN- Housestaff ---
See Addendum Subjective Follow-up For: Syncopal episode COPD Exacerbation Tele-Events Since Last Visit: Pacing HR: 63-74 Subjective: Patient was seen and examined today. States that he just woke up and doesn't know how he is doing. States he feels as though he has some phlegm in the back of his throat. States he has decreased SOB while conversing which is an improvement since yesterday. States he had palpitations yesterday however has not experienced any today. Denies chest pain. States he has some leg weakness and is interested in physical therapy. Would like to speak with the watch case polisher. No acute events overnight. Review of Systems Constitutional: Reports: weakness. Cardiovascular: Reports: see HPI. Respiratory: Reports: see HPI. Gastrointestinal: Reports: no symptoms. Genitourinary: Reports: no symptoms. Musculoskeletal: Reports: no symptoms. Neurological/Psychological: Reports: no symptoms, weakness. Hematologic/Endocrine: Reports: no symptoms. Objective Last 24 Hrs of Vital Signs/I&O Vital Signs Date Time Temp Pulse Resp B/P B/P Pulse O2 O2 Flow FiO2 Mean Ox Delivery Rate 06/10 0643 98.0 72 18 152/62 96 Nasal Cannula 06/09 2245 97.7 67 18 148/48 95 Nasal Cannula 06/09 2143 98 Nasal 1.5L Cannula 06/09 2102 73 162/50 06/09 2002 97.6 73 18 162/50 95 Nasal 2.0L Cannula 06/09 1845 94 Nasal 1.0L Cannula 06/09 1600 97.8 67 20 148/56 98 Nasal 1.0L Cannula 06/09 1600 96 Nasal 1.0L Cannula 06/09 1421 100 Nasal 2.0L Cannula 06/09 1015 98 Nasal 2.0L Cannula 06/09 1015 99 Nasal 2.0L Cannula 06/09 1015 97.3 72 26 152/58 99 Nasal 2.0L Cannula 06/09 0946 76 132/78 06/09 0940 97.9 76 24 132/78 96 Nasal 3.0L Cannula 06/09 0935 Nasal 2.0L Cannula 06/09 0935 96 Nasal 2.0L Cannula 06/09 0758 95 Nasal 2.0L Cannula Intake & Output 06/10 0800 06/10 0000 06/09 1600 Intake Total 200 250 150 Output Total 250 150 Balance 200 0 0 Intake, Oral 200 250 150 Number 1 Bowel Movements Output, Urine 250 150 Patient 219 lb Weight Weight Bed scale Measurement Method Physical Exam General Appearance: Alert, Oriented X3, Cooperative, No Acute Distress HEENT: Atraumatic, Mucous Membr. moist/pink Cardiovascular: Regular Rate, Normal S1, Normal S2 Lungs: coarse breath sounds bilateral, crackles heard over lung bases Abdomen: Normal Bowel Sounds, Soft, No Tenderness Neurological: Normal Speech, Strength at 5/5 X4 Ext, Sensation Intact, Cranial Nerves 3-12 NL Extremities: No Clubbing, No Cyanosis, No Edema, Normal Pulses, No Tenderness/ Swelling Vascular: Normal Pulses, Pulses Symmetrical Current Medications: Current Medications Sig/Ashley Start time Last Medication Dose Route Stop Time Status Admin Acetylcysteine 8 ML BID 06/09 2199 DC INH Acetylcysteine 4 ML BID 06/09 220 AC 06/09 INH 1843 Acetylcysteine 8 ML BID 06/09 1500 DC INH Acetylcysteine 4 ML BID 06/09 1411 DC INH Albuterol Sulfate 3 ML TID 06/09 220 AC 06/09 INH 1843 Albuterol Sulfate 3 ML Q4P PRN 06/09 1045 AC 06/09 INH 1416 Amlodipine Besylate 7.5 MG DAILY 06/09 1000 AC 06/09 PO 0946 Apixaban 2.5 MG BID 06/08 2359 AC 06/09 PO 2102 Atorvastatin Calcium 80 MG QPM 06/09 2200 AC 06/09 PO 2102 Azithromycin 500 MG DAILY 06/09 1000 DC 06/09 Dextrose/Water 250 ML IV 1130 Benzonatate 100 MG TID PRN 06/09 0100 AC 06/09 PO 06/12 0059 0554 Budesonide/ 2 PUF BID 06/08 2345 AC 06/09 Formoterol Fumarate INH 2102 Carvedilol 12.5 MG BID 06/09 1000 AC 06/09 PO 2102 Finasteride 5 MG QPM 06/09 2200 AC 06/09 PO 2102 Guaifenesin 600 MG DAILY 06/09 1000 AC 06/09 PO 0946 Insulin Aspart 0 TIDAC 06/09 1700 AC 06/09 SC 1722 Losartan Potassium 75 MG QAM 06/09 1000 AC 06/09 PO 0946 Methylprednisolone 40 MG Q8 06/09 2200 AC 06/10 IV 0519 Methylprednisolone 40 MG Q12 06/09 1000 DC 06/09 IV 0946 Last 24 Hrs of Lab/Jeff Results Last 24 Hrs of Labs/Mics: Laboratory Tests 06/10/17 0640: Sodium Pending, Potassium Pending, Chloride Pending, Carbon Dioxide Pending, Anion Gap Pending, BUN Pending, Creatinine Pending, BUN/Creatinine Ratio Pending , Magnesium Pending, CBC w Diff Pending, WBC Pending, RBC Pending, Hgb Pending, Hct Pending, MCV Pending, MCH Pending, MCHC Pending, RDW Pending, Plt Count Pending, MPV Pending Orders ECHO Findings: Normal left ventricular systolic function LVEF: 55-60%. Mild concentric left ventricular hypertrophy. Mild pulmonary hypertension. Radiology Findings: CT Chest: IMPRESSION: 1. Mild paraseptal emphysema of the upper lobes. 2. Chronic bronchial wall thickening in both lungs, as may be seen in bronchitis. Scattered opacities of atelectasis/scarring in both lungs. Compared to 08/10/2016, there is new subtle centrilobular nodular opacity in the right lower lobe, likely secondary to active bronchiolitis. 3. Atherosclerotic disease of coronary arteries and mild cardiomegaly. No pulmonary edema or pleural effusion. Assessment/Plan Assessment: 89 year old male with a PMH significant for A. fib on Eliquis status post pacemaker and ICD placement, COPD on oxygen or steroid dependent, PE, for previous MIs with 5 stents placed at [facility], AAA status post repair, CHF came in to the hospital for outpatient echocardiogram and had a rapid response called on him due to dyspnea, lightheadedness and a brief episode of ? syncope. Assessment and Plan: He was evaluated by cardiology earlier. It appears he has a history of similar episodes of unresponsiveness after spells of intense coughing (post tussive presyncope) and orthostatic hypotension. The pacemaker mortician supplies sales representative did not find any problems/events in the pacemaker. Patient was reevaluated by cardiology today. His ECHO is nl. Patient no longer needs monitoring on telemetry. Patient' s breathing today has improved however continues to have dyspnea and cough. Will continue IV steroids and supplemental oxygen at this time. Patient feels weak and was evaluated by physical therapy. He will need STR upon discharge. COPD Exacerbation: * Continue oxygen supplementation to maintain saturations >90% * Continue IV Solu-Medrol 40mg q8. * TRC/nebs as needed. * Mucomist nebs BID for 3 days. * Continue home Symbicort * Pulmonary consult with Dr Herring ?Syncope: He has a history of orthostatic hypotension. He does have a history of atrial fibrilliation and carotid stenosis which can predispose to clots. Patient is being worked up for possible causes of syncope including neuro and cardiac etiologies. Patient denies feeling dizzy or lightheaded at this time. Patient had an echocardiogram which was normal. No events on telemetry were noted. Patient was seen by cardiology and telemetry was discontinued. Patient has not had any syncopal or presyncopal episodes since admission. Likely syncope is secondary to his intense coughing spells due to his COPD exacerbation. * Discontinued telemetry per cardiology. * Echocardiogram EF: normal History of Atrial Fibrilliation: * Continue Apixaban 2.5mg BID. * Heart rate well controlled. No need for AV rhoda blocking agents at this time History of Hypertension/HLD: * Continue Losartan, Amlodipine * Carvedilol increased to 25mg BID per cardiology recs * Continue Atorvastatin History of BPH: * Continue Finasteride Diet: Diabetic DVT Prophylaxis: On Eliquis Code: DNR/DNI Dispo: Upon medical clearance will require STR Problem List: 1. COPD (chronic obstructive pulmonary disease) Pain Ratin Pain Location: n/a Pain Goal: Remain pain free Pain Plan: n/a Tomorrow's Labs & Rationales: cbc bep
[2017-06-10 07:40] LABS: ABSOLUTE BASOPHIL COUNT 0 /CUMM (0.0-0.2); ABSOLUTE EOSINOPHIL COUNT 0 /CUMM (0.0-0.7); ABSOLUTE GRANULOCYTE CT 8.3 /CUMM (1.4-6.5); ABSOLUTE LYMPH COUNT 0.8 /CUMM (1.2-3.4); ABSOLUTE MONOCYTE COUNT 0.1 /CUMM (0.10-0.60); BASOPHIL % 0 % (0.0-2.0); EOSINOPHIL % 0 % (0-5); GRANULOCYTE % 89.8 % (42.2-75.2); HEMATOCRIT 28.2 % (42-52); MEAN CORPUSCULAR HGB 28.5 PG (27.0-31.0); MEAN CORPUSCULAR HGB CONC 33.7 G/DL (33.0-37.0); MEAN CORPUSCULAR VOLUME 84.7 FL (80.0-94.0); MEAN PLATELET VOLUME 8.3 FL (7.4-10.4); PLATELET COUNT 193 /CUMM (130-400); RBC DISTRIBUTION WIDTH 14.7 % (11.5-14.5); RED BLOOD CELL CT 3.33 /CUMM (4.70-6.10)
[2017-06-10 08:36] LABS: WHITE BLOOD CELL COUNT 9.2 /CUMM (4.8-10.8)
[2017-06-10 09:13] VITALS: BP 170/58
--- NOTE | 2017-06-10 11:03 | PN- Pulmonary ---
Subjective HPI/Critical Care Issues: pt seen and examined echo, ct reviewed no overnight events Objective Current Medications: Current Medications Sig/Ashley Start time Last Medication Dose Route Stop Time Status Admin Acetylcysteine 8 ML BID 06/09 2200 DC INH Acetylcysteine 4 ML BID 06/09 2200 AC 06/10 INH 0902 Acetylcysteine 8 ML BID 06/09 1500 DC INH Acetylcysteine 4 ML BID 06/09 1411 DC INH Albuterol Sulfate 3 ML TID 06/09 2200 AC 06/10 INH 0902 Albuterol Sulfate 3 ML Q4P PRN 06/09 1045 AC 06/09 INH 1416 Amlodipine Besylate 7.5 MG DAILY 06/09 1000 AC 06/10 PO 0916 Apixaban 2.5 MG BID 06/08 2359 AC 06/10 PO 0916 Atorvastatin Calcium 80 MG QPM 06/09 2200 AC 06/09 PO 2102 Azithromycin 500 MG DAILY 06/09 1000 DC 06/09 Dextrose/Water 250 ML IV 1130 Benzonatate 100 MG TID PRN 06/09 0100 AC 06/09 PO 06/12 0059 0554 Budesonide/ 2 PUF BID 06/08 2345 AC 06/10 Formoterol Fumarate INH 0918 Carvedilol 12.5 MG BID 06/09 1000 AC 06/10 PO 0915 Finasteride 5 MG QPM 06/09 2200 AC 06/09 PO 2102 Guaifenesin 600 MG DAILY 06/09 1000 AC 06/10 PO 0916 Insulin Aspart 0 TIDAC 06/09 1700 AC 06/10 SC 0818 Losartan Potassium 75 MG QAM 06/09 1000 AC 06/10 PO 0915 Methylprednisolone 40 MG Q8 06/09 2200 AC 06/10 IV 0519 Methylprednisolone 40 MG Q12 06/09 1000 DC 06/09 IV 0946 Vital Signs & I&O Last 24 Hrs of Vitals and I&O: Vital Signs Date Time Temp Pulse Resp B/P B/P Pulse O2 O2 Flow FiO2 Mean Ox Delivery Rate 06/10 0916 65 170/58 06/10 0915 65 170/58 06/10 0915 65 170/58 06/10 0913 65 170/58 06/10 0906 95 Room Air Room Air 06/10 0800 Nasal 1.0L Cannula 06/10 0643 98.0 72 18 152/62 96 Nasal Cannula 06/09 2245 97.7 67 18 148/48 95 Nasal Cannula 06/09 2143 98 Nasal 1.5L Cannula 06/09 2102 73 162/50 06/09 2001 97.6 73 18 162/50 95 Nasal 2.0L Cannula 06/09 1845 94 Nasal 1.0L Cannula 06/09 1599 97.8 67 20 148/56 98 Nasal 1.0L Cannula 06/09 1600 96 Nasal 1.0L Cannula 06/09 1421 100 Nasal 2.0L Cannula Intake & Output 06/10 1600 06/10 0800 06/10 0000 Intake Total 200 250 Output Total 250 Balance 200 0 Intake, Oral 200 250 Output, Urine 250 Exam Other Physical Findings: Generally - Awake, alert Head and neck - normocephalic, atraumatic, EOMI grossly intact Cardiovascular - S1, S2 Lungs -bilateral wheezing Abdomen - Bowel sounds positive, soft, non-tender Extremities - trace edema Results Last 24 Hrs of Lab Results: Laboratory Tests 06/10/17 0640: Anion Gap 11, Estimated GFR 52 L, BUN/Creatinine Ratio 20.8, Magnesium 1.9, CBC w Diff NO MAN DIFF REQ, RBC 3.33 L, MCV 84.7, MCH 28.5, MCHC 33.7, RDW 14.7 H, MPV 8.3, Gran % 89.8 H, Lymphocytes % 8.6 L, Monocytes % 1.6 L, Eosinophils % 0, Basophils % 0, Absolute Granulocytes 8.3 H, Absolute Lymphocytes 0.8 L, Absolute Monocytes 0.1, Absolute Eosinophils 0, Absolute Basophils 0 Impression/Plan Impression/Plan Impression/Plan: Impression 89 year old man * dyspnea/wheezing - exacerbation of COPD likely secondary to a recent URI * hx of a.fib, vertigo, elevated probnp Plan -keep solumedrol to 40mg iv q8h -trc/nebs -nebs to q6h -mucomyst nebulized bid -cont eliquis
--- NOTE | 2017-06-10 11:29 | PN- Cardiology ---
Subjective Subjective: Still with an intermittent cough which is nonproductive. No chest pain. Objective Vital Signs and I&Os Vital Signs Date Time Temp Pulse Resp B/P B/P Pulse O2 O2 Flow FiO2 Mean Ox Delivery Rate 06/10 0916 65 170/58 06/10 0915 65 170/58 06/10 0915 65 170/58 06/10 0913 65 170/58 06/10 0906 95 Room Air Room Air 06/10 0800 Nasal 1.0L Cannula 06/10 0643 98.0 72 18 152/62 96 Nasal Cannula 06/09 2245 97.7 67 18 148/48 95 Nasal Cannula 06/09 2143 98 Nasal 1.5L Cannula 06/09 2102 73 162/50 06/09 2002 97.6 73 18 162/50 95 Nasal 2.0L Cannula 06/09 1845 94 Nasal 1.0L Cannula 06/09 1600 97.8 67 20 148/56 98 Nasal 1.0L Cannula 06/09 1600 96 Nasal 1.0L Cannula 06/09 1421 100 Nasal 2.0L Cannula Intake & Output 06/10 1600 06/10 0800 06/10 0000 06/09 1600 06/09 0800 06/09 0000 Intake Total 200 250 150 Output Total 250 150 Balance 200 0 0 Intake, Oral 200 250 150 Number 1 Bowel Movements Output, Urine 250 150 Patient 219 lb 219 lb Weight Weight Bed scale Measurement Method Physical Exam: General: no apparent distress. Alert. Eyes: No obvious scleral icterus. HEENT: No jugular venous distention or abnormal jugular venous pulsations. Cardiovascular: Normal intensity S1/S2. Pacemaker noted Respiratory: No rales or rhonchi Abdomen: Soft, nontender with no guarding or rebound tenderness. Musculoskeletal: No clubbing or cyanosis noted; no edema Skin: No obvious rashes or ulcerations. Neurologic: No gross focal deficits noted. Lymph: No gross lymphadenopathy. Current Medications: Current Medications Sig/Ashley Start time Last Medication Dose Route Stop Time Status Admin Acetylcysteine 8 ML BID 06/09 2199 DC INH Acetylcysteine 4 ML BID 06/09 2199 AC 06/10 INH 0902 Acetylcysteine 8 ML BID 06/09 1500 DC INH Acetylcysteine 4 ML BID 06/09 1411 DC INH Albuterol Sulfate 3 ML TID 06/09 2199 AC 06/10 INH 0902 Albuterol Sulfate 3 ML Q4P PRN 06/09 1045 AC 06/09 INH 1416 Amlodipine Besylate 7.5 MG DAILY 06/09 1000 AC 06/10 PO 0916 Apixaban 2.5 MG BID 06/08 2359 AC 06/10 PO 0916 Atorvastatin Calcium 80 MG QPM 06/09 2200 AC 06/09 PO 2102 Azithromycin 500 MG DAILY 06/09 1000 DC 06/09 Dextrose/Water 250 ML IV 1130 Benzonatate 100 MG TID PRN 06/09 0100 AC 06/09 PO 06/12 0059 0554 Budesonide/ 2 PUF BID 06/08 2345 AC 06/10 Formoterol Fumarate INH 0918 Carvedilol 12.5 MG BID 06/09 1000 AC 06/10 PO 0915 Finasteride 5 MG QPM 06/09 2200 AC 06/09 PO 2102 Guaifenesin 600 MG DAILY 06/09 1000 AC 06/10 PO 0916 Insulin Aspart 0 TIDAC 06/09 1700 AC 06/10 SC 0818 Losartan Potassium 75 MG QAM 06/09 1000 AC 06/10 PO 0915 Methylprednisolone 40 MG Q8 06/09 2200 AC 06/10 IV 0519 Methylprednisolone 40 MG Q12 06/09 1000 DC 06/09 IV 0946 Results Last 48 Hrs of Labs/Mics: Laboratory Tests 06/10/17 0640: Anion Gap 11, Estimated GFR 52 L, BUN/Creatinine Ratio 20.8, Magnesium 1.9, CBC w Diff NO MAN DIFF REQ, RBC 3.33 L, MCV 84.7, MCH 28.5, MCHC 33.7, RDW 14.7 H, MPV 8.3, Gran % 89.8 H, Lymphocytes % 8.6 L, Monocytes % 1.6 L, Eosinophils % 0, Basophils % 0, Absolute Granulocytes 8.3 H, Absolute Lymphocytes 0.8 L, Absolute Monocytes 0.1, Absolute Eosinophils 0, Absolute Basophils 0 06/09/17 0627: Anion Gap 14, Estimated GFR 48 L, BUN/Creatinine Ratio 16.4, CBC w Diff NO MAN DIFF REQ, RBC 3.55 L, MCV 84.9, MCH 28.7, MCHC 33.8, RDW 14.7 H, MPV 8.5, Gran % 83.2 H, Lymphocytes % 16.1 L, Monocytes % 0.4 L, Eosinophils % 0, Basophils % 0.3, Absolute Granulocytes 3.4, Absolute Lymphocytes 0.7 L, Absolute Monocytes 0 L, Absolute Eosinophils 0, Absolute Basophils 0 06/08/172004: Troponin I 0.06, [id number] Pept 1470 H 06/08/17 1805: Lactic Acid 0.9 06/08/17 170: Urine Color YEL, Urine Clarity CLEAR, Urine pH 6.0, Ur Specific Latimer 1.015, Urine Protein NEG, Urine Ketones NEG, Urine Nitrite NEG, Urine Bilirubin NEG, Urine Urobilinogen 0.2, Ur Leukocyte Esterase NEG, Ur Microscopic SEDIMENT EXAMINED, Urine RBC RARE, Urine WBC RARE, Ur Epithelial Cells RARE, Urine Bacteria RARE H, Urine Mucus RARE, Urine Hemoglobin TRACE-INTACT H, Urine Glucose NEG 06/08/17 1500: Anion Gap 12, Estimated GFR 38 L, BUN/Creatinine Ratio 15.3, Glucose 114 H, Lactic Acid 2.6 H, Calcium 8.4, Total Bilirubin 0.6, AST 19, ALT 28, Alkaline Phosphatase 85, Troponin I 0.06, Total Protein 5.7 L, Albumin 3.2 L, Globulin 2.5, Albumin/Globulin Ratio 1.3, D-Dimer High Sensitivty 265 H, CBC w Diff NO MAN DIFF REQ, RBC 3.68 L, MCV 83.6, MCH 28.3, MCHC 33.8, RDW 14.6 H, MPV 8.4, Gran % 62.6, Lymphocytes % 26.7, Monocytes % 9.6 H, Eosinophils % 0.8, Basophils % 0.3, Absolute Granulocytes 3.7, Absolute Lymphocytes 1.6, Absolute Monocytes 0.6, Absolute Eosinophils 0, Absolute Basophils 0 Microbiology 06/08 170 URINE ROUT: Urine Culture - COMP 06/08 1509 NASOPHARYN: Influenza Virus A & B Rapid Smear - COMP Recent Imaging Studies: Telemetry tracings were personally reviewed and show paced rhythm Echo: Normal left ventricular systolic function. Mild concentric left ventricular hypertrophy. Mild pulmonary hypertension. CT: 1. Mild paraseptal emphysema of the upper lobes. 2. Chronic bronchial wall thickening in both lungs, as may be seen in bronchitis. Scattered opacities of atelectasis/scarring in both lungs. Compared to 08/10/2016, there is new subtle centrilobular nodular opacity in the right lower lobe, likely secondary to active bronchiolitis. 3. Atherosclerotic disease of coronary arteries and mild cardiomegaly. No pulmonary edema or pleural effusion. Assessment/Plan Assessment/Plan 1. Posttussive syncope with bronchiolitis 2. non-ischemic cardiomyopathy now improved 3. Atrial fibrillation on Eliquis 4. AICD in situ 5. COPD 6. s/p AAA resection Pacemaker interrogation revealed normal device function. Echocardiogram shows normal ejection fraction and he shows no evidence of volume overload at this time. CT scan showed evidence of possible bronchiolitis. Continue daily statin along with Eliquis. If blood pressure continues to remain elevated can consider increasing the carvedilol to 25 mg by mouth twice a day if ok with pulmonary. Charli Saldana MD [facility] Continue telemetry? No
[2017-06-10 14:53] VITALS: BP 130/50
--- NOTE | 2017-06-10 15:11 | Patient Discharge Instructions ---
Discharge Instructions General Discharge Information You were seen/treated for: Syncopal episode COPD Exacerbation Special Instructions: Please follow up with your PCP within 1 week of discharge. Please follow up with your entertainment production professional and security monitor within 1 week of discharge. Please note any medication changes that were made and take as instructed. Diet Continue normal diet: No Recommended Diet: Diabetic Activity Full Activity/No Limits: No Activity Self Limited: Yes Acute Coronary Syndrome Inclusion Criteria At DC or during hospital stay patient has or had the following: ACS DIAGNOSIS No Discharge Core Measures Meds if any: Prescribed or Continued at Discharge Meds if any: NOT Prescribed or Continued at Discharge Congestive Heart Failure Inclusion Criteria At DC or during hospital stay patient has or had the following: CHF DIAGNOSIS No Discharge Core Measures Meds if any: Prescribed or Continued at Discharge Meds if any: NOT Prescribed or Continued at Discharge Cerebrovascular accident Inclusion Criteria At DC or during hospital stay patient has or had the following: CVA/TIA Diagnosis No Discharge Core Measures Meds if any: Prescribed or Continued at Discharge Meds if any: NOT Prescribed or Continued at Discharge Venous thromboembolism Inclusion Criteria VTE Diagnosis No VTE Type NONE VTE Confirmed by (Test) NONE Discharge Core Measures - Per Current guidelines, there needs to be overlap - treatment for the first 5 days of Warfarin therapy. - If discharged on Warfarin prior to 5 days of - overlap therapy, the patient will need to be - assessed for post discharge needs including - *Post discharge parental anticoagulation - *Warfarin and/or parental anticoagulation education - *Follow up date to check INR post discharge At least 5 days overlap therapy as Inpatient No Meds if any: Prescribed or Continued at Discharge Note: Overlap Therapy is Warfarin and Anticoagulant Meds if any: NOT Prescribed or Continued at Discharge
[2017-06-10 23:51] VITALS: BP 112/40
[2017-06-11 06:00] VITALS: BP 164/68
[2017-06-11 08:44] LABS: ABSOLUTE BASOPHIL COUNT 0 /CUMM (0.0-0.2); ABSOLUTE EOSINOPHIL COUNT 0 /CUMM (0.0-0.7); ABSOLUTE GRANULOCYTE CT 9.9 /CUMM (1.4-6.5); ABSOLUTE LYMPH COUNT 0.7 /CUMM (1.2-3.4); ABSOLUTE MONOCYTE COUNT 0.1 /CUMM (0.10-0.60); BASOPHIL % 0.1 % (0.0-2.0); EOSINOPHIL % 0 % (0-5); GRANULOCYTE % 92.6 % (42.2-75.2); HEMATOCRIT 28.6 % (42-52); MEAN CORPUSCULAR HGB CONC 32.9 G/DL (33.0-37.0); MEAN CORPUSCULAR VOLUME 85.3 FL (80.0-94.0); MEAN PLATELET VOLUME 8.4 FL (7.4-10.4); PLATELET COUNT 197 /CUMM (130-400); RBC DISTRIBUTION WIDTH 15.2 % (11.5-14.5); RED BLOOD CELL CT 3.35 /CUMM (4.70-6.10); WHITE BLOOD CELL COUNT 10.7 /CUMM (4.8-10.8)
--- NOTE | 2017-06-11 08:55 | PN- Housestaff ---
Jeremi URBANO,Devorah 06/11/17 0855: Subjective Follow-up For: COPD exacerbation Complaints: left arm swelling. Subjective: Patient was seen and examined at bedside. He was lying comfortably saturating at room air. No overnight events. He complains of left arm swelling for the past few days. No pain or tenderness. Patient denies chest pain, shortness of breath, palpitation, cough, fever. Review of Systems Constitutional: Reports: no symptoms. Cardiovascular: Reports: no symptoms. Respiratory: Reports: no symptoms. Gastrointestinal: Reports: no symptoms. Neurological/Psychological: Reports: no symptoms. Objective Last 24 Hrs of Vital Signs/I&O Vital Signs Date Time Temp Pulse Resp B/P B/P Pulse O2 O2 Flow FiO2 Mean Ox Delivery Rate 06/11 1109 97 Room Air 06/11 0812 80 160/70 06/11 0811 80 160/70 06/11 0811 80 160/70 06/11 0600 97.9 80 20 164/68 95 06/10 2351 97.8 71 20 112/40 94 Room Air 06/10 2153 71 112/40 06/10 2137 Room Air 06/10 1905 94 Room Air 06/10 1453 98.3 70 18 130/50 93 Room Air 06/10 1356 Nasal 2.0L Cannula 06/10 1350 Nasal Room Air Cannula Intake & Output 06/11 1600 06/11 0800 06/11 0000 Intake Total 462 Output Total Balance 462 Intake, Oral 462 Physical Exam General Appearance: Alert, Oriented X3, Cooperative, No Acute Distress HEENT: PERRLA Cardiovascular: Regular Rate, Normal S1, Normal S2, No Murmurs Lungs: Normal Air Movement Abdomen: Soft Neurological: Strength at 5/5 X4 Ext Extremities: left arm swelling. Right arm normal. No tenderness. Pulses felt. Current Medications: Current Medications Sig/Ashley Start time Last Medication Dose Route Stop Time Status Admin Acetylcysteine 4 ML BID 06/09 2199 r 06/11 INH 06/13 2300 1106 Albuterol Sulfate 3 ML TID 06/09 2200 AC 06/11 INH 1106 Albuterol Sulfate 3 ML Q4P PRN 06/09 1045 AC 06/09 INH 1416 Amlodipine Besylate 7.5 MG DAILY 06/09 1000 AC 06/11 PO 0811 Apixaban 2.5 MG BID 06/08 2359 AC 06/11 PO 0811 Atorvastatin Calcium 80 MG QPM 06/09 2200 AC 06/10 PO 2129 Benzonatate 100 MG TID PRN 06/09 0100 AC 06/09 PO 06/12 0059 0554 Budesonide/ 2 PUF BID 06/08 2345 AC 06/11 Formoterol Fumarate INH 0812 Carvedilol 25 MG BID 06/10 2200 AC 06/11 PO 0811 Carvedilol 12.5 MG BID 06/09 1000 DC 06/10 PO 0915 Finasteride 5 MG QPM 06/09 2200 AC 06/10 PO 2129 Guaifenesin 600 MG DAILY 06/09 1000 AC 06/11 PO 0811 Insulin Aspart 0 TIDAC 06/09 1700 AC 06/11 SC 0811 Losartan Potassium 75 MG QAM 06/09 1000 AC 06/11 PO 0812 Methylprednisolone 40 MG Q8 06/09 220 AC 06/11 IV 0538 Last 24 Hrs of Lab/Jeff Results Last 24 Hrs of Labs/Mics: Laboratory Tests 06/11/17 0621: Anion Gap 12, Estimated GFR 52 L, BUN/Creatinine Ratio 26.9 H, CBC w Diff NO MAN DIFF REQ, RBC 3.35 L, MCV 85.3, MCH 28.0, MCHC 32.9 L, RDW 15.2 H, MPV 8.4, Gran % 92.6 H, Lymphocytes % 6.2 L, Monocytes % 1.1 L, Eosinophils % 0, Basophils % 0.1, Absolute Granulocytes 9.9 H, Absolute Lymphocytes 0.7 L, Absolute Monocytes 0.1, Absolute Eosinophils 0, Absolute Basophils 0 Assessment/Plan Assessment: 89 year old male with a PMH significant for A. fib on Eliquis status post pacemaker and ICD placement, COPD on oxygen or steroid dependent, PE, for previous MIs with 5 stents placed at [facility], AAA status post repair, CHF came in to the hospital for outpatient echocardiogram and had a rapid response called on him due to dyspnea, lightheadedness and a brief episode of ? syncope. Assessment and Plan: COPD Exacerbation: * Continue oxygen supplementation to maintain saturations >90% * Continue IV Solu-Medrol 40mg q8. * TRC/nebs as needed. * Mucomist nebs BID for 3 days. * Continue home Symbicort * Pulmonary consult with Dr Herring ?Syncope: He has a history of orthostatic hypotension. He does have a history of atrial fibrilliation and carotid stenosis which can predispose to clots. Patient denies feeling dizzy or lightheaded at this time. Patient has not had any syncopal or presyncopal episodes since admission. Likely syncope is secondary to his intense coughing spells due to his COPD exacerbation. History of Atrial Fibrilliation: * Continue Apixaban 2.5mg BID. * Heart rate well controlled. No need for AV rhoda blocking agents at this time History of Hypertension/HLD: * Continue Losartan, Amlodipine * Carvedilol increased to 25mg BID per cardiology recs * Continue Atorvastatin History of BPH: * Continue Finasteride Left arm swelling Left arm swelling is present for the past few days. No history of any trauma. No evidence of any thrombophlebitis. No area of redness. Pulses felt. We'll continue monitoring and advised to keep his arm elevated. If he has pain or increased swelling we will take an ultrasound of his left arm. Diet: Diabetic DVT Prophylaxis: On Eliquis Code: DNR/DNI Dispo: Upon medical clearance will require STR Plan-cardiology, pulmonology follow-up. Problem List: 1. Syncope and collapse 2. COPD (chronic obstructive pulmonary disease) Pain Ratin Pain Location: none Pain Goal: Remain pain free Pain Plan: Tylenol Tomorrow's Labs & Rationales: cbc,bep Loida URBANO,Anjali 06/11/17 1522: Attending MD Review Statement Attending Statement Attending MD Statement: examined this patient, discuss w/resident/PA/QUALITY ASSURANCE TEST PROGRAM MANAGER, agreed w/resident/PA/QUALITY ASSURANCE TEST PROGRAM MANAGER, discussed with family, reviewed EMR data (avail), discussed with nursing, amended to note Attending Assessment/Plan: Patient seen and examined. Resting comfortably not in any acute distress. Son present at the bedside. He reports feeling better. Reports some shortness of breath with exertion. On examination he has good entry bilaterally with mild expiratory rhonchi. Abdomen is soft and nontender. He has no peripheral edema in the lower extremities. He does have left upper extremity forearm swelling which required overnight. Radial pulses are palpable. Lymph does not be ischemic. Query etiology probably positional. Thrombosis appears less likely as patient is on anticoagulation therapy. Recommendations: -Taper Solumedrol dose to q 12 h today. -Keep left upper extremity elevated with a foam block. If swelling is persistent tomorrow consider Doppler ultrasound To rule out thrombosis. -Blood glucose levels ranging in the high 200s-300s. Increase to high dose sliding scale coverage. Monitor for improvement with decrease of steroid therapy. -No indication for repeat serum chemistry all CBCs in a.m. unless there is a change in his clinical status.
--- NOTE | 2017-06-11 13:19 | PN- Pulmonary ---
Subjective HPI/Critical Care Issues: Patient seen and examined this morning. His left upper extremity swollen. His shortness of breath has significantly improved. Objective Current Medications: Current Medications Sig/Ashley Start time Last Medication Dose Route Stop Time Status Admin Acetylcysteine 4 ML BID 06/09 2200 AC 06/11 INH / 2300 1106 Albuterol Sulfate 3 ML TID 06/09 2200 AC 06/11 INH 1106 Albuterol Sulfate 3 ML Q4P PRN 06/09 1045 AC 06/09 INH 1416 Amlodipine Besylate 7.5 MG DAILY 06/09 1000 AC 06/11 PO 0811 Apixaban 2.5 MG BID 06/08 2359 AC 06/11 PO 0811 Atorvastatin Calcium 80 MG QPM 06/09 2200 AC 06/10 PO 2129 Benzonatate 100 MG TID PRN 06/09 0100 AC 06/09 PO 06/12 0059 0554 Budesonide/ 2 PUF BID 06/08 2345 AC 06/11 Formoterol Fumarate INH 0812 Carvedilol 25 MG BID 06/10 2200 AC 06/11 PO 0811 Finasteride 5 MG QPM 06/09 2200 AC 06/10 PO 2129 Guaifenesin 600 MG DAILY 06/09 1000 AC 06/11 PO 0811 Insulin Aspart 0 TIDAC 06/09 1700 AC 06/11 SC 1238 Losartan Potassium 75 MG QAM 06/09 1000 AC 06/11 PO 0812 Methylprednisolone 40 MG Q8 06/09 2200 AC 06/11 IV 0538 Vital Signs & I&O Last 24 Hrs of Vitals and I&O: Vital Signs Date Time Temp Pulse Resp B/P B/P Pulse O2 O2 Flow FiO2 Mean Ox Delivery Rate 06/11 1109 97 Room Air / 0812 80 160/70 02/ 0811 80 160/70 / 0811 80 160/70 / 0800 96 02/03 0600 97.9 80 20 164/68 95 / 2351 97.8 71 20 112/40 94 Room Air 02/ 2153 71 112/40 06/10 2137 Room Air 06/10 1905 94 Room Air 06/10 1453 98.3 70 18 130/50 93 Room Air 06/10 1356 Nasal 2.0L Cannula 06/10 1350 Nasal Room Air Cannula Intake & Output 06/11 1600 06/11 0800 06/11 0000 Intake Total 462 Output Total Balance 462 Intake, Oral 462 Exam Other Physical Findings: Generally - Awake, alert Head and neck - normocephalic, atraumatic, EOMI grossly intact Cardiovascular - S1, S2 Lungs -bilateral wheezing improved Abdomen - Bowel sounds positive, soft, non-tender Extremities -left upper extremity edema Results Last 24 Hrs of Lab Results: Laboratory Tests 06/11/17 0621: Anion Gap 12, Estimated GFR 52 L, BUN/Creatinine Ratio 26.9 H, CBC w Diff NO MAN DIFF REQ, RBC 3.35 L, MCV 85.3, MCH 28.0, MCHC 32.9 L, RDW 15.2 H, MPV 8.4, Gran % 92.6 H, Lymphocytes % 6.2 L, Monocytes % 1.1 L, Eosinophils % 0, Basophils % 0.1, Absolute Granulocytes 9.9 H, Absolute Lymphocytes 0.7 L, Absolute Monocytes 0.1, Absolute Eosinophils 0, Absolute Basophils 0 Impression/Plan Impression/Plan Impression/Plan: Impression 89 year old man * dyspnea/wheezing - exacerbation of COPD likely secondary to a recent URI * hx of a.fib, vertigo, elevated probnp Plan -Reduce Solu-Medrol to 40 mg IV every 12 hours -trc/nebs -nebs to q6h -mucomyst nebulized bid -cont eliquis
[2017-06-11 15:25] VITALS: BP 112/68; BP 150/60
[2017-06-12 06:38] VITALS: BP 142/50
--- NOTE | 2017-06-12 08:45 | PN- Housestaff ---
Dawn URBANO,Rashel 06/12/17 0844: Subjective Follow-up For: Syncopal episode COPD Exacerbation Subjective: Patient was seen and examined today. States that his breathing has improved. Continues to have productive cough with mucous - pink tinged. Denies chest pain, palpitations. Patient states his left arm has been swollen since Tuesday. Denies pain, numbness or tingling. No acute events overnight. Review of Systems Constitutional: Reports: no symptoms. Cardiovascular: Reports: edema. Respiratory: Reports: cough, short of breath. Gastrointestinal: Reports: no symptoms. Genitourinary: Reports: no symptoms. Musculoskeletal: Reports: no symptoms. Neurological/Psychological: Reports: no symptoms. Objective Last 24 Hrs of Vital Signs/I&O Vital Signs Date Time Temp Pulse Resp B/P B/P Pulse O2 O2 Flow FiO2 Mean Ox Delivery Rate 06/12 0753 80 142/50 06/12 0752 80 142/50 06/12 0638 98.9 80 20 142/50 97 / 2337 98.6 81 20 95 06/11 2127 95 Room Air 06/11 2102 88 148/58 06/11 1602 Room Air 06/11 1525 98.2 74 20 150/60 95 /03 1109 97 Room Air Intake & Output 06/12 1600 06/12 0800 06/12 0000 Intake Total 200 480 Output Total Balance 200 480 Intake, Oral 200 480 Physical Exam General Appearance: Alert, Oriented X3, Cooperative, No Acute Distress HEENT: Atraumatic, Mucous Membr. moist/pink Cardiovascular: Regular Rate, Normal S1, Normal S2 Lungs: Clear to Auscultation, Normal Air Movement Abdomen: Normal Bowel Sounds, Soft, No Tenderness Extremities: No Clubbing, No Cyanosis, Normal Pulses, left arm swelling Vascular: Normal Pulses, Pulses Symmetrical Current Medications: Current Medications Sig/Ashley Start time Last Medication Dose Route Stop Time Status Admin Acetylcysteine 4 ML BID 06/09 2199 AC 06/12 INH 06/1324 Albuterol Sulfate 3 ML TID 06/09 2199 AC 06/12 INH 0924 Albuterol Sulfate 3 ML Q4P PRN 06/09 1045 AC 06/09 INH 1416 Amlodipine Besylate 7.5 MG DAILY 06/09 1000 AC 06/12 PO 075 Apixaban 2.5 MG BID 06/08 2359 AC 06/12 PO 0751 Atorvastatin Calcium 80 MG QPM 06/09 2200 AC 06/11 PO 2102 Benzonatate 100 MG TID PRN 06/09 0100 DC 06/09 PO 06/12 0059 0554 Budesonide/ 2 PUF BID 06/08 2345 AC 06/12 Formoterol Fumarate INH 0752 Carvedilol 25 MG BID 06/10 2200 AC 06/12 PO 0753 Finasteride 5 MG QPM 06/09 2200 AC 06/11 PO 2102 Guaifenesin 600 MG DAILY 06/09 1000 AC 06/12 PO 0751 Insulin Aspart 0 TIDAC 06/09 1700 AC 06/12 SC 0753 Losartan Potassium 75 MG QAM 06/09 1000 AC 06/12 PO 0750 Methylprednisolone 40 MG Q12 06/11 2200 AC 06/12 IV 0752 Methylprednisolone 40 MG Q8 06/09 220 DC 06/11 IV 0538 Assessment/Plan Assessment: 89 year old male with a PMH significant for A. 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 syncope. Assessment and Plan: COPD Exacerbation: * Continue oxygen supplementation to maintain saturations >90% * Discontinued IV Solu-Medrol 40mg today. Start PO prednison 40mg tomorrow * TRC/nebs as needed. * Mucomist nebs BID for 3 days- discontinue tomorrow * Continue home Symbicort * Pulmonary consult with Dr Herring ?Syncope: He has a history of orthostatic hypotension. He does have a history of atrial fibrilliation and carotid stenosis which can predispose to clots. Patient denies feeling dizzy or lightheaded at this time. Patient has not had any syncopal or presyncopal episodes since admission. Likely syncope is secondary to his intense coughing spells due to his COPD exacerbation. History of Atrial Fibrilliation: * Continue Apixaban 2.5mg BID. * Heart rate well controlled. No need for AV rhoda blocking agents at this time History of Hypertension/HLD: * Continue Losartan, Amlodipine * Carvedilol increased to 25mg BID per cardiology recs * Continue Atorvastatin History of BPH: * Continue Finasteride Left arm swelling Left arm swelling is present for the past few days. No history of any trauma. No evidence of any thrombophlebitis. No area of redness. Pulses felt. Patient continues to have swelling. Denies pain. Ultrasound of the LUE was negative for DVT or collection of fluid. * Continue to keep elevated and warm compress Diet: Diabetic DVT Prophylaxis: On Eliquis Code: DNR/DNI Dispo: Upon medical clearance will require STR Plan-cardiology, pulmonology follow-up. Problem List: 1. COPD exacerbation Pain Ratin Pain Location: n/a Pain Goal: Remain pain free Pain Plan: tylenol PRN Tomorrow's Labs & Rationales: none Anjali Mariscal MD 06/12/17 1348: Attending MD Review Statement Attending Statement Attending MD Statement: examined this patient, discuss w/resident/PA/RECLAIMER, agreed w/resident/PA/RECLAIMER, reviewed EMR data (avail), discussed with nursing, amended to note Attending Assessment/Plan: Patient seen and examined. Resting comfortably not in any acute distress. No issues overnight. Reports feeling well this morning. Continues complain of shortness of breath with exertion. Continues complain of left upper extremity swelling. On examination he has adequate entry bilaterally with no added sounds. He continues to have swelling of the left forearm. Recommendations: -Pulmonology follow-up appreciated. Transition to prednisone as recommended. -Obtain sonogram of the left upper extremity to rule out DVT. Continue elevation of the arm. -Continue anticoagulation therapy. -[facility] once cleared by the pulmonology service
--- NOTE | 2017-06-12 13:15 | PN- Pulmonary ---
Subjective HPI/Critical Care Issues: Patient seen and examined this morning. He appears to be doing somewhat better. He is anticipating discharge to subacute rehabilitation this week. Objective Current Medications: Current Medications Sig/Ashley Start time Last Medication Dose Route Stop Time Status Admin Acetylcysteine 4 ML BID 06/09 2200 AC 06/12 INH /05 2300 0924 Albuterol Sulfate 3 ML TID 06/09 2200 AC 06/12 INH 0924 Albuterol Sulfate 3 ML Q4P PRN 06/09 1045 AC 06/09 INH 1416 Amlodipine Besylate 7.5 MG DAILY 06/09 1000 AC 06/12 PO 0752 Apixaban 2.5 MG BID 06/08 2359 AC 06/12 PO 0751 Atorvastatin Calcium 80 MG QPM 06/09 2200 AC 06/11 PO 2102 Benzonatate 100 MG TID PRN 06/09 0100 DC 06/09 PO 06/12 0059 0554 Budesonide/ 2 PUF BID 06/08 2345 AC 06/12 Formoterol Fumarate INH 0752 Carvedilol 25 MG BID 06/10 2200 AC 06/12 PO 0753 Finasteride 5 MG QPM 06/09 2200 AC 06/11 PO 2102 Guaifenesin 600 MG DAILY 06/09 1000 AC 06/12 PO 0751 Insulin Aspart 0 TIDAC 06/09 1700 AC 06/12 SC 1230 Losartan Potassium 75 MG QAM 06/09 1000 AC 06/12 PO 0750 Methylprednisolone 40 MG Q12 06/11 2200 AC 06/12 IV 0752 Methylprednisolone 40 MG Q8 06/09 2200 DC 06/11 IV 0538 Vital Signs & I&O Last 24 Hrs of Vitals and I&O: Vital Signs Date Time Temp Pulse Resp B/P B/P Pulse O2 O2 Flow FiO2 Mean Ox Delivery Rate 06/12 08 Nasal Cannula 06/12 0753 80 142/50 / 0752 80 142/50 02/ 0638 98.9 80 20 142/50 97 02/ 2337 98.6 81 20 95 02/03 2127 95 Room Air 02/ 2102 88 148/58 02/ 1602 Room Air / 1525 98.2 74 20 150/60 95 Intake & Output 06/12 1600 06/12 0800 02/ 0000 Intake Total 200 480 Output Total Balance 200 480 Intake, Oral 200 480 Exam Other Physical Findings: Generally - Awake, alert Head and neck - normocephalic, atraumatic, EOMI grossly intact Cardiovascular - S1, S2 Lungs -bilateral wheezing improved Abdomen - Bowel sounds positive, soft, non-tender Extremities -left upper extremity edema Impression/Plan Impression/Plan Impression/Plan: Impression 89 year old man * dyspnea/wheezing - exacerbation of COPD likely secondary to a recent URI * hx of a.fib, vertigo, elevated probnp Plan -LUE swelling - usg pending -DC solumedrol and begin prednisone 40mgx2, 30x2, 20x2, 10x2 starting tomorrow -trc/nebs -nebs -mucomyst nebulized bid - can d/c tomorrow -cont eliquis
--- NOTE | 2017-06-12 15:17 | ULTRASOUND REPORT ---
EXAMINATION: LEFT UPPER EXTREMITY VENOUS DOPPLER ULTRASOUND CLINICAL INFORMATION: Left upper extremity swelling. Presumptive diagnosis of DVT. COMPARISON: None. TECHNIQUE: Doppler spectral analysis and color flow Doppler imaging was performed of the left upper extremity. Compression and augmentation maneuvers were performed. FINDINGS: The left internal jugular vein, proximal brachiocephalic vein, subclavian vein and axillary veins are all patent with normal color flow and phasic changes seen. The paired brachial veins are also patent with normal color flow and compressibility seen. The basilic and cephalic veins are patent with normal compressibility and color flow demonstrated. The radial and ulnar veins were not evaluated. In region of patient's pain in the mid forearm, prominent subcutaneous edema is seen without focal collection or mass noted. IMPRESSION: 1. No evidence of deep venous thrombosis in the left upper extremity down to the elbow. Forearm veins not studied. 2. Prominent subcutaneous edema seen in the forearm in region of patient's pain. No drainable fluid collection or other mass.
[2017-06-12 16:01] VITALS: BP 137/54
[2017-06-12 17:58] VITALS: BP 148/58
--- NOTE | 2017-06-12 19:29 | Transfer of Care Summary ---
Hospital Course Course Hospital Course: 89 year old male with a PMH significant for A. 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 syncope. Assessment and Plan: COPD Exacerbation: * Continue oxygen supplementation to maintain saturations >90% * Discontinued IV Solu-Medrol 40mg today. Start PO prednison 40mg tomorrow * TRC/nebs as needed. * Mucomist nebs BID for 3 days- discontinue tomorrow * Continue home Symbicort * Pulmonary consult with Dr Herring ?Syncope: He has a history of orthostatic hypotension. He does have a history of atrial fibrilliation and carotid stenosis which can predispose to clots. Patient denies feeling dizzy or lightheaded at this time. Patient has not had any syncopal or presyncopal episodes since admission. Likely syncope is secondary to his intense coughing spells due to his COPD exacerbation. History of Atrial Fibrilliation: * Continue Apixaban 2.5mg BID. * Heart rate well controlled. No need for AV rhoda blocking agents at this time History of Hypertension/HLD: * Continue Losartan, Amlodipine * Carvedilol increased to 25mg BID per cardiology recs * Continue Atorvastatin History of BPH: * Continue Finasteride Left arm swelling Left arm swelling is present for the past few days. No history of any trauma. No evidence of any thrombophlebitis. No area of redness. Pulses felt. Patient continues to have swelling. Denies pain. Ultrasound of the LUE was negative for DVT or collection of fluid. * Continue to keep elevated and warm compress Diet: Diabetic DVT Prophylaxis: On Eliquis Code: DNR/DNI Dispo: Upon medical clearance will require STR Plan-cardiology, pulmonology follow-up.
[2017-06-12 22:23] VITALS: BP 170/56
[2017-06-13 05:56] VITALS: BP 118/58
--- NOTE | 2017-06-13 07:49 | PN- Housestaff ---
ZhengJessica 06/13/17 0749: Subjective Follow-up For: Syncopal episode COPD Exacerbation Subjective: no overnight event. Patient was on TRC/Neb treatment when I entered. He felt about the same from admission. he would like to know what's the treatment plan before going to Rehab. Review of Systems Constitutional: Reports: see HPI. Objective Last 24 Hrs of Vital Signs/I&O Vital Signs Date Time Temp Pulse Resp B/P B/P Pulse O2 O2 Flow FiO2 Mean Ox Delivery Rate 06/13 0855 98 Room Air Room Air 06/13 0556 97.6 86 20 118/58 94 Room Air Room Air 06/13 0000 Room Air 06/12 2223 98.2 76 20 170/56 95 Room Air 06/12 2220 76 170/56 / 2051 94 Room Air 06/12 1758 97.6 67 20 148/58 96 Room Air 06/12 1601 98.9 88 20 137/54 97 02/ 1359 97 Room Air Intake & Output 06/13 1600 06/13 0800 06/13 0000 Intake Total 240 1010 Output Total 300 Balance 240 710 Intake, IV 10 Intake, Oral 240 1000 Number 0 Bowel Movements Output, Urine 300 Physical Exam General Appearance: Alert, Oriented X3, Cooperative, No Acute Distress Cardiovascular: Regular Rate Lungs: Clear to Auscultation, Normal Air Movement, s/p TRC/Neb treatment before I examine. Abdomen: Normal Bowel Sounds, Soft, No Tenderness Neurological: Normal Speech Extremities: No Cyanosis, No Edema, Normal Pulses, L lower arm pain same as before. Current Medications: Current Medications Sig/Ashley Start time Last Medication Dose Route Stop Time Status Admin Acetylcysteine 4 ML BID 06/09 2199 AC 06/12 INH 06/13 2300 0924 Albuterol Sulfate 3 ML BID 06/12 2199 AC 06/13 INH 0855 Albuterol Sulfate 3 ML TID 06/09 2200 DC 06/12 INH 1356 Albuterol Sulfate 3 ML Q4P PRN 06/09 1045 AC 06/09 INH 1416 Amlodipine Besylate 7.5 MG DAILY 06/09 1000 AC 06/12 PO 0752 Apixaban 2.5 MG BID 06/08 2359 AC 06/12 PO 222 Atorvastatin Calcium 80 MG QPM 06/09 220 AC 06/12 PO 2220 Budesonide/ 2 PUF BID 06/08 2345 AC 06/12 Formoterol Fumarate INH 2221 Carvedilol 25 MG BID 06/10 2200 AC 06/12 PO 2220 Finasteride 5 MG QPM 06/09 2200 AC 06/12 PO 2221 Guaifenesin 600 MG DAILY 06/09 1000 AC 06/12 PO 0751 Insulin Aspart 0 TIDAC 06/09 1700 AC 06/13 SC 0804 Losartan Potassium 75 MG QAM 06/09 1000 AC 06/12 PO 0750 Methylprednisolone 40 MG Q12 06/11 2200 DC 06/12 IV 0752 Prednisone 40 MG DAILY 06/13 1000 AC PO Assessment/Plan Assessment: 89 year old male with a PMH significant for A. 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 syncope. Assessment and Plan: COPD Exacerbation: * Continue oxygen supplementation to maintain saturations >90% * Continue PO prednison 40mg tomorrow, begin prednisone 40mgx2, 30x2, 20x2, 10x2 starting tomorrow per pulm * TRC/nebs as needed. * Mucomist nebs BID for 3 days- discontinue tomorrow, pending discharge to SNF * Continue home Symbicort * Pulmonary consult with Dr Herring ?Syncope: He has a history of orthostatic hypotension. He does have a history of atrial fibrilliation and carotid stenosis which can predispose to clots. Patient denies feeling dizzy or lightheaded at this time. Patient has not had any syncopal or presyncopal episodes since admission. Likely syncope is secondary to his intense coughing spells due to his COPD exacerbation. History of Atrial Fibrilliation: * Continue Apixaban 2.5mg BID. * Heart rate well controlled. No need for AV rhoda blocking agents at this time History of Hypertension/HLD: * Continue Losartan, Amlodipine * Carvedilol increased to 25mg BID per cardiology recs * Continue Atorvastatin History of BPH: * Continue Finasteride Left arm swelling Left arm swelling is present for the past few days. No history of any trauma. No evidence of any thrombophlebitis. No area of redness. Pulses felt. Patient continues to have swelling. Denies pain. Ultrasound of the LUE was negative for DVT or collection of fluid. * Continue to keep elevated and warm compress Diet: Diabetic DVT Prophylaxis: On Eliquis Code: DNR/DNI Dispo: Upon medical clearance will require STR Plan-cardiology, pulmonology follow-up. Problem List: 1. COPD (chronic obstructive pulmonary disease) Pain Ratin Pain Location: admitted L lower arm pain but did not give a scale. Pain Goal: Remain pain free Pain Plan: see AP Tomorrow's Labs & Rationales: CBC/BEP Ronan Huggins 06/13/17 1428: Attending MD Review Statement Attending Statement Attending MD Statement: examined this patient, discuss w/resident/PA/DINING ROOM HOST, agreed w/resident/PA/DINING ROOM HOST, discussed with family, reviewed EMR data (avail), discussed with nursing, discussed with case mgmt, reviewed images, amended to note Attending Assessment/Plan: Patient denies any new complaints. Patient is medically stable. His USG negative for upper extremity DVT. Continue with left arm eleavtion. Plan is to discharge to [facility].
--- NOTE | 2017-06-13 11:15 | PN- Pulmonary ---
Subjective HPI/Critical Care Issues: Patient seen and examined this morning. He appears to be more comfortable with respect to his breathing. He continues to have weakness which she will require rehabilitation for. His left arm is still slightly swollen however there was no clot that was noted or any drainable fluid. Objective Current Medications: Current Medications Sig/Ashley Start time Last Medication Dose Route Stop Time Status Admin Acetylcysteine 4 ML BID 06/09 2200 AC 06/12 INH 06/13 2300 0924 Albuterol Sulfate 3 ML BID 06/12 2200 AC 06/13 INH 0855 Albuterol Sulfate 3 ML TID 06/09 2200 DC 06/12 INH 1356 Albuterol Sulfate 3 ML Q4P PRN 06/09 1045 AC 06/09 INH 1416 Amlodipine Besylate 7.5 MG DAILY 06/09 1000 AC 06/13 PO 1000 Apixaban 2.5 MG BID 06/08 2359 AC 06/13 PO 0958 Atorvastatin Calcium 80 MG QPM 06/09 2200 AC 06/12 PO 2220 Budesonide/ 2 PUF BID 06/08 2345 AC 06/13 Formoterol Fumarate INH 1000 Carvedilol 25 MG BID 06/10 2200 AC 06/13 PO 0958 Finasteride 5 MG QPM 06/09 2200 AC 06/12 PO 2221 Guaifenesin 600 MG DAILY 06/09 1000 AC 06/13 PO 0958 Insulin Aspart 0 TIDAC 06/09 1700 AC 06/13 SC 0804 Losartan Potassium 75 MG QAM 06/09 1000 AC / PO 0959 Methylprednisolone 40 MG Q12 06/11 2200 DC 06/12 IV 0752 Prednisone 40 MG DAILY 06/13 1000 AC 06/13 PO 0958 Vital Signs & I&O Last 24 Hrs of Vitals and I&O: Vital Signs Date Time Temp Pulse Resp B/P B/P Pulse O2 O2 Flow FiO2 Mean Ox Delivery Rate 06/13 1000 62 146/58 06/13 0859 62 148/58 06/13 0858 62 146/58 06/13 0855 98 Room Air Room Air 06/13 0800 96 Room Air 06/13 0556 97.6 86 20 118/58 94 Room Air Room Air 06/13 0000 Room Air 06/12 2222 98.2 76 20 170/56 95 Room Air 06/12 2220 76 170/56 06/12 2050 94 Room Air 06/12 1758 97.6 67 20 148/58 96 Room Air 06/12 1601 98.9 88 20 137/54 97 06/12 1359 97 Room Air Intake & Output 06/13 1600 06/13 0800 06/13 0000 Intake Total 240 1010 Output Total 300 Balance 240 710 Intake, IV 10 Intake, Oral 240 1000 Number 0 Bowel Movements Output, Urine 300 Exam Other Physical Findings: Generally - Awake, alert Head and neck - normocephalic, atraumatic, EOMI grossly intact Cardiovascular - S1, S2 Lungs -bilateral wheezing improved Abdomen - Bowel sounds positive, soft, non-tender Extremities -left upper extremity edema Impression/Plan Impression/Plan Impression/Plan: Impression 89 year old man * dyspnea/wheezing - exacerbation of COPD likely secondary to a recent URI * hx of a.fib, vertigo, elevated probnp He continues to have weakness which she will require rehabilitation for. His left arm is still slightly swollen however there was no clot that was noted or any drainable fluid. Plan -LUE swelling per primary team -DC solumedrol and begin prednisone 40mgx2, 30x2, 20x2, 10x2 starting tomorrow -trc/nebs -nebs -mucomyst nebulized bid - can d/c tomorrow -cont eliquis
[2017-06-13 13:50] VITALS: BP 130/60
--- NOTE | 2017-06-13 20:22 | Discharge Summary ---
Visit Information Visit Dates Admission Date: 06/09/17 Discharge Date: 06/14/17 Hospital Course Course Attending Physician: Ronan Huggins MD Primary Care Physician: Bronson URBANO,[place] Hospital Course: Patient is an 89-year-old male with a PMH significant for A. fib on Eliquis s/p pacemaker and ICD placement, COPD not on home oxygen, PE, for previous MIs with 5 stents placed at [facility], AAA status post repair, prediabetes, CHF, who presented to the hospital for outpatient echocardiogram and had a rapid response called on him due to dyspnea, lightheadedness and a brief episode of unresponsiveness. Admitted to [facility] The following is the management COPD Exacerbation: Started on IV steroids and mucomist nebulizer. Once started improving transitioned to oral prednisone taper. TRC and nebulizations round the clock. Possible Syncope: He has a history of orthostatic hypotension. He does have a history of atrial fibrilliation and carotid stenosis which can predispose to clots. Patient denies feeling dizzy or lightheaded at this time. Patient has not had any syncopal or presyncopal episodes since admission. Likely posttussive syncope. Placed on telemetry for monitoring of arrythmias. once remained stable sent back to general medicine floor. History of Atrial Fibrilliation: We Continued Apixaban 2.5mg BID. Heart rate well controlled. No need for AV rhoda blocking agents at this time History of Hypertension/HLD: We continued Losartan, Amlodipine, Carvedilol increased to 25mg BID per cardiology recs. For HLD continue atorvastatin History of BPH: Continue Finasteride Left arm swelling Left arm swelling is present for the past few days. No history of any trauma. No evidence of any thrombophlebitis. No area of redness. Pulses felt. We'll continue monitoring and advised to keep his arm elevated. Ultrasound ruled out DVT. Diet: Diabetic DVT Prophylaxis: On Eliquis Code: DNR/DNI Complications: None Allergies: Coded Allergies: amoxicillin (From PREVPAC) (UNKNOWN 04/23/16) clarithromycin (From PREVPAC) (UNKNOWN 04/23/16) diazepam (HALLUCINATIONS 08/08/16) PER PATIENT, TOLERATES LOW DOSES lansoprazole (From PREVPAC) (UNKNOWN 04/23/16) morphine (Intermediate, LETHARGY, CONFUSION 04/23/16) meclizine (CONFUSION 04/23/16) Significant Procedures: ECHO on 06/09/17 CONCLUSIONS Normal left ventricular systolic function. Mild concentric left ventricular hypertrophy. Mild pulmonary hypertension. CT chest on 06/09/17 IMPRESSION: 1. Mild paraseptal emphysema of the upper lobes. 2. Chronic bronchial wall thickening in both lungs, as may be seen in bronchitis. Scattered opacities of atelectasis/scarring in both lungs. Compared to 08/10/2016, there is new subtle centrilobular nodular opacity in the right lower lobe, likely secondary to active bronchiolitis. 3. Atherosclerotic disease of coronary arteries and mild cardiomegaly. No pulmonary edema or pleural effusion. CXR IMPRESSION: No acute abnormality of the chest. Extremity venous doppler IMPRESSION: 1. No evidence of deep venous thrombosis in the left upper extremity down to the elbow. Forearm veins not studied. 2. Prominent subcutaneous edema seen in the forearm in region of patient's pain. No drainable fluid collection or other mass. Pertinent Lab Results: as above Disposition Summary Disposition Principal Diagnosis: COPD exacerbation Additional Diagnosis: Posttussive syncope A.fib CAD HLD Discharge Disposition: short term rehab Discharge Instructions General Discharge Information Code Status: Do Not Resucitate/Intubat Patient's Diet: as tolerated Patient's Activity: as tolerated Follow-Up Instructions/Appts: Please follow up with your PCP in a week Please follow up with your faucet polisher and cassandra architect in a week Medications at Discharge Discharge Medications: Stop taking the following medications: Levofloxacin (Levaquin) 500 MG TABLET ORAL DAILY Qty = 5 Azithromycin (Zithromax) 250 MG TABLET ORAL As Directed Qty = 6 Continue taking these medications: Budesonide/Formoterol Fumarate (Symbicort 160-4.5 Mcg Inhaler) 160 MCG-4.5 MCG/ ACTUATION HFA.AER.AD 2 Puff Inhale through mouth TWICE DAILY Comments: Last Taken: 06/14/17 Time: 0900 Apixaban (Eliquis) 2.5 MG TABLET 1 Tablet ORAL TWICE DAILY Comments: Last Taken 06/14/17 Time: 0900 Atorvastatin Calcium (Atorvastatin Calcium) 80 MG TABLET 1 Tablet ORAL Every night Comments: LAST GIVEN: 06/14/17 TIME: 2100 Guaifenesin (Mucinex) 600 MG TAB.ER.12H 1 Tablet ORAL As Directed as needed for MUCUS Comments: Last Taken: 06/14/17 Time: 0900 Finasteride (Finasteride) 5 MG TABLET 1 Tablet ORAL Every night Qty = 90 Comments: Last Taken: 06/13/17 Time: 2100 Losartan Potassium (Cozaar) 50 MG TABLET 1.5 Tablet ORAL Every Morning Comments: Last Taken: 06/14/17 Time: 0900 Magnesium (Magnesium) 250 MG TABLET 1 Tablet ORAL Every Morning Cyanocobalamin (Vitamin B-12) (Vitamin B-12) 500 MCG TABLET 1 Tablet ORAL Every Morning Cholecalciferol (Vitamin D3) (Vitamin D) 2,000 UNIT CAPSULE 1 Capsule ORAL Every Morning Carvedilol (Coreg) 12.5 MG TABLET 1 Tablet ORAL TWICE DAILY Comments: Last Taken: 06/14/17 Time: 0900 Nitroglycerin (Nitroglycerin) 0.4 MG TAB.SUBL 1 Tablet SUBLINGUAL As Directed as needed for CHEST PAIN - HEART Instructions: 1st sign of attack; may repeat every 5 minutes until relief; if pain persists after 3 tablets in 15 minutes, prompt medical att Amlodipine Besylate (Amlodipine Besylate) 5 MG TABLET 7.5 Milligram ORAL DAILY Benzonatate (Tessalon Perle) 100 MG CAPSULE 1 Capsule ORAL THREE TIMES DAILY as needed for COUGH Qty = 30 Albuterol Sulfate (Proair Hfa) 90 MCG HFA.AER.AD 2 Puff Inhale through mouth EVERY 4-6 HOURS NEEDED as needed for SOB Qty = 1 Codeine Phosphate/Guaifenesi (Cheratussin AC Syrup) 10 MG-100 MG/5 ML LIQUID 5-10 Milliliters ORAL EVERY SIX HOURS NEEDED as needed for COUGH Qty = 6 Start taking the following new medications: Prednisone (Prednisone) 10 MG TABLET 1 Tablet ORAL DAILY Qty = 12 No Refills Comments: 06/15-06/16: Please take 3 tablets, once daily 06/17-06/18: Please take 2 tablets, once daily 06/19-06/20: Please take 1 tablet, once daily Copies To: Bronson URBANO,Gela Attending MD Review Statement Documenting Attending: Joseluis URBANO,Ronan Other Findings: Patient medically stable for discharge.
[2017-06-13 21:22] VITALS: BP 130/56
[2017-06-13 21:55] VITALS: BP 130/56
[2017-06-14 06:43] VITALS: BP 142/57
[2017-06-14] MEDS ORDERED: PREDNISONE10 M2 PO (08:51)
--- NOTE | 2017-06-14 08:52 | PN- Housestaff ---
CalzadaJessica 06/14/17 0852: Subjective Follow-up For: COPD Exacerbation Post-tuissive Syncopal episode Subjective: No overnight event. Patient felt much spiritied today and was eating his breakfast. Stated that he would be back to [facility] today by shuttle before 11:30. [place] much improved overall. Review of Systems Constitutional: Reports: see HPI. Objective Last 24 Hrs of Vital Signs/I&O Vital Signs Date Time Temp Pulse Resp B/P B/P Pulse O2 O2 Flow FiO2 Mean Ox Delivery Rate 06/14 0543 97.5 67 18 142/57 97 Room Air 06/14 0000 Room Air 06/13 2155 97.9 63 20 130/56 96 Room Air 06/13 2122 97.9 63 20 130/56 96 Room Air 06/13 2105 63 130/56 06/13 1940 96 Room Air 06/13 1350 98.0 63 18 130/60 97 Room Air 06/13 1000 62 146/58 06/13 0959 62 148/58 06/13 0958 62 146/58 06/13 0855 98 Room Air Room Air Intake & Output 06/14 1600 06/14 0800 06/14 0000 Intake Total 250 Output Total Balance 250 Intake, IV 10 Intake, Oral 240 Number 0 Bowel Movements Physical Exam General Appearance: Alert, Oriented X3, Cooperative, No Acute Distress Lungs: Clear to Auscultation, Normal Air Movement Abdomen: Normal Bowel Sounds, Soft, No Tenderness Neurological: Normal Speech Extremities: No Edema, Normal Pulses Current Medications: Current Medications Sig/Ashley Start time Last Medication Dose Route Stop Time Status Admin Acetylcysteine 4 ML BID 06/09 2199 DC 06/12 INH 06/13 2300 0924 Albuterol Sulfate 3 ML BID 06/12 2199 AC 06/13 INH 1940 Albuterol Sulfate 3 ML Q4P PRN 06/09 1045 AC 06/09 INH 1416 Amlodipine Besylate 7.5 MG DAILY 06/09 1000 AC 06/13 PO 1000 Apixaban 2.5 MG BID 06/08 2358 AC 06/13 PO 210 Atorvastatin Calcium 80 MG QPM 06/09 2199 AC 06/13 PO 210 Budesonide/ 2 PUF BID 06/08 2345 AC 06/13 Formoterol Fumarate INH 210 Carvedilol 25 MG BID 06/10 2199 AC 06/13 PO 2105 Finasteride 5 MG QPM 06/09 2200 AC / PO 2105 Guaifenesin 600 MG DAILY 06/09 1000 AC /05 PO 0958 Insulin Aspart 0 TIDAC 06/09 1700 AC / SC 1715 Losartan Potassium 75 MG QAM 06/09 1000 AC /05 PO 0959 Prednisone 40 MG DAILY 06/13 1000 AC /05 PO 0958 Assessment/Plan Assessment: 89 year old male with a PMH significant for A. fib on Eliquis status post pacemaker and ICD placement, COPD on oxygen or steroid dependent, PE, for previous MIs with 5 stents placed at [facility], AAA status post repair, CHF came in to the hospital for outpatient echocardiogram and had a rapid response called on him due to dyspnea, lightheadedness and a brief episode of ? syncope. Assessment and Plan: COPD Exacerbation: * Continue oxygen supplementation to maintain saturations >90% * Pending discharge back to SNF with prednisone tapering 40mgx2, 30x2, 20x2, 10x2 * TRC/nebs as needed. * Mucomist nebs BID for 3 days- discontinued today, pending discharge to SNF * Continued home Symbicort ?Syncope: He has a history of orthostatic hypotension. He does have a history of atrial fibrilliation and carotid stenosis which can predispose to clots. Patient denied feeling dizzy or lightheaded at this time. Patient has not had any syncopal or presyncopal episodes since admission. Likely syncope is secondary to his intense coughing spells due to his COPD exacerbation. History of Atrial Fibrilliation: * Continued Apixaban 2.5mg BID. * Heart rate well controlled. No need for AV rhoda blocking agents at this time History of Hypertension/HLD: * Continue Losartan, Amlodipine * Carvedilol increased to 25mg BID per cardiology recs * Continue Atorvastatin History of BPH: * Continue Finasteride Left arm swelling Left arm swelling is present for the past few days. No history of any trauma. No evidence of any thrombophlebitis. No area of redness. Pulses felt. Patient continues to have swelling. Denies pain. Ultrasound of the LUE was negative for DVT or collection of fluid. - Patient felt the swelling is getting better today. * Continue to keep elevated and warm compress Diet: Diabetic DVT Prophylaxis: On Eliquis Code: DNR/DNI Dispo: Upon medical clearance will require STR Plan-cardiology, pulmonology follow-up. Problem List: 1. COPD (chronic obstructive pulmonary disease) 2. Near syncope Pain Ratin Pain Location: NA Pain Goal: Remain pain free Pain Plan: see AP Tomorrow's Labs & Rationales: NA Ronan Huggins 06/14/17 1530: Attending MD Review Statement Attending Statement Attending MD Statement: examined this patient, discuss w/resident/PA/SIGNAL TIMER, agreed w/resident/PA/SIGNAL TIMER, discussed with family, reviewed EMR data (avail), discussed with nursing, discussed with case mgmt, reviewed images, amended to note
[2017-06-14 11:07] VITALS: BP 142/57
--- NOTE | 2017-06-14 12:30 | PN- Pulmonary ---
Subjective HPI/Critical Care Issues: Patient seen and examined's morning. He appears to be doing much better he is ready for discharge. Objective Current Medications: Current Medications Sig/Ashley Start time Last Medication Dose Route Stop Time Status Admin Acetylcysteine 4 ML BID 06/090 DC 06/12 INH 06/13 2300 0924 Albuterol Sulfate 3 ML BID 06/12 2200 DCD 06/14 INH 1109 Albuterol Sulfate 3 ML Q4P PRN 06/09 1045 DCD 06/09 INH 1416 Amlodipine Besylate 7.5 MG DAILY 06/09 1000 DCD 02 PO 0859 Apixaban 2.5 MG BID 06/08 2359 DCD 06/14 PO 0859 Atorvastatin Calcium 80 MG QPM 06/09 2200 DCD 02 PO 2105 Budesonide/ 2 PUF BID 06/08 2345 DCD 06/14 Formoterol Fumarate INH 0857 Carvedilol 25 MG BID 06/10 2200 DCD / PO 0859 Finasteride 5 MG QPM 06/09 2200 DCD 02 PO 2105 Guaifenesin 600 MG DAILY 06/09 1000 DCD 02/ PO 0859 Insulin Aspart 0 TIDAC 06/09 1700 DCD 02 SC 0857 Losartan Potassium 75 MG QAM 06/09 1000 DCD 02/ PO 0859 Prednisone 40 MG DAILY 06/13 1000 DCD 02/ PO 0900 Vital Signs & I&O Last 24 Hrs of Vitals and I&O: Vital Signs Date Time Temp Pulse Resp B/P B/P Pulse O2 O2 Flow FiO2 Mean Ox Delivery Rate 06/14 1113 96 Room Air 06/14 1107 97.5 67 18 142/57 02/06 0859 142/57 02/ 0859 142/57 / 0800 Room Air 02/ 0643 97.5 67 18 142/57 97 Room Air 02/ 0000 Room Air 02/ 2155 97.9 63 20 130/56 96 Room Air 02/ 2122 97.9 63 20 130/56 96 Room Air 02/ 2105 63 130/56 02/ 1940 96 Room Air 02/ 1350 98.0 63 18 130/60 97 Room Air Intake & Output 06/14 1600 02 0800 02/ 0000 Intake Total 250 Output Total Balance 250 Intake, IV 10 Intake, Oral 240 Number 0 Bowel Movements Exam Other Physical Findings: Generally - Awake, alert Head and neck - normocephalic, atraumatic, EOMI grossly intact Cardiovascular - S1, S2 Lungs -bilateral wheezing improved Abdomen - Bowel sounds positive, soft, non-tender Extremities -left upper extremity edema Impression/Plan Impression/Plan Impression/Plan: Impression 89 year old man * dyspnea/wheezing - exacerbation of COPD likely secondary to a recent URI * hx of a.fib, vertigo, elevated probnp He continues to have weakness which she will require rehabilitation for. His left arm is still slightly swollen however there was no clot that was noted or any drainable fluid. Plan -LUE swelling per primary team -prednisone taper as ordered -trc/nebs -nebs -cont eliquis
== END 2017-06-14 11:40 | DRG 191 ==
LOC: ERH 14:31 → ERHI 21:13 → CRI 21:13 → ENRESERV 22:36 → ENTRNSPT 22:49 → EDTRNSPTSTS 22:55 → CRI 23:00 → 2NB 23:02 → CMPTRNSPT 23:24 → 2NB 06-09 08:04 → CRI 06-09 09:53 → 1NO 06-09 12:54 → CRI 06-09 12:54 → DELTRNSPT 06-09 19:17 → ENTRNSPT 06-09 19:18 → EDTRNSPTSTS 06-09 19:31 → CMPTRNSPT 06-09 19:59 → 1NO 06-09 20:00 → ENTRNSPT 06-12 16:00 → EDTRNSPT 06-12 16:28 → EDTRNSPTSTS 06-12 16:46 → 2NB 06-12 16:59 → CMPTRNSPT 06-12 17:08 → 2NB 06-13 09:19 → ENPENDDIS 06-14 09:33 → 2NB 06-14 11:40
PROVIDERS: Emergency Medicine; Internal Medicine Infectious Disease; Student in an Organized Health Care Education/Training Program
DX: J44.1 Chronic obstructive pulmonary disease with (acute) exacerbation (principal); I13.0 Hypertensive heart and chronic kidney disease with heart failure and stage 1 through stage 4 chronic kidney disease, or unspecified chronic kidney disease; I50.42 Chronic combined systolic (congestive) and diastolic (congestive) heart failure; I48.91 Unspecified atrial fibrillation; I42.8 Other cardiomyopathies; I65.29 Occlusion and stenosis of unspecified carotid artery; E78.5 Hyperlipidemia, unspecified; R55 Syncope and collapse; J06.9 Acute upper respiratory infection, unspecified; N18.9 Chronic kidney disease, unspecified; Z79.01 Long term (current) use of anticoagulants; Z95.810 Presence of automatic (implantable) cardiac defibrillator; Z86.711 Personal history of pulmonary embolism; I25.10 Atherosclerotic heart disease of native coronary artery without angina pectoris; Z95.5 Presence of coronary angioplasty implant and graft; R73.03 Prediabetes; I95.1 Orthostatic hypotension; N40.0 Benign prostatic hyperplasia without lower urinary tract symptoms; Z66 Do not resuscitate; Z87.891 Personal history of nicotine dependence; F41.9 Anxiety disorder, unspecified; Z86.718 Personal history of other venous thrombosis and embolism; Z79.52 Long term (current) use of systemic steroids
CPT/HCPCS: 1NSP; 2NSBP; 36415; 71045; 81001; 82436; 87040; 87086; 87804; 87804-59; 93005; 93010; 93306; 96374; 97110-GO; 97116-GO; 97161-GP; 97530-GO; J0456; J2920; J2930; J3490; J7060; J7608